=== PATIENT | male | born 1975 | race Caucasian/White ===

== ENCOUNTER → 2020-07-29 11:41 | Outpatient (BNVA) | payer MEDICARE, SELFPAY | PROVIDERS: PCP Internal Medicine; Visit Provider Anesthesiology | DX: G89.4 Chronic pain syndrome (principal); M96.1 Postlaminectomy syndrome, not elsewhere classified; Z96.82 Presence of neurostimulator | CPT/HCPCS: 99212 ==

== ENCOUNTER → 2020-11-10 11:09 | Outpatient (BNVA) | payer MEDICARE, SELFPAY | PROVIDERS: PCP Internal Medicine; Visit Provider Anesthesiology | DX: M96.1 Postlaminectomy syndrome, not elsewhere classified (principal); G89.4 Chronic pain syndrome | CPT/HCPCS: 99212 ==

== ENCOUNTER → 2020-12-01 15:12 | Outpatient (BNVA) | payer MEDICARE, SELFPAY | PROVIDERS: Visit Provider Anesthesiology | DX: M96.1 Postlaminectomy syndrome, not elsewhere classified (principal); G89.4 Chronic pain syndrome | CPT/HCPCS: 99212 ==

== ENCOUNTER 2021-05-06 07:03 | Day surgery (SDC) | payer MEDICARE, SELFPAY ==
[2021-04-28 16:34] VITALS: BMI 23.6
--- NOTE | 2021-05-05 09:04 | P.CONAN_ITS ---
Documented by User: Valarie Jones NP 05/05/21 09:05 HPI - Anesthesia Eval Consult details Narrative: 45yo M for Lumbar Spinal Cord Stimulator Revision, Removal & Replacement PMFSH Active Problems Active Problems: All Active Problems (Updated 04/28/21 @ 16:33 by Rachel Adan, KALA) Chronic pain syndrome (Acute) Postlaminectomy syndrome (Acute) Past Medical History Medical History Anxiety and depression Asthma Chronic pain syndrome GERD (gastroesophageal reflux disease) Postlaminectomy syndrome PTSD (post-traumatic stress disorder) Surgical History Surgical History History of discectomy S/P insertion of spinal cord stimulator Social History Social History (Updated 04/28/21 @ 16:17 by Rachel Adan RN) Patient Tobacco Use Status: Current someday Tobacco user Use of substances other than those prescribed or required for medical reasons: No Are you DNR?: No Advance Directives: No Advance Directives Information Provided: No Advance Directives on File: No Meds Allergies Allergy/AdvReac Type Severity Reaction Status Date / Time No Known Allergies Allergy Verified 05/06/21 07:50 [No Known Allergies*] Home Medications Medication Instructions Recorded Confirmed Last Taken Type albuterol sulfate 1 vial INHALATION Q4H PRN 04/28/21 04/28/21 Unknown History bupropion HCl 300 mg 24 hr tablet, 1 tab PO QAM 04/28/21 04/28/21 Unknown History extended release clonazepam 1 mg tablet 1 tab PO TID 04/28/21 04/28/21 Unknown History mirtazapine 30 mg tablet 1 tab PO BEDTIME 04/28/21 04/28/21 Unknown History olanzapine 10 mg tablet 1 tab PO BEDTIME 04/28/21 04/28/21 Unknown History olanzapine 5 mg tablet 1 tab PO DAILY PRN 04/28/21 04/28/21 Unknown History sertraline 100 mg tablet 2 tab PO DAILY 04/28/21 04/28/21 Unknown History sucralfate 100 mg/mL oral 10 ml PO QID 04/28/21 04/28/21 Unknown History suspension tramadol 50 mg tablet 1 tab PO TID 04/28/21 04/28/21 Unknown History zolpidem 10 mg tablet 1 tab PO BEDTIME 04/28/21 04/28/21 Unknown History Exam Exam Date and Time: May 05, 2021 09 Height,Weight and Vital Signs: Height 5 ft 9 in Weight 72.575 kg Assessment and Plan Assessment Anesthesia Assessment: Chart Reviewed Documented by User: Andrade Muñoz MD 05/06/21 08:08 [facility] Past Medical History Medical History Anxiety and depression Asthma Chronic pain syndrome GERD (gastroesophageal reflux disease) Postlaminectomy syndrome PTSD (post-traumatic stress disorder) Surgical History Surgical History History of discectomy S/P insertion of spinal cord stimulator Social History Social History (Updated 04/28/21 @ 16:17 by Rachel Adan RN) Patient Tobacco Use Status: Current someday Tobacco user Use of substances other than those prescribed or required for medical reasons: No Are you DNR?: No Advance Directives: No Advance Directives Information Provided: No Advance Directives on File: No Meds Allergies Allergy/AdvReac Type Severity Reaction Status Date / Time No Known Allergies Allergy Verified 05/06/21 07:50 [No Known Allergies*] Home Medications Medication Instructions Recorded Confirmed Last Taken Type albuterol sulfate 1 vial INHALATION Q4H PRN 04/28/21 04/28/21 Unknown History bupropion HCl 300 mg 24 hr tablet, 1 tab PO QAM 04/28/21 04/28/21 Unknown History extended release clonazepam 1 mg tablet 1 tab PO TID 04/28/21 04/28/21 Unknown History mirtazapine 30 mg tablet 1 tab PO BEDTIME 04/28/21 04/28/21 Unknown History olanzapine 10 mg tablet 1 tab PO BEDTIME 04/28/21 04/28/21 Unknown History olanzapine 5 mg tablet 1 tab PO DAILY PRN 04/28/21 04/28/21 Unknown History sertraline 100 mg tablet 2 tab PO DAILY 04/28/21 04/28/21 Unknown History sucralfate 100 mg/mL oral 10 ml PO QID 04/28/21 04/28/21 Unknown History suspension tramadol 50 mg tablet 1 tab PO TID 04/28/21 04/28/21 Unknown History zolpidem 10 mg tablet 1 tab PO BEDTIME 04/28/21 04/28/21 Unknown History Exam Airway Mallampati Class: I TM Dist: >3cm Neck ROM: Full
[2021-05-06] VITALS (10 sets, daily range): BP systolic 119–165; BP diastolic 69–98; PULSE 59–90; RESP 16–20; TEMP 36.3–37.2; O2SAT 96–98
--- NOTE | ~2021-05-06 | FL_ITS ---
EXAMINATION: XR FLUOROSCOPY WITH IMAGES CLINICAL INFORMATION: Lumbar spinal cord stimulator revision COMPARISON: None. TECHNIQUE: Fluoroscopy performed by Dr. Yuri. Laughlin. Fluoroscopy time: 9.5 minutes DAP: 69.3 mGycm2 Images: 2 FINDINGS: There are 2 posterior epidural stimulator seen extending from T7 through T10 vertebra. Visualized vertebral heights, alignment and disc heights are normal. No visible acute fracture or lytic process seen. The paravertebral soft tissues are normal. FL/FL guidance in OR IMPRESSION: Fluoroscopy was provided to Dr. Coleman Laughlin during pain management.
[2021-05-06] MEDS: Lactated Ringers 1,000 ML 100 ML IVCONT (08:08)
--- NOTE | 2021-05-06 08:32 | MHC.SHP ---
Pre-Procedural Eval Section A Date of Service: 05/06/21 The patient is an INPATIENT: No Changes since office visit: Yes Patient answered all questions The History & Physical has been completed within 30 days and I have reviewed it.: No Section B Chief Complaint: postlaminectomy syndrome Details of Present Illness: postlaminectomy syndrome cervical and lumbar spine, presence of the spinal cord stimilator Relevant Family History (Specify if Yes): No Relevant Social History: None Present Medications: see Short Stay Collaborative assessment Medical History: No relevant PMH History of Previous Operations: Relevant previous surgery/procedure and date(s) Allergies: Allergies Allergy/AdvReac Type Severity Reaction Status Date / Time No Known Allergies Allergy Verified 05/06/21 07:50 [No Known Allergies*] Review of Systems Sugical H&P ROS: Negative: Constitution, Cardiovascular, Respiratory, Neurological, Psychiatric, Hem-Onc, Allergic/Immunologic, Gastrointestinal, Genitourinary, Musculoskeletal, Integumentary, Endocrine and Eyes/Ears/Nose/Throat Exam Surgical H&P Exam: Normal: HEENT, Normal: Heart, Normal: Lungs, Normal: Extremities, Normal: Abdomen, Normal: Skin and Normal: Neurological Plan Diagnosis/Plan: Unchanged I have reviewed the history and physical and performed a pertinent physical examination on my patient. No changes have occurred unless specified.
--- NOTE | 2021-05-06 14:20 | PM.OP ---
Brief Operative Note Date of Service: 05/06/21 Pre-op diagnosis: Postlaminectomy syndrome lumbar and cervical spine Post-op diagnosis: same Procedure: Revision of spinal cord stimulation system. Removal of old combine [employer] and [place] device and replacement with stim wave battery free system. Implants: Stimwave freedom 8 contact leads, numerum 2 Surgeon: Coleman Laughlin MD Anesthesia: MAC Was an Lens Inspector used for this Procedure?: No Estimated blood loss (mL): 100 IV fluids (mL): 1,000 Pathology: none sent Condition: stable Disposition: PACU
--- NOTE | 2021-05-06 14:23 | W.PM.OPN ---
Operative Note Operative Note Date of Service: 05/06/21 Narrative: Hebert Smith is very pleasant 45 years old gentleman who is suffering from cervical as well as lumbar postlaminectomy syndrome. For the treatment of this condition he was in the past implanted with cervical and lumbar spinal cord stimulator [employer]tron[employer] system. He had 2 batteries in the past. He complained on the battery causing severe discomfort for him. I offered him in the past to remove 2 batteries [employer]tronics and replace it with as 1 [employer] Waverider battery. This procedure was done about 1 year ago. Postprocedurally he felt good pain relief from the device however he continued to complain on the battery site pain, irritation and redness at the side of the battery. He came to my office few months ago requesting to remove all 4 leads of spinal cord stimulator as well as waverider battery. At that moment I recommended him to consider Stimwave - battery- free device. He agreed to proceed with the surgery. After obtaining informed consent the patient was brought to the operating room and he was positioned prone on operating table, [employer] monitors were applied. Patient was moderately to deeply sedated. Time-out was performed delineating correct site and side of the procedure, date of and name of the patient, risk of fire, risk of DVT prophylaxis DVT prophylaxis need. We also discussed antibiotics needs which he received 2 g of cefazolin 30 minutes before the procedure. His lower back was prepped with ChloraPrep twice and draped with full body drape. Ioban film was used to cover the skin. Sterilely draped C-arm was brought over the operating field and pictures of the existing epidural leads the patient's back were obtained on the screen. Attention was 1st concentrated on the left upper buttock where the patient had his waverider [employer] battery implanted. The scar in this area was keloid in nature. Local anesthetic mixture of bupivacain 0.5% and lidocain 2% was used to inject into skin and subcutaneous tissues surrounding previous scar in the left upper buttock. To incisions bordering the existing scar and parallel to it above and below the scar using 10 blade scalpel was made, the incisions were connecting outside of the scar tissue at the medial and lateral corners of the scar line. Tissue dissection was performed using electrocautery device and scalpel down to the battery, thorough hemostasis was obtained. After that the battery was located at the bottom of the wound anchoring sutures were severed and the battery was delivered to the level of the skin. The 4 connecting electrodes were severed with suture scissors. Tissues were dissected to free the epidural leads and [employer] extension devices from the surrounding tissues. The battery pocket was excised using sharp and electrocautery dissection. The wound was irrigated with vancomycin containing normal saline and packed with vancomycin containing raytecs. After that attention was concentrated on the right buttock where the epidural leads from his lumbar site were located. The previous scar was infiltrated with lidocaine and incision was made alongside the scar. Electrocautery and sharp dissection was used to free the existing epidural leads from surrounding tissues. Attempt was made to withdraw epidural leads from this wound all the way down to the area of the buttock wound. Unfortunately this was impossible to perform, the anchoring devices were holding the epidural leads very tight. After that irrigation was performed on both upper left and upper right buttock wounds and the wounds were packed with Raytechs soaked in vancomycin containing normal saline. After that attention was concentrated on the lumbar L3-L4 area where the patient had his anchoring devices implanted. Local lidocaine2% and bupivacaine 0.5% injection was performed in the projection of the previously made scar from implantation of the spinal cord stimulators. Using 10 blade scalpel the incision 6.5 cm long was performed in the projection of the previous scar. The incision was widened using electrocautery and scalpel dissection. Weitlaner retractor was used to widen the incision. Dull dissection was used to locate the anchoring devices which were holding epidural leads to the wound. Anchoring devices were dissected from surrounding tissues and anchoring sutures were severed. The epidural leads were pulled out of the epidural space and after that they were pulled from the buttock wounds and discarded. All three wounds were irrigated again using vancomycin containing normal saline. Upper left and upper right buttock wounds were packed with Ray tecs soaked with vancomycin containing normal saline and they were covered with sterile Tegaderm films. Attention was concentrated on midline incision. 16 gauge 12 cm Coude introducer epidural needle was inserted in the upper portion of the wound in projection of the L3 pedicle on the right and it was advanced to T12-L1 epidural interspace on anterior posterior and lateral views. Loss of resistance technique was used to locate epidural space. Guitar wire was used to locate the epidural space. When the epidural space was found the epidural lead stim wave freedom 8 electrode was inserted through the needle and advanced to the T8 projection of the vertebral body. On the lateral view the epidural lead was positioned in the posterior epidural space. The advancement happened to be very difficult and lots of adhesions were encountered while advancing epidural space however eventually epidural leads enter the previous tunnel of the removed epidural lead and was advanced alongside midline without difficulty. After that 16 gauge 12 cm coude needle was used to locate epidural space on the left side T12-L1. When epidural space was located with the same technique described above the advancement of the epidural lead was very difficult to perform. Epidural adhesions did not allow me to advance the epidural lead to the posterior epidural space and the he needle position was constrained by the geometry of the wound and I did not succeed in advancement of the epidural lead into posterior epidural space, it kept sliding into the epidural gutter. After that 16 cm 16 gauge coude needle was attempted to use to reach T11-T12 epidural space. Epidural space was reached at that point without difficulty. However again due to geometry of the lumbar wound I was not able to keep the needle close to posterior midline epidural interspace and the lead from that position also was going into the epidural gutter. Then decision was made to advance epidural lead making small incision along side the wound to improve the advancement of the lead needle to the most posterior portion of the epidural space at T12-L1 area. The advancement went uneventful according the technique described above. From that point on I was able to advance the epidural lead to projection of the lower portion of T9 vertebra in the posterior epidural space. I was not able to advance it any further due to severe adhesions which were preventing my epidural lead from advancement and bending the epidural needle with attempts of advancement. Unfortunately stim wave epidural leads are bigger in diameter than blue sheath introducer [employer] and I could not use this device to prevent bending of the epidural leads. The decision was made to keep the lead in the position of the T9 vertebra. After that the epidural lead was tunneled to the midline incision using epidural needle and guitar wire. After that both epidural leads were sutured with Tycron 0 sutures to the underlying tissues and prevertebral fascia. The wound was irrigated with vancomycin containing normal saline and packed with vancomycin solution soaked 4 x 4. After that small horizontal incision was performed in the projection of the left sacral alae of the patient and this wound was widened a and deepened using electrocautery and sharp dissection. The tunneling device was used to connect midline incision and the small incision in the projection of left sacral alae and then epidural leads were passed over into this small incision through the tunneling device. The wire coil was formed at the end of the epidural leads and and secured with 3 free silk sutures. The coil was inserted into the wound and wound was irrigated with normal saline containing vancomycin. After that all the wounds were again irrigated with vancomycin containing normal saline and then they were closed using 0 Polysorb sutures, 2-0 Polysorb sutures were used to approximate the levels of the skin. After that the frankie were applied to all 4 wounds. The small side wound alongside the midline incision on the left in the lumbar area was closed with 1 0-0 silk suture. Bacitracin ointment was applied to all wound incisions. The wounds were covered with 4 x 4 and Medipore tape. The stimulating paddle was applied to the patient's dressing. At this point the patient was transferred to the bed awaken and transferred safely to PACU.
--- NOTE | 2021-05-06 15:02 | PM.IMHP ---
History of Present Illness Date of Service: 05/06/21 Chief Complaint: back pain 45M presented for elective stimulator revision. unable to manage at home postoperatively, will stay overnight. has back pain postoperatively, otherwise no active complaints Review of Systems Review of Systems: Yes all other systems are reviewed and are negative [facility] Medical History Anxiety and depression Asthma Chronic pain syndrome GERD (gastroesophageal reflux disease) Postlaminectomy syndrome PTSD (post-traumatic stress disorder) Surgical History History of discectomy S/P insertion of spinal cord stimulator Social History Patient Tobacco Use Status: Current someday Tobacco user Use of substances other than those prescribed or required for medical reasons: No Are you DNR?: No Advance Directives: No Advance Directives Information Provided: No Advance Directives on File: No Meds Allergies Allergy/AdvReac Type Severity Reaction Status Date / Time No Known Allergies Allergy Verified 05/06/21 07:50 [No Known Allergies*] Active Medications: Current Medications Generic Name Dose Route Start Last Admin Trade Name Freq PRN Reason Stop Dose Admin Albuterol Sulfate 2.5 mg 05/06/21 07:46 Albuterol Sulfate (0.083%) 2.5 Mg/3 Ml Vial.Neb INHALE ONCE PRN Shortness of Breath/Wheezing Albuterol Sulfate 2.5 mg 05/06/21 14:51 Albuterol Sulfate (0.083%) 2.5 Mg/3 Ml Vial.Neb INHALE Q4H PRN wheezing Bupropion HCl 300 mg 05/07/21 09:00 Bupropion Hcl Xl 300 Mg Tab.Er.24h PO DAILY WANG Clonazepam 1 mg 05/06/21 15:00 Clonazepam 1 Mg Tablet PO TID WANG Fentanyl 50 mcg 05/06/21 08:08 Fentanyl Citrate/Pf 100 Mcg/2 Ml Vial IVPUSH Q5M PRN Pain, Severe (Pain Scale 7-10) Protocol Lactated Ringer's 1,000 mls @ 100 mls/hr 05/06/21 08:00 05/06/21 08:08 Lr IVCONT 100 mls/hr .Q10H WANG Administration Cefazolin Sodium 2 gm/ Sodium 50 mls @ 100 mls/hr 05/06/21 21:00 Chloride IV Q8H WANG Mirtazapine 30 mg 05/06/21 21:00 Mirtazapine 30 Mg Tablet PO BEDTIME WANG Olanzapine 5 mg 05/06/21 14:51 Olanzapine 5 Mg Tablet PO DAILY PRN Anxiety Olanzapine 10 mg 05/06/21 21:00 Olanzapine 10 Mg Tablet PO BEDTIME WANG Ondansetron HCl 4 mg 05/06/21 08:08 Ondansetron Hcl 4 Mg/2 Ml Vial IVPUSH ONCE PRN Nausea and Vomiting Oxycodone HCl 10 mg 05/06/21 08:08 Oxycodone Hcl Immed Release 5 Mg Tablet PO ONCE PRN Pain, Severe (Pain Scale 7-10) Sertraline HCl 200 mg 05/07/21 09:00 Sertraline Hcl 100 Mg Tablet PO DAILY WANG Sucralfate 1 gm 05/06/21 16:30 Sucralfate Oral Suspension 1 Gm/10 Ml Oral.Susp PO QIDACHS WANG Tramadol HCl 50 mg 05/06/21 15:00 Tramadol Hcl 50 Mg Tablet PO TID [facility] Zolpidem Tartrate 5 mg 05/06/21 21:00 Zolpidem Tartrate 5 Mg Tablet PO BEDTIME [facility] Home Medications Medication Instructions Recorded Confirmed Last Taken Type albuterol sulfate 1 vial INHALATION Q4H PRN 04/28/21 04/28/21 Unknown History bupropion HCl 300 mg 24 hr tablet, 1 tab PO QAM 04/28/21 04/28/21 Unknown History extended release clonazepam 1 mg tablet 1 tab PO TID 04/28/21 04/28/21 Unknown History mirtazapine 30 mg tablet 1 tab PO BEDTIME 04/28/21 04/28/21 Unknown History olanzapine 10 mg tablet 1 tab PO BEDTIME 04/28/21 04/28/21 Unknown History olanzapine 5 mg tablet 1 tab PO DAILY PRN 04/28/21 04/28/21 Unknown History sertraline 100 mg tablet 2 tab PO DAILY 04/28/21 04/28/21 Unknown History sucralfate 100 mg/mL oral 10 ml PO QID 04/28/21 04/28/21 Unknown History suspension tramadol 50 mg tablet 1 tab PO TID 04/28/21 04/28/21 Unknown History zolpidem 10 mg tablet 1 tab PO BEDTIME 04/28/21 04/28/21 Unknown History Physical Exam Vital Signs and Narrative: Vital Signs: Last Vital Signs Temp 98.9 F 05/06/21 14:15 Pulse 65 05/06/21 14:30 Resp 16 05/06/21 14:30 BP 130/76 05/06/21 14:30 Pulse Ox 96 05/06/21 14:30 Body Mass Index 23.6 General: AO X 3, no acute distress Resp: CTA bilateral CVS: S1,S2,RRR GI: soft, non tender, non distended Neuro: motor grossly intact Psych: appropriate affect Assessment and Plan (1) Chronic pain syndrome: Status: Acute 45M presented for elective stimulator revision post stimulator revision ancef, keflex on dc pain control ptsd/anxiety continue home meds Quality Stroke Does the patient have a stroke diagnosis?: No VTE Prior VTE?: No VTE Risk Level:: Medical - moderate - high VTE Device Contraindication: N/A - Device Ordered VTE Drug Contraindication: Treatment Not Indicated
[2021-05-06] MEDS: oxyCODONE HCl Immed Release 5 MG TABLET 10 MG PO (15:43)
[2021-05-06] MEDS: fentaNYL citrate/PF 100 MCG/2 ML VIAL 50 MCG IVPUSH (15:47)
--- NOTE | 2021-05-06 16:01 | MHC.CM.PN ---
Addendum entered by Hortensia Phelan 05/06/21 16:22: Received call from Diana at [facility]: pt is authorized for skilled RN visits through [facility] Original Note: Pt is PACU after a revision spinal stimulator revision. Pt initially was going to stay ESS d/t lack of home supports, however, he was up ambulating, tolerating po and was planning on his significant other to pick him up and assist with home care. Referral made to [facility] for skilled services - pt has been accepted pending verification of MD with services to begin Sunday/Sunday. Call placed to Diana at [facility] to authorization request for skilled RN home visits. ([phone]) Discussed above with Surgical Director and HAIR ASSISTANT - d/c plan in place
--- NOTE | 2021-05-07 08:14 | MHC.CM.PN ---
Addendum entered by Pauly Castano 05/07/21 09:07: CHANGE OF PLAN FOR DISCHARGE. PATIENT WAS DISCHARGED FROM PACU. 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 PER REVIEW OF NOTES, PACU DID NOT FEEL PATIENT REQUIRED VNA SERVICES. [facility] AWARE. Original Note: PATIENT IS DC TO HOME WITH NEW [facility] FOR RN SKILLS.
--- NOTE | 2021-05-07 09:12 | MHC.CM.PN ---
CALL TO PACU ([facility] CONNECTED) WITH NO ANSWER [facility] ATTEMPTED AN ALTERNATE NUMBER, WITH NO ANSWER [facility] AWARE THAT PATIENT HAS BEEN DISCHARGED WITHOUT A FACE TO FACE FOR VNA SERVICES. PATIENT WAS ASSIGNED TO HOSPITALIST; HOWEVER PATIENT WAS DC FROM PACU AND NO FACE TO FACE ENCOUNTER WAS ABLE TO OCCUR.
--- NOTE | 2021-05-07 19:22 | HO.POSTANES ---
Post Anesthesia Evaluation Post Anesthesia Evaluation Anesthesia: Monitored Mental Status: Awake Pain Control: Satisfactory Nausea/Vomiting: None Hydration: Adequate Anesthesia-Related Issues: No Anes. Related Issues
== END 2021-05-06 17:00 | disposition home or self-care (01) ==
LOC: HO.SSS 14:17 → HO.S3 16:41
PROVIDERS: Anesthesiology; PCP Internal Medicine; Visit Provider Internal Medicine
PROC: (CPT 64555; principal; 2021-05-06 09:00)
DX: M96.1 Postlaminectomy syndrome, not elsewhere classified (principal); G89.4 Chronic pain syndrome; M54.5 Low back pain; F43.10 Post-traumatic stress disorder, unspecified; F32.9 Major depressive disorder, single episode, unspecified; J45.909 Unspecified asthma, uncomplicated; Y83.8 Other surgical procedures as the cause of abnormal reaction of the patient, or of later complication, without mention of misadventure at the time of the procedure; Y82.8 Other medical devices associated with adverse incidents; Y92.9 Unspecified place or not applicable; Z79.899 Other long term (current) drug therapy; F17.200 Nicotine dependence, unspecified, uncomplicated
CPT/HCPCS: 64555 ×2; 63661; 63688; C1816; C1897; J0690; J2250; J3010; J3370

== ENCOUNTER → 2021-05-12 10:36 | Outpatient (BNVA) | payer MEDICARE, SELFPAY | PROVIDERS: PCP Internal Medicine; Visit Provider Anesthesiology | DX: M96.1 Postlaminectomy syndrome, not elsewhere classified (principal); G89.4 Chronic pain syndrome; Z79.899 Other long term (current) drug therapy | CPT/HCPCS: 99212 ==

== ENCOUNTER → 2021-05-19 10:17 | Outpatient (BNVA) | payer MEDICARE, SELFPAY | PROVIDERS: PCP Internal Medicine; Visit Provider Anesthesiology | DX: M96.1 Postlaminectomy syndrome, not elsewhere classified (principal); G89.4 Chronic pain syndrome | CPT/HCPCS: 99212 ==

== ENCOUNTER 2021-07-07 10:39 | Day surgery (SDC) | payer MEDICARE, SELFPAY ==
[2021-07-01 13:31] VITALS: BMI 25.1
--- NOTE | 2021-07-06 11:51 | HO.ANESPROP2 ---
Documented by User: Valarie Jones NP 07/06/21 11:51 HPI - Anesthesia Eval Consult details Narrative: 46yo M for Cervical Spinal Cord Stimulation Implant s/p spinal stim revision 04/2021 with MAC PMFSH Active Problems Active Problems: All Active Problems (Updated 04/28/21 @ 16:33 by Rachel Adan, KALA) Chronic pain syndrome (Acute) Postlaminectomy syndrome (Acute) Past Medical History Medical History Anxiety and depression Asthma Chronic pain syndrome GERD (gastroesophageal reflux disease) Postlaminectomy syndrome PTSD (post-traumatic stress disorder) Surgical History Surgical History (Updated 07/01/21 @ 13:24 by Kerline Carrillo RN) History of discectomy S/P insertion of spinal cord stimulator Social History Social History Are you a primary childcare center director to a significant other at home: No Do you presently have visiting nurse or other home services: Yes ([employer]) Patient Tobacco Use Status: Current someday Tobacco user Tobacco use type: Cigarette Cigarettes Per Day: 2 Years Smoked: 28 Use of substances other than those prescribed or required for medical reasons: No Have you been hit, kicked, punched, or otherwise hurt by someone within the past year? If so, by whom?: No Are you DNR?: No Advance Directives: No Advance Directives Information Provided: Yes (informational brochure mailed) Advance Directives on File: No Recently lost weight without trying: No Eating poorly because of decreased appetite: No Nutrition Risks: No Nutritional Risk Poor oral hygiene: No Meds Allergies Allergy/AdvReac Type Severity Reaction Status Date / Time No Known Allergies Allergy Verified 05/19/21 10:34 [No Known Allergies*] Home Medications Medication Instructions Recorded Confirmed Last Taken Type albuterol sulfate 1 vial INHALATION Q4H PRN 04/28/21 07/01/21 Unknown History bupropion HCl 300 mg 24 hr tablet, 1 tab PO QAM 04/28/21 07/01/21 Unknown History extended release clonazepam 1 mg tablet 1 tab PO TID 04/28/21 07/01/21 Unknown History mirtazapine 30 mg tablet 1 tab PO BEDTIME 04/28/21 07/01/21 Unknown History olanzapine 10 mg tablet 1 tab PO BEDTIME 04/28/21 07/01/21 Unknown History olanzapine 5 mg tablet 1 tab PO DAILY PRN 04/28/21 07/01/21 Unknown History sertraline 100 mg tablet 2 tab PO DAILY 04/28/21 07/01/21 Unknown History sucralfate 100 mg/mL oral 10 ml PO QID 04/28/21 07/01/21 Unknown History suspension zolpidem 10 mg tablet 1 tab PO BEDTIME 04/28/21 07/01/21 Unknown History Exam Exam Date and Time: July 06, 2021 115 Height,Weight and Vital Signs: Height 5 ft 9 in Weight 77.111 kg Assessment and Plan Assessment Anesthesia Assessment: Chart Reviewed Documented by User: Evaristo May MD 07/07/21 12:23 [facility] Past Medical History Medical History Anxiety and depression Asthma Chronic pain syndrome GERD (gastroesophageal reflux disease) Postlaminectomy syndrome PTSD (post-traumatic stress disorder) Family History Family history of problems with anesthesia: No Surgical History Surgical History (Updated 07/01/21 @ 13:24 by Kerline Carrillo RN) History of discectomy S/P insertion of spinal cord stimulator History of Problems with Anesthesia: No Social History Social History Are you a primary childcare center director to a significant other at home: No Do you presently have visiting nurse or other home services: Yes ([employer]) Patient Tobacco Use Status: Current someday Tobacco user Tobacco use type: Cigarette Cigarettes Per Day: 2 Years Smoked: 28 Use of substances other than those prescribed or required for medical reasons: No Have you been hit, kicked, punched, or otherwise hurt by someone within the past year? If so, by whom?: No Are you DNR?: No Advance Directives: No Advance Directives Information Provided: Yes (informational brochure mailed) Advance Directives on File: No Recently lost weight without trying: No Eating poorly because of decreased appetite: No Nutrition Risks: No Nutritional Risk Poor oral hygiene: No Meds Allergies Allergy/AdvReac Type Severity Reaction Status Date / Time No Known Allergies Allergy Verified 05/19/21 10:34 [No Known Allergies*] Home Medications Medication Instructions Recorded Confirmed Last Taken Type albuterol sulfate 1 vial INHALATION Q4H PRN 04/28/21 07/01/21 Unknown History bupropion HCl 300 mg 24 hr tablet, 1 tab PO QAM 04/28/21 07/01/21 Unknown History extended release clonazepam 1 mg tablet 1 tab PO TID 04/28/21 07/01/21 Unknown History mirtazapine 30 mg tablet 1 tab PO BEDTIME 04/28/21 07/01/21 Unknown History olanzapine 10 mg tablet 1 tab PO BEDTIME 04/28/21 07/01/21 Unknown History olanzapine 5 mg tablet 1 tab PO DAILY PRN 04/28/21 07/01/21 Unknown History sertraline 100 mg tablet 2 tab PO DAILY 04/28/21 07/01/21 Unknown History sucralfate 100 mg/mL oral 10 ml PO QID 04/28/21 07/01/21 Unknown History suspension zolpidem 10 mg tablet 1 tab PO BEDTIME 04/28/21 07/01/21 Unknown History Exam Airway Mallampati Class: III TM Dist: >3cm Neck ROM: Full Loose/Missing/Broken Teeth: Yes Heart: [id number] Lungs: cta b/l Assessment and Plan Assessment Anesthesia Assessment: Anesthesia Plan Discussed Final Anesthetic Review Family History of Problems with Anesthesia: No History of Problems with Anesthesia: No NPO: Yes ASA Class: II Final Preanesthetic Review: No Changes in Pt Med Stat, Meds/Allgs Chart Reviewed, Consent Obtained/Reviewed and Anes Risks/Benef Reviewed Patient Risk: Intermediate Procedure Risk: Intermediate Assessment/Block/Sedation in SS: Assess/Block/Sedation-SS Anesthetic Plan Anesthetic Plan: MAC: and Agree w/ Assess. and Plan Disposition: Standard PACU
--- NOTE | ~2021-07-07 | FL_ITS ---
EXAMINATION: XR FLUOROSCOPY WITH IMAGES CLINICAL INFORMATION: Cervical spine cord stimulator. COMPARISON: None. TECHNIQUE: Fluoroscopy performed by Dr. Coleman Laughlin Fluoroscopy time: 7.7 minutes DAP: 20.2 mGy-cm2 Images: 5 FINDINGS: There is a posterior epidural space solitary electrode posterior to C4 through T1 vertebrae. Visualized vertebral heights, alignment and disc heights are normal. FL/FL guidance in OR IMPRESSION: Fluoroscopy was provided to Dr. Laughlin for cervical spinal cord stimulator implant.
[2021-07-07 11:04] VITALS: BP 149/99; PULSE 74; RESP 16; TEMP 36.5; O2SAT 96
[2021-07-07] MEDS: Lactated Ringers 1,000 ML 100 ML IVCONT (11:06)
--- NOTE | 2021-07-07 12:41 | MHC.SHP ---
Pre-Procedural Eval Section A Date of Service: 07/07/21 Section B Chief Complaint: chronic pain syndrome Details of Present Illness: cervicalgia, spondylosis cervical spine, chronic pain syndrome. Relevant Social History: None Present Medications: see Short Stay Collaborative assessment Medical History: No relevant PMH History of Previous Operations: No relevant previous surgery Allergies: Allergies Allergy/AdvReac Type Severity Reaction Status Date / Time No Known Allergies Allergy Verified 05/19/21 10:34 [No Known Allergies*] Review of Systems Sugical H&P ROS: Negative: Constitution, Cardiovascular, Respiratory, Neurological, Psychiatric, Hem-Onc, Allergic/Immunologic, Gastrointestinal, Genitourinary, Musculoskeletal, Integumentary, Endocrine and Eyes/Ears/Nose/Throat Exam Surgical H&P Exam: Normal: HEENT, Normal: Heart, Normal: Lungs, Normal: Extremities, Normal: Abdomen, Normal: Skin and Normal: Neurological Plan Diagnosis/Plan: Unchanged I have reviewed the history and physical and performed a pertinent physical examination on my patient. No changes have occurred unless specified.
[2021-07-07 15:51] VITALS: BP 132/94; PULSE 73; RESP 15; TEMP 37.6; O2SAT 95
[2021-07-07 16:06] VITALS: BP 144/94; PULSE 66; RESP 15; O2SAT 95
[2021-07-07 16:20] VITALS: BP 145/98; PULSE 76; RESP 16; O2SAT 96
--- NOTE | 2021-07-07 16:24 | P.BOP_ITS ---
Brief Operative Note Date of Service: 07/07/21 Pre-op diagnosis: cervicalgia, spondylosis lumbar spine, chronic pain syndrome, postlaminectomy syndrome. Post-op diagnosis: same Procedure: implantation of the batteryless stimwave spinal cord stimulator system. Implants: stimwave stimulating electrode. Surgeon: Coleman Laughlin MD Anesthesia: MAC Was an Office Receptionist used for this Procedure?: No Estimated blood loss (mL): 8 Pathology: none sent Condition: stable Disposition: PACU
--- NOTE | 2021-07-07 16:32 | W.PM.OPN ---
Operative Note Operative Note Date of Service: 07/07/21 Narrative: ?Hebert Smith is very pleasant 45 years old gentleman who is suffering from cervical as well as lumbar postlaminectomy syndrome.? For the treatment of this condition he was in the past implanted with cervical and lumbar spinal cord stimulator [employer] system.? He had 2 batteries in the past.? He complained on the battery causing severe discomfort for him.? I? offered him in the past to remove 2 batteries [employer]tronics and replace it with as 1 [employer] Waverider battery.? This procedure was done about 1 year ago.? Postprocedurally he felt good pain relief from the device however he continued to complain on the battery site pain, irritation and redness at the side of the battery.? He came to my office few months ago requesting to remove all 4 leads of spinal cord stimulator as well as waverider battery.? At that moment I recommended him to consider Stimwave? - battery- free device.? He agreed to proceed with the surgery. Two months ago he already received implant of the stim wave technology battery less spinal cord stimulator in the thoracic spine which significantly improved his pain. He is on high-frequency stimulation. Today he came to complete the procedure and perform cervical spinal cord stimulation insertion of the same stim wave technology After obtaining informed consent the patient was brought to the operating room and he was positioned prone on operating table, [employer] monitors were applied.? Patient was moderately sedated. Time-out was performed delineating ? correct site and side of the procedure, date of and name of the patient, risk of fire, risk of DVT prophylaxis DVT prophylaxis need.? We also discussed antibiotics needs which he received 2 g of cefazolin 30 minutes before the procedure. His upper and central back was prepped with ChloraPrep twice and draped with full body drape.? Ioban film was used to cover the skin.? Sterilely draped C-arm was brought over the operating field and pictures of the existing epidural leads the patient's back in the thoracic spine were obtained on the screen.? Of the site of the insertion of the epidural lead was chosen as T4-T5 epidural interspace. The right pedicle of the T6 vertebra was chosen as the site of the insertion. After injection of the local anesthetic in the projection of the pedicle small bladimir was made on the skin using 11 blade scalpel ? 16 gauge 10 cm straight introducer epidural needle was inserted in the projection in projection of the T6 pedicle on the right and it was advanced to T5-T4 epidural interspace on anterior posterior and lateral views.? Loss of resistance technique was used to locate epidural space.? Guitar wire was used to locate the epidural space.? When the epidural space was found the epidural lead stimwave freedom 8 electrode was inserted through the needle and advanced to the C4-C5 interval projection of the vertebral body in the posterior epidural space. On the lateral view the epidural lead was positioned in the posterior epidural space.? The advancement happened to be very difficult and lots of adhesions were encountered while advancing epidural space the epidural lead was bouncing against significant adhesions which were encountered inter projection of previous surgery at C5-C6 vertebra as. Although the surgery was ACDF the adhesions were quite dense and I was not able to advance lead further because lead got sprang against the adhesions and was bending over in thoracic spine causing significant discomfort for the patient. At 1 moment actually patient was not able to tolerate pain in started to get up from the operating table. It was concerted efforts of the operating team the anesthesia team which would require to keep patient come on operating table. Due to the nature of the procedure tip anesthesia would be contraindicated in this case. After that we decided to test electrode which was inserted with such difficulty. I could not imagine to attempt to insert another electrode for the patient. We woke the patient up and he reported stimulation mostly on the left however he also reported stimulation on the right side. After that attention was concentrated on the lower back of the patient where 2 incisions 2 cm each were made to accommodate the antenna of the stimulating wire. One of the incisions was made below the insertion site of the epidural needle. The driving stylet was replaced with stimulating copper wire stylets a and position of the stylets was verified on the x-ray. Both wounds were thoroughly irrigated with normal saline containing vancomycin and then tunneling device was used to dislodge the epidural lead into the lower midline wound. The lead was tied up on its own, anchoring suture 1-0 Tycron was applied to prevertebral fascia and tied on the epidural lead. After that the wounds were irrigated with normal saline containing vancomycin.? After that? both wounds were closed using2- 0 Polysorb sutures, 2-0 Polysorb sutures were used to approximate the levels of the skin.? After that 1 0-0 silk sutures were used with interact that mattress sutures to close the both wounds. Bacitracin ointment was applied to all wound incisions.? The wounds were covered with 4 x 4 and Medipore tape.? The stimulating paddle was applied to the patient's dressing. At this point the patient was transferred safely to PACU.
--- NOTE | 2021-07-07 16:44 | PC.NURSE ---
review discharge information. assisted to dress at bedside. iv removed. herbicide service sales representative at bedside to review plan of care. follow-up
== END 2021-07-07 16:45 | disposition home or self-care (01) ==
PROVIDERS: PCP Internal Medicine; Visit Provider Anesthesiology
PROC: (CPT 64555; principal; 2021-07-07 12:30)
DX: G89.4 Chronic pain syndrome (principal); M96.1 Postlaminectomy syndrome, not elsewhere classified; Y83.9 Surgical procedure, unspecified as the cause of abnormal reaction of the patient, or of later complication, without mention of misadventure at the time of the procedure; F43.10 Post-traumatic stress disorder, unspecified; F32.9 Major depressive disorder, single episode, unspecified; F41.1 Generalized anxiety disorder; J45.909 Unspecified asthma, uncomplicated; F17.210 Nicotine dependence, cigarettes, uncomplicated; K66.0 Peritoneal adhesions (postprocedural) (postinfection)
CPT/HCPCS: 64555; 64590; C1816; J0690; J1170; J2250; J3010; J3370

== ENCOUNTER → 2021-07-13 11:34 | Outpatient (BNVA) | payer MEDICARE, SELFPAY | PROVIDERS: PCP Internal Medicine; Visit Provider Anesthesiology | DX: M96.1 Postlaminectomy syndrome, not elsewhere classified (principal); G89.4 Chronic pain syndrome | CPT/HCPCS: 99212 ==

== ENCOUNTER → 2021-07-20 11:26 | Outpatient (BNVA) | payer MEDICARE, SELFPAY | PROVIDERS: PCP Internal Medicine; Visit Provider Anesthesiology | DX: M96.1 Postlaminectomy syndrome, not elsewhere classified (principal); G89.4 Chronic pain syndrome | CPT/HCPCS: 99212 ==

== ENCOUNTER → 2021-10-05 16:10 | Outpatient (REF) | payer MEDICARE, SELFPAY | LOC: HO.SL 16:10 | PROVIDERS: PCP Internal Medicine; Visit Provider Psychiatry & Neurology Neurology | DX: G47.9 Sleep disorder, unspecified (principal) | CPT/HCPCS: 95806 ==

== ENCOUNTER → 2021-11-15 09:04 | Outpatient (BNVA) | payer MEDICARE, SELFPAY | PROVIDERS: PCP Internal Medicine; Visit Provider Psychiatry & Neurology Neurology | DX: G47.33 Obstructive sleep apnea (adult) (pediatric) (principal); R55 Syncope and collapse | CPT/HCPCS: 99212 ==

== ENCOUNTER 2021-12-20 07:43 | Outpatient (REF) | payer OTHER, SELFPAY ==
--- NOTE | 2021-12-20 07:46 | EEG_ITS ---
Waking background activity consists of a well-defined moderate voltage 9.5 to 10 hertz, posterior alpha frequency, intermixed anteriorly with low-voltage fast frequencies. Photic stimulation and hyperventilation are without activation. Brief periods of drowsiness are characterized with diffuse theta slowing. No focal, lateralizing, or paroxysmal discharges seen. IMPRESSION: This awake and drowsy EEG is within normal limits. MD DEON Jennings/JERRY / [id number]
== END 2021-12-20 07:44 | disposition home or self-care (01) ==
LOC: HO.NEURO 07:43
PROVIDERS: PCP Internal Medicine; Visit Provider Psychiatry & Neurology Neurology
DX: R55 Syncope and collapse (principal)
CPT/HCPCS: 95816

== ENCOUNTER 2021-12-27 14:45 | Outpatient (REF) | payer OTHER, SELFPAY ==
[2021-12-27 14:17] LABS: Blood Urea Nitrogen 12 mg/dL (9-16); Estimated Glomerular Filt Rate > 60
== END 2021-12-27 14:46 | disposition home or self-care (01) ==
LOC: HO.MRI 14:45
PROVIDERS: PCP Internal Medicine; Visit Provider Physician Assistant
DX: Z01.812 Encounter for preprocedural laboratory examination (principal)
CPT/HCPCS: 36415; 82565; 84520

== ENCOUNTER 2022-01-02 15:30 | Outpatient (REF) | payer OTHER, SELFPAY ==
--- NOTE | ~2022-01-02 | MR_ITS ---
EXAMINATION: MR CERVICAL SPINE WITHOUT AND WITH CONTRAST CLINICAL INFORMATION: Cervical radiculopathy. COMPARISON: None available. TECHNIQUE: MRI of the cervical spine was performed with routine sequences without and with intravenous contrast. A total of 9 ml of Gadavist was intravenously administered. FINDINGS: There are postoperative findings related to anterior cervical discectomy and fusion from C5 to C7. There is solid interbody fusion across the right C5-C6 and C6-C7 disc spaces. There is mild multilevel disc height loss at the nonsurgical levels. The cervical cord signal appears grossly normal. There is some artifact along the dorsal epidural space at the C4-C5 and more inferior levels presumably related to the stimulator lead. More severe artifact is seen along the dorsal epidural space at the T2 level and more inferiorly resulting in nondiagnostic assessment of the upper thoracic cord. No abnormal enhancement is seen within the thecal sac. The imaged portions of the intracranial contents appear normal. The extraspinal soft tissues appear normal. SPINAL LEVELS: C2-C3: Left uncovertebral hypertrophy. Severe left neural foraminal stenosis. No spinal canal stenosis. C3-C4: Mild disc osteophyte complex with uncovertebral hypertrophy resulting in severe left and moderate right neural foraminal stenosis and mild spinal canal stenosis. C4-C5: Disc osteophyte complex with uncovertebral hypertrophy resulting in moderate to severe spinal canal stenosis and severe bilateral neural foraminal stenosis. C5-C6: ACDF. No spinal canal stenosis. Mild to moderate neural foraminal stenosis. C6-C7: ACDF. No spinal canal stenosis. Mild neural foraminal stenosis. C7-T1: Disc osteophyte complex with uncovertebral hypertrophy resulting in mild spinal canal stenosis and severe left and moderate to severe right neural foraminal stenosis. MR/MR cervical spine wo/w con IMPRESSION: Postoperative findings of anterior cervical discectomy and fusion from C5 to C7. Spinal canal stenosis appears moderate to severe at C4-C5 and less advanced at other levels. Neural foraminal stenosis is severe on the left at C2-C3, severe on the left and moderate on the right at C3-C4, and severe on the left and moderate to severe on the right at C7-T1. A spinal stimulator device is in place but not diagnostically assessed.
== END 2022-01-02 15:31 | disposition home or self-care (01) ==
LOC: HO.MRI 15:30
PROVIDERS: Visit Provider Physician Assistant
DX: M54.12 Radiculopathy, cervical region (principal)
CPT/HCPCS: 72156; A9585

== ENCOUNTER 2022-10-10 10:49 | Outpatient (REF) | payer OTHER, SELFPAY ==
--- NOTE | ~2022-10-10 | MR_ITS ---
EXAMINATION: MR LUMBAR SPINE WITHOUT AND WITH CONTRAST CLINICAL INFORMATION: Lumbar radiculopathy. COMPARISON: Lumbar spine radiographs from 08/22/2008. TECHNIQUE: MRI of the lumbar spine was obtained using routine sequences without and following the administration of 9 mL of Gadavist intravenous contrast. FINDINGS: Instrumented posterior fusion of L3-L4 with bilateral paired interpedicular screws. Disc spacers in place from L3-S1. Partially visualized stimulator wires entering the dorsal aspect of the spinal canal at the level of T11-T12. Moderate degenerative disc disease at L1-L2. Mild degenerative disc disease at L2-L3. Associated mixed Modic type discogenic endplate changes including mild Modic type I discogenic edema at L1-L2. No additional suspicious marrow edema. Small Schmorl's node in the inferior endplate of L1. Otherwise, the vertebral body heights are largely maintained. The conus medullaris terminates at the level of L1-L2. The distal spinal cord is normal in appearance. No abnormal contrast enhancement. Subcutaneous changes of prior spinal surgery below the level of L1 inflammatory changes at the level of L3-L4. Edema within the posterior paraspinal musculature below the level of L3. No additional significant abnormalities of the paraspinal musculature. Limited evaluation of the intra-abdominal structures without significant abnormalities. The abdominal aorta is of normal contour and caliber. AXIAL SPINAL LEVELS: L1-L2: Mild diffuse disc bulge. There is mild bilateral facet joint arthropathy. There is mild bilateral neural foraminal stenosis. There is no spinal canal stenosis. L2-L3: Shallow diffuse disc bulge. There is moderate right and mild left facet joint arthropathy. Moderate right-sided ligamentum flavum hypertrophy. There is moderate right and mild left neural foraminal stenosis. There is mild spinal canal stenosis exacerbated by prominent dorsal epidural lipomatous tissue. L3-L4: Fused at this level. There is mild bilateral facet joint arthropathy. There is mild right and no left neural foraminal stenosis. Posterior decompression. There is no spinal canal stenosis. L4-L5: Fused at this level. There is mild to moderate bilateral facet joint arthropathy. There is mild right and no left neural foraminal stenosis. There is no spinal canal stenosis. L5-S1: Fused at this level. There is mild bilateral facet joint arthropathy. There is no neural foraminal stenosis. There is no spinal canal stenosis. MR/MR lumbar spine wo/w con IMPRESSION: Instrumented posterior fusion of L3-L4. Disc spacers in place from L3-S1. Moderate multilevel degenerative spondyloarthropathy of the lumbar spine as described in detail above. Most notably, there is mild spinal canal stenosis and moderate right-sided neural foraminal stenosis at L2-L3.
== END 2022-10-10 10:50 | disposition home or self-care (01) ==
LOC: HO.MRI 10:49
PROVIDERS: Visit Provider Neurological Surgery
DX: M54.16 Radiculopathy, lumbar region (principal)
CPT/HCPCS: 72158; A9585

== ENCOUNTER → 2022-10-31 10:56 | Outpatient (BNVA) | payer OTHER, SELFPAY | PROVIDERS: PCP Internal Medicine; Visit Provider Nurse Practitioner Family | DX: G47.33 Obstructive sleep apnea (adult) (pediatric) (principal); G47.36 Sleep related hypoventilation in conditions classified elsewhere | CPT/HCPCS: 99212 ==

== ENCOUNTER → 2022-12-04 19:30 | Outpatient (REF) | payer OTHER, SELFPAY | LOC: HO.SL 19:30 | PROVIDERS: PCP Internal Medicine; Visit Provider Nurse Practitioner Family | DX: G47.33 Obstructive sleep apnea (adult) (pediatric) (principal) | CPT/HCPCS: 95811 ==

== ENCOUNTER → 2023-03-06 09:11 | Outpatient (BNVA) | payer OTHER, SELFPAY | PROVIDERS: PCP Internal Medicine; Visit Provider Nurse Practitioner Family | DX: G47.33 Obstructive sleep apnea (adult) (pediatric) (principal); Z99.89 Dependence on other enabling machines and devices | CPT/HCPCS: 99212 ==

== ENCOUNTER → 2023-05-02 12:29 | Outpatient (BNVA) | payer OTHER, SELFPAY | PROVIDERS: PCP Internal Medicine; Visit Provider Anesthesiology | DX: Z45.1 Encounter for adjustment and management of infusion pump (principal) | CPT/HCPCS: 99211 ==

== ENCOUNTER 2023-08-02 14:40 | Outpatient (REF) | payer OTHER, SELFPAY ==
--- NOTE | ~2023-08-02 | MR_ITS ---
EXAMINATION: MR LUMBAR SPINE WITHOUT AND WITH CONTRAST CLINICAL INFORMATION: Radiculopathy COMPARISON: MRI lumbar spine 10/10/2022 TECHNIQUE: MRI of the lumbar spine was obtained using routine sequences before and after intravenous administration of 10 mL Gadavist. FINDINGS: Again noted postsurgical changes following bilateral L3-L4 laminectomies with posterior instrumented interbody fusion at this level and partial interbody bone fusion mass across the posterior disc space. Prior interbody fusion at L4-L5 and L5-S1 with solid interbody arthrodesis at these levels. Please note assessment of the hardware would be better evaluated on CT. Partially imaged right T11-T12 interlaminar approach stimulator wire with associated susceptibility artifact along the dorsal spinal canal extending cephalad beyond the [id number]. Normal lumbar lordosis is preserved. No significant spondylolisthesis. Vertebral body heights are maintained. There is no suspicious enhancing osseous lesion. Stable disc desiccation and mild disc height loss at L1-L2 with marginally edematous small L1 inferior endplate Schmorl's node. Multilevel anterior osteophytic spurring is seen.There are multilevel degenerative changes with level by level detail as follows: L1-L2: Shallow annular disc bulge and mild bilateral facet arthrosis with prominence of the dorsal epidural fat. Stable mild thecal sac effacement. No neural foraminal stenosis. L2-L3: Shallow annular disc bulge and bilateral facet arthrosis with circumferential prominence of the epidural fat. Increased moderate thecal sac effacement. Stable mild greater than left neural foraminal encroachment. L3-L4: Postsurgical changes as above. Osteophytic ridging and mild facet arthrosis. The spinal canal is decompressed. Minimal bilateral neural foraminal encroachment, unchanged. L4-L5: Prior interbody fusion with moderate bilateral facet arthrosis. No spinal canal stenosis. No neural foraminal stenosis, noting susceptibility artifact partially obscures the right neural foramen. L5-S1: Prior interbody fusion with central osseous ridging and mild bilateral facet arthrosis. No spinal canal stenosis. Stable mild bilateral neural foraminal encroachment. The conus medullaris terminates at the level of L1-L2. The distal spinal cord and cauda equina nerve roots appear normal. No abnormal intramedullary or leptomeningeal enhancement.. No epidural fluid collection, hematoma, or mass. Redemonstrated denervation related fatty atrophy and edema of the lower paraspinal musculature. Limited evaluation of the intra-abdominal structures without significant abnormalities. The abdominal aorta is of normal contour and caliber. MR/MR lumbar spine wo/w con IMPRESSION: Postsurgical changes following L3-L4 posterior decompression and instrumented posterior interbody fusion as well as interbody fusion at L4-L5 and L5-S1. At L2-L3, there is suggestion of increased moderate thecal sac effacement with associated epidural lipomatosis. Otherwise stable level by level detail as above.
[2023-08-02] MEDS: gadobutroL 10 ML VIAL IVPUSH (15:53)
== END 2023-08-02 14:41 | disposition home or self-care (01) ==
LOC: HO.MRI 14:40
PROVIDERS: PCP Internal Medicine; Visit Provider Physician Assistant
DX: M54.16 Radiculopathy, lumbar region (principal)
CPT/HCPCS: 72158; A9585

== ENCOUNTER 2023-11-23 10:25 | Outpatient (AMB) | payer OTHER, SELFPAY ==
--- NOTE | 2023-11-23 10:29 | A.SPINEOV_ITS ---
Intake Intake Visit Reasons: discuss SI Fusion Intake Note: Mr. Smith is here to discuss SI Fusion. 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 Zaidi, Thank you for referring Hebert to our office today. Hebert is a pleasant 48-year-old male who comes in today with a chief complaint of left-sided low back pain with radiation over his anterior thigh and into his left groin. He states this pain is chronic and has been ongoing since before his lumbar fusion surgery. He reports that it has gotten worse over the course of the last 6 months and is now to the point where he can not bear full weight on his left side when ambulating or he risks falling. He has already fallen several times over the course of the last few months. He has a pertinent medical history of previous lumbar fusion from L3-S1. He reports that he has exhausted over-the- counter remedies in an attempt to resolve his pain, with only modest relief of symptoms. He has been to physical therapy, and reports that his last session was last Sunday. He states this was not helpful, and only exacerbated his pain. He has not attempted cortisone injections as of yet. He reports that sitting down on his left side exacerbates his pain, and laying down flat helps to alleviate his pain. When describing the nature of his pain he states it is waxing/waning, with acute exacerbations of pain throughout the day that he rates as 10/10. PMH: Hx lumbar fusion L3-S1. Hx umbilical hernia repair. Hx L sided carpal tunnel release. Asthma, hyperlipidemia, anxiety, depression, high blood pressure, GERD, insomnia. Social hx: Patient does not smoke, reports no substance use. Medications: Albuterol, atorvastatin, bupropion, chlorthalidone, Klonopin, famotidine, hydrochlorothiazide, losartan, mirtazapine, olanzapine, omeprazole, sertraline, zolpidem. Allergies: NKDA. Physical exam: The patient has 5/5 strength in his upper and lower extremities. He does elicit pain to strength testing on the left, but is still able to elicit 5/5 strength. No significant sensational deficits noted on exam. His reflexes are 1+ hypoactive in his left patella and 2+ elsewhere. He is able to ambulate well, although does favor his right side and has a somewhat antalgic gait. He elicits pain to rising from a seated position but does so without the need of help. (+) Charly's on the left, (+) Hermelinda finger test on the left. (-) straight leg raise bilaterally. (-) Hutchison's. Imaging review: MRI of the lumbar spine completed here at [facility] in July of 2023 shows evidence of a previous stable lumbar fusion from L3-S1 with posterior instrumentation in vertebral bodies L3, and L4. There is some evidence of adjacent segment disease from L2-L3 but this does not appear to be severe in nature. There is also mild-moderate bilateral foraminal stenosis at this level. No notable listhesis seen on MRI, however this would be better evaluated with standing flexion/extension x-rays. Impression: Martínez is a pleasant 48-year-old male who comes in today with a chief complaint of low back pain on the left side with radiation into his anterior thigh and left groin. He has a previous history of lumbar fusion from L3-S1, which appears stable on MRI imaging. The adjacent segment disease seen at L2-3 does not appear to be significant enough to replicate his pain. His history and physical exam are highly suspicious for left-sided SI joint pathology. In order to best evaluate this I would like to send Hebert for a diagnostic left-sided SI joint block. He is agreeable to this, and I will request that a physician that we work with Dr. Montenegro complete this diagnostic block. We will see Hebert back in the office after this. If he has any relief from this injection it will provide good diagnostic utility to move forward with a left-sided SI joint fusion. Thank you for allowing us to care for your patient. The total time spent with this visit with this patient was 45 minutes reviewing history, physical exam, MRI imaging review, and implementation of treatment plan or further diagnostic testing Alexis Andres MD,PhD [facility] Orders: Referrals Pain Management Referral G89.29 - Other chronic pain, M53.3 - Sacrococcygeal disorders, not elsewhere classified Coding Level of Care Code New Pt Level 4 (01372) Diagnoses Chronic left SI joint pain M53.3; G89.29
== END 2023-11-23 10:46 | disposition home or self-care (01) ==
PROVIDERS: PCP Internal Medicine; Referring Provider Neurological Surgery; Visit Provider Physician Assistant
DX: M53.3 Sacrococcygeal disorders, not elsewhere classified (principal); G89.29 Other chronic pain
CPT/HCPCS: 99204

== ENCOUNTER → 2023-11-23 10:25 | Outpatient (BNVA) | payer OTHER, SELFPAY | PROVIDERS: PCP Internal Medicine; Visit Provider Physician Assistant | DX: M53.3 Sacrococcygeal disorders, not elsewhere classified (principal); G89.29 Other chronic pain | CPT/HCPCS: 99202 ==

== ENCOUNTER 2023-12-05 08:35 | Outpatient (AMB) | payer OTHER, SELFPAY ==
--- NOTE | 2023-12-05 07:12 | MHC.OFFVIS ---
Intake Vital Signs 12/05/23 08:41 Height 5 ft 9 in Weight 220 lb BMI 32.5 BP 130/82 Blood Pressure Location Lt brachial Position Sitting Respiration 12 Pulse 74 Pulse Source Pulse Oximeter Pulse Oximetry (%) 96 Oxygen Delivery Method Room Air Intake Visit Reasons: Chronic Pain//Sacrococcygeal disorders Allergies No Known Allergies [No Known Allergies*] Allergy (Verified 12/05/23 08:42) Medication List - Last Reconciled 12/05/23 by Esthela Bill LPN albuterol sulfate 1 vial inhalation Q4H PRN atorvastatin 20 mg PO DAILY bupropion HCl 1 tab PO QAM chlorthalidone 25 mg PO DAILY clonazepam 1 tab PO TID losartan 50 mg PO DAILY mirtazapine 1 tab PO BEDTIME olanzapine 1 tab PO DAILY PRN sertraline 2 tabs PO DAILY zolpidem 1 tab PO BEDTIME HPI Chronic Pain//Sacrococcygeal disorders HPI Details 48-year-old male who presents today to the office for consideration of diagnostic left sacroiliac joint intra-articular injection. He was seen in the spine surgery office and was deemed to be a potential candidate for left sacroiliac joint fusion. He complains of left-sided low back pain with radiation over his anterior thigh and into his left groin. He relates the pain is chronic and has been ongoing since before the lumbar fusion surgery. He reports that it has gotten worse over the course of the last 6 months and is now to the point where he cannot bear full weight on his left side when ambulating or he risks falling. He has a pertinent medical history of previous lumbar fusion from L3-S1. Relates that he has exhausted [id number] remedies in an attempt to resolve his pain, with only modest relief of symptoms. He has been to physical therapy, which was not helpful, and it only exacerbated the pain. He has not attempted cortisone injections as of yet. He reports sitting down on his left side exacerbates his pain, and laying down flat helps to alleviate his pain. When describing the nature of his pain, states it is waxing/waning, with acute exacerbation of pain throughout the day that he rates as 10/10. 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 Alert and oriented. Mood and affect appropriate. Follows and participates in conversation appropriately. Respiratory effort is unlabored. Able to transition from sit to stand unassisted. Results Reviewed Results Reviewed: 08/02/23: MR LUMBAR SPINE WITHOUT AND WITH CONTRAST FINDINGS: Again noted postsurgical changes following bilateral L3-L4 laminectomies with posterior instrumented interbody fusion at this level and partial interbody bone fusion mass across the posterior disc space. Prior interbody fusion at L4-L5 and L5-S1 with solid interbody arthrodesis at these levels. Please note assessment of the hardware would be better evaluated on CT. Partially imaged right T11-T12 interlaminar approach stimulator wire with associated susceptibility artifact along the dorsal spinal canal extending cephalad beyond the [id number]. Normal lumbar lordosis is preserved. No significant spondylolisthesis. Vertebral body heights are maintained. There is no suspicious enhancing osseous lesion. Stable disc desiccation and mild disc height loss at L1-L2 with marginally edematous small L1 inferior endplate Schmorl's node. Multilevel anterior osteophytic spurring is seen.There are multilevel degenerative changes with level by level detail as follows: L1-L2: Shallow annular disc bulge and mild bilateral facet arthrosis with prominence of the dorsal epidural fat. Stable mild thecal sac effacement. No neural foraminal stenosis. L2-L3: Shallow annular disc bulge and bilateral facet arthrosis with circumferential prominence of the epidural fat. Increased moderate thecal sac effacement. Stable mild greater than left neural foraminal encroachment. L3-L4: Postsurgical changes as above. Osteophytic ridging and mild facet arthrosis. The spinal canal is decompressed. Minimal bilateral neural foraminal encroachment, unchanged. L4-L5: Prior interbody fusion with moderate bilateral facet arthrosis. No spinal canal stenosis. No neural foraminal stenosis, noting susceptibility artifact partially obscures the right neural foramen. L5-S1: Prior interbody fusion with central osseous ridging and mild bilateral facet arthrosis. No spinal canal stenosis. Stable mild bilateral neural foraminal encroachment. The conus medullaris terminates at the level of L1-L2. The distal spinal cord and cauda equina nerve roots appear normal. No abnormal intramedullary or leptomeningeal enhancement.. No epidural fluid collection, hematoma, or mass. Redemonstrated denervation related fatty atrophy and edema of the lower paraspinal musculature. Limited evaluation of the intra-abdominal structures without significant abnormalities. The abdominal aorta is of normal contour and caliber. IMPRESSION: Postsurgical changes following L3-L4 posterior decompression and instrumented posterior interbody fusion as well as interbody fusion at L4-L5 and L5-S1. At L2-L3, there is suggestion of increased moderate thecal sac effacement with associated epidural lipomatosis. Otherwise stable level by level detail as above. 10/10/22: MR LUMBAR SPINE WITHOUT AND WITH CONTRAST FINDINGS: Instrumented posterior fusion of L3-L4 with bilateral paired interpedicular screws. Disc spacers in place from L3-S1. Partially visualized stimulator wires entering the dorsal aspect of the spinal canal at the level of T11-T12. Moderate degenerative disc disease at L1-L2. Mild degenerative disc disease at L2-L3. Associated mixed Modic type discogenic endplate changes including mild Modic type I discogenic edema at L1-L2. No additional suspicious marrow edema. Small Schmorl's node in the inferior endplate of L1. Otherwise, the vertebral body heights are largely maintained. The conus medullaris terminates at the level of L1-L2. The distal spinal cord is normal in appearance. No abnormal contrast enhancement. Subcutaneous changes of prior spinal surgery below the level of L1 inflammatory changes at the level of L3-L4. Edema within the posterior paraspinal musculature below the level of L3. No additional significant abnormalities of the paraspinal musculature. Limited evaluation of the intra-abdominal structures without significant abnormalities. The abdominal aorta is of normal contour and caliber. AXIAL SPINAL LEVELS: L1-L2: Mild diffuse disc bulge. There is mild bilateral facet joint arthropathy. There is mild bilateral neural foraminal stenosis. There is no spinal canal stenosis. L2-L3: Shallow diffuse disc bulge. There is moderate right and mild left facet joint arthropathy. Moderate right-sided ligamentum flavum hypertrophy. There is moderate right and mild left neural foraminal stenosis. There is mild spinal canal stenosis exacerbated by prominent dorsal epidural lipomatous tissue. L3-L4: Fused at this level. There is mild bilateral facet joint arthropathy. There is mild right and no left neural foraminal stenosis. Posterior decompression. There is no spinal canal stenosis. L4-L5: Fused at this level. There is mild to moderate bilateral facet joint arthropathy. There is mild right and no left neural foraminal stenosis. There is no spinal canal stenosis. L5-S1: Fused at this level. There is mild bilateral facet joint arthropathy. There is no neural foraminal stenosis. There is no spinal canal stenosis. IMPRESSION: Instrumented posterior fusion of L3-L4. Disc spacers in place from L3-S1. Moderate multilevel degenerative spondyloarthropathy of the lumbar spine as described in detail above. Most notably, there is mild spinal canal stenosis and moderate right-sided neural foraminal stenosis at L2-L3. 01/02/22: MR CERVICAL SPINE WITHOUT AND WITH CONTRAST FINDINGS: There are postoperative findings related to anterior cervical discectomy and fusion from C5 to C7. There is solid interbody fusion across the right C5-C6 and C6-C7 disc spaces. There is mild multilevel disc height loss at the nonsurgical levels. The cervical cord signal appears grossly normal. There is some artifact along the dorsal epidural space at the C4-C5 and more inferior levels presumably related to the stimulator lead. More severe artifact is seen along the dorsal epidural space at the T2 level and more inferiorly resulting in nondiagnostic assessment of the upper thoracic cord. No abnormal enhancement is seen within the thecal sac. The imaged portions of the intracranial contents appear normal. The extraspinal soft tissues appear normal. SPINAL LEVELS: C2-C3: Left uncovertebral hypertrophy. Severe left neural foraminal stenosis. No spinal canal stenosis. C3-C4: Mild disc osteophyte complex with uncovertebral hypertrophy resulting in severe left and moderate right neural foraminal stenosis and mild spinal canal stenosis. C4-C5: Disc osteophyte complex with uncovertebral hypertrophy resulting in moderate to severe spinal canal stenosis and severe bilateral neural foraminal stenosis. C5-C6: ACDF. No spinal canal stenosis. Mild to moderate neural foraminal stenosis. C6-C7: ACDF. No spinal canal stenosis. Mild neural foraminal stenosis. C7-T1: Disc osteophyte complex with uncovertebral hypertrophy resulting in mild spinal canal stenosis and severe left and moderate to severe right neural foraminal stenosis. IMPRESSION: Postoperative findings of anterior cervical discectomy and fusion from C5 to C7. Spinal canal stenosis appears moderate to severe at C4-C5 and less advanced at other levels. Neural foraminal stenosis is severe on the left at C2-C3, severe on the left and moderate on the right at C3-C4, and severe on the left and moderate to severe on the right at C7-T1. A spinal stimulator device is in place but not diagnostically assessed. Assessment & Plan Assessment & Plan (1) Chronic left SI joint pain: Code(s): M53.3 - Sacrococcygeal disorders, not elsewhere classified; G89.29 - Other chronic pain Plan Will schedule him for diagnostic left SI joint injection under fluoroscopy. Discussed the risks and benefits of the procedure with the patient in detail. All questions were answered. The patient is on board with the plan. Justification for interventional therapy: ? Patient with average pain > 6/10 ? Patient has exhausted conservative therapy ? Diagnostic injection as part of workup for surgical correction Scribed for Dr. Montenegro by Keyla De La O registered medical transcriptionist, on 12/05/2023. I, Dr. Montenegro, have personally reviewed and agree with the information entered by the scribe. Coding Level of Care Code New Pt Level 3 (34134) Diagnoses Chronic left SI joint pain M53.3; G89.29
[2023-12-05 08:41] VITALS: BP 130/82; PULSE 74; RESP 12; O2SAT 96; BMI 32.5
== END 2023-12-05 10:15 | disposition home or self-care (01) ==
PROVIDERS: PCP Internal Medicine; Visit Provider Internal Medicine
DX: M53.3 Sacrococcygeal disorders, not elsewhere classified (principal); G89.29 Other chronic pain
CPT/HCPCS: 99203

== ENCOUNTER → 2023-12-05 08:35 | Outpatient (BNVA) | payer OTHER, SELFPAY | PROVIDERS: PCP Internal Medicine; Visit Provider Internal Medicine | DX: M53.3 Sacrococcygeal disorders, not elsewhere classified (principal); M96.1 Postlaminectomy syndrome, not elsewhere classified; G89.4 Chronic pain syndrome | CPT/HCPCS: 99202 ==

== ENCOUNTER 2024-01-10 06:13 | Outpatient (REF) | payer OTHER, SELFPAY ==
--- NOTE | ~2024-01-10 | FL_ITS ---
EXAMINATION: XR FLUOROSCOPY WITH IMAGES CLINICAL INFORMATION: Sacrococcygeal disorders not otherwise classified. COMPARISON: None available. TECHNIQUE: Fluoroscopy Supervised By: Dr. Montenegro. Fluoroscopy Time: 0.1 min. Cumulative Dose: 3.59 mGy. DAP: 0.0331 Gycm2. Images: 2. FINDINGS: Fluoroscopic guidance provided for procedure performed by Dr. Montenegro. Wire projects over the sacrum. Please refer to operative report for more detailed evaluation. FL/FL guidance in treatment room IMPRESSION: Fluoroscopic guidance provided for procedure performed by Lan. Please refer to operative report for more detailed evaluation.
== END 2024-01-10 06:14 | disposition home or self-care (01) ==
LOC: CF 06:13
PROVIDERS: Visit Provider Internal Medicine
DX: M53.3 Sacrococcygeal disorders, not elsewhere classified (principal); G89.29 Other chronic pain
CPT/HCPCS: 27096; J2795; Q9967

== ENCOUNTER 2024-01-10 10:23 | Outpatient (AMB) | payer OTHER, SELFPAY ==
[2024-01-10 10:30] VITALS: BP 110/62; PULSE 110; RESP 16; O2SAT 96; BMI 32.5
--- NOTE | 2024-01-10 10:30 | A.OFFVIS_ITS ---
Vital Signs 01/10/24 10:30 01/10/24 11:08 Height 5 ft 9 in 5 ft 9 in Weight 220 lb 220 lb BMI 32.5 32.5 BP 110/62 120/62 Blood Pressure Location Lt brachial Lt brachial Position Sitting Sitting Respiration 16 16 Pulse 110 H 70 Pulse Source Pulse Oximeter Pulse Oximeter Pulse Oximetry (%) 96 97 Oxygen Delivery Method Room Air Room Air Comment pre-op post-op Intake Visit Reasons: Left Dx intraarticular SIJ inj Allergies No Known Allergies [No Known Allergies*] Allergy (Verified 01/10/24 10:31) HPI HPI Left Dx intraarticular SIJ inj: Details: Patient presents for scheduled procedure. Denies any recent cough, cold, infection, fever or other significant changes in medical history since last office visit. 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) Alcohol intake: current Alcohol intake frequency: a few times a month Patient Tobacco Use Status: Former Tobacco user Tobacco use type: Cigarette Cigarettes Per Day: 2 Years Smoked: 28 Physical Exam Vital Signs: Last Vital Signs Pulse 110 H 01/10/24 10:30 Resp 16 01/10/24 10:30 BP 110/62 01/10/24 10:30 Pulse Ox 96 01/10/24 10:30 Oxygen Delivery Method Room Air 01/10/24 10:30 BMI result Body Mass Index 32.5 Office Procedures Joint Injection/Drain Joint Injection/Drain Details: Diagnostic Sacroiliac Joint Injection, Left The procedure, its benefits, and its risks were explained and written informed consent was obtained from the patient. Immediately prior to starting the procedure, a time-out safety check was conducted. The patient's identific ation, procedure name, procedure site, and procedure laterality were confirmed with the patient. ? Patient was placed prone on the fluoroscopy table and the lumbosacral area was prepped using ChloraPrep and draped with sterile drapein standard fashion. The C-arm was rotated in a contralateral oblique fashion until the medial border of the iliac crest no longer foreshadowed the posterior sacroiliac joint line. The skin and subcutaneous tissue was anesthetized using 1 mL of 0.75% plain lidocaine with 1.5-inch 25-gauge needle in the middle region of the joint line.? A 3.5-inch 22-gauge spinal needle with small bend on the tip was slowly advanced towards the joint line, coaxial to the x-ray beam. Once bony content was obtained, the needle was easily slid into the intra-articular space.? Intra- articular needle position was confirmed using lateral fluoroscopy.? A total volume of 2.5mL of solution containing 0.5% of ropivacaine was injected intra- articularly. The stylet was reinserted and needle was removed. The patient tolerated the procedure well. Patient denied any lower extremity weakness or numbness. Patient was observed for 30 min and was discharged after fulfilling the standard discharge criteria. Coding 63518 - Sacroiliac Procedure code (CPT) selection complete Assessment & Plan Assessment & Plan (1) Chronic left SI joint pain: Code(s): M53.3 - Sacrococcygeal disorders, not elsewhere classified; G89.29 - Other chronic pain Category: Medical Plan Patient is status post left diagnostic SIJ injection. Patient tolerated procedure well and was discharged home in stable condition with discharge instructions. All questions were answered. We will follow-up via telephone or in clinic to assess response to therapy. A follow-up appointment was made during today's visit. Orders: Orders FL guidance in treatment room Today G89.29 - Other chronic pain, M53.3 - Sacrococcygeal disorders, not elsewhere classified Coding Level of Care Code Procedure Only Diagnoses Chronic left SI joint pain M53.3; G89.29 CPT Codes Coding - Joint 9: 10908 - Sacroiliac ([id number])
[2024-01-10 11:08] VITALS: BP 120/62; PULSE 70; RESP 16; O2SAT 97; BMI 32.5
== END 2024-01-10 11:36 | disposition home or self-care (01) ==
LOC: HO.PMCPRC 10:23
PROVIDERS: PCP Internal Medicine; Visit Provider Internal Medicine
DX: M53.3 Sacrococcygeal disorders, not elsewhere classified (principal); G89.29 Other chronic pain
CPT/HCPCS: 27096

== ENCOUNTER 2024-01-14 08:18 | Outpatient (AMB) | payer OTHER, SELFPAY ==
--- NOTE | 2024-01-14 08:21 | MHC.OFFVIS ---
Vital Signs 01/14/24 08:24 Height 5 ft 9 in Weight 231 lb BMI 34.1 BP 138/83 Blood Pressure Location Lt brachial Position Sitting Respiration 14 Pulse 71 Pulse Source Pulse Oximeter Pulse Oximetry (%) 95 Oxygen Delivery Method Room Air Intake Visit Reasons: s/p left Dx intraarticular SIJ inj Allergies No Known Allergies [No Known Allergies*] Allergy (Verified 01/16/24 13:58) Medication List - Last Reconciled 01/14/24 by Esthela Bill LPN albuterol sulfate 1 vial inhalation Q4H PRN atorvastatin 20 mg PO DAILY bupropion HCl XL 1 tab PO QAM chlorthalidone 25 mg PO DAILY clonazepam 1 tab PO TID losartan 50 mg PO DAILY mirtazapine 1 tab PO BEDTIME olanzapine 1 tab PO DAILY PRN sertraline 2 tabs PO DAILY zolpidem 1 tab PO BEDTIME HPI HPI s/p left Dx intraarticular SIJ inj: Details: 48-year-old male who presents today to the office for a status post left diagnostic intraarticular SIJ injection. The patient reports 50% relief following the procedure for one day. His pain score improved from 8/10 to 3-4/10 in intensity for one day. His pain started to return to baseline the next day after the procedure. He willl be following up with [facility] He is interested in fusion surgery for his pain. He had lumbar fusion at L3-S1. He deferred cortisone injections or stimulators. He had SCS placed in the past by Dr. Laughlin. Past procedure 01/10/24: Diagnostic Sacroiliac Joint Injection, Left: 50% relief for one day. PENDING SALE TO [facility] Medical History (Updated 11/23/23 @ 10:46 by CARL Asher) Obstructive sleep apnea GERD (gastroesophageal reflux disease) Asthma Anxiety and depression PTSD (post-traumatic stress disorder) Chronic pain syndrome Postlaminectomy syndrome Surgical History S/P insertion of spinal cord stimulator History of discectomy Social History Are you a primary critical care rn to a significant other at home: No Do you presently have visiting nurse or other home services: Yes ([employer]) Alcohol intake: current Alcohol intake frequency: a few times a month Patient Tobacco Use Status: Former Tobacco user Tobacco use type: Cigarette Cigarettes Per Day: 2 Years Smoked: 28 Review of Systems Const All systems reviewed & are unremarkable except as noted in HPI and below Physical Exam Vital Signs: Last Vital Signs Pulse 71 01/14/24 08:24 Resp 14 01/14/24 08:24 BP 138/83 01/14/24 08:24 Pulse Ox 95 01/14/24 08:24 Oxygen Delivery Method Room Air 01/14/24 08:24 BMI result Body Mass Index 34.1 General: Appears afebrile. Alert and oriented. Mood and affect appropriate. Follows and participates in conversation appropriately. Respiratory effort is unlabored. Able to transition from sit to stand unassisted. Ambulates with bilaterally normal heel strike and toe off. Results Reviewed Results Reviewed: No imaging is available for review. Assessment & Plan Assessment & Plan (1) Chronic left SI joint pain: Code(s): M53.3 - Sacrococcygeal disorders, not elsewhere classified; G89.29 - Other chronic pain Category: Medical Plan I discussed SI joint steroid injection as well as PNS therapy, but he is not interested in these therapies as he would like more definitive treatment options. I counseled him that 50% relief is typically not what we would like to see amongst candidates for SI joint fusion, but he is still interested in proceeding with that. He will make an appointment with Alexis for further evaluation and discuss whether he is a good candidate for fusion surgery with our spine colleagues. Scribed for Dr. Montenegro by Arun York, medical billing assistant, on 01/14/2024. I, Dr. Montenegro, have personally reviewed and agree with the information entered by the scribe. Coding Level of Care Code Est Pt Level 3 (28967) Diagnoses Chronic left SI joint pain M53.3; G89.29
[2024-01-14 08:24] VITALS: BP 138/83; PULSE 71; RESP 14; O2SAT 95; BMI 34.1
== END 2024-01-14 08:37 | disposition home or self-care (01) ==
PROVIDERS: PCP Internal Medicine; Visit Provider Internal Medicine
DX: M53.3 Sacrococcygeal disorders, not elsewhere classified (principal); G89.29 Other chronic pain
CPT/HCPCS: 99213

== ENCOUNTER → 2024-01-14 08:18 | Outpatient (BNVA) | payer OTHER, SELFPAY | PROVIDERS: PCP Internal Medicine; Visit Provider Internal Medicine | DX: M53.3 Sacrococcygeal disorders, not elsewhere classified (principal); G89.29 Other chronic pain | CPT/HCPCS: 99212 ==

== ENCOUNTER 2024-01-16 13:46 | Outpatient (AMB) | payer OTHER, SELFPAY ==
--- NOTE | 2024-01-16 13:53 | HO.SPINEOV ---
Intake Visit Reasons: follow up after Pain management referral Intake Note: Mr. Smith is here today f/u after pain management referral. [facility] [employer] [facility] Required: No Allergies No Known Allergies [No Known Allergies*] Allergy (Verified 01/16/24 13:58) Assessment & Plan Assessment & Plan (1) Chronic left SI joint pain: Code(s): M53.3 - Sacrococcygeal disorders, not elsewhere classified; G89.29 - Other chronic pain Category: Medical Plan: Hebert is a 48 y/o M who comes in today as a follow up after being sent to our colleagues at pain management for diagnostic left SI joint injection. He has a pertinent medical Hx of a previous L3-S1 lumbar fusion. He reports that he was able to see Dr. Montenegro and had a left sided SI joint injection which provided 100% relief on day 1 and 50% relief on day 2. He reports the relief then wore off. He states he felt very good after the injection and was able to go home, walk up and down stairs without issue, and complete tasks around his house that are normally very difficult for him to accomplish. Unforunately this only lasted 1 day, and wore off completely by day 3. After discussion of his symptoms and review of his MRI / previous office visit, I believe he is a good candidate for a left sided SI joint fusion. I was able to have the patient evaluated by Dr. Andres in clinic today after I evalauted him, and Dr. Andres offered the patient a left sided SI joint fusion. He has tentatively been placed on the surgical schedule for 04/03/24. Hebert was given risk and benefits of surgery including but not limited to infection, hematoma, nerve injury, durotomy, weakness, bowel/bladder injury, persistent pain, as well as the option to continue with conservative treatment and patient wishes to proceed with surgery. They are aware they should stop NSAIDs 7 days prior to surgery. All questions were answered to the best of our ability. If there is anything about this patients medical history that we have overlooked or concerns you have about us proceeding with surgery we would appreciate any input you can offer. Total amount of time spent in this visit was 35 minutes in discussion of symptoms, MRI imaging results and subsequent plan of care. Alexis Andres MD,PhD [facility] [employer] Medications: New miscellaneous medical supply [employer] use as directed; [employer] 99 CPT 10: M53.3 1 ea 0RF Coding Level of Care Code Est Pt Level 4 (40450) Diagnoses Chronic left SI joint pain M53.3; G89.29
== END 2024-01-16 14:36 | disposition home or self-care (01) ==
PROVIDERS: PCP Internal Medicine; Visit Provider Physician Assistant
DX: M53.3 Sacrococcygeal disorders, not elsewhere classified (principal); G89.29 Other chronic pain
CPT/HCPCS: 99214

== ENCOUNTER → 2024-01-16 13:46 | Outpatient (BNVA) | payer OTHER, SELFPAY | PROVIDERS: PCP Internal Medicine; Visit Provider Physician Assistant | DX: M53.3 Sacrococcygeal disorders, not elsewhere classified (principal); G89.29 Other chronic pain | CPT/HCPCS: 99212 ==

== ENCOUNTER → 2024-03-25 12:58 | Outpatient (BNV) | payer OTHER, SELFPAY | PROVIDERS: PCP Internal Medicine; Visit Provider Internal Medicine Cardiovascular Disease | DX: Z01.810 Encounter for preprocedural cardiovascular examination (principal) | CPT/HCPCS: 93010 ==

== ENCOUNTER → 2024-04-16 07:02 | Day surgery (SDC) | payer OTHER, SELFPAY ==
--- NOTE | 2024-03-25 | ECG_ITS ---
Test Reason : PRE OP Blood Pressure : / mmHG Vent. Rate : 070 BPM Atrial Rate : 070 BPM P-R Int : 154 ms QRS Dur : 084 ms QT Int : 396 ms P-R-T Axes : 042 004 053 degrees QTc Int : 427 ms Normal sinus rhythm Normal ECG No previous ECGs available Referred By: Valarie Jones Electronically Signed By:Demetrius Montanez
[2024-03-25 12:10] VITALS: BP 132/86; PULSE 68; RESP 18; O2SAT 95; BMI 34.3
--- NOTE | 2024-03-25 12:40 | HO.ANESPROP2 ---
Documented by User: Valarie Jones NP 03/31/24 14:27 HPI - Anesthesia Eval Consult details Narrative: 48yo M for Left Sacroiliac Joint Fusion, 04/16/24 No recent illness No CP/SOB within limits pain, minimal activity ? Seizure vs syncope x 1 ~ 4 years ago, ? medication reaction COPD DENI: CPAP QHS Asthma: Stable, rescue inhaler ~ 2 x weekly GERD; ppi controls PMFSH Active Problems Active Problems: All Active Problems Chronic left SI joint pain (Acute) Hypoxemia associated with sleep (Acute) Syncope and collapse (Acute) Obstructive sleep apnea (Acute) Chronic pain syndrome (Acute) Postlaminectomy syndrome (Acute) Past Medical History Medical History Arthritis Spinal stenosis Bipolar 1 disorder Seizures Wheezing SOB (shortness of breath) COPD (chronic obstructive pulmonary disease) Internal hemorrhoids Back pain Insomnia Vitamin D deficiency Depression Abnormal LFTs Anal fissure H. pylori infection STD exposure Hyperlipidemia HTN (hypertension) Cervical radiculopathy Bronchospasm Syncope Palpitations Ascending aorta dilatation Sacroiliitis Lumbar radiculopathy Obstructive sleep apnea GERD (gastroesophageal reflux disease) Asthma Anxiety and depression PTSD (post-traumatic stress disorder) Chronic pain syndrome Postlaminectomy syndrome Family History Family history of problems with anesthesia: No Surgical History Surgical History Hx of vasectomy H/O colonoscopy History of esophagogastroduodenoscopy (EGD) Hx of cervical spine surgery Hx of hernia repair Hx of hand surgery S/P insertion of spinal cord stimulator History of discectomy History of Problems with Anesthesia: No Social History Social History Are you a primary child care associate to a significant other at home: No 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 If so, by whom?: No Are you DNR?: No Advance Directives: No Advance Directives Information Provided: Yes Advance Directives on File: No Recently lost weight without trying: No Eating poorly because of decreased appetite: No Nutrition Risks: No Nutritional Risk Poor oral hygiene: No Meds Allergies Allergy/AdvReac Type Severity Reaction Status Date / Time No Known Allergies Allergy Verified 01/16/24 13:58 [No Known Allergies*] Home Medications ?Medication ?Instructions ?Recorded ?Confirmed ?Last Taken ?Type bupropion HCl 300 mg 24 hr tablet, 1 tab PO QAM depressive disorder 04/28/21 03/25/24 Unknown History extended release clonazepam 1 mg tablet 1 tab PO TID PRN anxiety 04/28/21 03/25/24 Unknown History mirtazapine 30 mg tablet 1 tab PO BEDTIME 04/28/21 03/25/24 Unknown History olanzapine 5 mg tablet 1 tab PO DAILY Anxiety 04/28/21 03/25/24 Unknown History sertraline 100 mg tablet 1 tab PO BID 04/28/21 03/25/24 Unknown History zolpidem 10 mg tablet 1 tab PO BEDTIME 04/28/21 03/25/24 Unknown History atorvastatin 20 mg tablet 20 mg PO BEDTIME 03/06/23 03/25/24 Unknown History chlorthalidone 25 mg tablet 25 mg PO DAILY 03/06/23 03/25/24 04/16/24 History losartan 50 mg tablet 50 mg PO DAILY 03/06/23 03/25/24 Unknown History budesonide-formoterol HFA 160 1 puff inhalation DAILY PRN 03/25/24 03/25/24 Unknown History mcg-4.5 mcg/actuation aerosol Shortness Of Breath Or Wheezing inhaler omeprazole 40 mg capsule,delayed 40 mg PO DAILY 03/25/24 03/25/24 04/16/24 History release Exam Height,Weight and Vital Signs: Height 5 ft 9 in Weight 105.233 kg Last Vital Signs Pulse 68 03/25/24 12:10 Resp 18 03/25/24 12:10 BP 132/86 03/25/24 12:10 Pulse Ox 95 03/25/24 12:10 O2 Del Method Room Air 03/25/24 12:10 Pertinent Lab Results Pertinent Lab Results: Laboratory Tests 03/25/24 12:55 WBC 9.3 Hgb 15.7 Hct 45.7 Plt Count 275 Sodium 139 Potassium 3.3 Chloride 101 Carbon Dioxide 26 BUN 18 H Creatinine 1.07 Narrative Narrative: EKG 03/2024 Vent. Rate : 070 BPM Atrial Rate : 070 BPM P-R Int : 154 ms QRS Dur : 084 ms QT Int : 396 ms P-R-T Axes : 042 004 053 degrees QTc Int : 427 ms Normal sinus rhythm Normal ECG No previous ECGs available Airway Mallampati Class: I TM Dist: >3cm Neck ROM: Limited (post op cspine) Heart: RRR Lungs: CTAB Assessment and Plan Assessment Anesthesia Assessment: Anesthesia Plan Discussed and PAT Visit Final Anesthetic Review Family History of Problems with Anesthesia: No History of Problems with Anesthesia: No Documented by User: Nuria Hobbs MD 04/16/24 10:01 [facility] Past Medical History Medical History Arthritis Spinal stenosis Bipolar 1 disorder Seizures Wheezing SOB (shortness of breath) COPD (chronic obstructive pulmonary disease) Internal hemorrhoids Back pain Insomnia Vitamin D deficiency Depression Abnormal LFTs Anal fissure H. pylori infection STD exposure Hyperlipidemia HTN (hypertension) Cervical radiculopathy Bronchospasm Syncope Palpitations Ascending aorta dilatation Sacroiliitis Lumbar radiculopathy Obstructive sleep apnea GERD (gastroesophageal reflux disease) Asthma Anxiety and depression PTSD (post-traumatic stress disorder) Chronic pain syndrome Postlaminectomy syndrome Surgical History Surgical History Hx of vasectomy H/O colonoscopy History of esophagogastroduodenoscopy (EGD) Hx of cervical spine surgery Hx of hernia repair Hx of hand surgery S/P insertion of spinal cord stimulator History of discectomy Social History Social History Are you a primary child care associate to a significant other at home: No 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 If so, by whom?: No Are you DNR?: No Advance Directives: No Advance Directives Information Provided: Yes Advance Directives on File: No Recently lost weight without trying: No Eating poorly because of decreased appetite: No Nutrition Risks: No Nutritional Risk Poor oral hygiene: No Meds Allergies Allergy/AdvReac Type Severity Reaction Status Date / Time No Known Allergies Allergy Verified 01/16/24 13:58 [No Known Allergies*] Home Medications ?Medication ?Instructions ?Recorded ?Confirmed ?Last Taken ?Type bupropion HCl 300 mg 24 hr tablet, 1 tab PO QAM depressive disorder 04/28/21 03/25/24 Unknown History extended release clonazepam 1 mg tablet 1 tab PO TID PRN anxiety 04/28/21 03/25/24 Unknown History mirtazapine 30 mg tablet 1 tab PO BEDTIME 04/28/21 03/25/24 Unknown History olanzapine 5 mg tablet 1 tab PO DAILY Anxiety 04/28/21 03/25/24 Unknown History sertraline 100 mg tablet 1 tab PO BID 04/28/21 03/25/24 Unknown History zolpidem 10 mg tablet 1 tab PO BEDTIME 04/28/21 03/25/24 Unknown History atorvastatin 20 mg tablet 20 mg PO BEDTIME 03/06/23 03/25/24 Unknown History chlorthalidone 25 mg tablet 25 mg PO DAILY 03/06/23 03/25/24 04/16/24 History losartan 50 mg tablet 50 mg PO DAILY 03/06/23 03/25/24 Unknown History budesonide-formoterol HFA 160 1 puff inhalation DAILY PRN 03/25/24 03/25/24 Unknown History mcg-4.5 mcg/actuation aerosol Shortness Of Breath Or Wheezing inhaler omeprazole 40 mg capsule,delayed 40 mg PO DAILY 03/25/24 03/25/24 04/16/24 History release Assessment and Plan Final Anesthetic Review NPO: Yes ASA Class: III Final Preanesthetic Review: No Changes in Pt Med Stat, Meds/Allgs Chart Reviewed, Consent Obtained/Reviewed and Anes Risks/Benef Reviewed Patient Risk: Intermediate Procedure Risk: Intermediate Anesthetic Plan Anesthetic Plan: GA Disposition: Standard PACU
[2024-03-25 14:00] LABS: Hematocrit 45.7 % (42.0-52.0); Hemoglobin 15.7 g/dl (14.0-18.0); Mean Corpuscular HGB Conc 34.4 g/dl (31.0-36.0); Mean Corpuscular Hemoglobin 29.6 pg (27.0-33.0); Mean Corpuscular Volume 86.2 fL (80.0-98.0); Platelet Count 275 X10*3/uL (160-400); Red Cell Distribution Width 13.2 % (11.0-16.0); White Blood Count 9.3 X10*3/uL (4.8-10.8)
[2024-03-25 14:25] LABS: Anion Gap 15 (12-20); Blood Urea Nitrogen 18 mg/dL (9-16); Calcium 10.4 mg/dL (8.4-10.2); Carbon Dioxide 26 mmol/L (22-29); Chloride 101 mmol/L (96-108); Estimated Glomerular Filt Rate > 60; Glucose Random 91 mg/dL (60-115); Potassium 3.3 mmol/L (3.3-5.1); Sodium 139 mmol/L (135-145)
--- NOTE | 2024-04-15 16:47 | P.DS_ITS ---
DS: Providers Provider Date of Service: 04/15/24 Date of discharge: 04/15/24 Primary care physician: Cinthia Garcia MD Admitting clinician: Chad Andres DS: Diagnosis Discharge Diagnosis (1) Chronic left SI joint pain: Status: Acute DS: Summary Time Attestation Discharge Coordination Time (in mins): 6 Quality: Safe Use of Opioids Does Pt have an Active Cancer Diagnosis on the Problem List?: No Quality: Stroke Does the patient have a stroke diagnosis?: No Physical Exam Vital Signs: Vital Signs: Last Vital Signs Pulse 68 03/25/24 12:10 Resp 18 03/25/24 12:10 BP 132/86 03/25/24 12:10 Pulse Ox 95 03/25/24 12:10 O2 Del Method Room Air 03/25/24 12:10 BMI result Body Mass Index 34.3 Discharge Plan Discharge Patient Disposition: Home, Self-Care Referrals: Cinthia Garcia MD [Primary Care Provider] - 1 Week Discharge Medications: Continued sertraline 100 mg tablet 200 mg PO DAILY olanzapine 5 mg tablet 5 mg PO DAILY clonazepam 1 mg tablet 1 mg PO TID mirtazapine 30 mg tablet 30 mg PO BEDTIME zolpidem 10 mg tablet 10 mg PO BEDTIME bupropion HCl 300 mg tablet extended release 24 hr 300 mg PO DAILY budesonide-formoterol 160-4.5 mcg/actuation HFA aerosol inhaler 1 puff INHALATION DAILY PRN (Reason: Shortness Of Breath Or Wheezing) omeprazole 40 mg capsule,delayed release(DR/EC) 40 mg PO DAILY@0630 chlorthalidone 25 mg tablet 25 mg PO DAILY losartan 50 mg tablet 50 mg PO DAILY atorvastatin 20 mg tablet 20 mg PO BEDTIME No Action cholecalciferol (vitamin D3) [Vitamin D3] 50 mcg (2,000 unit) tablet 50 mcg PO DAILY docusate sodium [Colace] 100 mg capsule 100 mg PO BID Qty: 20 0RF oxycodone 5 mg tablet 5 mg PO BID PRN (Reason: pain) Qty: 10 0RF Rx Instructions: Partial Fill upon patient request. Diet: Advance to usual diet Activity on Discharge: As tolerated Activity Restrictions/Additional Instructions: After your SI joint fusion surgery we ask you to observe the following restrictions/guidelines: Activity: It is normal to feel some discomfort as you increase your activity, but that will improve with time. We ask you avoid heavy lifting or acitivities that cause pain. As a general rule, 8lbs is a safe limit for lifting right after surgery. We ask you to stay off your left leg after surgery in order to help the SI joint fuse. Please use crutches or walker. You may return to driving when you are off narcotics (such as vicodin, oxycodone, dilaudid, etc), and you are back to normal functional capacity. If you have any concerns please check with office before driving. Return to work is specific to each patient and each surgery, so please speak with your doctor/PA at first follow up. Please bring paperwork such as FMLA at that time if you need it fille d out. Follow up: Please call the office, , after surgery to arrange a 3 week follow up for wound check. Wound Care: Your wound was closed with glue, there are no sutures to remove. You may shower on post op day # 1. We ask that you do not let the water soak the wound. If it does get wet, just towel dry lightly. Please do not scrub your incision or place any type of chemical/ointment on the wound. No tub baths, pools or jacuzzis for one month. If you have any leaking or redness from your wound, or fevers, please call office Medications: We will give you a short supply of narcotics after surgery (usually one weeks worth). If you need more please call the office but do not use more than prescribed. You will need to give our office 48 hours notice if you need narcotics refilled and we do not fill narcotics on weekends or evenings. If you are on a narcotic, it is a good idea to take a stool softener such as colace or senna to avoid constipation If you take blood thinner such as aspirin, Plavix, Coumadin, Effient, Eliquis etc for conditions such as Afib, DVT, Pulmonary embolus, coronary disease, stents etc please speak with your surgeon about specific details as to when you can resume these medications. You can resume NSAIDs on post op day 1 (eg: Motrin, Naproxen, etc). Print Language: Eritrean
[2024-04-16 07:33] VITALS: BP 141/93; PULSE 77; RESP 16; TEMP 36.6; O2SAT 96
--- NOTE | 2024-04-16 07:33 | MHC.SHP ---
Pre-Procedural Eval Section A - 24 Hr Update-Section A only Date of Service: 04/16/24 The patient is an INPATIENT: No Section B - Complete if H&P > 30 days Chief Complaint: Sacrococcygeal disorders, not elsewhere classified Details of Present Illness: Left SI joint pain Allergies: Allergies Allergy/AdvReac Type Severity Reaction Status Date / Time No Known Allergies Allergy Verified 01/16/24 13:58 [No Known Allergies*] Review of Systems Sugical H&P ROS: Negative: Constitution, Cardiovascular, Respiratory, Neurological, Psychiatric, Hem-Onc, Allergic/Immunologic, Gastrointestinal, Genitourinary, Musculoskeletal, Integumentary, Endocrine and Eyes/Ears/Nose/Throat Exam Surgical H&P Exam: Normal: HEENT, Normal: Heart, Normal: Lungs, Normal: Extremities, Normal: Abdomen, Normal: Skin and Normal: Neurological (Awake, alert) Plan Diagnosis/Plan: Unchanged I have reviewed the history and physical and performed a pertinent physical examination on my patient. No changes have occurred unless specified. Left SI joint fusion Time Spent With Patient Time: Total time managing care of this patient today __5__ minutes.
[2024-04-16] MEDS: Lactated Ringers 1,000 ML 100 ML IVCONT (07:36)
[2024-04-16] MEDS: methocarbamoL 750 MG TABLET PO (07:36)
[2024-04-16] MEDS: Gabapentin 300 MG CAPSULE PO (07:36)
--- NOTE | 2024-04-16 11:56 | PC.NURSE ---
Dr. Andres at bedside. patient to be rescheduled for tomorrow due to emergent procedure occurring in OR. patient aware. IV removed by Anum Delgado RN
== END | disposition home or self-care (01) ==
PROVIDERS: Nurse Practitioner; PCP Internal Medicine; Visit Provider Neurological Surgery
DX: M53.3 Sacrococcygeal disorders, not elsewhere classified (principal); Z53.8 Procedure and treatment not carried out for other reasons; K21.9 Gastro-esophageal reflux disease without esophagitis; J44.9 Chronic obstructive pulmonary disease, unspecified; J45.909 Unspecified asthma, uncomplicated; G47.33 Obstructive sleep apnea (adult) (pediatric); Z99.89 Dependence on other enabling machines and devices
CPT/HCPCS: 36415; 80048; 85027; 93005; J0131; J0690; J1100; J2250; J2405; J2704; J3010

== ENCOUNTER → 2024-04-16 07:02 | Outpatient (BNV) | payer OTHER, SELFPAY | PROVIDERS: PCP Internal Medicine; Visit Provider Physician Assistant | DX: M53.3 Sacrococcygeal disorders, not elsewhere classified (principal); G89.29 Other chronic pain | CPT/HCPCS: 99499 ==

== ENCOUNTER → 2024-04-17 06:00 | Outpatient (BNV) | payer OTHER, SELFPAY | PROVIDERS: PCP Internal Medicine; Visit Provider Neurological Surgery | DX: M53.3 Sacrococcygeal disorders, not elsewhere classified (principal); G89.29 Other chronic pain; Z48.89 Encounter for other specified surgical aftercare | CPT/HCPCS: 27279; 99024; 99499; G0180 ==

== ENCOUNTER 2024-04-17 08:41 | Observation (INO) | payer OTHER, SELFPAY ==
[2024-04-17] VITALS (16 sets, daily range): BP systolic 88–138; BP diastolic 52–89; PULSE 63–82; RESP 16–18; TEMP 36.2–36.9; O2SAT 93–97; BMI 33.7
--- NOTE | ~2024-04-17 | FL_ITS ---
EXAMINATION: XR FLUOROSCOPY WITH IMAGES CLINICAL INFORMATION: Left SI joint injection. COMPARISON: 01/10/2024. TECHNIQUE: Fluoroscopy provided to: Dr. Andres Fluoroscopy time: 0.6 minutes DAP: 9.2659 mGycm2 Images: 4 FINDINGS: 4 fluoroscopic dorsal and lateral images left SI joint demonstrate probe overlying the joint, and subsequent needle within the joint. Last image demonstrates contrast within the joint. Incidentally noted L3-4 posterior transpedicular hardware, and disc grafts at L3-4, L4-5, and L5-S1. Surgical clips noted anterior to the right sacrum. FL/FL guidance in OR IMPRESSION: Fluoroscopic guidance. Please refer to the full operative report for details. Electronically signed by: Tyson Guerra MD 06/12/2024 09:25 AM EDT
[2024-04-17] MEDS: Lactated Ringers 1,000 ML 50 ML IVCONT (06:34)
[2024-04-17] MEDS: methocarbamoL 750 MG TABLET PO ×2 (07:16→12:35)
[2024-04-17] MEDS: Gabapentin 300 MG CAPSULE PO (07:16)
--- NOTE | 2024-04-17 07:17 | HO.ANESPROP2 ---
[facility] Active Problems Active Problems: All Active Problems Chronic left SI joint pain (Acute) Hypoxemia associated with sleep (Acute) Syncope and collapse (Acute) Obstructive sleep apnea (Acute) Chronic pain syndrome (Acute) Postlaminectomy syndrome (Acute) Past Medical History Medical History Arthritis Spinal stenosis Bipolar 1 disorder Seizures Wheezing SOB (shortness of breath) COPD (chronic obstructive pulmonary disease) Internal hemorrhoids Back pain Insomnia Vitamin D deficiency Depression Abnormal LFTs Anal fissure H. pylori infection STD exposure Hyperlipidemia HTN (hypertension) Cervical radiculopathy Bronchospasm Syncope Palpitations Ascending aorta dilatation Sacroiliitis Lumbar radiculopathy Obstructive sleep apnea GERD (gastroesophageal reflux disease) Asthma Anxiety and depression PTSD (post-traumatic stress disorder) Chronic pain syndrome Postlaminectomy syndrome Family History Family history of problems with anesthesia: No Surgical History Surgical History Hx of vasectomy H/O colonoscopy History of esophagogastroduodenoscopy (EGD) Hx of cervical spine surgery Hx of hernia repair Hx of hand surgery S/P insertion of spinal cord stimulator History of discectomy History of Problems with Anesthesia: No Social History Social History Are you a primary career services representative to a significant other at home: No 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) Alcohol intake: current Alcohol intake frequency: a few times a week Patient Tobacco Use Status: Former Tobacco user Tobacco use type: Cigarette Cigarettes Per Day: 2 Years Smoked: 28 Use of substances other than those prescribed or required for medical reasons: No Are you DNR?: No Advance Directives: No Advance Directives Information Provided: Yes Meds Allergies Allergy/AdvReac Type Severity Reaction Status Date / Time No Known Allergies Allergy Verified 01/16/24 13:58 [No Known Allergies*] Active Medications: Current Medications Lactated Ringer's (Lr) 1,000 mls @ 50 mls/hr IVCONT .Q20H WNAG Last Admin: 04/17/24 06:34 Dose: 50 mls/hr Cefazolin Sodium/Dextrose (Ancef) 2 gm in 50 mls @ 100 mls/hr IV PREOP ONE Stop: 04/17/24 07:26 Home Medications ?Medication ?Instructions ?Recorded ?Confirmed ?Last Taken ?Type bupropion HCl 300 mg 24 hr tablet, 1 tab PO QAM depressive disorder 04/28/21 03/25/24 Unknown History extended release clonazepam 1 mg tablet 1 tab PO TID PRN anxiety 04/28/21 03/25/24 Unknown History mirtazapine 30 mg tablet 1 tab PO BEDTIME 04/28/21 03/25/24 Unknown History olanzapine 5 mg tablet 1 tab PO DAILY Anxiety 04/28/21 03/25/24 Unknown History sertraline 100 mg tablet 1 tab PO BID 04/28/21 03/25/24 Unknown History zolpidem 10 mg tablet 1 tab PO BEDTIME 04/28/21 03/25/24 Unknown History atorvastatin 20 mg tablet 20 mg PO BEDTIME 03/06/23 03/25/24 Unknown History chlorthalidone 25 mg tablet 25 mg PO DAILY 03/06/23 03/25/24 04/16/24 History losartan 50 mg tablet 50 mg PO DAILY 03/06/23 03/25/24 04/17/24 History budesonide-formoterol HFA 160 1 puff inhalation DAILY PRN 03/25/24 03/25/24 Unknown History mcg-4.5 mcg/actuation aerosol Shortness Of Breath Or Wheezing inhaler omeprazole 40 mg capsule,delayed 40 mg PO DAILY 03/25/24 03/25/24 04/17/24 History release Exam Height,Weight and Vital Signs: Height 5 ft 9 in Weight 103.589 kg Last Vital Signs Temp 97.8 F 04/17/24 06:24 Pulse 69 04/17/24 06:24 Resp 16 04/17/24 06:24 BP 120/79 04/17/24 06:24 Pulse Ox 96 04/17/24 06:24 O2 Del Method Room Air 04/17/24 06:24 Airway Mallampati Class: III TM Dist: >3cm Neck ROM: Limited Loose/Missing/Broken Teeth: No Heart: RRR Lungs: CTA Assessment and Plan Assessment Anesthesia Assessment: Anesthesia Plan Discussed and Chart Reviewed Final Anesthetic Review Family History of Problems with Anesthesia: No History of Problems with Anesthesia: No NPO: Yes ASA Class: III Final Preanesthetic Review: Meds/Allgs Chart Reviewed, Consent Obtained/Reviewed and Anes Risks/Benef Reviewed Patient Risk: Intermediate Procedure Risk: Intermediate Anesthetic Plan Anesthetic Plan: GA Disposition: Standard PACU
--- NOTE | 2024-04-17 07:35 | MHC.SHP ---
Pre-Procedural Eval Section A - 24 Hr Update-Section A only Date of Service: 04/17/24 The patient is an INPATIENT: No Changes since office visit: No Cold of Flu in the past 2 weeks, No New Medical Problems, No Changes in Medication and No Patient answered all questions The patient has been examined within 24 hours of the surgical procedure. The History & Physical has been completed within 30 days and I have reviewed it.: No Section B - Complete if H&P > 30 days Chief Complaint: Sacrococcygeal disorders, not elsewhere classified Allergies: Allergies Allergy/AdvReac Type Severity Reaction Status Date / Time No Known Allergies Allergy Verified 01/16/24 13:58 [No Known Allergies*] Review of Systems Sugical H&P ROS: Negative: Constitution, Cardiovascular, Respiratory, Neurological, Psychiatric, Hem-Onc, Allergic/Immunologic, Gastrointestinal, Genitourinary, Musculoskeletal, Integumentary, Endocrine and Eyes/Ears/Nose/Throat Exam Surgical H&P Exam: Normal: HEENT, Normal: Heart, Normal: Lungs, Normal: Extremities, Normal: Abdomen, Normal: Skin and Normal: Neurological (Patient is awake alert oriented x3) Plan Diagnosis/Plan: Unchanged Left SI joint fusion Time Spent With Patient Time: Total time managing care of this patient today _6___ minutes.
--- NOTE | 2024-04-17 08:49 | W.PM.OPN ---
Operative Note Operative Note Date of Service: 04/17/24 Narrative: Preoperative diagnosis: Left sacroiliac joint dysfunction Postoperative diagnosis: Same Operative procedure: Left sacroiliac joint fusion with 1 allograft implant Surgeon: Chad Andres MD, PhD Oil Spraying Machine Operator: Waldemar Jernigan PA-C Anesthesia: General Description of procedure: The patient is suffering from left SI joint dysfunction refractory to nonoperative management. The patient has tried and failed all forms of conservative manage med except for an excellent short-term response to a sacroiliac joint injection. The sacroiliac joint was confirmed to be the pain generator after repeated pain blocks. The patient was offered surgical treatment with fixation and arthrodesis of the SI joint. The patient was brought to the operating room and endotracheally intubated. The patient was turned in a prone position on Gucci spine table. Prepping and draping was done followed by a time-out. A C-arm was alternately positioned for lateral, oblique oblique and pelvic inlet and outlet projections througout the procedure. Skin markings were made for the anticipated position of the implant. A 2.5 cm longitudinal skin incision was made. A guide pin was inserted in an outlet oblique image for guidance follow-up insertion of dilator and working cannula. This was secured by placing an anchor pin into the ilium. We confirmed the trajectory in inlet view. Consideration was taken to cut channels utilizing a series of drills for decortication and internal fixation device placement. The implant was inserted such that it passed through the ilium, across the sacroiliac joint and into the sacrum, thus transfixing the sacroiliac joint. Proper positioning was confirmed on lateral fluoroscopy. The implant was packed with autologous bone collected from remain of the sacrum and ilium. Additional graft material was inserted into the channel void following the implant. The instruments were withdrawn. Upon completion, final images were obtained that showed a satisfactory position of the implant. Hemostasis was done. The incision was closed with an 0 Vicryl to fashion a 3-0 Vicryl subdermal layer after injecting Marcaine. Dermabond was used to approximate the surgeon. All sponge and needle counts were correct. Patient was extubated and transported in a stable condition to recovery room. Estimated blood loss: 30 mL Complications: None Disposition: Discharge to home
[2024-04-17] MEDS: HYDROmorphone HCl 0.5 MG/0.5 ML SYRINGE 0.25 MG IVPUSH ×2 (09:02→09:17)
[2024-04-17] MEDS: oxyCODONE HCl Immed Release 5 MG TABLET PO (09:38)
--- NOTE | 2024-04-17 11:30 | PHA.MEDREC ---
Pharmacy Consult ? Medication Reconciliation Pharmacy has completed the medication reconciliation. Spoke with patient to confirm med list. patient confirmed all meds and states he is no longer on Advair [address] changed to Budesonide-formoterol 160-4.5mg 1 puff daily. Patient also states he is on Mirtazipine 30 mg at bedtime and Zolpidem 10 mg at bedtime.
[2024-04-17] MEDS: 0.9 % Sodium Chloride 1,000 ML 75 ML IVCONT ×2 (11:35→22:24)
[2024-04-17] MEDS: oxyCODONE HCl Immed Release 5 MG TABLET 10 MG PO ×3 (13:28→22:28)
[2024-04-17] MEDS: Ketorolac Tromethamine 15 MG/ML VIAL IVPUSH ×2 (14:56→20:23)
[2024-04-17] MEDS: Acetaminophen 1,000 MG/100 ML PIGGYBACK 400 MG IV ×2 (14:56→21:02)
--- NOTE | 2024-04-17 16:56 | PC.NURSE ---
Pt is a&ox4, post op day 1, voided at 1530 800 cc of clear urine, pt attempted to walk but could not, stood up with rolling walker and assist x1, but could not take steps due to sharp pain in his back and left leg. Pt is on RA, no SOB, scheduled and prn pain meds given with good effect.
[2024-04-17] MEDS: Docusate Sodium 100 MG CAPSULE PO (21:04)
[2024-04-18] MEDS: methocarbamoL 750 MG TABLET PO (01:28)
[2024-04-18] MEDS: Ketorolac Tromethamine 15 MG/ML VIAL IVPUSH ×2 (02:32→08:13)
[2024-04-18 03:06] VITALS: BP 105/60; PULSE 68; RESP 18; TEMP 36.4; O2SAT 97
[2024-04-18] MEDS: Acetaminophen 1,000 MG/100 ML PIGGYBACK 400 MG IV ×2 (03:14→08:12)
[2024-04-18] MEDS: oxyCODONE HCl Immed Release 5 MG TABLET 10 MG PO ×2 (06:52→12:27)
[2024-04-18] MEDS: Docusate Sodium 100 MG CAPSULE PO (08:13)
--- NOTE | 2024-04-18 09:10 | HO.NEURO.PN ---
Neurosurgery Operative Note Date of Service: 04/18/24 Narrative: Postop day 1. SI joint fusion Patient reports pain over the incision site, had some trouble getting up yesterday with the crutches in the walker. Patient has been tolerating diet okay. Voiding okay. Afebrile, vital signs stable Physical exam: Patient is awake alert oriented no acute distress, posterior SI joint incisions closed with glue, clean dry no signs of hematoma. He is able to show me full strength of bilateral lower extremities. Impression: Postop day 1. SI joint fusion, patient requested to spend the night in the hospital because he did not have a ride home yesterday. He is voiding okay, tolerating a diet, his pain is reasonably well controlled. He was having trouble with the crutches and the walk yesterday, but I explained to him that this is going to be a three-week process of being off his leg so he needs to make an attempt to figure out how he is going to do this at home. If we need to get PT evaluation that is certainly reasonable but that we should expect discharge today. Dr. Andres has been updated on the patient's plan and agrees that the patient is safe for discharge.
--- NOTE | 2024-04-18 09:14 | PM.DS ---
DS: Providers Provider Date of Service: 04/17/24 Date of admission: 04/17/24 08:41 Date of discharge: 04/18/24 Primary care physician: Cinthia Garcia MD Admitting clinician: Chad Andres DS: Diagnosis Discharge Diagnosis (1) Chronic left SI joint pain: Status: Acute DS: Summary Time Attestation Discharge Coordination Time (in mins): 6 Quality: Safe Use of Opioids Does Pt have an Active Cancer Diagnosis on the Problem List?: No Quality: Stroke Does the patient have a stroke diagnosis?: No Physical Exam Vital Signs: Vital Signs: Last Vital Signs Temp 97.6 F 04/18/24 03:06 Pulse 68 04/18/24 03:06 Resp 18 04/18/24 03:06 BP 105/60 04/18/24 03:06 Pulse Ox 97 04/18/24 03:06 O2 Del Method Nasal Cannula 04/18/24 03:06 O2 Flow Rate 2 04/18/24 03:06 BMI result Body Mass Index 33.7 Discharge Plan Discharge Patient Disposition: Home, Self-Care Referrals: Cinthia Garcia MD [Primary Care Provider] - 1 Week Discharge Medications: New docusate sodium [Colace] 100 mg capsule 100 mg PO BID Qty: 20 0RF oxycodone 5 mg tablet 5 mg PO Q4H PRN (Reason: pain) Qty: 20 0RF Rx Instructions: Partial Fill upon patient request. Continued sertraline 100 mg tablet 200 mg PO DAILY olanzapine 5 mg tablet 5 mg PO DAILY clonazepam 1 mg tablet 1 mg PO TID mirtazapine 30 mg tablet 30 mg PO BEDTIME zolpidem 10 mg tablet 10 mg PO BEDTIME bupropion HCl 300 mg tablet extended release 24 hr 300 mg PO DAILY budesonide-formoterol 160-4.5 mcg/actuation HFA aerosol inhaler 1 puff INHALATION DAILY PRN (Reason: Shortness Of Breath Or Wheezing) omeprazole 40 mg capsule,delayed release(DR/EC) 40 mg PO DAILY@0630 cholecalciferol (vitamin D3) [Vitamin D3] 50 mcg (2,000 unit) tablet 50 mcg PO DAILY chlorthalidone 25 mg tablet 25 mg PO DAILY losartan 50 mg tablet 50 mg PO DAILY atorvastatin 20 mg tablet 20 mg PO BEDTIME Discharge Orders: Discharge Order (Routine); Ordered 04/18/24 Ordered By: Waldemar Jernigan Diet: Advance to usual diet Activity on Discharge: As tolerated Stand Alone Forms: Patient Portal Discharge page Print Language: Canadian Activity Restrictions/Additional Instructions: After your SI joint fusion surgery we ask you to observe the following restrictions/guidelines: Activity: It is normal to feel some discomfort as you increase your activity, but that will improve with time. We ask you avoid heavy lifting or acitivities that cause pain. As a general rule, 8lbs is a safe limit for lifting right after surgery. We ask you to stay off your [] leg after surgery in order to help the SI joint fuse. Please use crutches or walker. You may return to driving when you are off narcotics (such as vicodin, oxycodone, dilaudid, etc), and you are back to normal functional capacity. If you have any concerns please check with office before driving. Return to work is specific to each patient and each surgery, so please speak with your doctor/PA at first follow up. Please bring paperwork such as FMLA at that time if you need it filled out. Follow up: Please call the office, , after surgery to arrange a 3 week follow up for wound check. Wound Care: Your wound was closed with glue, there are no sutures to remove. You may shower on post op day # 1. We ask that you do not let the water soak the wound. If it does get wet, just towel dry lightly. Please do not scrub your incision or place any type of chemical/ointment on the wound. No tub baths, pools or jacuzzis for one month. If you have any leaking or redness from your wound, or fevers, please call office Medications: We will give you a short supply of narcotics after surgery (usually one weeks worth). If you need more please call the office but do not use more than prescribed. You will need to give our office 48 hours notice if you need narcotics refilled and we do not fill narcotics on weekends or evenings. If you are on a narcotic, it is a good idea to take a stool softener such as colace or senna to avoid constipation If you take blood thinner such as aspirin, Plavix, Coumadin, Effient, Eliquis etc for conditions such as Afib, DVT, Pulmonary embolus, coronary disease, stents etc please speak with your surgeon about specific details as to when you can resume these medications. You can resume NSAIDs on post op day 1 (eg: Motrin, Naproxen, etc). Care Plan Goals: Discharge home Health Concerns: Patient is nonweightbearing to the left side, will follow up in clinic in 3 weeks Plan of Treatment: Discharge home Assessment: Stable
--- NOTE | 2024-04-18 09:40 | MHC.CM.PN ---
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 Original Note: PABLO 04/18. Pt self-care, lives at home alone. Pt uses crutches and a walker. Pts friend will transport him home at discharge. Educated on HCP, pt declined at this time. PCP: Dr. Cinthia Garcia
[2024-04-18 10:17] VITALS: BP 105/60; PULSE 68; O2SAT 97
--- NOTE | 2024-04-18 10:34 | HO.POSTANES ---
Post Anesthesia Evaluation Post Anesthesia Evaluation Date of Service: 04/18/24 Vital Signs: Vital Signs Temp Pulse Resp BP Pulse Ox O2 Del Method O2 Flow Rate 04/18/24 03:06 97.6 F 68 18 105/60 97 Nasal Cannula 2 04/17/24 23:12 98.3 F 69 18 117/62 95 Room Air Anesthesia: General Endotracheal-GETA Mental Status: Awake Nausea/Vomiting: None Hydration: Adequate Anesthesia-Related Issues: No Anes. Related Issues Comments: Patient is having significant post-op pain. Tried ambulating yesterday without success. Currently lying sideways on the bed to alleviate pressure from surgical site. Pain control per primary team. Anesthesia team to follow-up as necessary.
--- NOTE | 2024-04-18 11:26 | W.MHC.F2F ---
Service Date Service Date: 04/18/24 Encounter Date of encounter: 04/18/24 Reasons for Services Signs and symptoms assessed: Postoperative SI joint fusion with difficulty mobilizing and pain in his incision site Reason for retirement: neurological assessment, wound care and postoperative assessment and/or care Reason for physical therapy: home safety and mobility, therapeutic exercises and gait/transfer training Reason for occupational therapy: home safety and mobility, therapeutic exercises and gait/transfer training Homebound: Leaving the home is medically contraindicated at this time without the asist of a device and/or another person due th the listed conditions above and below. Reason homebound: unsteady gait / fall risk, pain with ambulation and pain with transfers Certification: Based on the above findings, I certify that this patient is confined to the home and needs intermittent retirement care, physical therapy and/or speech therapy, or continues to need occupational therapy. The patient is under my care, and I have initiated the establishment of the plan of care. The patient will be followed by a physician who will periodically review the plan of care. Time Spent With Patient Time: Total time managing care of this patient today __ 5 __ minutes.
--- NOTE | 2024-04-18 11:27 | P.DS_ITS ---
DS: Providers Provider Date of Service: 04/18/24 Date of admission: 04/17/24 08:41 Primary care physician: Cinthia Garcia MD DS: Diagnosis Discharge Diagnosis (1) Chronic left SI joint pain: Status: Acute DS: Summary Hospital Course Hospital Course: The patient came in for elective SI joint fusion, was supposed to go home the same day, however he had no but he give him a ride in he lives alone so he wanted to stay 1 night. First postoperative night was unremarkable. He had some trouble with his crutches so he switched over to a walker. He has met all criteria for discharge and will be sent home. He is nonweightbearing to his left leg. He can shower whenever he would like. His wound is closed with glue. He will see us back in the office in 3 weeks. Time Attestation Discharge Coordination Time (in mins): 10 Quality: Safe Use of Opioids Does Pt have an Active Cancer Diagnosis on the Problem List?: No Quality: Stroke Does the patient have a stroke diagnosis?: No Physical Exam Vital Signs: Vital Signs: Last Vital Signs Temp 97.6 F 04/18/24 03:06 Pulse 68 04/18/24 10:17 Resp 18 04/18/24 03:06 BP 105/60 04/18/24 10:17 Pulse Ox 97 04/18/24 10:17 O2 Del Method Nasal Cannula 04/18/24 03:06 O2 Flow Rate 2 04/18/24 03:06 BMI result Body Mass Index 33.7 Discharge Plan Discharge Patient Disposition: Home Health Service Referrals: Cinthia Garcia MD [Primary Care Provider] - 1 Week Discharge Medications: New docusate sodium [Colace] 100 mg capsule 100 mg PO BID Qty: 20 0RF oxycodone 5 mg tablet 5 mg PO Q4H PRN (Reason: pain) Qty: 20 0RF Rx Instructions: Partial Fill upon patient request. Continued sertraline 100 mg tablet 200 mg PO DAILY olanzapine 5 mg tablet 5 mg PO DAILY clonazepam 1 mg tablet 1 mg PO TID mirtazapine 30 mg tablet 30 mg PO BEDTIME zolpidem 10 mg tablet 10 mg PO BEDTIME bupropion HCl 300 mg tablet extended release 24 hr 300 mg PO DAILY budesonide-formoterol 160-4.5 mcg/actuation HFA aerosol inhaler 1 puff INHALATION DAILY PRN (Reason: Shortness Of Breath Or Wheezing) omeprazole 40 mg capsule,delayed release(DR/EC) 40 mg PO DAILY@0630 cholecalciferol (vitamin D3) [Vitamin D3] 50 mcg (2,000 unit) tablet 50 mcg PO DAILY chlorthalidone 25 mg tablet 25 mg PO DAILY losartan 50 mg tablet 50 mg PO DAILY atorvastatin 20 mg tablet 20 mg PO BEDTIME Discharge Orders: Discharge Order (Routine); Ordered 04/18/24 Ordered By: Waldemar Jernigan Diet: Advance to usual diet Activity on Discharge: As tolerated Stand Alone Forms: Patient Portal Discharge page Print Language: Hungarian Activity Restrictions/Additional Instructions: After your SI joint fusion surgery we ask you to observe the following restrictions/guidelines: Activity: It is normal to feel some discomfort as you increase your activity, but that will improve with time. We ask you avoid heavy lifting or acitivities that cause pain. As a general rule, 8lbs is a safe limit for lifting right after surgery. We ask you to stay off your [] leg after surgery in order to help the SI joint fuse. Please use crutches or walker. You may return to driving when you are off narcotics (such as vicodin, oxycodone, dilaudid, etc), and you are back to normal functional capacity. If you have any concerns please check with office before driving. Return to work is specific to each patient and each surgery, so please speak with your doctor/PA at first follow up. Please bring paperwork such as FMLA at that time if you need it filled out. Follow up: Please call the office, , after surgery to arrange a 3 week follow up for wound check. Wound Care: Your wound was closed with glue, there are no sutures to remove. You may shower on post op day # 1. We ask that you do not let the water soak the wound. If it does get wet, just towel dry lightly. Please do not scrub your incision or place any type of chemical/ointment on the wound. No tub baths, pools or jacuzzis for one month. If you have any leaking or redness from your wound, or fevers, please call office Medications: We will give you a short supply of narcotics after surgery (usually one weeks worth). If you need more please call the office but do not use more than prescribed. You will need to give our office 48 hours notice if you need narcotics refilled and we do not fill narcotics on weekends or evenings. If you are on a narcotic, it is a good idea to take a stool softener such as colace or senna to avoid constipation If you take blood thinner such as aspirin, Plavix, Coumadin, Effient, Eliquis etc for conditions such as Afib, DVT, Pulmonary embolus, coronary disease, stents etc please speak with your surgeon about specific details as to when you can resume these medications. You can resume NSAIDs on post op day 1 (eg: Motrin, Naproxen, etc). Care Plan Goals: Discharge home Health Concerns: Patient is nonweightbearing to the left side, will follow up in clinic in 3 weeks Plan of Treatment: Discharge home Assessment: Stable
--- NOTE | 2024-04-18 13:44 | MHC.CM.PN ---
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
== END 2024-04-18 12:49 | disposition home health service (06) ==
LOC: HO.SSSA 09:36 → HO.S3 09:38
PROVIDERS: Neurological Surgery; Admitting Provider Physician Assistant; PCP Internal Medicine; Visit Provider Physician Assistant
PROC: (CPT 27278; principal; 2024-04-17 07:30)
DX: M53.3 Sacrococcygeal disorders, not elsewhere classified (principal); G89.29 Other chronic pain
CPT/HCPCS: 27278; 96361; 96365; 96366; 96375; 96376; 97161; 99221; A4364; C1713; J0131; J0690; J1170; J1885; L8699

== ENCOUNTER 2024-05-08 09:49 | Outpatient (AMB) | payer OTHER, SELFPAY ==
--- NOTE | 2024-05-08 10:14 | A.SPINEOV_ITS ---
Intake Visit Reasons: 1st post op Intake Note: Mr. Smith is here today for his 1st post-op visit. Home Economics Teacher Required: No Allergies No Known Allergies [No Known Allergies*] Allergy (Verified 05/08/24 10:16) Assessment & Plan Assessment & Plan (1) Chronic left SI joint pain: Code(s): M53.3 - Sacrococcygeal disorders, not elsewhere classified; G89.29 - Other chronic pain Category: Medical Plan Procedure: Left SI joint fusion Hebert comes in today for his 1st postoperative visit. He reports that he does feel much better than he did prior to surgery. He has been ambulating without the assistance of crutches, and feels he has only a moderate amount of pain now. He is able to complete the majority of his ADLs. He does state that he is still sitting favoring his right side, sleeping on his right side, and walking favoring his right side. Thankfully, he has not needed to do stairs very often as he has an elevator where he lives. We discussed postoperative healing course, subsequent appointments, and medication refill. No new neurological deficits. Patient is able to ambulate well, rises from a seated position without difficulty. Incision sites are closed, well healing, with no signs of drainage. We will follow-up with the patient in 6 weeks for their 2nd postoperative visit. At that time we will get x-rays to review with the patient. Alexis Andres MD,PhD [facility] Orders: Orders XR hip LT 1V 05/08/24 M53.3 - Sacrococcygeal disorders, not elsewhere cla ssified, G89.29 - Other chronic pain Medications: Changed From oxycodone Partial Fill upon patient request. 5 mg PO Q4H PRN 20 tabs 0RF pain To oxycodone Partial Fill upon patient request. 5 mg PO BID PRN 10 tabs 0RF pain Coding Level of Care Code Global (59875) Diagnoses Chronic left SI joint pain M53.3; G89.29
== END 2024-05-08 10:51 | disposition home or self-care (01) ==
PROVIDERS: PCP Internal Medicine; Visit Provider Physician Assistant
DX: M53.3 Sacrococcygeal disorders, not elsewhere classified (principal); G89.29 Other chronic pain
CPT/HCPCS: 99024

== ENCOUNTER 2024-05-08 09:49 | Outpatient (REF) | payer OTHER, SELFPAY | END 2024-05-08 09:50 | disposition home or self-care (01) | LOC: HO.HOSX 09:49 | PROVIDERS: PCP Internal Medicine; Visit Provider Physician Assistant | DX: M53.3 Sacrococcygeal disorders, not elsewhere classified (principal); G89.29 Other chronic pain | CPT/HCPCS: 99212 ==

== ENCOUNTER 2024-06-05 07:40 | Outpatient (AMB) | payer OTHER, SELFPAY ==
--- NOTE | 2024-06-05 07:54 | A.OFFVIS_ITS ---
Vital Signs 06/05/24 07:57 Height 5 ft 9 in Weight 226 lb 6 oz BMI 33.4 BP 100/70 Blood Pressure Location Rt brachial Position Sitting Pulse 74 Pulse Source Pulse Oximeter Pulse Oximetry (%) 96 Oxygen Delivery Method Room Air Intake Visit Reasons: 1 yr f/u appt for sleep Intake Note: Patient presents for a 1 year f/u DENI Instrumentation Engineer Required: No Accompanied by: Self / Same As Patient Allergies No Known Allergies [No Known Allergies*] Allergy (Verified 06/05/24 07:55) HPI Comments Details: 49 y/o male patient presents for follow up of sleep study. The split night sleep study result was significant for severe degree of sleep apnea. The AHI was 30/hr and oxygen chace was 87%. 12/2022 Pt started CPAP at [id number]. The compliance the therapy response (02/28/24- -07-10) reviewed. The usage days 93% and the average usage hours 7 hours. The AHI was 1.5/hr. Pt states that he sleeps well with CPAP for 8-9 hours without waking up in the middle of night. He wakes up refreshed and has more energy during the daytime. He cleans the mask and tubing every morning. [facility] Medical History Arthritis Spinal stenosis Bipolar 1 disorder Seizures Wheezing SOB (shortness of breath) COPD (chronic obstructive pulmonary disease) Internal hemorrhoids Back pain Insomnia Vitamin D deficiency Depression Abnormal LFTs Anal fissure H. pylori infection STD exposure Hyperlipidemia HTN (hypertension) Cervical radiculopathy Bronchospasm Syncope Palpitations Ascending aorta dilatation Sacroiliitis Lumbar radiculopathy Obstructive sleep apnea GERD (gastroesophageal reflux disease) Asthma Anxiety and depression PTSD (post-traumatic stress disorder) Chronic pain syndrome Postlaminectomy syndrome Surgical History Hx of vasectomy H/O colonoscopy History of esophagogastroduodenoscopy (EGD) Hx of cervical spine surgery Hx of hernia repair Hx of hand surgery S/P insertion of spinal cord stimulator History of discectomy Social History Are you a primary ambulatory care to a significant other at home: No Do you presently have visiting nurse or other home services: Yes (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) Alcohol intake: current Alcohol intake frequency: a few times a week Patient Tobacco Use Status: Former Tobacco user Tobacco use type: Cigarette Cigarettes Per Day: 2 Years Smoked: 28 service: No Physical Exam Vital Signs: Last Vital Signs Pulse 74 06/05/24 07:57 BP 100/70 06/05/24 07:57 Pulse Ox 96 06/05/24 07:57 Oxygen Delivery Method Room Air 06/05/24 07:57 BMI result Body Mass Index 33.4 Const General: cooperative and healthy appearing Nutritional Appearance: average body habitus Orientation/consciousness: oriented to time and patient oriented x3 HEENT Head: Yes normal to inspection Neuro General: oriented to time, patient oriented x3, gait normal, tone normal, moves all extremities, no focal motor deficits and CN's II-XI intact bilaterally Psych Appearance: grossly normal Mental Status: mental status grossly normal Speech and movement: Normal speech and movement present Affect: normal affect Attitude: cooperative Assessment & Plan Assessment & Plan (1) Obstructive sleep apnea: Comment: Severe degree of sleep apnea. The AHI was 30/hr and oxygen chace was 87%. Code(s): G47.33 - Obstructive sleep apnea (adult) (pediatric) Category: Medical Plan Continue to use CPAP at [id number] as patient experiences good clinical effects, better sleep quality, less snoring less daytime sleepiness. Stressed compliance, use CPAP nighlty and more than 4 hours. Reviewed compliance Coding Level of Care Code Est Pt Level 3 (27326) Diagnoses Obstructive sleep apnea G47.33
[2024-06-05 07:57] VITALS: BP 100/70; PULSE 74; O2SAT 96; BMI 33.4
== END 2024-06-05 08:09 | disposition home or self-care (01) ==
PROVIDERS: Absent Provider Psychiatry & Neurology Neurology; PCP Internal Medicine; Visit Provider Psychiatry & Neurology Neurology
DX: G47.33 Obstructive sleep apnea (adult) (pediatric) (principal)
CPT/HCPCS: 99213

== ENCOUNTER → 2024-06-05 07:40 | Outpatient (BNVA) | payer OTHER, SELFPAY | PROVIDERS: Absent Provider Psychiatry & Neurology Neurology; PCP Internal Medicine; Visit Provider Psychiatry & Neurology Neurology | DX: G47.33 Obstructive sleep apnea (adult) (pediatric) (principal) | CPT/HCPCS: 99212 ==

== ENCOUNTER 2024-06-19 10:08 | Outpatient (AMB) | payer OTHER, SELFPAY ==
--- NOTE | 2024-06-19 10:11 | A.SPINEOV_ITS ---
Intake Visit Reasons: 2nd post op with xrays Intake Note: Mr. Smith is here today for his 2nd post-op appointment. Flatwork Supervisor Required: No Allergies No Known Allergies [No Known Allergies*] Allergy (Verified 06/19/24 10:26) Assessment & Plan Assessment & Plan (1) S/P fusion of sacroiliac joint: Code(s): Z98.1 - Arthrodesis status Category: Medical Plan Procedure: Left sacroiliac joint fusion Hebert comes in today for a follow up visit after having a left sacroiliac joint fusion completed by our service. He continues to do well since the surgery and has been ambulating much better. He feels he has very little pain in the left side, to the point where he no longer needs to be on daily medication. He is concerned that after prolonged periods of walking he does feel pain both in the right and left hip. He is unsure if he has been over working the right side for so long that it may have caused an issue with it. The x-ray imaging was reviewed which shows stable placement of the allograft. No new neurological deficits. The patient ambulates well without an antalgic gait. I would like Hebert to give the surgery some time to heal, and he likely will be able to better correct his gait. This may lead to resolution of his symptoms. If he continues to have pain on the right side we can re-evaluate him in 6 months or so to see if he has pathology in the right SI joint as well. Alexis Andres MD,PhD [facility] Coding Level of Care Code Global (23676) Diagnoses S/P fusion of sacroiliac joint Z98.1
== END 2024-06-19 10:36 | disposition home or self-care (01) ==
PROVIDERS: PCP Internal Medicine; Visit Provider Physician Assistant
DX: Z98.1 Arthrodesis status (principal)
CPT/HCPCS: 99024

== ENCOUNTER → 2024-06-19 10:08 | Outpatient (BNVA) | payer OTHER, SELFPAY | PROVIDERS: PCP Internal Medicine; Visit Provider Physician Assistant ==

== ENCOUNTER 2024-06-19 10:09 | Outpatient (REF) | payer OTHER, SELFPAY | END 2024-06-19 10:10 | disposition home or self-care (01) | LOC: HO.HOSX 10:09 | PROVIDERS: Visit Provider Physician Assistant | DX: M53.3 Sacrococcygeal disorders, not elsewhere classified (principal); G89.29 Other chronic pain; Z98.1 Arthrodesis status | CPT/HCPCS: 73501; 99212 ==

== ENCOUNTER 2024-11-12 09:16 | Outpatient (AMB) | payer OTHER, SELFPAY ==
[2024-11-12 09:22] VITALS: BP 139/86; PULSE 78; O2SAT 96; BMI 31.6
--- NOTE | 2024-11-12 09:22 | MHC.OFFVIS ---
Vital Signs 11/12/24 09:22 Height 5 ft 9 in Weight 214 lb BMI 31.6 BP 139/86 Blood Pressure Location Lt brachial Position Sitting Pulse 78 Pulse Source Pulse Oximeter Pulse Oximetry (%) 96 Oxygen Delivery Method Room Air Intake Visit Reasons: FU for battery check/pt will notify rep of appt Cena Required: No Allergies No Known Allergies [No Known Allergies*] Allergy (Verified 11/12/24 09:22) Medication List - Last Reconciled 11/12/24 by Nilda Schaefer, RETAIL SECURITY PROFESSIONAL atorvastatin 20 mg PO BEDTIME budesonide-formoterol 160-4.5 mcg/actuation 1 puff inhalation DAILY PRN chlorthalidone 25 mg PO DAILY cholecalciferol (vitamin D3) (Vitamin D3) 50 mcg PO DAILY clonazepam 1 mg PO TID losartan 50 mg PO DAILY mirtazapine 30 mg PO BEDTIME olanzapine 5 mg PO DAILY omeprazole 40 mg PO DAILY@0630 sertraline 200 mg PO DAILY zolpidem 10 mg PO BEDTIME HPI Comments Details: Hebert is very pleasant 49 years old still medically is very well known to this practice. He was under my observation for many years initially he came to me with both cervicalgia the and low back pain, he was inserted with [employer] spinal cord stimulator to stimulate both cervical and lumbar areas. The stimulators were placed in cervical spine and thoracic spine. About 1 year after the implantation patient started to complain that implanted [employer] battery give him electrical shock sensation. [employer] examined the battery and stated that it is impossible that this device would give patient electrical shock sensation however patient insisted on removal of the SCS. On his insistence I removed [employer] system and later on implanted cervical as well as thoracic freedom/ [employer] PNS system. For awhile patient was content with his stimulation device. However lately he started to complain that some perception stimulation does not alleviate his pain but when he goes with increase of the amplitude he will start to feel painful stimulation. Today the sales representative business courses will be working with the patient to check the impedances and adjust his stimulation as well as give him new battery which will provide high amplitude sub perception stimulation. [facility] Medical History Arthritis Spinal stenosis Bipolar 1 disorder Seizures Wheezing SOB (shortness of breath) COPD (chronic obstructive pulmonary disease) Internal hemorrhoids Back pain Insomnia Vitamin D deficiency Depression Abnormal LFTs Anal fissure H. pylori infection STD exposure Hyperlipidemia HTN (hypertension) Cervical radiculopathy Bronchospasm Syncope Palpitations Ascending aorta dilatation Sacroiliitis Lumbar radiculopathy Obstructive sleep apnea GERD (gastroesophageal reflux disease) Asthma Anxiety and depression PTSD (post-traumatic stress disorder) Chronic pain syndrome Postlaminectomy syndrome Surgical History Hx of vasectomy H/O colonoscopy History of esophagogastroduodenoscopy (EGD) Hx of cervical spine surgery Hx of hernia repair Hx of hand surgery S/P insertion of spinal cord stimulator History of discectomy Social History Are you a primary career development coordinator to a significant other at home: No Do you presently have visiting nurse or other home services: Yes ([employer]) Alcohol intake: current Alcohol intake frequency: a few times a week Patient Tobacco Use Status: Former Tobacco user Tobacco use type: Cigarette Cigarettes Per Day: 2 Years Smoked: 28 service: No Review of Systems Const All systems reviewed & are unremarkable except as noted in HPI and below ENT Reports Normal hearing present Neuro Reports Normal hearing present, Denies confusion and Denies Sensory deficit (Neuro) Psych Denies confusion Physical Exam Vital Signs: Last Vital Signs Pulse 78 11/12/24 09:22 BP 139/86 11/12/24 09:22 Pulse Ox 96 11/12/24 09:22 Oxygen Delivery Method Room Air 11/12/24 09:22 BMI result Body Mass Index 31.6 Const General: No confusion Orientation/consciousness: No confusion Eyes EOM: EOMs intact bilaterally Chest Chest palpation & inspection: normal inspection of the chest Resp Effort & Inspection: normal respiratory effort, able to speak in complete sentences, normal respiratory pattern, no audible wheezes and no cough Cardio Jugular venous distension: no JVD GI Inspection: Yes normal to inspection Neuro General: No confusion Cranial nerves: Yes Normal hearing present Sensory Exam: No Sensory deficit (Neuro) Assessment & Plan Assessment & Plan (1) Postlaminectomy syndrome: Code(s): M96.1 - Postlaminectomy syndrome, not elsewhere classified Category: Medical (2) Chronic pain syndrome: Code(s): G89.4 - Chronic pain syndrome Category: Medical Plan He is back in my office with yet another spinal cord stimulator problem. He will meet today with the [employer] sales representative business courses. His battery also will be changed today. See discussion as above. Coding Level of Care Code Est Pt Level 3 (87738) Diagnoses Postlaminectomy syndrome M96.1 Chronic pain syndrome G89.4
--- OUTSIDE RECORDS SUMMARY | 2024-11-12 10:23 | XMS_ITS | Encounter Summary ---
Author Organization [facility] Address [address] [place] [address] Care Team Providers Care Robotic Machine Tender Production Name Role Phone Cinthia Garcia MD Primary Care Provider [phone] Reason for Visit * Therapy (Routine) - Authorized Specialty Diagnoses / Procedures Referred By Zohreh sanchez Referred To Contact Occupational Therapy Diagnoses Postoperative state Latrell Rangel MD [address] [facility] [address] [place] [address] Phone: tel: fax: [facility] Occupational Therapy [address] [facility] [address] [place] [address] Phone: tel: fax: Referral ID Status Reason Start Date Expiration Date Visits Requested Visits Authorized [id number] Authorized Specialty Services Required Consult and Treat 4 08/13/2025 13 12 Encounter Details Date Type Department Care Team (Late st Contact Info) Description 10/14/2024 8:45 AM EST Treatment [facility] [address] [phone] Glenis Taylor COTA/Kirit Postoperative state (Primary Dx) Social History Tobacco Use Types Packs/Day Years Used Date Smoking Tobacco: Former Cigarettes Q uit: 02/15/2023 Smokeless Tobacco: Never Alcohol Use Standard Drinks/Week Comments Yes 0 (1 standard drink = 0.6 oz pur e alcohol) Sex and Gender Information Value Date Recorded Sex Assigned at Not on file Legal Sex Male 10:48 PM EST Gender Identity Not on file Sexual Orientation Not on file documented as of this encounter Progress Notes * PATIENCE Montanez 10/14/2024 8:45 AM EST [facility] - Outpatient OCCUPATIONAL THERAPY DAILY TREATMENT NOTE Date: 10/14/2024 Visit Number: [id number] Patient Name: Hebert Smith : 1975 Age: 49 y.o. Gender: male Diagnosis: No diagnosis found. Date of Onset: 08/12/2024 Referring Provider: Latrell Rangel MD Insurance: Payor: [facility] / Plan: [facility] / Product Type: *No Product type* / Medications: Current Outpatient Medications on File Prior to Visit Medication Sig Dispense Refill albuterol 2.5 mg /3 mL (0.083 %) nebulizer solution USE 1 VIAL BY NEBULIZATION EVERY 4 HOURS NEEDED FOR WHEEZING atorvastatin (LIPITOR) 20 mg tablet Take 1 tablet (20 mg total) by mouth 1 (one) time each day. 90 tablet 3 buPROPion XL (WELLBUTRIN XL) 300 mg 24 hr tablet Take 1 tablet (300 mg total) by mouth. chlorthalidone (HYGROTON) 25 mg tablet TAKE 1 TABLET BY MOUTH EVERY DAY 90 tablet 1 clonazePAM (KlonoPIN) 1 mg tablet Take 0.5-1 mg by mouth. cyanocobalamin 2,000 mcg tablet Take 1 tablet (2,000 mcg total) by mouth 1 (one) time per week. 12 tablet 2 famotidine (PEPCID) 20 mg tablet TAKE 1 TABLET BY MOUTH 2 TIMES DAILY NEEDED FOR HEARTBURN. (Patient not taking: Reported on 10/08/2024) fluticasone propion-salmeteroL (Advair HFA) 115-21 mcg/actuation inhaler Inhale 2 puffs by mouth. losartan (COZAAR) 50 mg tablet Take 1 tablet (50 mg total) by mouth 1 (one) time each day. mirtazapine (REMERON) 30 mg tablet TAKE 1 TABLET BY MOUTH AT BEDTIME DIRECTED FOR SLEEP, ANXIETYAND MOOD TEXT IF INEFFECTIVE miscellaneous medical supply misc 1 Each by Does not apply route daily. OLANZapine (ZyPREXA) 5 mg tablet omeprazole (PriLOSEC) [address] capsule TAKE 1 CAPSULE BY MOUTH EVERY DAY 90 capsule 1 sertraline (ZOLOFT) 100 mg tablet TAKE 1/2 - 1 TABLET BY MOUTH ONCE A DAY FOR PTSD Vitamin D3 50 mcg (2,000 unit) tablet Take 1 Tablet by mouth daily. zolpidem (AMBIEN) 10 mg tablet Take 1 tablet (10 mg total) by mouth. [DISCONTINUED] atorvastatin (LIPITOR) 20 mg tablet Take 1 tablet (20 mg total) by mouth 1 (one) time each day. [DISCONTINUED] chlorthalidone (HYGROTON) 25 mg tablet Take 1 tablet (25 mg total) by mouth 1 (one) time each day. [DISCONTINUED] hydroCHLOROthiazide (MICROZIDE) 12.5 mg capsule Take 1 capsule (12.5 mg total) by mouth 1 (one) time each day. No current facility-administered medications on file prior to visit. Allergies: has No Known Allergies. Precautions: None specified SUBJECTIVE Subjective Report: my wrist has been throbbing. Chart Reviewed: Yes Pain: 7.5 TREATMENT INTERVENTION Procedures: Applied coban to L thenar/wrist prior to session Large maze tool for bilateral forearm/wrist AROM: 2x5 X B directions Bilateral grasp on 4.4# (yellow medball): CW and CCW rotations, 2x10 each Weighted wand (2 discs midshaft) for pro, sup, alternating pro/sup, 2x5 each w/ elbow at side 4# bicep and brachioradiails curls 2x10 each Seated UBE at 2.0 x 3 min forward x 3 min back (advised light grasp on handle/utilize shldr as prime machine mover) Pain Reassessment: 6.5 Assessment/Response To Treatment: Good Patient stated that the exercises were feeling good, noted with increased in reps and time with some exercises. Patient stated that he felt today the more he moved it the better it felt. Educated to add light weight into HEP Patient Education: Education provided: Yes Education Provided To: Patient utilizing Explanation mode(s) of education Response to Education: Good PLAN POC Development/Review: No Change in the Plan of Care; Participants: Patient Equipment Recommended: none; Equipment Provided: none Total Treatment Time: 45 TOTAL TREATMENT TIME: 45 Minutes Documentation completed by PATIENCE Montanez documented in this encounter Plan of Treatment Upcoming Encounters Date Type Department Care Team (Late st Contact Info) Description 11/26/2024 8:30 AM EDT Consult Endocrinology [facility] [address] [place] [address] Vik Humphrey MD [address] [place] [phone] 12/17/2024 8:30 AM EDT Office Visit Orthopedic Surgery - [place] 175 [facility] [address] [place] [phone] Latrell Rangel MD 175 [facility] [address] [place] [address] 04/07/2025 8:45 AM EDT Office Visit Internal Medicine [facility] 175 [facility] [address] [place] [phone] Cinthia Garcia MD [address] [facility] [address] [place] [phone] documented as of this encounter Goals Goal Patient Goal Type Associated Problems Recent Progress Patient-Stated? Author STG 6 visits General Worsening(12/2024 12:03 PM EST) No Charmaine Moyer, OT Note: Wean from splint for at least 90% of activity MET 10/07/23 L wrist ext AROM at least 60 for Wb'ing MET 10/07/23and exceed at 70 L wrist flex AROM at least 50 MET 10/07/23 Reduced scar sensitivity as evidenced by ability to don longsleeve shirt/jacket over incision site w// no > than 2-3/10 discomfort NOT MET, pain average 6/10 L bisque tile burner at least 45% of R bisque tile burner 10/07/23 INPROGRESS bisque tile burner has increased from 26% to 35% of R; cont goal LTG in 12 visits General Worsening(12/2024 12:03 PM EST) No Charmaine Moyer, OT Note: Restored tolerance to BADL /IADL activity, no splint, pain no >1-2/10 10/21/24 NOT MET; pain 8/10 today L wrist strength at least 4/5 10/21/24 NOT MET 3-/5 pain-limited L bisque tile burner at least 70% of R bisque tile burner 10/21/24 NOT MET currently 37% 10/07/24: CONT unmet STG's and ALSO PROGRESS TO LTG's documented as of this encounter Visit Diagnoses Diagnosis Postoperative state- Primary Other postprocedural status documented in this encounter Care Teams Robotic Machine Tender Production Relationship Specialty Start Date End Date Cinthia Garcia MD [address] [place] [phone] PCP - General Internal Medicine 08/28/16 documented as of this encounter
--- OUTSIDE RECORDS SUMMARY | 2024-11-12 10:23 | XMS_ITS | Clinical Summary ---
Author Organization [facility] Address [address] [place] [address] Care Team Providers Care Lone Lead Lineman Name Role Phone Cinthia Garcia MD Primary Care Provider [phone] Social History Tobacco Use Types Packs/Day Years Used Date Smoking Tobacco: Never Assessed Sex and Gender Information Value Date Recorded Sex Assigned at Not on file Gender Identity Not on file Sexual Orientation Not on file Job Start Date Occupation Industry Not on file Not on file Not on file Plan of Treatment Health Maintenance Due Date Last Done Comments Hepatitis B Vaccines (1 of 3 - 3-dose series) 1975 Hepatitis C Screening 1975 COVID-19 Vaccine (#1) 1975 Depression Screening 1988 Preventative Health Evaluation 1994 DTap / Tdap / Td (1 - Tdap) 1995 Colon Cancer Screening (Colonoscopy) 2021 Influenza Vaccine (#1) 2024 Pneumococcal Vaccine Aged Out No long er eligible based on patient's age to complete this topic RSV Ped < 20 months Aged Out No longe r eligible based on patient's age to complete this topic Care Teams Lone Lead Lineman Relationship Specialty Start Date End Date Cinthia Garcia MD [address] [facility] [place] [address] [place] [phone] PCP - General Internal Medicine 08/28/16
--- OUTSIDE RECORDS SUMMARY | 2024-11-12 10:23 | XMS_ITS | Encounter Summary ---
Author Organization [employer] Address [address] [place] [address] Care Team Providers Care Polymer Materials Consultant Name Role Phone Cinthia Garcia MD Primary Care Provider [phone] Reason for Visit * Therapy (Routine) - Authorized Specialty Diagnoses / Procedures Referred By Zohreh snachez Referred To Contact Occupational Therapy Diagnoses Postoperative state Latrell Rangel MD 175 [facility] [address] [place] [address] Phone: tel: fax: [facility] Occupational Therapy 175 [facility] [address] [place] [address] Phone: tel: fax: Referral ID Status Reason Start Date Expiration Date Visits Requested Visits Authorized [id number] Authorized Specialty Services Required Consult and Treat 4 08/13/2025 13 12 Encounter Details Date Type Department Care Team (Late st Contact Info) Description 10/21/2024 8:45 AM EST Treatment [facility] [address] [address] Glenis Taylor COTA/Kirit Postoperative state [...] this encounter Progress Notes * PATIENCE Montanez 10/21/2024 8:45 AM EST [facility] - Outpatient OCCUPATIONAL THERAPY DAILY TREATMENT NOTE Date: 10/21/2024 Visit Number: 12 Patient Name: Hebert Smith : 1975 Age: 49 y.o. Gender: male Diagnosis: ICD-10-CM ICD-9-CM 1. Postoperative state Z98.890 V45.89 Date of Onset: 08/12/2024 Referring Provider: Latrell Rangel MD Insurance: [facility] / Plan: [facility] CARE / Product Type: *No Product type* [...] 1 tablet (10 mg total) by mouth. No current facility-administered medications on file prior to visit. Allergies: has No Known Allergies. Precautions: None specified SUBJECTIVE Subjective Report: my wrist is really painful Chart Reviewed: Yes Pain: 8 TREATMENT INTERVENTION Procedures: Patient trailed large maze tool Gentle ROM at wrist Pain Reassessment: 8 Assessment/Response To Treatment: Good Patient continues to have increaed pain in wrist, patient unable to tolerate session on this date. Consulted with OTR, ashlie D/C patient due to lack of progress. Session ended early due to lack of tolerance due to increased pain. Patient Education: Education provided: Yes Education Provided To: Patient utilizing Explanation mode(s) of education Response to Education: Good PLAN POC Development/Review: No Change in the Plan of Care; Participants: Patient Equipment Recommended: none; Equipment Provided: none Total Treatment Time: 15 TOTAL TREATMENT TIME: 15 Minutes Documentation completed by PATIENCE Montanez * Charmaine Moyer, OT - 10/21/2024 8:45 AM EST Pt participated in pain management techniques w/ only mild pain decrease from baseline He initially met his ROM goals He was participating in strengthening albeit still w/ pain Presented today reporting has had renewed pain 04/26 at l wrist w/ clicking and 'shocking' pain; scar senstivity persists Wrist ext regressed to 50' AROM Gold Nib Grinder unchanged from last assessment Given limited pain releif and limited strength improvement and particularly high pain levels today,further visits deferred until pt sees for f/u next week If furter OT indicated at that time he was advised to call to schedule documented in this encounter Plan of Treatment Upcoming Encounters Date Type Department Care Team (Late st Contact Info) Description 11/26/2024 8:30 AM EDT Consult Endocrinology [facility] [address] [place] [address] Vik Humphrey MD [address] [place] [phone] 12/17/2024 8:30 AM EDT Office Visit Orthopedic Surgery - [place] 175 [facility] [address] [place] [phone] Latrell Rangel MD 175 [facility] [address] [place] [address] 04/07/2025 8:45 AM EDT Office Visit Internal Medicine - [place] 175 [facility] [address] [place] [phone] Cinthia Gracia MD 175 [facility] [address] [place] [phone] documented as of this encounter Goals Goal Patient Goal Type Associated Problems Recent Progress Patient-Stated? Author STG 6 visits General Worsening(12/2024 12:03 PM EST) No Charmaine Moyer OT Note: Wean from splint for at least 90% of activity MET 10/07/23 L wrist ext AROM at least 60 for Wb'ing MET 10/07/23and exceed at 70 L wrist flex AROM at least 50 MET 10/07/23 Reduced scar sensitivity as evidenced by ability to don longsleeve shirt/jacket over incision site w// no > than 2-3/10 discomfort NOT MET, pain average 6/10 L configuration technician at least 45% of R configuration technician 10/07/23 INPROGRESS configuration technician has increased from 26% to 35% of R; cont goal LTG in 12 visits General Worsening(12/2024 12:03 PM EST) No Charmaine Moyer, OT Note: Restored tolerance to BADL /IADL activity, no splint, pain no >1-2/10 10/21/24 NOT MET; pain 8/10 today L wrist strength at least 4/5 10/21/24 NOT MET 3-/5 pain-limited L configuration technician at least 70% of R configuration technician 10/21/24 NOT MET currently 37% 10/07/24: CONT unmet STG's and ALSO PROGRESS TO LTG's documented as of this encounter Visit Diagnoses Diagnosis Postoperative state- Primary Other postprocedural status documented in this encounter Care Teams Polymer Materials Consultant Relationship Specialty Start Date End Date Cinthia Garcia MD [address] [place] [phone] PCP - General Internal Medicine 08/28/16 documented as of this encounter
--- OUTSIDE RECORDS SUMMARY | 2024-11-12 10:23 | XMS_ITS | Encounter Summary ---
Author Organization [employer] Address [address] [place] [address] Care Team Providers Care Freezing Machine Operator Name Role Phone Cinthia Garcia MD Primary Care Provider [phone] Reason for Visit * Reason Comments Post-op Surgery follow up fo r dorsal compartment release on 07/04/24 Encounter Details Date Type Department Care Team (Latest Contact Info) Description 11/05/2024 9:00 AM EST Office Visit Orthopedic Surgery - [place] 175 [facility] [address] [place] [phone] Latrell Rangel MD 175 [facility] [address] [place] [address] [place] [address] Extensor tenosynovitis of left wrist (Primary Dx); Status post de Quervain release surgery Social History Tobacco Use Types Packs/Day Years [...] on file documented as of this encounter Last Filed Vital Signs Vital Sign Reading Time Taken Comments Blood Pressure - - Pulse - - Temperature - - Respiratory Rate - - Oxygen Saturation - - Inhaled Oxygen Concentration - - Weight 95.3 kg (210 lb) 11/05/2024 8:42 AM EST Height 175.3 cm (5' 9 ) 11/05/2024 8:42 AM EST Body Mass Index 31.01 11/05/2024 8:42 AM EST documented in this encounter Ordered Prescriptions Prescription Sig Dispense Quantity Refills Last Filled Start Date End Date ibuprofen (ADVIL,MOTRIN) 800 mg tablet Take 1 tablet (800 mg total) by mouth 3 (three) times a day. 90 each 11/05/2024 12/05/2024 documented in this encounter Progress Notes * Latrell Rangel MD - 11/05/2024 9:00 AM EST Images from the original note were not included. Date: November 05, 2024 Diagnosis: Procedure:release of the left first dorsal extensor tendon compartment, tenolysis and synovectomy of EPB tendon performed 07/04/24 , extensor tenosynovitis Last seen: 09/24/24 HPI: Hebert Smith is a 49 y.o. male presenting for followup regarding his above procedure. Fortunately he has persistent pain and soreness in his left wrist. He has been in physical therapy and says that he still has some weakness in that hand. He has pain over the dorsal aspect of his wrist and difficulty with use of his fingers. Says he has not noticed any significant changes in therapy. Objective Focused Exam: Left Upper Extremity Well-healed incision, has no subluxation of the first dorsal compartment tendons with thumb circumduction, he does have some tenderness over the scar He also has pain with wrist extension and finger extension and is diffusely tender to palpation over the extensor compartments at the wrist with gross swelling and tenosynovitis. Demonstrates a tuck sign with finger extension Fires EPL/FPL/FDP/IO/APB SILT M/R/U palpable radial pulse Able to make a full composite fist with a volar pulp to distal palmar crease distance of 0 cm Medical Decision Making (base on 2 out of 3 elements): Problems Addressed: Low Tests Ordered and/or Reviewed: low Risk Level: Low risk Assessment: Hebert Smith presents with follow-up after his first dorsal compartment release. Despite therapy hestill has difficulty with use of his hand, on inspection today he has signs of extensor tenosynovitis with tenderness diffusely over his wrist extensors and a positive tuck sign. Says this tenosynovitis he does have scar sensitivity over his first dorsal compartment incision. For his scar sensitivity we recommended continued scar massage and desensitization. There should xiang weightbearing restrictions in terms of just his first dorsal compartment release now 4 months postop. He seems to have a new issue of extensor tenosynovitis with tenderness and pain with resisted wristextension and with finger extension. Explained his diagnosis and treatment. Initially recommended trial of breast with bracing, we could also consider corticosteroid injections into the tenosynovitis, however he has had a negative response to his previous steroid injections with hypopigmentation and fatty atrophy and he would like to avoid injections. We provided him with a removable brace and encouraged him to use this throughout the day and reduce his activity with that hand. We also providedwith a prescription for ibuprofen. He can continue with scar massage. He voiced understanding and will follow-up in 6 weeks. Plan: Procedure: release of the left first dorsal extensor tendon compartment, tenolysis and synovectomy of EPB tendon performed 07/04/24, w/ persistent scar sensitivity -continue scar massage Extensor tenosynovitis -NSAIDS(ibuprofen sent to pharmacy) -Bracing -F/u 6 weeks Latrell Rangel MD documented in this encounter Plan of Treatment Upcoming Encounters Date Type Department Care Team (Late st Contact Info) Description 11/26/2024 8:30 AM EDT Consult Endocrinology [address] [phone] Vik Humphrey MD [address] [place] [address] 12/17/2024 8:30 AM EDT Office Visit Orthopedic Surgery - [place] [address] [phone] Latrell Rangel MD [address] [address] 04/07/2025 8:45 AM EDT Office Visit Internal Medicine - [place] [address] [place] [address] Cinthia Garcia MD [address] [place] [address] [place] [phone] documented as of this encounter Goals Goal [...] discomfort NOT MET, pain average 6/10 L dielectric press operator at least 45% of R dielectric press operator 10/07/23 INPROGRESS dielectric press operator has increased from 26% to 35% of R; cont goal LTG in 12 visits General Worsening(12/2024 12:03 PM EST) No Charmaine Moyer, OT Note: Restored tolerance to BADL /IADL activity, no splint, pain no >1-2/10 10/21/24 NOT MET; pain 8/10 today L wrist strength at least 4/5 10/21/24 NOT MET 3-/5 pain-limited L dielectric press operator at least 70% of R dielectric press operator 10/21/24 NOT MET currently 37% 10/07/24: CONT unmet STG's and ALSO PROGRESS TO LTG's documented as of this encounter Visit Diagnoses Diagnosis Extensor tenosynovitis of left wrist- Primary Status post de Quervain release surgery documented in this encounter Care Teams Freezing Machine Operator Relationship Specialty Start Date End Date Cinthia Garcia MD [address] [place] [address] [place] [address] PCP - General Internal Medicine 08/28/16 documented as of this encounter
--- OUTSIDE RECORDS SUMMARY | 2024-11-12 10:23 | XMS_ITS | Encounter Summary ---
Author Organization [employer] Address [address] [place] [address] Care Team Providers Care Roofer Assistant Name Role Phone Cinthia Garcia MD Primary Care Provider Reason for Visit * Therapy (Routine) - Authorized Specialty Diagnoses / Procedures Referred By Zohreh sanchez Referred To Contact Occupational Therapy Diagnoses Postoperative state Latrell Rangel MD 175 [facility] [address] [place] [address] Phone: tel: fax: [facility] Occupational Therapy 175 [facility] [address] [place] [address] Phone: tel: fax: Referral ID Status Reason Start Date Expiration Date Visits Requested Visits Authorized [id number] Authorized Specialty Services Required Consult and Treat 4 08/13/2025 13 12 Encounter Details Date Type Department Care Team (Late st Contact Info) Description 10/16/2024 9:45 AM EST Treatment [facility] [address] [phone] Glenis Taylor COTA/Kirit Postoperative state [...] this encounter Progress Notes * PATIENCE Montanez 10/16/2024 9:45 AM EST [facility] - Outpatient OCCUPATIONAL THERAPY DAILY TREATMENT NOTE Date: 10/16/2024 Visit Number: 11 Patient Name: Hebert Smith : 1975 Age: 49 y.o. Gender: male Diagnosis: ICD-10-CM ICD-9-CM 1. Postoperative state Z98.890 V45.89 Date of Onset: 08/12/2024 Referring Provider: Latrell Rangel MD Insurance: [facility] / Plan: [facility] CARE / Product Type: *No Product [...] tablet (10 mg total) by mouth. [DISCONTINUED] chlorthalidone (HYGROTON) 25 mg tablet Take 1 tablet (25 mg total) by mouth 1 (one) time each day. No current facility-administered medications on file prior to visit. Allergies: has No Known Allergies. Precautions: None specified SUBJECTIVE Subjective Report: my wrist is still really bad Chart Reviewed: Yes Pain: 8 TREATMENT INTERVENTION Procedures: Applied coban to L [...] light grasp on handle/utilize shldr as prime support services manager) Pain Reassessment: 7 Assessment/Response To Treatment: Good Patient stated that the exercises and coban help, but night time is hard. Encouraged to follow HEP Patient Education: Education provided: Yes Education [...] Description 11/26/2024 8:30 AM EDT Consult Endocrinology [facility] [address] [place] [address] Vik Humphrey MD [address] [place] [phone] 12/17/2024 8:30 AM EDT Office Visit Orthopedic Surgery - [place] 175 [facility] [address] [place] [phone] Latrell Rangel MD 175 [facility] [address] [place] [address] 04/07/2025 8:45 AM EDT Office Visit Internal Medicine - [place] 175 [facility] [address] [place] [phone] Cinthia Garcia MD 175 [facility] [address] [place] [phone] documented as of this encounter Goals Goal Patient Goal Type Associated Problems Recent Progress Patient-Stated? Author STG 6 visits General Worsening(12/2024 12:03 PM EST) Charmaine Patterson, OT Note: Wean from splint for at least 90% of activity MET 10/07/23 L wrist ext AROM at least 60 for Wb'ing MET 10/07/23and exceed at 70 L wrist flex AROM at least 50 MET 10/07/23 Reduced scar sensitivity as evidenced by ability to don longsleeve shirt/jacket over incision site w// no > than 2-3/10 discomfort NOT MET, pain average 6/10 L rip saw operator at least 45% of R rip saw operator 10/07/23 INPROGRESS rip saw operator has increased from 26% to 35% of R; cont goal LTG in 12 visits General Worsening(12/2024 12:03 PM EST) No Charmaine Moyer, OT Note: Restored tolerance to BADL /IADL activity, no splint, pain no >1-2/10 10/21/24 NOT MET; pain 8/10 today L wrist strength at least 4/5 10/21/24 NOT MET 3-/5 pain-limited L rip saw operator at least 70% of R rip saw operator 10/21/24 NOT MET currently 37% 10/07/24: CONT unmet STG's and ALSO PROGRESS TO LTG's documented as of this encounter Visit Diagnoses Diagnosis Postoperative state- Primary Other postprocedural status documented in this encounter Care Teams Roofer Assistant Relationship Specialty Start Date End Date Cinthia Garcia MD [address] [place] [phone] PCP - General Internal Medicine 08/28/16 documented as of this encounter
--- OUTSIDE RECORDS SUMMARY | 2024-11-12 10:23 | XMS_ITS | Clinical Summary ---
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 3 Active fluticasone propion-salmeter oL (Advair HFA) 115-21 mcg/actuation inhaler Inhale 2 puffs by mouth. 3 Active OLANZapine (ZyPREXA) 5 mg tablet 2 Active famotidine (PEPCID) 20 mg tablet TAKE 1 TABLET BY MOUTH 2 TIMES DAILY NEEDED FOR HEARTBURN. 2 Active mirtazapine (REMERON) 30 mg tablet TAKE 1 TABLET BY MOUTH AT BEDTIME DIRECTED FOR SLEEP, ANXIETY AND MOOD TEXT IF INEFFECTIVE 2 Active albuterol 2.5 mg /3 mL (0.083 %) nebulizer solution USE 1 VIAL BY NEBULIZATION EVERY 4 HOURS NEEDED FOR WHEEZING 1 Active sertraline (ZOLOFT) 100 mg tablet TAKE 1/2 - 1 TABLET BY MOUTH ONCE A DAY FOR PTSD 9 Active buPROPion XL (WELLBUTRIN XL) 300 mg 24 hr tablet Take 1 tablet (300 mg total) by mouth. 9 Active clonazePAM (KlonoPIN) 1 mg tablet Take 0.5-1 mg by mouth. 9 Active zolpidem (AMBIEN) 10 mg tablet Take 1 tablet (10 mg total) by mouth. Active omeprazole (PriLOSEC) [address] capsule TAKE 1 CAPSULE BY MOUTH EVERY DAY 90 capsule 1 4 Active miscellaneous medical supply misc 1 Each by Does not apply route daily. 4 Active Vitamin D3 50 mcg (2,000 unit) tablet Take 1 Tablet by mouth daily. 4 Active atorvastatin (LIPITOR) 20 mg tablet Take 1 tablet (20 mg total) by mouth 1 (one) time each day. 90 tablet 3 5 Active cyanocobalamin 2,000 mcg tablet Take 1 tablet (2,000 mcg total) by mouth 1 (one) time per week. 12 tablet 2 5 Active chlorthalidone (HYGROTON) 25 mg tabletIndication s:Essential (primary) hypertension TAKE 1 TABLET BY MOUTH EVERY DAY 90 tablet 1 5 Active ibuprofen (ADVIL,MOTRIN) 800 mg tablet Take 1 tablet (800 mg total) by mouth 3 (three) times a day. 90 each 5 025 Active Active Problems Problem Noted Date Diagnosed Date Postoperative state 08/29/2024 Weight loss 11/23/2023 Anal fissure 11/23/2023 Nausea and vomiting 11/23/2023 H. pylori infection 11/23/2023 Epigastric pain 11/23/2023 Lumbar radiculopathy 07/05/2023 Overview (11/23/2023): Last Assessment & Plan: Patient is s/p L4-S1 anterior discectomies and fusion August 2008; L3-4 decompression, discectomy and posterior fixation with removal of hardware L4-S1 [address] Zaidi. After his most recent cervical surgery July 2022 he was noticing left back pain, saw Dr. Zaidi and had an MRI in September 2022 which showed solid interbody fusion at L3-4, L4-5 and L5-S1 with intact pedicle screws at L3- 4. There is mild disc desiccation at L2-3 but no disc herniation, central or foraminal stenosis. Patient comes in today stating his pain has been worsening over the last 2-1/2 months, is severe, primarily is radiating down the anterior leg, at times posterior leg. He is not noticing numbness tingling in the foot or foot weakness. Subjectively the leg feels weak, he cannot bear weight on it. He went for about 4 sessions of physical therapy, at the last session he was in so much pain he could not participate, they sent him home and told him to rest. He is not noticing any bowel bladder incontinence. He has to sit leaning to the right side. He was here in the office in April (symptoms started worsening beginning of April) and Tym thought he may have sacroiliitis. Patient had lumbar flexion-extension x-rays today, L3-4 hardware intact, bony fusion from L3-S1, no significant degenerative change or spondylolisthesis at adjacent level L2-3. I reviewed the x-rays with the patient on the computer. Official report is pending, I will review when available. Mr. Smith does have tenderness over his left SI joint, but is also describing pain that significant in the left low back, buttock down the anterior leg. He has a spinal cord stimulator (that is MRI conditional), states its not helping the pain. We can check updated MRI to rule out a new disc herniation. If negative, we can talk about trying SI joint injection for sacroiliitis. All questions answered on today's visit. Lumbar radiculopathy 07/05/2023 Overview (08/12/2024): Last Assessment & Plan: Mr. Smith continues to describe pain at the left upper buttock that shoots anteriorly through to his groin then shoots down his leg with each step. He is unable to sleep on his left side and, during the exam today, he sits offset putting all of his weight on the right side. He is miserable and has had no relief. Imaging shows a solid fusion from L3-S1 and he had no improvement with PT in the past. He does not wish to try injection therapy and would like this fixed. He has full strength and gait is mildly antalgic. At this point, his options are to live with it (which she does not wish to do) or to consider a fusion and he would like to proceed with surgery. I will refer him to Dr. Andres to consider a left SI fuse. Sacroiliitis 05/04/2023 Overview (11/23/2023): Last Assessment & Plan: Luis is status post L3-S1 fusion. He describes 1 month of left-sided low back and flank pain and radiation down the posterolateral aspect of the left leg. This pain was reproduced with palpation of the left SI joint. I am going to send him for some physical therapy directed at the left SI joint. If he does not have any improvement he should come back in for repeat evaluation before we consider an SI joint injection. Ascending aorta dilatation 08/22/2022 Overview (11/23/2023): Last Assessment & Plan: Patient has a history of mild dilation of ascending aorta seen on echocardiogram in July 2022 at 4.1 cm. He also completed a cardiac CT in August 2022 which showed the ascending aorta measuring 3.8 cm in diameter. We will continue with periodic monitoring of his ascending aorta to monitor for progression. Palpitations 07/12/2022 Overview (11/23/2023): Last Assessment & Plan: Patient with history of palpitations. He also had an apparent episode of syncope in the summer 2021. He reports that he returned his Holter monitor on Sunday, which he states was a day early. I advised that our office will call him with results when available. Syncope 07/12/2022 Overview (11/23/2023): Last Assessment & Plan: The patient had an episode of syncope during the summer 2021. Apparently, he was talking with one of his neighbors when he suddenly collapsed to the floor. Tonic-clonic movements were apparently noted by his neighbors. No loss of sphincters was noted. The patient did not seek any medical attention at that time. At this point, we will order a 30-day monitor to rule out any underlying arrhythmias that may have contributed to his episode. We will also order an echocardiogram to rule out any underlying structural heart disease. Recommendations: 1. 30-day ambulatory court recording monitor (already ordered). 2. Echocardiogram (already ordered) 3. Consider a neurology evaluation to rule out seizures as a cause of his episode of loss of consciousness. Chest pain 05/24/2022 Overview (11/23/2023): Last Assessment & Plan: Patient with history of atypical chest pain. He does has risk factors for CAD including: Hypertension, hyperlipidemia, former smoker. We attempted to perform a dobutamine nuclear stress test on him recently (this was a dobutamine protocol as he had a question of syncope/seizure in the summer 2021) and this test was incomplete as after the dobutamine infusion he developed severe chest pain and had to be escorted to the emergency department. The patient continues to endorse episodes of chest pressure which does sound more atypical in nature. Given his risk factors for CAD, I recommended we proceed with a cardiac CTA to evaluate his coronary anatomy. He is amenable to this. Order placed today. Of note, he underwent an echocardiogram July 18, 2022 which showed normal LVEF of 55-60% with normal regional wall motion and dilation of the ascending aorta. Bronchospasm 05/24/2022 Cervical radiculopathy 11/28/2021 Overview (11/23/2023): Last Assessment & Plan: Mr. Smith is here for second postop visit since a left C4-5 and left C6-7 foraminotomy on 07/25/2022. The tingling in his left hand has resolved and he is still in physical therapy for the neck pain, somewhat reduced mobility and to increase his hand strength. He describes tenderness and spasms in the interscapular region. On exam, he is wearing tape applied by physical therapy over his cervicothoracic junction and scapula. There is tenderness to light palpation along the whole posterior cervical region though without swelling or erythema. The incision appears well-healed though some of it is under the tape. He has good range of cervical rotation strength is 5 out of 5 except left hand air quality consultant at 4 to 4+ out of 5. I encouraged him to continue his PT and I believe he will continue to see improvements. Lab test negative for COVID-19 virus 09/12/2021 Hypertension 08/17/2021 Overview (11/23/2023): Last Assessment & Plan: Patient blood pressure is well controlled today with a reading 118/82. We will continue his current antihypertensive medication regimen. Hyperlipidemia 08/17/2021 Overview (11/23/2023): Last Assessment & Plan: The patient has a history of hyperlipidemia. He continues on atorvastatin 20 mg orally daily. Managed by his PCP. I have reviewed with the patient the importance of a heart healthy lifestyle which includes eating a low-fat low-salt diet, getting regular exercise, maintaining a healthy weight, not smoking, and following up with routine medical care. STD exposure 08/17/2021 Depression 06/19/2018 Abnormal LFTs 06/19/2018 Vitamin D deficiency 03/06/2018 Type 2 diabetes mellitus without complication Asthma 10/02/2017 Insomnia 01/03/2017 GERD (gastroesophageal reflux disease) 6 Low back pain 08/23/2015 Overview (11/23/2023): Last Assessment & Plan: Unfortunately, Mr. Smith has had continued lower back pain since being discharged after his cervical surgery. He has episodes of severe stabbing left lower back pain that he described as being near his kidney that affect his left leg and cause him to limp. One such episode shot down his left leg which gave out causing him to fall. He struck the back of his neck but did not lose consciousness. He was on the floor at home, and could not reach his phone but was able to reach the life alert button. He was seen in the [facility] ED on 09/01/2022 and lumbar spine x-rays as well as brain and cervical spine CTs were negative for fracture or hemorrhage on the CT. He has not yet received the prescriptions from 3 days ago. On exam, he sits leaning to the right. Seated SLR is positive on the left at 60 degrees, there is giveaway to the left iliopsoas testing otherwise strength is full. I asked him to take the oxycodone and Robaxin as prescribed within contact us on Sunday. If he has seen no improvement, then I will order a lumbar spine MRI. Internal hemorrhoids 08/21/2013 Constipation 11/16/2011 Encounters Date Type Department Care Team Description 11/05/2024 9:00 AM EST Office Visit Orthopedic Surgery - [place] 175 [facility] [address] [place] [phone] Latrell Rangel MD Extensor tenosynovitis of left wrist (Primary Dx); Status post de Quervain release surgery 10/21/2024 8:45 AM EST Treatment [facility] Occupational Therapy [address] [phone] Glenis Taylor, CONNOLLY/L Postoperative state (Primary Dx) 10/16/2024 9:45 AM EST Treatment [facility] Occupational Therapy [address] [place] [phone] Glenis Taylor, CONNOLLY/L Postoperative state (Primary Dx) 10/14/2024 8:45 AM EST Treatment [facility] Occupational Therapy [address] [place] [phone] Glenis Taylor, CONNOLLY/L Postoperative state (Primary Dx) 10/09/2024 9:45 AM EST Treatment [facility]ational Therapy [address] [place] [phone] Charmaine Moyer OT Postoperative state (Primary Dx) 10/08/2024 1:15 PM EST Office Visit Internal Medicine - [place] 175 [facility] [address] [place] [phone] Cinthia Garcia MD Primary hypertension (Primary Dx); Type 2 diabetes mellitus without complication, without long-term current use of insulin ([facility]); Mixed hyperlipidemia; Vitamin D deficiency; Possible exposure to STD; Testosterone deficiency 10/07/2024 10:15 AM EST Treatment [facility] Occupational Therapy [address] [place] [phone] Charmaine Moyer, OT Postoperative state (Primary Dx) 10/02/2024 8:45 AM EST Treatment [facility] Occupational [address] [phone] Glenis Taylor, CONNOLLY/L Postoperative state (Primary Dx) 09/30/2024 8:45 AM EST Treatment [facility] Occupational Therapy [address] [place] [phone] Glenis Taylor, CONNOLLY/L Postoperative state (Primary Dx) 09/25/2024 8:45 AM EST Treatment [facility] Occupational [address] [phone] Glenis Taylor, CONNOLLY/L Postoperative state (Primary Dx) 09/24/2024 8:30 AM EST Office Visit Orthopedic Surgery - [place] [address] [phone] Latrell Rangel MD Postoperative state (Primary Dx) 09/23/2024 8:45 AM EST Treatment [facility] Occupational [address] [phone] Glenis Taylor, CONNOLLY/L Postoperative state (Primary Dx) 09/16/2024 2:30 PM EST Treatment [facility] Occupational Therapy [address] [place] [phone] Glenis Taylor, CONNOLLY/L Postoperative state (Primary Dx) 09/02/2024 11:30 AM EST Treatment [facility] Occupational Therapy [address] [place] [phone] Charmaine Moyer, OT Postoperative state (Primary Dx) 08/29/2024 2:00 PM EST Evaluation [facility] Occupational Therapy [address] [place] [phone] João, Charmaine G, OT Postoperative state 08/29/2024 Plan of Care Documentation [facility]ational Therapy 175 [facility] [address] [place] [phone] 08/13/2024 1:15 PM EST Office Visit Orthopedic Surgery - [place] [address] [facility] [address] [place] [phone] Latrell Rangel MD Postoperative state (Primary Dx) from Last 3 Months Surgical History Surgery Date Site/Laterality Comments HAND SURGERY 09/17/2000 - 09/16/2001 Left tendon repair OTHER SURGICAL HISTORY PROCEDURE: HISTORY OTHER; COMMENT: hernia repair BACK SURGERY PROCEDURE: HISTORICAL BACK SURGERY; COMMENT: L4-S1 anterior discectomies and fusion August 2008; L3-4 decompression, discectomy and posterior fixation with removal of hardware L4-S1 November 2016 ESOPHAGOGASTRODUODENOSCOPY PROCEDURE: CO EGD TRANSORAL BIOPSY SINGLE/MULTIPLE; COMMENT: Performed on [address] Huertas ESOPHAGOGASTRODUODENOSCOPY 02/08/2021 PROCEDURE: CO EGD TRANSORAL BIOPSY SINGLE/MULTIPLE; COMMENT: healing esophagitis and H.pylori gastritis ESOPHAGOGASTRODUODENOSCOPY PROCEDURE: CO EGD TRANSORAL BIOPSY SINGLE/MULTIPLE; COMMENT: Performed on 02/08/2021 OTHER SURGICAL HISTORY 04/2021 PROCEDURE: CO STRTCTC STIMJ SPI CORD PRQ SPX N/FLWD OT SURG; COMMENT: stim wave stimulator placed, [facility] pain management, Dr. Lauhglin OTHER SURGICAL HISTORY PROCEDURE: CO ARTHRD ANT INTERBODY MIN DSC CRV BELOW C2; COMMENT: C5-6 ACDF May 2015, C6-7 ACDF April 2016 with removal of C5-6 plate OTHER SURGICAL HISTORY 07/24/2022 PROCEDURE: CO MORFIN FACETECTOMY & FORAMOTOMY 1 VRT SGM CERVICAL; COMMENT: Left C4-5, left C6-7 foraminotomy, Dr. Zaidi DORSAL COMPARTMENT RELEASE 07/04/2024 Left dequervains Medical History Medical History Date Comments Abnormal LFTs 06/19/2018 DX:Abnormal LFTs Asthma 10/02/2017 DX:Asthma Constipation 11/16/2011 DX:Constipation Depression 06/19/2018 DX:Depression GERD (gastroesophageal reflux disease) DX:GERD (gastroesophageal reflux disease) Insomnia 01/03/2017 DX:Insomnia Internal hemorrhoids 08/21/2013 DX:Internal hemorrhoids Spinal stenosis 08/23/2015 DX:Spinal stenos is Type 2 diabetes mellitus wit hout complication ([facility]/HCC) 10/02/2017 DX:Type 2 diabetes mellitus without complication (HCC); COMMENT: borderline Vitamin D deficiency 03/06/2018 DX:Vitamin D deficiency Anal fissure DX:Anal fissure Nausea and vomiting DX:Nausea an d vomiting Epigastric pain DX:Epigastric pa in Weight loss DX:Weight loss H. pylori infection DX:H. pylori infection Nausea & vomiting DX:Nausea & vo miting; COMMENT: depends on what he eats he gets nausea since H pylori infection Hypertension 08/17/2021 DX:Hypertension Hyperlipidemia 08/17/2021 DX:Hyperlipidemi a Family History Relation Name Status Comments Brother Alive Father Alive Mother Alive Sister Alive Social History Tobacco Use Types Packs/Day Years Used Date Smoking Tobacco: Former Cigarettes Q uit: 02/15/2023 Smokeless Tobacco: Never Tobacco Cessation:Counseling Given: Not Answered Alcohol Use Standard Drinks/Week Comments Yes 0 (1 standard drink = 0.6 oz pur e alcohol) Sex and Gender Information Value Date Recorded Sex Assigned at Not on file Legal Sex Male 10:48 PM EST Gender Identity Not on file Sexual Orientation Not on file Obstetrics History Last Filed Vital Signs Vital Sign Reading Time Taken Comments Blood Pressure 110/80 10/08/2024 1:27 PM EST Pulse 82 10/08/2024 1:27 PM EST Temperature 36.5 ??C (97.7 ??F) 10/08/2024 1:27 PM ES T Respiratory Rate - - Oxygen Saturation 98% 10/08/2024 1:27 PM EST Inhaled Oxygen Concentration - - Weight 95.3 kg (210 lb) 11/05/2024 8:42 AM EST Height 175.3 cm (5' 9 ) 11/05/2024 8:42 AM EST Body Mass Index 31.01 11/05/2024 8:42 AM EST Plan of Treatment Upcoming Encounters Date Type Department Care Team (Late st Contact Info) Description 11/26/2024 8:30 AM EDT Consult Endocrinology - Mobile [address] [place] [phone] [place] [phone] 12/17/2024 8:30 AM EDT Office Visit Orthopedic Surgery - [place] 175 [facility] [address] [place] [phone] Latrell Rangel MD 175 [facility] [address] [place] [address] 04/07/2025 8:45 AM EDT Office Visit Internal Medicine - [place] 175 [facility] [address] [place] [phone] Citnhia Garcia MD 175 [facility] [address] [place] [phone] Health Maintenance Due Date Last Done Comments Diabetes: Annual Foot Exam 1986 Diabetes: Annual Retina Eye Exam 1986 DTaP,Tdap,and Td Vaccines (1 - Tdap) 1995 Hepatitis A Vaccines (1 of 2 - Risk 2-dose series) 1995 Hepatitis B Vaccines (1 of 3 - 19+ 3-dose series) 1995 Pneumococcal Vaccine: Pediatrics (0 to 5 Years) and At-Risk Patients (6 to 64 Years) (1 of 2 - PCV) 1995 Colorectal Cancer Screening: Colonoscopy 08/20/2022 Depression Screening 08/20/2022 Medicare Annual Wellness Visit 08/20/2022 Social Influencers of Health Screening 08/20/2022 Diabetes: Annual Urine Albumin-Creatinine Ratio (uACR) 08/30/2022 COVID-19 Vaccine ( - 2023-2 5 season) 2024 Influenza Vaccine (#1) 2024 07/19/2013 Diabetes: Blood Sugar Contro l Test (HGBA1C) 04/08/2025 10/09/2024, 05/29/2023 Diabetes: Annual GFR (Glomerular Filtration Rate) 10/09/2025 10/09/2024, 12/10/2023 Hypertension/CHF/CAD Annual BMP Blood Test 10/09/2025 10/09/2024, 12/10/2023 Cholesterol Screening (Lipid Panel) 10/09/2029 10/09/2024, 05/29/2023 HIV Screening Completed 10/09/2024, 08/17/2021 Hepatitis C Screening Completed 10/09/2024 , 07/10/2022 HIB Vaccines Aged Out No longer eligi ble based on patient's age to complete this topic HPV Vaccines Aged Out No longer eligi ble based on patient's age to complete this topic IPV Vaccines Aged Out No longer eligi ble based on patient's age to complete this topic MMR Vaccines Aged Out No longer eligi ble based on patient's age to complete this topic Meningococcal ACWY Vaccine Aged Out N o longer eligible based on patient's age to complete this topic Meningococcal B Vacine Aged Out No lo nger eligible based on patient's age to complete this topic RSV Immunization Patients Under 20 months Aged Out No longer eligible b ased on patient's age to complete this topic Varicella Vaccines Aged Out No longer eligible based on patient's age to complete this topic Goals Goal Patient Goal Type Associated Problems [...] discomfort NOT MET, pain average 6/10 L air quality consultant at least 45% of R air quality consultant 10/07/23 INPROGRESS air quality consultant has increased from 26% to 35% of R; cont goal LTG in 12 visits General Worsening(12/2024 12:03 PM EST) Charmaine Patterson, OT Note: Restored tolerance to BADL /IADL activity, no splint, pain no >1-2/10 10/21/24 NOT MET; pain 8/10 today L wrist strength at least 4/5 10/21/24 NOT MET 3-/5 pain-limited L air quality consultant at least 70% of R air quality consultant 10/21/24 NOT MET currently 37% 1/21/25: CONT unmet STG's and ALSO PROGRESS TO LTG's Procedures Procedure Name Priority Date/Time Associated Diagnosis Comments TESTOSTERONE FREE, BIOAVAILABLE AND TOTAL Routine 10/09/2024 10:29 AM EST Primary hypertension Type 2 diabetes mellitus without complication, without long-term current use of insulin (CMS/HCC) Mixed hyperlipidemia Vitamin D deficiency Possible exposure to STD MAGNESIUM Routine 10/09/2024 10:29 AM EST Primary hypertension Type 2 diabetes mellitus without complication, without long-term current use of insulin (CMS/HCC) Mixed hyperlipidemia Vitamin D deficiency Possible exposure to STD HEPATITIS C ANTIBODY Routine 10/09/2024 10:29 AM EST Possible exposure to STD TREPONEMA PALLIDUM ANTIBODY WITH REFLEX TO RPR AND PARTICLE AGGLUTINATION Routine 10/09/2024 10:29 AM EST Possible exposure to STD HIV 1, 2 ANTIBODY, P24 ANTIGEN WITH REFLEX TO DIFFERENTIATION Routine 10/09/2024 10:29 AM EST Possible exposure to STD VITAMIN D 25 HYDROXY Routine 10/09/2024 10:29 AM EST Primary hypertension Type 2 diabetes mellitus without complication, without long-term current use of insulin ([facility]) Mixed hyperlipidemia Vitamin D deficiency VITAMIN B12 Routine 10/09/2024 10:29 AM EST Primary hypertension Type 2 diabetes mellitus without complication, without long-term current use of insulin (CMS/HCC) Mixed hyperlipidemia Vitamin D deficiency THYROID STIMULATING HORMONE Routine 10/09/2024 10:29 AM EST Primary hypertension Type 2 diabetes mellitus without complication, without long-term current use of insulin (CMS/HCC) Mixed hyperlipidemia Vitamin D deficiency COMPLETE BLOOD COUNT Routine 10/09/2024 10:29 AM EST Primary hypertension Type 2 diabetes mellitus without complication, without long-term current use of insulin (CMS/HCC) Mixed hyperlipidemia Vitamin D deficiency LIPID PANEL WITH REFLEX TO DIRECT LDL Routine 10/09/2024 10:29 AM EST Primary hypertension Type 2 diabetes mellitus without complication, without long-term current use of insulin (CMS/HCC) Mixed hyperlipidemia Vitamin D deficiency COMPREHENSIVE METABOLIC PANEL Routine 10/09/2024 10:29 AM EST Primary hypertension Type 2 diabetes mellitus without complication, without long-term current use of insulin (CMS/HCC) Mixed hyperlipidemia Vitamin D deficiency HEMOGLOBIN A1C Routine 10/09/2024 10:29 AM EST Primary hypertension Type 2 diabetes mellitus without complication, without long-term current use of insulin (CMS/HCC) Mixed hyperlipidemia Vitamin D deficiency CHLAMYDIA TRACHOMATIS AND NEISSERIA GONORRHOEAE PCR Routine 10/09/2024 10:29 AM EST Possible exposure to STD from Last 3 Months Results * Hepatitis C antibody (10/09/2024 10:29 AM EST) Hepatitis C Antibody Negative Negative LAB CHEMISTRY METHOD 10/09/2024 3:19 PM EST [facility] Blood Venous blood specimen / Unknown Venipuncture / Unknown 10/09/2024 10:29 AM EST 10/09/2024 10:29 AM EST us Cinthia Garcia MD LAB BLOOD ORDERABLES Final Res ult [facility] [address] [place] [address], * HIV 1,2 antibody, p24 antigen with reflex to differentiation (10/09/2024 10:29 AM EST) HIV Combo AB/AG Negative Negative LAB CHEMISTRY METHOD 10/09/2024 3:20 PM EST [facility] Blood Venous blood specimen / Unknown Venipuncture / Unknown 10/09/2024 10:29 AM EST 10/09/2024 10:29 AM EST Narrative [facility] - 10/09/2024 3:20 PM EST This assay is a 4th generation assay allowing for earlier detection of HIV infection by detecting the presence of the HIV-1 p24 antigen as well as the traditional antibodies to HIV type 1 (including group O) and type 2. ??Use of a 4th generation assay is the current CDC recommendation for HIV screening. Cinthia Garcia MD LAB BLOOD ORDERABLES Final Res ult Performing Organization Address [facility]/ZIP Co de Phone Number [facility] [address] [place] [address], [place] [phone] * Treponema pallidum antibody with reflex to RPR and particle agglutination (10/09/2024 10:29 AM EST) [facility] T. Pallidum Antibodies Negative Negative LAB CHEMISTRY METHOD 10/09/2024 2:53 PM EST [facility] Blood Venous blood specimen / Unknown Venipuncture / Unknown 10/09/2024 10:29 AM EST 10/09/2024 10:29 AM EST Cinthia Garcia MD LAB BLOOD ORDERABLES Final Res ult Performing Organization Address [facility] Co de Phone Number [facility] [address] [place] [address], [place] [phone] * (ABNORMAL) Lipid panel with reflex to direct LDL (10/09/2024 10:29 AM EST) [facility] Cholesterol 160 0 - 200 mg/dL LAB CHEMISTRY METHOD 10/09/2024 2:58 PM EST [facility] Triglycerides 187(H) 0 - 150 mg/dL LAB CHEMISTRY METHOD 10/09/2024 2:58 PM EST [facility] HDL 45 >=40 mg/dL LAB CHEMISTRY METHOD 10/09/2024 2:58 PM EST [facility] LDL Calculated 78 0 - 100 mg/dL LAB CHEMISTRY METHOD 10/09/2024 2:58 PM [facility] VLDL Cholesterol Ron 37.4 mg/dL LAB CHEMISTRY METHOD 10/09/2024 2:58 PM EST [facility] Non HDL Chol. (LDL+VLDL) 115 <145 mg/dL LAB CHEMISTRY METHOD 10/09/2024 2:58 PM [facility] Chol/HDL Ratio 3.6 0.0 - 4.4 LAB CHEMISTRY METHOD 10/09/2024 2:58 PM [facility] Blood Venous blood specimen / Unknown Venipuncture / Unknown 10/09/2024 10:29 AM EST 10/09/2024 10:29 AM EST us Cinthia Garcia MD LAB BLOOD ORDERABLES Final Res ult [facility] [address] [place] [address], [place] [phone] * (ABNORMAL) Testosterone free, bioavailable and total (10/09/2024 10:29 AM EST) Testosterone 156(L) 229 - 902 ng/dL LAB CHEMISTRY METHOD 10/09/2024 2:35 PM [facility] Testosterone, Free 3.7(L) 4.6 - 22.4 ng/dL LAB CHEMISTRY METHOD 10/09/2024 2:35 PM [facility] Testosterone, Bioavailable 91(L) 110 - 575 ng/dL LAB CHEMISTRY METHOD 10/09/2024 2:35 PM [facility] Sex Hormone Binding 19.7 See Comment nmol/L LAB CHEMISTRY METHOD 10/09/2024 2:35 PM [facility] Comment: FEMALES: ??pre-menopausal ?? 10.8 - >180 ??post-menopausal ??23.2 - 159.1 MALES: ?? 21-49 years ? 14.6 - 94.6 ?? 50-89 years ? 21.6 - 113.1 CHILDREN: ??No established reference range Over the counter supplements containing high doses of biotin may interfere with this assay. ??If interference is suspected, patients should be retested after refraining from biotin supplements for 72 hours. Albumin 4.5 3.2 - 5.0 g/dL LAB CHEMISTRY METHOD 10/09/2024 2:35 PM [facility] Blood Venous blood specimen / Unknown Venipuncture / Unknown 10/09/2024 10:29 AM EST 10/09/2024 10:29 AM EST Cinthia Garcia MD LAB BLOOD ORDERABLES Final Res ult Performing Organization Address City/[facility]/ZIP Co de Phone Number [facility] [address] [place] [address], [place] [phone] * Chlamydia trachomatis and Neisseria gonorrhoeae molecular study (10/09/2024 10:29 AM EST) Pathologist [facility] Neisseria gonorrhoeae PCR Negative Negative LAB MOLECULAR DIAGNOSTICS METHOD 10/10/2024 10:15 AM [facility] Chlamydia trachomatis PCR Negative Negative LAB MOLECULAR DIAGNOSTICS METHOD 10/10/2024 10:15 AM [facility] Swab Urine specimen from urethra / Unknown Non-blood Collection / Unknown 10/09/2024 10:29 AM EST 10/09/2024 10:29 AM EST Cinthia Garcia MD LAB MICROBIOLOGY - GENERAL ORD ERABLES Final Result Performing Organization Address City/[facility]/ZIP Co de Phone Number [facility] [address] [place] [address], [place] [phone] * Vitamin D 25 hydroxy (10/09/2024 10:29 AM EST) Vit D, 25-Hydroxy 34.4 30.0 - 80.0 ng/mL LAB CHEMISTRY METHOD 10/09/2024 2:40 PM EST [facility] Blood Venous blood specimen / Unknown Venipuncture / Unknown 10/09/2024 10:29 AM EST 10/09/2024 10:29 AM EST us Cinthia Garcia MD LAB BLOOD ORDERABLES Final Res ult [facility] [address] [place] [address], [place] [phone] * Complete blood count (10/09/2024 10:29 AM EST) Pathologist [facility] WBC 9.2 4.8 - 10.8 K/mcL LAB HEMETOLOGY METHOD 10/09/2024 2:17 PM [facility] RBC 5.30 4.50 - 5.50 M/mcL LAB HEMETOLOGY METHOD 10/09/2024 2:17 PM [facility] Hemoglobin 15.3 13.5 - 17.5 g/dL LAB HEMETOLOGY METHOD 10/09/2024 2:17 PM [facility] Hematocrit 46.4 42.0 - 54.0 % LAB HEMETOLOGY METHOD 10/09/2024 2:17 PM [facility] MCV 88.0 79.0 - 98.0 FL LAB HEMETOLOGY METHOD 10/09/2024 2:17 PM [facility] MCH 29.0 27.0 - 32.0 pcg LAB HEMETOLOGY METHOD 10/09/2024 2:17 PM [facility] MCHC 33.0 32.0 - 37.0 g/dL LAB HEMETOLOGY METHOD 10/09/2024 2:17 PM [facility] RDW 13.4 11.0 - 15.0 % LAB HEMETOLOGY METHOD 10/09/2024 2:17 PM [facility] Platelets 283 130 - 400 K/mcL LAB HEMETOLOGY METHOD 10/09/2024 2:17 PM [facility] MPV 10.4 7.0 - 11.0 FL LAB HEMETOLOGY METHOD 10/09/2024 2:17 PM EST [facility] NRBC 0.0 <1.0 % LAB HEMETOLOGY METHOD 10/09/2024 2:17 PM EST [facility] NRBC Absolute 0.00 <0.10 K/mcL LAB HEMETOLOGY METHOD 10/09/2024 2:17 PM EST [facility] Blood Venous blood specimen / Unknown Venipuncture / Unknown 10/09/2024 10:29 AM EST 10/09/2024 10:29 AM EST Cinthia Garcia MD LAB BLOOD ORDERABLES Final Res ult Performing Organization Address City/[facility]/ZIP Co de Phone Number [facility] [address] [place] [address], [place] [phone] * (ABNORMAL) Thyroid stimulating hormone (10/09/2024 10:29 AM EST) TSH 5.63(H) 0.40 - 4.00 mcIU/mL LAB CHEMISTRY METHOD 10/09/2024 2:40 PM EST [facility] Blood Venous blood specimen / Unknown Venipuncture / Unknown 10/09/2024 10:29 AM EST 10/09/2024 10:29 AM EST us Cinthia Garcia MD LAB BLOOD ORDERABLES Final Res ult [facility] [address] [place] [address], [place] [phone] * Magnesium (10/09/2024 10:29 AM EST) Magnesium 2.0 1.9 - 2.6 mg/dL LAB CHEMISTRY METHOD 10/09/2024 2:34 PM EST [facility] Blood Venous blood specimen / Unknown Venipuncture / Unknown 10/09/2024 10:29 AM EST 10/09/2024 10:29 AM EST Cinthia Garcia MD LAB BLOOD ORDERABLES Final Res ult [facility] [address] [place] [address], [place] [phone] * Hemoglobin A1c (10/09/2024 10:29 AM EST) Pathologist [facility] Hemoglobin A1C 5.6 <6.5 % LAB CHEMISTRY METHOD 10/09/2024 9:06 PM EST [facility] Mean Bld Glu Estim. 114 mg/dL LAB CHEMISTRY METHOD 10/09/2024 9:06 PM EST [facility] Blood Venous blood specimen / Unknown Venipuncture / Unknown 10/09/2024 10:29 AM EST 10/09/2024 10:29 AM EST Cinthia Garcia MD LAB BLOOD ORDERABLES Final Res ult Performing Organization Address City/[facility]/ZIP Co de Phone Number [facility] [address] [place] [address], [place] [phone] * (ABNORMAL) Vitamin B12 (10/09/2024 10:29 AM EST) Pathologist [facility] Vitamin B-12 236(L) 250 - 900 pcg/mL LAB CHEMISTRY METHOD 10/09/2024 2:58 PM EST [facility] Blood Venous blood specimen / Unknown Venipuncture / Unknown 10/09/2024 10:29 AM EST 10/09/2024 10:29 AM EST Cinthia Garcia MD LAB BLOOD ORDERABLES Final Res ult [facility] [address] [place] [address], [place] [phone] * (ABNORMAL) Comprehensive metabolic panel (10/09/2024 10:29 AM EST) Sodium 134 133 - 145 mmol/L LAB CHEMISTRY METHOD 10/09/2024 2:58 PM [facility] Potassium 3.5 3.5 - 5.5 mmol/L LAB CHEMISTRY METHOD 10/09/2024 2:58 PM [facility] Chloride 101 96 - 110 mmol/L LAB CHEMISTRY METHOD 10/09/2024 2:58 PM [facility] CO2 27 21 - 32 mmol/L LAB CHEMISTRY METHOD 10/09/2024 2:58 PM [facility] Anion Gap 6 3 - 11 LAB CHEMISTRY METHOD 10/09/2024 2:58 PM [facility] Glucose 95 70 - 100 mg/dL LAB CHEMISTRY METHOD 10/09/2024 2:58 PM [facility] BUN 18 5 - 25 mg/dL LAB CHEMISTRY METHOD 10/09/2024 2:58 PM [facility] Creatinine 1.10 0.70 - 1.30 mg/dL LAB CHEMISTRY METHOD 10/09/2024 2:58 PM [facility] eGFR 83 >=60 mL/min/1. 73m2 LAB CHEMISTRY METHOD 10/09/2024 2:58 PM [facility] Comment:Calculation based on the??Chronic Kidney Disease Epidemiology Collaboration (CKD-EPI) equation refit??without adjustment for race. BUN/Creatinine Ratio 16.4 LAB CHEMISTRY METHOD 10/09/2024 2:58 PM [facility] Calcium 10.0 8.5 - 10.5 mg/dL LAB CHEMISTRY METHOD 10/09/2024 2:58 PM [facility] AST (SGOT) 22 10 - 42 unit/L LAB CHEMISTRY METHOD 10/09/2024 2:58 PM [facility] ALT (SGPT) 35 10 - 60 unit/L LAB CHEMISTRY METHOD 10/09/2024 2:58 PM [facility] Alkaline Phosphatase 133(H) 42 - 121 unit/L LAB CHEMISTRY METHOD 10/09/2024 2:58 PM EST [facility] Total Protein 8.1(H) 6.0 - 8.0 g/dL LAB CHEMISTRY METHOD 10/09/2024 2:58 PM EST [facility] Albumin 4.4 3.2 - 5.0 g/dL LAB CHEMISTRY METHOD 10/09/2024 2:58 PM EST [facility] Total Bilirubin 0.5 0.0 - 1.4 mg/dL LAB CHEMISTRY METHOD 10/09/2024 2:58 PM EST [facility] Blood Venous blood specimen / Unknown Venipuncture / Unknown 10/09/2024 10:29 AM EST 10/09/2024 10:29 AM EST Cinthia Garcia MD LAB BLOOD ORDERABLES Final Res ult [facility] [address] [place] [address], from Last 3 Months Insurance [facility] MEDIC[facility] Member Subscriber Plan / Payer (Ef fective 2019-Present) Name:Hebert Smith Relation to Subscriber:Self Name:Hebert Smith Payer ID:[id number] Group ID:[id number] Type:Not on file Address: [address] [facility] [place] [address] Care Teams Drill Punch Operator Relationship Specialty Start Date End Date Cinthia Garcia MD [address] [phone] PCP - General Internal Medicine 08/28/16
== END 2024-11-12 09:42 | disposition home or self-care (01) ==
PROVIDERS: PCP Internal Medicine; Visit Provider Anesthesiology
DX: M96.1 Postlaminectomy syndrome, not elsewhere classified (principal); G89.4 Chronic pain syndrome
CPT/HCPCS: 99213

== ENCOUNTER → 2024-11-12 09:16 | Outpatient (BNVA) | payer OTHER, SELFPAY | PROVIDERS: PCP Internal Medicine; Visit Provider Anesthesiology | DX: G89.4 Chronic pain syndrome (principal); M96.1 Postlaminectomy syndrome, not elsewhere classified | CPT/HCPCS: 99212 ==

== ENCOUNTER 2024-11-18 12:24 | Outpatient (AMB) | payer OTHER, SELFPAY ==
--- NOTE | 2024-11-18 12:54 | HO.SPINEOV ---
Intake Visit Reasons: persistent L sided pain Intake Note: Mr. Smith is here today c/o pain over the incision site. Truck Loader And Unloader Required: No Allergies No Known Allergies [No Known Allergies*] Allergy (Verified 11/18/24 13:02) Assessment & Plan Assessment & Plan (1) Left inguinal pain: Code(s): R10.32 - Left lower quadrant pain Category: Medical Plan Hebert is a pleasant 49 year old male who comes in today for follow-up after having a left-sided SI joint fusion completed on 04/17/2024. He overall has done very well since surgery, and during his last visit reported nearly complete resolution of his pain. He was still having some difficulties with ambulation but was doing quite well. Today, he reports that he has a very specific pain that occurs when he begins to ambulate. He states that when he stands up and walks he feels a bulge near his left inguinal crease, which is accompanied by pain in this area. He denies any low back pain, and denies any pain in the left hip, and denies any pain on the posterior aspect of his body. He does state that he has had previous hernia repair surgery on what sounds like an umbilical hernia. On examination the patient is well-appearing, and ambulates well without an antalgic or spastic gait. He has no significant sensational deficits. He rises from a seated position without much difficulty. To demonstrate the pain he walks across the office room and points directly again to the inguinal crease where he can feel a palpable bulge. I attempted to palpate this area but was unable to ascertain if there is an actual bulge there. To me, this does not sound like it is a recurrent SI joint problem. It more so sounds like a inguinal hernia, becoming symptomatic with the patient ambulates. Thus, I will refer him to our colleagues in General surgery to rule out the possibility of a left-sided inguinal hernia. If in fact, this does not morgan out to be an inguinal hernia I encouraged him to make a subsequent follow-up visit with our office, at which time we may obtain additional imaging. Alexis Andres MD,PhD [facility] Coding Level of Care Code Est Pt Level 2 (80474) Diagnoses Left inguinal pain R10.32
--- OUTSIDE RECORDS SUMMARY | 2024-11-18 15:27 | XMS_ITS | Encounter Summary ---
Author Organization [employer] Address [address] [place] [address] Care Team Providers Care Lining Caser Name Role Phone Cinthia Garcia MD Primary Care Provider [phone] Reason for Visit * Reason Comments Post-op Surgery follow up fo r dorsal compartment release on 07/04/24 Encounter Details Date Type Department Care Team (Latest Contact Info) Description 11/05/2024 9:00 AM EST Office Visit Orthopedic Surgery - [place] [address] [place] [phone] Latrell Rangel MD [address] [place] [address] Extensor tenosynovitis of left wrist (Primary Dx); [...] Description 11/26/2024 8:30 AM EDT Consult Endocrinology [address] [phone] Vik Humphrey MD [address] [place] [address] 12/17/2024 8:30 AM EDT Office Visit Orthopedic Surgery - [place] [address] [phone] Latrell Rangel MD [address] [address] 04/07/2025 8:45 AM EDT Office Visit Internal Medicine - [place] [address] [place] [address] Cinthia Garcia MD [address] [place] [phone] documented as of this encounter Goals Goal [...] discomfort NOT MET, pain average 6/10 L furnace builder at least 45% of R furnace builder 10/07/23 INPROGRESS furnace builder has increased from 26% to 35% of R; cont goal LTG in 12 visits General Worsening(12/2024 12:03 PM EST) No Charmaine Moyer, OT Note: Restored tolerance to BADL /IADL activity, no splint, pain no >1-2/10 10/21/24 NOT MET; pain 8/10 today L wrist strength at least 4/5 10/21/24 NOT MET 3-/5 pain-limited L furnace builder at least 70% of R furnace builder 10/21/24 NOT MET currently 37% 10/07/24: CONT unmet STG's and ALSO PROGRESS TO LTG's documented as of this encounter Visit Diagnoses Diagnosis Extensor tenosynovitis of left wrist- Primary Status post de Quervain release surgery documented in this encounter Care Teams Lining Caser Relationship Specialty Start Date End Date Cinthia Garcia MD [address] [place] [address] PCP - General Internal Medicine 08/28/16 documented as of this encounter
--- OUTSIDE RECORDS SUMMARY | 2024-11-18 15:27 | XMS_ITS | Clinical Summary ---
Author Organization [facility] Address [address] [place] [address] Care Team Providers Care Flash Welding Machine Operator Name Role Phone Cinthia Garcia MD Primary Care Provider [phone] Social History Tobacco Use Types Packs/Day Years [...] age to complete this topic Care Teams Flash Welding Machine Operator Relationship Specialty Start Date End Date Cinthia Garcia MD 175 [facility] [address] [place] [phone] PCP - General Internal Medicine 08/28/16
--- OUTSIDE RECORDS SUMMARY | 2024-11-18 15:27 | XMS_ITS | Encounter Summary ---
Author Organization [employer] Address [address] [place] [address] Care Team Providers Care Solar Fabrication Technician Name Role Phone Cinthia Garcia MD Primary Care Provider [phone] Reason for Visit * Reason Onset Date Comments Jose: Lab results 11/17/2024 Encounter Details Date Type Department Care Team (Late st Contact Info) Description 11/17/2024 Telephone Internal Medicine - [place] [address] [facility] [address] [place] [phone] Cinthia Garcia MD 175 [facility] [address] [place] [phone] Jose: Lab results Social History Tobacco Use Types Packs/Day Years [...] as of this encounter Progress Notes * Jesica Garcia MA - 11/17/2024 11:43 AM EST Labs printed and placed up front called pt and informed. * Lina Jak - 11/17/2024 10:04 AM EST Patient called and requested his most recent lab results to be printed out and ready for grain picker. Please advise when ready Cb# [phone] documented in this encounter Plan of Treatment Upcoming Encounters Date Type Department Care Team (Late st Contact Info) Description 11/26/2024 8:30 AM EDT Consult Endocrinology [address] [place] [address] Vik Humphrey MD [address] [place] [address] 12/17/2024 8:30 AM EDT Office Visit Orthopedic Surgery - [place] 175 [facility] [address] [place] [phone] Latrell Rangel MD 175 [facility] [address] [place] [address] 04/07/2025 8:45 AM EDT Office Visit Internal Medicine - [place] 175 [facility] [address] [place] [phone] Cinthia Garcia MD [address] [phone] documented as of this encounter Goals Goal [...] discomfort NOT MET, pain average 6/10 L instructor creeler at least 45% of R instructor creeler 10/07/23 INPROGRESS instructor creeler has increased from 26% to 35% of R; cont goal LTG in 12 visits General Worsening(12/2024 12:03 PM EST) No Charmaine Moyer, OT Note: Restored tolerance to BADL /IADL activity, no splint, pain no >1-2/10 10/21/24 NOT MET; pain 8/10 today L wrist strength at least 4/5 10/21/24 NOT MET 3-/5 pain-limited L instructor creeler at least 70% of R instructor creeler 10/21/24 NOT MET currently 37% 10/07/24: CONT unmet STG's and ALSO PROGRESS TO LTG's documented as of this encounter Visit Diagnoses Not on filedocumented in this encounter Care Teams Solar Fabrication Technician Relationship Specialty Start Date End Date Cinthia Garcia MD [address] [place] [phone] PCP - General Internal Medicine 08/28/16 documented as of this encounter
--- OUTSIDE RECORDS SUMMARY | 2024-11-18 15:27 | XMS_ITS | Encounter Summary ---
Author Organization [employer] Address [address] [place] [address] Care Team Providers Care Charter Coordinator Name Role Phone Cinthia Garcia MD Primary Care Provider [phone] Reason for Visit * Therapy (Routine) - Authorized Specialty Diagnoses / Procedures Referred By Zohreh sanchez Referred To Contact Occupational Therapy Diagnoses Postoperative state Latrell Rangel MD 175 [facility] [address] [place] [address] Phone: tel: fax: [facility] Occupational Therapy 175 [facility] [address] [place] [address] Phone: tel: fax: Referral ID Status Reason Start Date Expiration Date Visits Requested Visits Authorized [id number] Authorized Specialty Services Required Consult and Treat 4 08/13/2025 13 12 Encounter Details Date Type Department Care Team (Late st Contact Info) Description 10/21/2024 8:45 AM EST Treatment [facility] [address] [address] Glenis Taylor COTA/Kirit Postoperative state [...] * PATIENCE Montanez 10/21/2024 8:[address] [facility] OCCUPATIONAL THERAPY DAILY TREATMENT NOTE Date: 10/21/2024 Visit Number: [id number] Patient Name: Hebert Smith : 1975 Age: 49 y.o. Gender: male Diagnosis: ICD-10-CM ICD-9-CM 1. Postoperative state Z98.890 V45.89 Date of Onset: 08/12/2024 Referring Provider: Latrell Rangel MD Insurance: [facility] / Plan: [facility] CARE / Product Type: *No Product [...] persists Wrist ext regressed to 50' AROM Furnace Combustion Analyst unchanged from last assessment Given limited pain [...] Description 11/26/2024 8:30 AM EDT Consult Endocrinology [facility] [address] [place] [address] Vik Humphrey MD [address] [place] [phone] 12/17/2024 8:30 AM EDT Office Visit Orthopedic Surgery - [place] 175 [facility] [address] [place] [phone] Latrell Rangel MD 175 [facility] [address] [place] [address] 04/07/2025 8:45 AM EDT Office Visit Internal Medicine - [place] 175 [facility] [address] [place] [phone] Cinthia Garcia MD 175 [facility] [address] [place] [phone] documented as of this encounter Goals Goal [...] discomfort NOT MET, pain average 6/10 L patient relations director at least 45% of R patient relations director 10/07/23 INPROGRESS patient relations director has increased from 26% to 35% of R; cont goal LTG in 12 visits General Worsening(12/2024 12:03 PM EST) No Charmaine Moyer, OT Note: Restored tolerance to BADL /IADL activity, no splint, pain no >1-2/10 10/21/24 NOT MET; pain 8/10 today L wrist strength at least 4/5 10/21/24 NOT MET 3-/5 pain-limited L patient relations director at least 70% of R patient relations director 10/21/24 NOT MET currently 37% 10/07/24: CONT unmet STG's and ALSO PROGRESS TO LTG's documented as of this encounter Visit Diagnoses Diagnosis Postoperative state- Primary Other postprocedural status documented in this encounter Care Teams Charter Coordinator Relationship Specialty Start Date End Date Cinthia Garcia MD [address] [place] [phone] PCP - General Internal Medicine 08/28/16 documented as of this encounter
--- OUTSIDE RECORDS SUMMARY | 2024-11-18 15:27 | XMS_ITS | Clinical Summary ---
Author Organization 175 [facility] Address 175 [place] [address] Phone Care Team Providers Care Blender/Braze Applicator Name Role Phone Cinthia Garcia MD Primary Care Provider Allergies No known active allergies Medications losartan [...] structural heart disease. Recommendations: 1. 30-day ambulatory residential monitor (already ordered). 2. Echocardiogram (already ordered) [...] 5 out of 5 except left hand supply chain vice president at 4 to 4+ out of 5. [...] alert button. He was seen in the [facility] ED on 09/01/2022 and lumbar spine [...] Encounters Date Type Department Care Team Description 11/17/2024 Telephone Internal Medicine [facility] 175 [facility] [address] [place] [phone] Cinthia Garcia MD [place]: Lab results 11/05/2024 9:00 AM EST Office Visit Orthopedic Surgery [facility] 175 [facility] [address] [place] [phone] Latrell Rangel MD Extensor tenosynovitis of left wrist (Primary Dx); Status post de Quervain release surgery 10/21/2024 8:45 AM EST Treatment [facility] Occupational Therapy [address] [phone] Glenis Taylor CONNOLLY/L Postoperative state (Primary Dx) 10/16/2024 9:45 AM EST Treatment [facility] Occupational Therapy [address] [phone] Glenis Taylor CONNOLLY/L Postoperative state (Primary Dx) 10/14/2024 8:45 AM EST Treatment [facility] Occupational Therapy [address] [place] [phone] Glenis Taylor CONNOLLY/L Postoperative state (Primary Dx) 10/09/2024 9:45 AM EST Treatment [facility] Occupational Therapy [address] [phone] Charmaine Moyer OT Postoperative state (Primary Dx) 10/08/2024 1:15 PM EST Office Visit Internal Medicine [facility] 175 [facility] [address] [place] [phone] Cinthia Garcia MD Primary hypertension (Primary Dx); Type 2 diabetes mellitus without complication, without long-term current use of insulin ([facility]); Mixed hyperlipidemia; Vitamin D deficiency; Possible exposure to STD; Testosterone deficiency 10/07/2024 10:15 AM EST Treatment [facility] Occupational Therapy [address] [place] [phone] Charmaine Moyer, OT Postoperative state (Primary Dx) 10/02/2024 8:45 AM EST Treatment [facility] Occupational Therapy [address] [place] [phone] Glenis Taylor, CONNOLLY/L Postoperative state (Primary Dx) 09/30/2024 8:45 AM EST Treatment [facility] Occupational [address] [phone] Glenis Taylor, CONNOLLY/L Postoperative state (Primary Dx) 09/25/2024 8:45 AM EST Treatment [facility] Occupational Therapy [address] [place] [phone] Glenis Taylor, CONNOLLY/L Postoperative state (Primary Dx) 09/24/2024 8:30 AM EST Office Visit Orthopedic Surgery - [place] 175 [facility] [address] [place] [phone] Latrell Rangel MD Postoperative state (Primary Dx) 09/23/2024 8:45 AM EST Treatment [facility] Occupational Therapy [address] [place] [phone] Glenis Taylor, CONNOLLY/L Postoperative state (Primary Dx) 09/16/2024 2:30 PM EST Treatment [facility] [address] [place] [phone] Glenis Taylor, CONNOLLY/L Postoperative state (Primary Dx) 09/02/2024 11:30 AM EST Treatment [facility] Occupational Therapy [address] [place] [phone] Charmaine Moyer OT Postoperative state (Primary Dx) 08/29/2024 2:00 PM EST Evaluation [facility] Occupational Therapy [address] [phone] Charmaine Moyer, OT Postoperative state 08/29/2024 Plan of Care Documentation [facility] Occupational Therapy [address] [phone] from Last 3 Months Surgical History Surgery Date Site/Laterality Comments HAND SURGERY 09/17/2000 - 09/16/2001 Left tendon repair OTHER SURGICAL HISTORY PROCEDURE: HISTORY OTHER; COMMENT: hernia repair BACK SURGERY PROCEDURE: HISTORICAL BACK SURGERY; COMMENT: L4-S1 anterior discectomies and fusion August 2008; L3-4 decompression, discectomy and posterior fixation with removal of hardware L4-S1 November 2016 ESOPHAGOGASTRODUODENOSCOPY PROCEDURE: MN EGD TRANSORAL BIOPSY SINGLE/MULTIPLE; COMMENT: Performed on [address] Huertas ESOPHAGOGASTRODUODENOSCOPY 02/08/2021 PROCEDURE: MN EGD TRANSORAL BIOPSY SINGLE/MULTIPLE; COMMENT: healing esophagitis and H.pylori gastritis ESOPHAGOGASTRODUODENOSCOPY PROCEDURE: MN EGD TRANSORAL BIOPSY SINGLE/MULTIPLE; COMMENT: Performed on 02/08/2021 OTHER SURGICAL HISTORY 04/2021 PROCEDURE: MN STRTCTC STIMJ SPI CORD PRQ SPX N/FLWD OT SURG; COMMENT: stim wave stimulator placed, [facility] pain management, Dr. Laughlin OTHER SURGICAL HISTORY PROCEDURE: MN ARTHRD ANT INTERBODY MIN DSC CRV BELOW C2; COMMENT: C5-6 ACDF May 2015, C6-7 ACDF April 2016 with removal of C5-6 plate OTHER SURGICAL HISTORY 07/24/2022 PROCEDURE: MN MORFIN FACETECTOMY & FORAMOTOMY 1 VRT SGM [...] Type 2 diabetes mellitus wit hout complication (CMS/HCC) 10/02/2017 DX:Type 2 diabetes mellitus without complication [...] Description 11/26/2024 8:30 AM EDT Consult Endocrinology [facility] [address] [place] [phone] Vik Humphrey MD [address] [place] [phone] 12/17/2024 8:30 AM EDT Office Visit Orthopedic Surgery - [place] 175 [facility] [address] [place] [phone] Latrell Rangel MD 175 [facility] [address] [place] [address] 04/07/2025 8:45 AM EDT Office Visit Internal Medicine - [place] 175 [facility] [address] [place] [phone] Cinthia Garcia MD 175 [facility] [address] [place] [phone] Health Maintenance Due Date Last Done Comments [...] discomfort NOT MET, pain average 6/10 L supply chain vice president at least 45% of R supply chain vice president 10/07/23 INPROGRESS supply chain vice president has increased from 26% to 35% of R; cont goal LTG in 12 visits General Worsening(12/2024 12:03 PM EST) No Charmaine Moyer, OT Note: Restored tolerance to BADL /IADL activity, no splint, pain no >1-2/10 10/21/24 NOT MET; pain 8/10 today L wrist strength at least 4/5 10/21/24 NOT MET 3-/5 pain-limited L supply chain vice president at least 70% of R supply chain vice president 10/21/24 NOT MET currently 37% 10/07/24: CONT unmet STG's and ALSO PROGRESS TO LTG's Procedures Procedure Name Priority Date/Time Associated Diagnosis Comments TESTOSTERONE FREE, BIOAVAILABLE AND TOTAL Routine 10/09/2024 10:29 AM EST Primary hypertension Type 2 diabetes mellitus without complication, without long-term current use of insulin ([facility]) Mixed hyperlipidemia Vitamin D deficiency Possible exposure to STD MAGNESIUM Routine 10/09/2024 10:29 AM EST Primary hypertension Type 2 diabetes mellitus without complication, without long-term current use of insulin ([facility]) Mixed hyperlipidemia Vitamin D deficiency Possible exposure [...] complication, without long-term current use of insulin ([facility]) Mixed hyperlipidemia Vitamin D deficiency VITAMIN B12 Routine 10/09/2024 10:29 AM EST Primary hypertension Type 2 diabetes mellitus without complication, without long-term current use of insulin ([facility]) Mixed hyperlipidemia Vitamin D deficiency THYROID STIMULATING HORMONE Routine 10/09/2024 10:29 AM EST Primary hypertension Type 2 diabetes mellitus without complication, without long-term current use of insulin ([facility]) Mixed hyperlipidemia Vitamin D deficiency COMPLETE BLOOD COUNT Routine 10/09/2024 10:29 AM EST Primary hypertension Type 2 diabetes mellitus without complication, without long-term current use of insulin ([facility]) Mixed hyperlipidemia Vitamin D deficiency LIPID PANEL [...] LAB CHEMISTRY METHOD 10/09/2024 3:19 PM EST [facility] Blood Venous blood specimen / Unknown Venipuncture / Unknown 10/09/2024 10:29 AM EST 10/09/2024 10:29 AM EST us Cinthia Garcia MD LAB BLOOD ORDERABLES Final Res ult [facility] [address] [place] [address], * HIV 1,2 antibody, p24 antigen with reflex to differentiation (10/09/2024 10:29 AM EST) HIV Combo AB/AG Negative Negative LAB CHEMISTRY METHOD 10/09/2024 3:20 PM EST [facility] Blood Venous blood specimen / Unknown Venipuncture / Unknown 10/09/2024 10:29 AM EST 10/09/2024 10:29 AM EST Narrative [facility] - 10/09/2024 3:20 PM [...] ORDERABLES Final Res ult Performing Organization Address [facility]/ZIP Co de Phone Number [facility] [address] [place] [address], [place] [phone] * Treponema pallidum antibody with reflex to RPR and particle agglutination (10/09/2024 10:29 AM EST) Pathologist [facility] T. Pallidum Antibodies Negative Negative LAB CHEMISTRY METHOD 10/09/2024 2:53 PM EST [facility] Blood Venous blood specimen / Unknown Venipuncture / Unknown 10/09/2024 10:29 AM EST 10/09/2024 10:29 AM EST Cinthia Garcia MD LAB BLOOD ORDERABLES Final Res ult Performing Organization Address [facility] Co de Phone Number [facility] [address] [place] [address], [place] [phone] * (ABNORMAL) Lipid panel with reflex to direct LDL (10/09/2024 10:29 AM EST) Cholesterol 160 0 - 200 mg/dL LAB CHEMISTRY METHOD 10/09/2024 2:58 PM EST [facility] Triglycerides 187(H) 0 - 150 mg/dL LAB CHEMISTRY METHOD 10/09/2024 2:58 PM EST [facility] HDL 45 >=40 mg/dL LAB CHEMISTRY METHOD 10/09/2024 2:58 PM EST [facility] LDL Calculated 78 0 - 100 mg/dL LAB CHEMISTRY METHOD 10/09/2024 2:58 PM [facility] VLDL Cholesterol Orn 37.4 mg/dL LAB CHEMISTRY METHOD 10/09/2024 2:58 PM EST [facility] Non HDL Chol. (LDL+VLDL) 115 <145 mg/dL LAB CHEMISTRY METHOD 10/09/2024 2:58 PM EST [facility] Chol/HDL Ratio 3.6 0.0 - 4.4 LAB CHEMISTRY METHOD 10/09/2024 2:58 PM [facility] Blood Venous blood specimen / Unknown Venipuncture / Unknown 10/09/2024 10:29 AM EST 10/09/2024 10:29 AM EST us Cinthia Garcia MD LAB BLOOD ORDERABLES Final Res ult [facility] [address] [place] [address], [place] [phone] * (ABNORMAL) Testosterone free, bioavailable and total (10/09/2024 10:29 AM EST) Testosterone 156(L) 229 - 902 ng/dL LAB CHEMISTRY METHOD 10/09/2024 2:35 PM [facility] Testosterone, Free 3.7(L) 4.6 - 22.4 ng/dL LAB CHEMISTRY METHOD 10/09/2024 2:35 PM [facility] Testosterone, Bioavailable 91(L) 110 - 575 ng/dL LAB CHEMISTRY METHOD 10/09/2024 2:35 PM [facility] Sex Hormone Binding 19.7 See Comment nmol/L LAB CHEMISTRY METHOD 10/09/2024 2:35 PM [facility] Comment: FEMALES: ??pre-menopausal ?? 10.8 [...] g/dL LAB CHEMISTRY METHOD 10/09/2024 2:35 PM EST [facility] Blood Venous blood specimen / Unknown Venipuncture / Unknown 10/09/2024 10:29 AM EST 10/09/2024 10:29 AM EST Cinthia Garcia MD LAB BLOOD ORDERABLES Final Res ult Performing Organization Address City/[facility]/ZIP Co de Phone Number [facility] [address] [place] [address], [place] [phone] * Chlamydia trachomatis and Neisseria gonorrhoeae molecular study (10/09/2024 10:29 AM EST) Pathologist [facility] Neisseria gonorrhoeae PCR Negative Negative LAB MOLECULAR DIAGNOSTICS METHOD 10/10/2024 10:15 AM EST [facility] Chlamydia trachomatis PCR Negative Negative LAB MOLECULAR DIAGNOSTICS METHOD 10/10/2024 10:15 AM [facility] Swab Urine specimen from urethra / Unknown Non-blood Collection / Unknown 10/09/2024 10:29 AM EST 10/09/2024 10:29 AM EST Cinthia Garcia MD LAB MICROBIOLOGY - GENERAL ORD ERABLES Final Result Performing Organization Address [facility]/ZIP Co de Phone Number [facility] [address] [place] [address], [place] [phone] * Vitamin D 25 hydroxy (10/09/2024 10:29 AM EST) Vit D, 25-Hydroxy 34.4 30.0 - 80.0 ng/mL LAB CHEMISTRY METHOD 10/09/2024 2:40 PM EST [facility] Blood Venous blood specimen / Unknown Venipuncture / Unknown 10/09/2024 10:29 AM EST 10/09/2024 10:29 AM EST us Cinthia Garcia MD LAB BLOOD ORDERABLES Final Res ult [facility] [address] [place] [address], [place] [phone] * Complete blood count (10/09/2024 10:29 AM EST) WBC 9.2 4.8 - 10.8 K/mcL LAB HEMETOLOGY METHOD 10/09/2024 2:17 PM [facility] RBC 5.30 4.50 - 5.50 M/mcL LAB HEMETOLOGY METHOD 10/09/2024 2:17 PM [facility] Hemoglobin 15.3 13.5 - 17.5 g/dL LAB HEMETOLOGY METHOD 10/09/2024 2:17 PM [facility] Hematocrit 46.4 42.0 - 54.0 % LAB HEMETOLOGY METHOD 10/09/2024 2:17 PM [facility] MCV 88.0 79.0 - 98.0 FL LAB HEMETOLOGY METHOD 10/09/2024 2:17 PM [facility] MCH 29.0 27.0 - 32.0 pcg LAB HEMETOLOGY METHOD 10/09/2024 2:17 PM [facility] MCHC 33.0 32.0 - 37.0 g/dL LAB HEMETOLOGY METHOD 10/09/2024 2:17 PM [facility] RDW 13.4 11.0 - 15.0 % LAB HEMETOLOGY METHOD 10/09/2024 2:17 PM [facility] Platelets 283 130 - 400 K/mcL LAB HEMETOLOGY METHOD 10/09/2024 2:17 PM [facility] MPV 10.4 7.0 - 11.0 FL LAB HEMETOLOGY METHOD 10/09/2024 2:17 PM EST [facility] NRBC 0.0 <1.0 % LAB HEMETOLOGY METHOD 10/09/2024 2:17 PM EST [facility] NRBC Absolute 0.00 <0.10 K/mcL LAB HEMETOLOGY METHOD 10/09/2024 2:17 PM EST [facility] Blood Venous blood specimen / Unknown Venipuncture / Unknown 10/09/2024 10:29 AM EST 10/09/2024 10:29 AM EST Cinthia Garcia MD LAB BLOOD ORDERABLES Final Res ult Performing Organization Address City/[facility]/ZIP Co de Phone Number [facility] [address] [place] [address], [place] [phone] * (ABNORMAL) Thyroid stimulating hormone (10/09/2024 10:29 AM EST) TSH 5.63(H) 0.40 - 4.00 mcIU/mL LAB CHEMISTRY METHOD 10/09/2024 2:40 PM EST [facility] Blood Venous blood specimen / Unknown Venipuncture / Unknown 10/09/2024 10:29 AM EST 10/09/2024 10:29 AM EST us Cinthia Garcia MD LAB BLOOD ORDERABLES Final Res ult [facility] [address] [place] [address], [place] [phone] * Magnesium (10/09/2024 10:29 AM EST) Magnesium 2.0 1.9 - 2.6 mg/dL LAB CHEMISTRY METHOD 10/09/2024 2:34 PM EST [facility] Blood Venous blood specimen / Unknown Venipuncture / Unknown 10/09/2024 10:29 AM EST 10/09/2024 10:29 AM EST Cinthia Garcia MD LAB BLOOD ORDERABLES Final Res ult [facility] [address] [place] [address], [place] [phone] * Hemoglobin A1c (10/09/2024 10:29 AM EST) [facility] Hemoglobin A1C 5.6 <6.5 % LAB CHEMISTRY METHOD 10/09/2024 9:06 PM EST [facility] Mean Bld Glu Estim. 114 mg/dL LAB CHEMISTRY METHOD 10/09/2024 9:06 PM EST [facility] Blood Venous blood specimen / Unknown Venipuncture / Unknown 10/09/2024 10:29 AM EST 10/09/2024 10:29 AM EST Cinthia Garcia MD LAB BLOOD ORDERABLES Final Res ult Performing Organization Address City/[facility]/ZIP Co de Phone Number [facility] [address] [place] [address], [place] [phone] * (ABNORMAL) Vitamin B12 (10/09/2024 10:29 AM EST) [facility] Vitamin B-12 236(L) 250 - 900 pcg/mL LAB CHEMISTRY METHOD 10/09/2024 2:58 PM EST [facility] Blood Venous blood specimen / Unknown Venipuncture / Unknown 10/09/2024 10:29 AM EST 10/09/2024 10:29 AM EST Cinthia Garcia MD LAB BLOOD ORDERABLES Final Res ult [facility] [address] [place] [address], [place] [phone] * (ABNORMAL) Comprehensive metabolic panel (10/09/2024 10:29 AM EST) Sodium 134 133 - 145 mmol/L LAB CHEMISTRY METHOD 10/09/2024 2:58 PM [facility] Potassium 3.5 3.5 - 5.5 mmol/L LAB CHEMISTRY METHOD 10/09/2024 2:58 PM [facility] Chloride 101 96 - 110 mmol/L LAB CHEMISTRY METHOD 10/09/2024 2:58 PM [facility] CO2 27 21 - 32 mmol/L LAB CHEMISTRY METHOD 10/09/2024 2:58 PM [facility] Anion Gap 6 3 - 11 LAB CHEMISTRY METHOD 10/09/2024 2:58 PM [facility] Glucose 95 70 - 100 mg/dL LAB CHEMISTRY METHOD 10/09/2024 2:58 PM [facility] BUN 18 5 - 25 mg/dL LAB CHEMISTRY METHOD 10/09/2024 2:58 PM [facility] Creatinine 1.10 0.70 - 1.30 mg/dL LAB CHEMISTRY METHOD 10/09/2024 2:58 PM [facility] eGFR 83 >=60 mL/min/1. 73m2 LAB CHEMISTRY METHOD 10/09/2024 2:58 PM [facility] Comment:Calculation based on the??Chronic Kidney Disease Epidemiology Collaboration (CKD-EPI) equation refit??without adjustment for race. BUN/Creatinine Ratio 16.4 LAB CHEMISTRY METHOD 10/09/2024 2:58 PM [facility] Calcium 10.0 8.5 - 10.5 mg/dL LAB CHEMISTRY METHOD 10/09/2024 2:58 PM [facility] AST (SGOT) 22 10 - 42 unit/L LAB CHEMISTRY METHOD 10/09/2024 2:58 PM [facility] ALT (SGPT) 35 10 - 60 unit/L LAB CHEMISTRY METHOD 10/09/2024 2:58 PM [facility] Alkaline Phosphatase 133(H) 42 - 121 unit/L LAB CHEMISTRY METHOD 10/09/2024 2:58 PM EST [facility] Total Protein 8.1(H) 6.0 - 8.0 g/dL LAB CHEMISTRY METHOD 10/09/2024 2:58 PM EST [facility] Albumin 4.4 3.2 - 5.0 g/dL LAB CHEMISTRY METHOD 10/09/2024 2:58 PM EST [facility] Total Bilirubin 0.5 0.0 - 1.4 mg/dL LAB CHEMISTRY METHOD 10/09/2024 2:58 PM EST [facility] Blood Venous blood specimen / Unknown Venipuncture / Unknown 10/09/2024 10:29 AM EST 10/09/2024 10:29 AM EST us Cinthia Garcia MD LAB BLOOD ORDERABLES Final Res ult [facility] [address] [place] [address], from Last 3 Months Insurance [employer] Member Subscriber Plan / Payer (Ef fective 2019-Present) Name:Hebert Smith Relation to Subscriber:Self Name:Hebert Smith Payer ID:[id number] Group ID:[id number] Type:Not on file Address: [address] [facility] [place] [address] Care Teams Blender/Braze Applicator Relationship Specialty Start Date End Date Cinthia Garcia MD [address] [phone] PCP - General Internal Medicine 08/28/16
== END 2024-11-18 13:16 | disposition home or self-care (01) ==
PROVIDERS: PCP Internal Medicine; Visit Provider Physician Assistant
DX: R10.32 Left lower quadrant pain (principal)
CPT/HCPCS: 99212

== ENCOUNTER → 2024-11-18 12:24 | Outpatient (BNVA) | payer OTHER, SELFPAY | PROVIDERS: PCP Internal Medicine; Visit Provider Physician Assistant | DX: R10.32 Left lower quadrant pain (principal) | CPT/HCPCS: 99212 ==

== ENCOUNTER 2024-12-04 09:18 | Outpatient (AMB) | payer OTHER, SELFPAY ==
--- NOTE | 2024-12-04 09:26 | A.OFFVIS_ITS ---
Vital Signs 3 12/04/24 09:35 Height 5 ft 9 in Weight 215 lb BMI 31.7 BP 124/83 Blood Pressure Location Lt brachial Position Sitting Pulse 83 Intake Visit Reasons: possible left inguinal hernia Intake Note: Patient is seen in office for evaluation and treatment of a left inguinal hernia. Pt c/o: feels a lump when walking on the left groin, had hip surgery 04/2024, lump started about a month ago, painful when walking, denies n/v/d/c, no prior imaging Business Information Manager Required: No Accompanied by: Self / Same As Patient Allergies No Known Allergies [No Known Allergies*] Allergy (Verified 12/04/24 09:33) Medication List - Last Reconciled 12/04/24 by John Mcnair MD atorvastatin 20 mg PO BEDTIME budesonide-formoterol 160-4.5 mcg/actuation 1 puff inhalation DAILY PRN chlorthalidone 25 mg PO DAILY clonazepam 1 mg PO TID cyanocobalamin (vitamin B-12) mcg PO DAILY losartan 50 mg PO DAILY mirtazapine 30 mg PO BEDTIME olanzapine 5 mg PO DAILY omeprazole 40 mg PO DAILY@0630 sertraline 200 mg PO DAILY zolpidem 10 mg PO BEDTIME HPI Comments Details: 49-year-old male patient presenting for evaluation of a left inguinal hernia. He notes the pain especially when standing and walking. The pain is associated with a throbbing sensation which occasionally radiates into the testicle and left leg. He denies a previous history of inguinal hernias but has previously undergone umbilical hernia repair approximately 25 years ago. He denies nausea, vomiting, fever or chills. [facility] Medical History Arthritis Spinal stenosis Bipolar 1 disorder Seizures Wheezing SOB (shortness of breath) COPD (chronic obstructive pulmonary disease) Internal hemorrhoids Back pain Insomnia Vitamin D deficiency Depression Abnormal LFTs Anal fissure H. pylori infection STD exposure Hyperlipidemia HTN (hypertension) Cervical radiculopathy Bronchospasm Syncope Palpitations Ascending aorta dilatation Sacroiliitis Lumbar radiculopathy Obstructive sleep apnea GERD (gastroesophageal reflux disease) Asthma Anxiety and depression PTSD (post-traumatic stress disorder) Chronic pain syndrome Postlaminectomy syndrome Surgical History Hx of vasectomy H/O colonoscopy History of esophagogastroduodenoscopy (EGD) Hx of cervical spine surgery Hx of hernia repair Hx of hand surgery S/P insertion of spinal cord stimulator History of discectomy Social History Are you a primary patient care assistant to a significant other at home: No Do you presently have visiting nurse or other home services: Yes ([employer]) Alcohol intake: current Alcohol intake frequency: a few times a week Patient Tobacco Use Status: Former Tobacco user Tobacco use type: Cigarette Cigarettes Per Day: 2 Years Smoked: 28 service: No Review of Systems Const All systems reviewed & are unremarkable except as noted in HPI and below Physical Exam Vital Signs: Last Vital Signs Pulse 83 12/04/24 09:35 BP 124/83 12/04/24 09:35 BMI result Body Mass Index 31.7 Const General: cooperative and no acute distress Nutritional Appearance: well nourished Orientation/consciousness: patient oriented x3 Limitations: no limitations HEENT Head: Yes normocephalic and Yes atraumatic Ears: hearing grossly normal bilaterally Resp Effort & Inspection: normal respiratory effort, no audible wheezes, no cough and no respiratory distress Cardio Jugular venous distension: no JVD GI Other: Examination of the left groin reveals an area of tenderness at the internal ring which causes severe pain. A palpable lump is noted at this location with palpation through the inguinal canal. Findings are consistent with a small left inguinal hernia. Inspection: Yes normal to inspection Abdomen image: 2 1. Area of marked tenderness at the internal ring. Skin Other: Warm, dry, no rash Neuro General: patient oriented x3 Extrem General: Yes no clubbing, cyanosis or edema Assessment & Plan Assessment & Plan (1) Left inguinal hernia: Code(s): K40.90 - Unilateral inguinal hernia, without obstruction or gangrene, not specified as recurrent Category: Medical Plan 41-year-old male patient presenting with an area of pain in the left groin which increases with standing and walking. Examination he does have an area of marked tenderness with a palpable lump in the left groin which increases with Valsalva maneuvers consistent with a left inguinal hernia. I reviewed the procedure risks, and alternatives, and he consents to repair of this left inguinal hernia with mesh. This will be scheduled as a short-stay surgery. Coding Level of Care Code New Pt Level 4 (54694) Diagnoses Left inguinal hernia K40.90
[2024-12-04 09:35] VITALS: BP 124/83; PULSE 83; BMI 31.7
--- OUTSIDE RECORDS SUMMARY | 2024-12-04 10:04 | XMS_ITS | Clinical Summary ---
Author Organization 175 [facility] Address [address] [place] [address] Phone Care Team Providers Care Picker Box Operator Name Role Phone Cinthia Garcia MD Primary Care Provider [phone] Allergies No known active allergies Medications losartan [...] a day. 90 each 5 025 Active cyanocobalamin (VITAMIN B-12) 1,000 mcg tablet Take 1 tablet (1,000 mcg total) by mouth 2 (two) times a day. 5 Active Active Problems Problem Noted Date Diagnosed [...] structural heart disease. Recommendations: 1. 30-day ambulatory cafeteria monitor (already ordered). 2. Echocardiogram (already ordered) [...] 5 out of 5 except left hand website developer at 4 to 4+ out of 5. [...] alert button. He was seen in the [facility] ED on 09/01/2022 and lumbar spine [...] Encounters Date Type Department Care Team Description 12/03/2024 Telephone Endocrinology [address] [phone] Vik Humphrey MD Labs Only 11/26/2024 8:30 AM EDT Consult Endocrinology [address] [phone] Vik Humphrey MD Low testosterone (Primary Dx) 11/17/2024 Telephone Internal Medicine - [place] 175 [facility] [address] [place] [phone] Cinthia Garcia MD [place]: Lab results 11/05/2024 9:00 AM EST Office Visit Orthopedic Surgery [facility] 175 [facility] [address] [place] [phone] Latrell Rangel MD Extensor tenosynovitis of left wrist (Primary Dx); Status post de Quervain release surgery 10/21/2024 8:45 AM EST Treatment [facility] Occupational Therapy [address] [place] [phone] Glenis Taylor COTA/Kirit Postoperative state (Primary Dx) 10/16/2024 9:45 AM EST Treatment [facility] Occupational Therapy [address] [phone] Wayner, [place], CONNOLLY/L Postoperative state (Primary Dx) 10/14/2024 8:45 AM EST Treatment [facility] [address] [phone] Glenis Taylor, CONNOLLY/L Postoperative state (Primary Dx) 10/09/2024 9:45 AM EST Treatment [facility] [address] [phone] Charmaine Moyer, OT Postoperative state (Primary Dx) 10/08/2024 1:15 PM EST Office Visit Internal Medicine - [place] 175 [facility] [address] [place] [phone] Cinthia Garcia MD Primary hypertension (Primary Dx); Type 2 diabetes mellitus without complication, without long-term current use of insulin ([facility]); Mixed hyperlipidemia; Vitamin D deficiency; Possible exposure to STD; Testosterone deficiency 10/07/2024 10:15 AM EST Treatment [facility] [address] [phone] Charmaine Moyer, OT Postoperative state (Primary Dx) 10/02/2024 8:45 AM EST Treatment [facility] [address] [place] [phone] Glenis Taylor, CONNOLLY/L Postoperative state (Primary Dx) 09/30/2024 8:45 AM EST Treatment [facility] [address] [phone] Glenis Taylor, CONNOLLY/L Postoperative state (Primary Dx) 09/25/2024 8:45 AM EST Treatment [facility] [address] [place] [phone] Glenis Taylor CONNOLLY/L Postoperative state (Primary Dx) 09/24/2024 8:30 AM EST Office Visit Orthopedic Surgery - [place] 175 [facility] [address] [place] [phone] Laterll Rangel MD Postoperative state (Primary Dx) 09/23/2024 8:45 AM EST Treatment [facility] [address] [phone] Glenis Taylor, CONNOLLY/L Postoperative state (Primary Dx) 09/16/2024 2:30 PM EST Treatment [facility] Occupational Therapy [address] [phone] MatGlenis dempsey, CONNOLLY/L Postoperative state (Primary Dx) from Last 3 [...] STRTCTC STIMJ SPI CORD PRQ SPX N/FLWD OTH SURG; COMMENT: stim wave stimulator placed, [facility] [place], Dr. Laughlin OTHER SURGICAL HISTORY [...] Type 2 diabetes mellitus wit hout complication ([facility]/HCC) 10/02/2017 DX:Type 2 diabetes mellitus without complication [...] Sign Reading Time Taken Comments Blood Pressure 114/74 11/26/2024 9:17 AM EDT Pulse 70 11/26/2024 9:17 AM EDT Temperature 36.3 ??C (97.3 ??F) 11/26/2024 9:17 AM ED T Respiratory Rate - - Oxygen Saturation 96% 11/26/2024 9:17 AM EDT Inhaled Oxygen Concentration - - Weight 98.4 kg (217 lb) 11/26/2024 9:17 AM EDT Height 175.3 cm (5' 9 ) 11/26/2024 9:17 AM EDT Body Mass Index 32.05 11/26/2024 9:17 AM EDT Plan of Treatment Upcoming Encounters Date Type Department Care Team (Late st Contact Info) Description 12/17/2024 8:30 AM EDT Office Visit Orthopedic Surgery - [place] 175 [facility] [address] [place] [phone] Latrell Rangel MD 175 [facility] [place] [address] [place] [address] 12/30/2024 9:15 AM EDT Office Visit Endocrinology - [place] [address] [place] [phone] Vik Humphrey MD [address] [place] [phone] 04/07/2025 8:45 AM EDT Office Visit Internal Medicine - [place] 175 [facility] [address] [place] [phone] Cinthia Garcia MD 175 [facility] [address] [place] [phone] Health Maintenance Due Date Last [...] discomfort NOT MET, pain average 6/10 L website developer at least 45% of R website developer 10/07/23 INPROGRESS website developer has increased from 26% to 35% of R; cont goal LTG in 12 visits General Worsening(12/2024 12:03 PM EST) Charmaine Patterson, OT Note: Restored tolerance to BADL /IADL activity, no splint, pain no >1-2/10 10/21/24 NOT MET; pain 8/10 today L wrist strength at least 4/5 10/21/24 NOT MET 3-/5 pain-limited L website developer at least 70% of R website developer 10/21/24 NOT MET currently 37% 10/07/24: CONT unmet STG's and ALSO PROGRESS TO LTG's Procedures Procedure Name Priority Date/Time Associated Diagnosis Comments TESTOSTERONE FREE, BIOAVAILABLE AND TOTAL Routine 11/27/2024 8:18 AM EDT Essential hypertension, benign Diabetes mellitus (CMS/HCC) Exposure to STD THYROXINE FREE Routine 11/27/2024 8:18 AM EDT Low testosterone THYROID STIMULATING HORMONE Routine 11/27/2024 8:18 AM EDT Low testosterone HEMOGLOBIN AND HEMATOCRIT Routine 11/27/2024 8:18 AM EDT Low testosterone PROSTATE SPECIFIC ANTIGEN SCREEN Routine 11/27/2024 8:18 AM EDT Low testosterone ACTH Routine 11/27/2024 8:18 AM EDT Low testosterone CORTISOL Routine 11/27/2024 8:18 AM EDT Low testosterone PROLACTIN Routine 11/27/2024 8:18 AM EDT Low testosterone TESTOSTERONE, TOTAL Routine 11/27/2024 8 :18 AM EDT Low testosterone LUTEINIZING HORMONE Routine 11/27/2024 8 :18 AM EDT Low testosterone FOLLICLE STIMULATING HORMONE Routine 11/27/2024 8:18 AM EDT Low testosterone TESTOSTERONE FREE, BIOAVAILABLE AND TOTAL Routine 10/09/2024 [...] complication, without long-term current use of insulin ([facility]) Mixed hyperlipidemia Vitamin D deficiency VITAMIN B12 Routine 10/09/2024 10:29 AM EST Primary hypertension Type 2 diabetes mellitus without complication, without long-term current use of insulin (CMS/[facility]) Mixed hyperlipidemia Vitamin D deficiency THYROID STIMULATING HORMONE Routine 10/09/2024 10:29 AM EST Primary hypertension Type 2 diabetes mellitus without complication, without long-term current use of insulin ([facility]) Mixed hyperlipidemia Vitamin D deficiency COMPLETE BLOOD COUNT Routine 10/09/2024 10:29 AM EST Primary hypertension Type 2 diabetes mellitus without complication, without long-term current use of insulin ([facility]) Mixed hyperlipidemia Vitamin D deficiency LIPID PANEL WITH REFLEX TO DIRECT LDL Routine 10/09/2024 10:29 AM EST Primary hypertension Type 2 diabetes mellitus without complication, without long-term current use of insulin ([facility]) Mixed hyperlipidemia Vitamin D deficiency COMPREHENSIVE METABOLIC PANEL Routine 10/09/2024 10:29 AM EST Primary hypertension Type 2 diabetes mellitus without complication, without long-term current use of insulin ([facility]) Mixed hyperlipidemia Vitamin D deficiency HEMOGLOBIN A1C Routine 10/09/2024 10:29 AM EST Primary hypertension Type 2 diabetes mellitus without complication, without long-term current use of insulin ([facility]) Mixed hyperlipidemia Vitamin D deficiency CHLAMYDIA TRACHOMATIS AND NEISSERIA GONORRHOEAE PCR Routine 10/09/2024 10:29 AM EST Possible exposure to STD from Last 3 Months Results * Prostate specific antigen screen (11/27/2024 8:18 AM EDT) PSA 0.73 0.00 - 4.00 ng/mL LAB CHEMISTRY METHOD 11/27/2024 10:29 AM EDT [facility] Blood Venous blood specimen / Unknown Venipuncture / Unknown 11/27/2024 8:18 AM EDT 11/27/2024 9:36 AM EDT Narrative [facility] - 11/27/2024 10:29 AM EDT The Siemens Advia Bomberbotaur Chemiluminescent Immunoassay is used. Results obtained with different assay methods or kits cannot be used interchangeably. Results cannot be interpreted as absolute evidence of the presence or absence of malignant disease. us Vik Humphrey MD LAB BLOOD ORDERABLES Final Resul t [facility] [address] [place] [address], [place] [phone] * Testosterone free, bioavailable and total (11/27/2024 8:18 AM EDT) Only the most recent of2 resultswithin the time period is included. Testosterone 437 229 - 902 ng/dL LAB CHEMISTRY METHOD 11/27/2024 10:23 AM EDT [facility] Testosterone, Free 11.4 4.6 - 22.4 ng/dL LAB CHEMISTRY METHOD 11/27/2024 10:23 AM EDT [facility] Testosterone, Bioavailable 261 110 - 575 ng/dL LAB CHEMISTRY METHOD 11/27/2024 10:23 AM T [facility] Sex Hormone Binding 21.5 See Comment nmol/L LAB CHEMISTRY METHOD 11/27/2024 10:23 AM EDT [facility] Comment: FEMALES: ??pre-menopausal ?? 10.8 [...] from biotin supplements for 72 hours. Albumin 4.2 3.2 - 5.0 g/dL LAB CHEMISTRY METHOD 11/27/2024 10:23 AM EDT [facility] Blood Venous blood specimen / Unknown Venipuncture / Unknown 11/27/2024 8:18 AM EDT 11/27/2024 9:36 AM EDT us Vik Humphrey MD LAB BLOOD ORDERABLES Final Resul t Performing Organization Address City/[facility]/ZIP Co de Phone Number [facility] [address] [place] [address], [place] [phone] * Hemoglobin and hematocrit (11/27/2024 8:18 AM EDT) Hemoglobin 15.7 13.5 - 17.5 g/dL LAB HEMETOLOGY METHOD 11/27/2024 9:49 AM EDT [facility] Hematocrit 45.5 42.0 - 54.0 % LAB HEMETOLOGY METHOD 11/27/2024 9:49 AM EDT [facility] Blood Venous blood specimen / Unknown Venipuncture / Unknown 11/27/2024 8:18 AM EDT 11/27/2024 9:33 AM EDT us iVk Humphrey MD LAB BLOOD ORDERABLES Final Resul t Performing Organization Address City/[facility]/ZIP Co de Phone Number [facility] [address] [place] [address], [place] [phone] * Prolactin (11/27/2024 8:18 AM EDT) Pathologist [facility] Prolactin 6.60 2.50 - 17.40 ng/mL LAB CHEMISTRY METHOD 11/27/2024 10:14 AM EDT [facility] Blood Venous blood specimen / Unknown Venipuncture / Unknown 11/27/2024 8:18 AM EDT 11/27/2024 9:36 AM EDT us Vik Humphrey MD LAB BLOOD ORDERABLES Final Resul t Performing Organization Address City/[facility]/ZIP Co de Phone Number [facility] [address] [place] [address], * ACTH (11/27/2024 8:18 AM EDT) [facility] Adrenocorticotropic Hormone (ACTH) 24 <=46 pg/mL 12/01/2024 10:25 PM EDT [facility]: Test performed at [facility], [address] [place], [place] ??[address] ? [phone] Fernanda Arroyo MD, PhD - Fire Sprinkler Apparatus Inspector Blood Venous blood specimen / Unknown Venipuncture / Unknown 11/27/2024 8:18 AM EDT 11/27/2024 9:33 AM EDT Vik Humphrey MD LAB BLOOD ORDERABLES Final Resul t Performing Organization Address City/[facility]/ZIP Co de Phone Number [facility] [address] [place] [address] * (ABNORMAL) Thyroid stimulating hormone (11/27/2024 8:18 AM EDT) Only the most recent of2 resultswithin the time period is included. [facility] TSH 5.62(H) 0.40 - 4.00 mcIU/mL LAB CHEMISTRY METHOD 11/27/2024 10:22 AM EDT [facility] Blood Venous blood specimen / Unknown Venipuncture / Unknown 11/27/2024 8:18 AM EDT 11/27/2024 9:36 AM EDT Vik Humphrey MD LAB BLOOD ORDERABLES Final Resul t Performing Organization Address [facility] Co de Phone Number [facility] [address] [place] [address], [place] [phone] * Thyroxine free (11/27/2024 8:18 AM EDT) Free T4 1.11 0.70 - 1.80 ng/dL LAB CHEMISTRY METHOD 11/27/2024 10:22 AM EDT [facility] Blood Venous blood specimen / Unknown Venipuncture / Unknown 11/27/2024 8:18 AM EDT 11/27/2024 9:36 AM EDT Vik Humphrey MD LAB BLOOD ORDERABLES Final Resul t Performing Organization Address [facility] de Phone Number [facility] [address] [place] [address], [place] [phone] * Testosterone, total (11/27/2024 8:18 AM EDT) [facility] Testosterone 437 229 - 902 ng/dL LAB CHEMISTRY METHOD 11/27/2024 10:22 AM EDT [facility] Blood Venous blood specimen / Unknown Venipuncture / Unknown 11/27/2024 8:18 AM EDT 11/27/2024 9:36 AM EDT us Vik Humphrey MD LAB BLOOD ORDERABLES Final Resul t Performing Organization Address City/[facility]/ZIP Co de Phone Number [facility] [address] [place] [address], [place] [phone] * Luteinizing hormone (11/27/2024 8:18 AM EDT) Luteinizing Hormone 3.2 1.2 - 10.6 mIU/mL LAB CHEMISTRY METHOD 11/27/2024 10:15 AM EDT [facility] Blood Venous blood specimen / Unknown Venipuncture / Unknown 11/27/2024 8:18 AM EDT 11/27/2024 9:36 AM EDT us Vik Humphrey MD LAB BLOOD ORDERABLES Final Resul t Performing Organization Address City/[facility] Co de Phone Number [facility] [address] [place] [address], [place] [phone] * Follicle stimulating hormone (11/27/2024 8:18 AM EDT) Follicle Stimulating Hormone 5.5 0.7 - 10.8 mIU/mL LAB CHEMISTRY METHOD 11/27/2024 10:34 AM EDT [facility] Blood Venous blood specimen / Unknown Venipuncture / Unknown 11/27/2024 8:18 AM EDT 11/27/2024 9:36 AM EDT us Vik Humphrey MD LAB BLOOD ORDERABLES Final Resul t Performing Organization Address [facility] de Phone Number [facility] [address] [place] [address], [place] [phone] * Cortisol (11/27/2024 8:18 AM EDT) Cortisol 21.2 mcg/dL LAB CHEMISTRY METHOD 11/27/2024 10:22 AM EDT [facility] Blood Venous blood specimen / Unknown Venipuncture / Unknown 11/27/2024 8:18 AM EDT 11/27/2024 9:36 AM EDT Narrative [facility] - 11/27/2024 10:22 AM EDT CORTISOL REFERENCE RANGE ?? 8 AM SPEC: ??5.0-23.0 mcg/dL ?? 4 PM SPEC: ??3.0-16.0 mcg/dL ?? 8 PM SPEC: ??<5.0 mcg/dL Vik Humphrey MD LAB BLOOD ORDERABLES Final Resul t Performing Organization Address [facility] Co de Phone Number [facility] [address] [place] [address], [place] [phone] * Hepatitis C antibody (10/09/2024 10:29 AM EST) Hepatitis C Antibody Negative Negative LAB CHEMISTRY METHOD 10/09/2024 3:19 PM EST [facility] Blood Venous blood specimen / Unknown Venipuncture / Unknown 10/09/2024 10:29 AM EST 10/09/2024 10:29 AM EST Cinthia Garcia MD LAB BLOOD ORDERABLES Final Res ult Performing Organization Address [facility] de Phone Number [facility] [address] [place] [address], [place] [phone] * HIV 1,2 antibody, p24 antigen with reflex to differentiation (10/09/2024 10:29 AM EST) [facility] HIV Combo AB/AG Negative Negative LAB CHEMISTRY METHOD 10/09/2024 3:20 PM EST [facility] Blood Venous blood specimen / Unknown Venipuncture / Unknown 10/09/2024 10:29 AM EST 10/09/2024 10:29 AM EST Narrative [facility] - 10/09/2024 3:20 PM EST This [...] ORDERABLES Final Res ult Performing Organization Address [facility]/ZIP Co de Phone Number [facility] [address] [place] [address], [place] [phone] * Treponema pallidum antibody with reflex to RPR and particle agglutination (10/09/2024 10:29 AM EST) Pathologist [facility] T. Pallidum Antibodies Negative Negative LAB CHEMISTRY METHOD 10/09/2024 2:53 PM [facility] Blood Venous blood specimen / Unknown Venipuncture / Unknown 10/09/2024 10:29 AM EST 10/09/2024 10:29 AM EST us Cinthia Garcia MD LAB BLOOD ORDERABLES Final Res ult Performing Organization Address [facility] Co de Phone Number [facility] [address] [place] [address], [place] [phone] * (ABNORMAL) Lipid panel with reflex to direct LDL (10/09/2024 10:29 AM EST) Pathologist [facility] Cholesterol 160 0 - 200 mg/dL LAB CHEMISTRY METHOD 10/09/2024 2:58 PM [facility] Triglycerides 187(H) 0 - 150 mg/dL LAB CHEMISTRY METHOD 10/09/2024 2:58 PM [facility] HDL 45 >=40 mg/dL LAB CHEMISTRY METHOD 10/09/2024 2:58 PM [facility] LDL Calculated 78 0 - 100 mg/dL LAB CHEMISTRY METHOD 10/09/2024 2:58 PM [facility] VLDL Cholesterol Ron 37.4 mg/dL LAB CHEMISTRY METHOD 10/09/2024 2:58 PM [facility] Non HDL Chol. (LDL+VLDL) 115 <145 mg/dL LAB CHEMISTRY METHOD 10/09/2024 2:58 PM [facility] Chol/HDL Ratio 3.6 0.0 - 4.4 LAB CHEMISTRY METHOD 10/09/2024 2:58 PM EST [facility] Blood Venous blood specimen / Unknown Venipuncture / Unknown 10/09/2024 10:29 AM EST 10/09/2024 10:29 AM EST Cinthia Garcia MD LAB BLOOD ORDERABLES Final Res ult Performing Organization Address [facility]/ZIP Co de Phone Number [facility] [address] [place] [address], [place] [phone] * Chlamydia trachomatis and Neisseria gonorrhoeae molecular study (10/09/2024 10:29 AM EST) Pathologist [facility] Neisseria gonorrhoeae PCR Negative Negative LAB MOLECULAR DIAGNOSTICS METHOD 10/10/2024 10:15 AM EST [facility] Chlamydia trachomatis PCR Negative Negative LAB MOLECULAR DIAGNOSTICS METHOD 10/10/2024 10:15 AM [facility] Swab Urine specimen from urethra / Unknown Non-blood Collection / Unknown 10/09/2024 10:29 AM EST 10/09/2024 10:29 AM EST Cinthia Garcia MD LAB MICROBIOLOGY - GENERAL ORD ERABLES Final Result Performing Organization Address [facility] de Phone Number [facility] [address] [place] [address], [place] [phone] * Vitamin D 25 hydroxy (10/09/2024 10:29 AM EST) Pathologist [facility] Vit D, 25-Hydroxy 34.4 30.0 - 80.0 ng/mL LAB CHEMISTRY METHOD 10/09/2024 2:40 PM EST [facility] Blood Venous blood specimen / Unknown Venipuncture / Unknown 10/09/2024 10:29 AM EST 10/09/2024 10:29 AM EST us Cinthia Garcia MD LAB BLOOD ORDERABLES Final Res ult [facility] [address] [place] [address], [place] [phone] * Complete blood count (10/09/2024 10:29 AM EST) [facility] WBC 9.2 4.8 - 10.8 K/mcL LAB HEMETOLOGY METHOD 10/09/2024 2:17 PM EST [facility] RBC 5.30 4.50 - 5.50 M/mcL LAB HEMETOLOGY METHOD 10/09/2024 2:17 PM EST [facility] Hemoglobin 15.3 13.5 - 17.5 g/dL LAB HEMETOLOGY METHOD 10/09/2024 2:17 PM [facility] Hematocrit 46.4 42.0 - 54.0 % LAB HEMETOLOGY METHOD 10/09/2024 2:17 PM EST [facility] MCV 88.0 79.0 - 98.0 FL LAB HEMETOLOGY METHOD 10/09/2024 2:17 PM EST [facility] MCH 29.0 27.0 - 32.0 pcg LAB HEMETOLOGY METHOD 10/09/2024 2:17 PM [facility] MCHC 33.0 32.0 - 37.0 g/dL LAB HEMETOLOGY METHOD 10/09/2024 2:17 PM EST [facility] RDW 13.4 11.0 - 15.0 % LAB HEMETOLOGY METHOD 10/09/2024 2:17 PM [facility] Platelets 283 130 - 400 K/mcL LAB HEMETOLOGY METHOD 10/09/2024 2:17 PM EST [facility] MPV 10.4 7.0 - 11.0 FL LAB HEMETOLOGY METHOD 10/09/2024 2:17 PM [facility] NRBC 0.0 <1.0 % LAB HEMETOLOGY METHOD 10/09/2024 2:17 PM EST [facility] NRBC Absolute 0.00 <0.10 K/[facility] LAB HEMETOLOGY METHOD 10/09/2024 2:17 PM EST [facility] Blood Venous blood specimen / Unknown Venipuncture / Unknown 10/09/2024 10:29 AM EST 10/09/2024 10:29 AM EST us Cinthia Garcia MD LAB BLOOD ORDERABLES Final Res ult [facility] [address] [place] [address], [place] [phone] * Magnesium (10/09/2024 10:29 AM EST) Magnesium 2.0 1.9 - 2.6 mg/dL LAB CHEMISTRY METHOD 10/09/2024 2:34 PM EST [facility] Blood Venous blood specimen / Unknown Venipuncture / Unknown 10/09/2024 10:29 AM EST 10/09/2024 10:29 AM EST us Cinthia Garcia MD LAB BLOOD ORDERABLES Final Res ult Performing Organization Address City/[facility]/ZIP Co de Phone Number [facility] [address] [place] [address], [place] [phone] * Hemoglobin A1c (10/09/2024 10:29 AM EST) Hemoglobin A1C 5.6 <6.5 % LAB CHEMISTRY METHOD 10/09/2024 9:06 PM EST [facility] Mean Bld Glu Estim. 114 mg/dL LAB CHEMISTRY METHOD 10/09/2024 9:06 PM EST [facility] Blood Venous blood specimen / Unknown Venipuncture / Unknown 10/09/2024 10:29 AM EST 10/09/2024 10:29 AM EST us Cinthia Garcia MD LAB BLOOD ORDERABLES Final Res ult Performing Organization Address City/[facility]/ZIP Co de Phone Number [facility] [address] [place] [address], [place] [phone] * (ABNORMAL) Vitamin B12 (10/09/2024 10:29 AM EST) Vitamin B-12 236(L) 250 - 900 pcg/mL LAB CHEMISTRY METHOD 10/09/2024 2:58 PM [facility] Blood Venous blood specimen / Unknown Venipuncture / Unknown 10/09/2024 10:29 AM EST 10/09/2024 10:29 AM EST Cinthia Garcia MD LAB BLOOD ORDERABLES Final Res ult Performing Organization Address [facility]/ZIP Co de Phone Number [facility] [address] [place] [address], [place] [phone] * (ABNORMAL) Comprehensive metabolic panel (10/09/2024 10:29 AM EST) [facility] Sodium 134 133 - 145 mmol/L LAB CHEMISTRY METHOD 10/09/2024 2:58 PM [facility] Potassium 3.5 3.5 - 5.5 mmol/L LAB CHEMISTRY METHOD 10/09/2024 2:58 PM [facility] [facility] Chloride 101 96 - 110 mmol/L LAB CHEMISTRY METHOD 10/09/2024 2:58 PM [facility] CO2 27 21 - 32 mmol/L LAB CHEMISTRY METHOD 10/09/2024 2:58 PM [facility] Anion Gap 6 3 - 11 LAB CHEMISTRY METHOD 10/09/2024 2:58 PM [facility] Glucose 95 70 - 100 mg/dL LAB CHEMISTRY METHOD 10/09/2024 2:58 PM [facility] BUN 18 5 - 25 mg/dL LAB CHEMISTRY METHOD 10/09/2024 2:58 PM [facility] Creatinine 1.10 0.70 - 1.30 mg/dL LAB CHEMISTRY METHOD 10/09/2024 2:58 PM [facility] eGFR 83 >=60 mL/min/1. 73m2 LAB CHEMISTRY METHOD 10/09/2024 2:58 PM [facility] Comment:Calculation based on the??Chronic Kidney Disease Epidemiology Collaboration (CKD-EPI) equation refit??without adjustment for race. BUN/Creatinine Ratio 16.4 LAB CHEMISTRY METHOD 10/09/2024 2:58 PM [facility] Calcium 10.0 8.5 - 10.5 mg/dL LAB CHEMISTRY METHOD 10/09/2024 2:58 PM [facility] AST (SGOT) 22 10 - 42 unit/L LAB CHEMISTRY METHOD 10/09/2024 2:58 PM [facility] ALT (SGPT) 35 10 - 60 unit/L LAB CHEMISTRY METHOD 10/09/2024 2:58 PM [facility] Alkaline Phosphatase 133(H) 42 - 121 unit/L LAB CHEMISTRY METHOD 10/09/2024 2:58 PM [facility] Total Protein 8.1(H) 6.0 - 8.0 g/dL LAB CHEMISTRY METHOD 10/09/2024 2:58 PM [facility] Albumin 4.4 3.2 - 5.0 g/dL LAB CHEMISTRY METHOD 10/09/2024 2:58 PM [facility] Total Bilirubin 0.5 0.0 - 1.4 mg/dL LAB CHEMISTRY METHOD 10/09/2024 2:58 PM [facility] Blood Venous blood specimen / Unknown Venipuncture / Unknown 10/09/2024 10:29 AM EST 10/09/2024 10:29 AM EST us Cinthia Garcia MD LAB BLOOD ORDERABLES Final Res ult [facility] [address] [place] [address], from Last 3 Months Insurance [employer] MED[employer]ARE Member Subscriber Plan / Payer (Ef fective 2019-Present) Name:Hebert Smith Relation to Subscriber:Self Name:Hebert Smith Payer ID:[id number] Group ID:[id number] Type:Not on file Address: [address] [facility] [place] [id number] Care Teams Picker Box Operator Relationship Specialty Start Date End Date Cinthia Garcia MD 175 [facility] [address] [place] [phone] PCP - General Internal Medicine 08/28/16
--- OUTSIDE RECORDS SUMMARY | 2024-12-04 10:04 | XMS_ITS | Clinical Summary ---
[facility] Organization [facility] Address [address] [place] [address] Care Team Providers Care Licensed Life And Health Agent Name Role Phone Cinthia Garcia MD Primary Care Provider Social History Tobacco Use Types Packs/Day Years [...] age to complete this topic Care Teams Licensed Life And Health Agent Relationship Specialty Start Date End Date Cinthia Garcia MD 175 [facility] [address] [place] [address] PCP - General Internal Medicine 08/28/16
--- OUTSIDE RECORDS SUMMARY | 2024-12-04 10:04 | XMS_ITS | Encounter Summary ---
Author Organization [employer] Address [address] [place] [address] Care Team Providers Care Budget Controller Name Role Phone Cinthia Garcia MD Primary Care Provider [phone] Reason for Visit * Reason Comments Post-op Surgery follow up fo r dorsal compartment release on 07/04/24 Encounter Details Date Type Department Care Team (Latest Contact Info) Description 11/05/2024 9:00 AM EST Office Visit Orthopedic Surgery - [place] [address] [facility] [address] [place] [phone] Latrell Ragnel MD [address] [facility] [address] [place] [address] Extensor tenosynovitis of left wrist (Primary Dx); [...] , extensor tenosynovitis Last seen: 09/24/24 HPI: Heebrt Smith is a 49 y.o. male presenting [...] AM EDT Office Visit Orthopedic Surgery - [place] [address] [phone] Latrell Rangel MD [address] [address] 12/30/2024 9:15 AM EDT Office Visit Endocrinology [address] [address] Vik Humphrey MD [address] [place] [phone] 04/07/2025 8:45 AM EDT Office Visit Internal Medicine - [place] [address] [place] [address] Cinthia Garcia MD [address] [place] [address] [place] [phone] documented as of this encounter Goals Goal [...] discomfort NOT MET, pain average 6/10 L olive packer at least 45% of R olive packer 10/07/23 INPROGRESS olive packer has increased from 26% to 35% of R; cont goal LTG in 12 visits General Worsening(12/2024 12:03 PM EST) Charmaine Patterson, OT Note: Restored tolerance to BADL /IADL activity, no splint, pain no >1-2/10 10/21/24 NOT MET; pain 8/10 today L wrist strength at least 4/5 10/21/24 NOT MET 3-/5 pain-limited L olive packer at least 70% of R olive packer 10/21/24 NOT MET currently 37% 10/07/24: CONT unmet STG's and ALSO PROGRESS TO LTG's documented as of this encounter Visit Diagnoses Diagnosis Extensor tenosynovitis of left wrist- Primary Status post de Quervain release surgery documented in this encounter Care Teams Budget Controller Relationship Specialty Start Date End Date Cinthia Garcia MD [address] [place] [place] [address] PCP - General Internal Medicine 12/12/16 documented as of this encounter
--- OUTSIDE RECORDS SUMMARY | 2024-12-04 10:05 | XMS_ITS | Encounter Summary ---
Author Organization [employer] Address [address] [place] [address] Care Team Providers Care Interventional Neuroradiologist Name Role Phone Cinthia Garcia MD Primary Care Provider [phone] Reason for Visit * Reason Onset Date Comments Labs Only 12/03/2024 Encounter Details Date Type Department Care Team ([facility] st Contact Info) Description 12/03/2024 Telephone Endocrinology - [place] [address] [place] [phone] Vik Humphrey MD [address] [place] [address] Labs Only Social History Tobacco Use Types Packs/Day Years [...] as of this encounter Progress Notes * Kevin Blackmon - 12/03/2024 3:41 PM EDT Patient is calling about recent labs documented in this encounter Plan of Treatment Upcoming Encounters Date Type Department Care Team (Late st Contact Info) Description 12/17/2024 8:30 AM EDT Office Visit Orthopedic Surgery - [place] 175 [facility] [address] [place] [phone] Latrell Ragnel MD 175 [facility] 140 [place] [address] 12/30/2024 9:15 AM EDT Office Visit Endocrinology - [place] [address] [place] [phone] Vik Humphrey MD [address] [place] [phone] 04/07/2025 8:45 AM EDT Office Visit Internal Medicine - [place] 175 [facility] 200 [place] [phone] Cinthia Garcia MD 175 [facility] [address] [place] [phone] documented as of this encounter Goals Goal [...] discomfort NOT MET, pain average 6/10 L fire protection engineer at least 45% of R fire protection engineer 10/07/23 INPROGRESS fire protection engineer has increased from 26% to 35% of R; cont goal LTG in 12 visits General Worsening(12/2024 12:03 PM EST) No Charmaine Moyer, OT Note: Restored tolerance to BADL /IADL activity, no splint, pain no >1-/10 10/21/24 NOT MET; pain 8/10 today L wrist strength at least 4/5 10/21/24 NOT MET 3-/ pain-limited L fire protection engineer at least 70% of R fire protection engineer 10/21/24 NOT MET currently 37% 10/07/24: CONT unmet STG's and ALSO PROGRESS TO LTG's documented as of this encounter Visit Diagnoses Not on filedocumented in this encounter Care Teams Interventional Neuroradiologist Relationship Specialty Start Date End Date Cinthia Garcia MD [address] [place] [phone] PCP - General Internal Medicine 08/28/16 documented as of this encounter
--- OUTSIDE RECORDS SUMMARY | 2024-12-04 10:05 | XMS_ITS | Encounter Summary ---
Author Organization [employer] Address [address] [place] [address] Care Team Providers Care Movie Shot Camera Operator Name Role Phone Cinthia Garcia MD Primary Care Provider [phone] Reason for Visit * Reason Onset Date Comments Jose: Lab results 11/17/2024 Encounter Details Date Type Department Care Team (Late st Contact Info) Description 11/17/2024 Telephone Internal Medicine - [place] [address] [facility] [address] [place] [phone] Cinthia Garcia MD 175 [facility] 200 [place] [phone] Jose: Lab results Social History Tobacco Use [...] to be printed out and ready for product picker. Please advise when ready Cb# [phone] documented in this encounter Plan of Treatment Upcoming Encounters Date Type Department Care Team (Late st Contact Info) Description 12/17/2024 8:30 AM EDT Office Visit Orthopedic Surgery - [place] [address] [phone] Latrell Rangel MD [address] [address] 12/30/2024 9:15 AM EDT Office Visit Endocrinology [address] [phone] Vik Humphrey MD [address] [place] [phone] 04/07/2025 8:45 AM EDT Office Visit Internal Medicine - [place] 175 [facility] 200 [place] [phone] Cinthia Garcia MD [address] [phone] documented as of this encounter Goals Goal [...] discomfort NOT MET, pain average 6/10 L medical billing manager at least 45% of R medical billing manager 10/07/23 INPROGRESS medical billing manager has increased from 26% to 35% of R; cont goal LTG in 12 visits General Worsening(12/2024 12:03 PM EST) No Charmaine Moyer, OT Note: Restored tolerance to BADL /IADL activity, no splint, pain no >1-2/10 10/21/24 NOT MET; pain 8/10 today L wrist strength at least 4/5 10/21/24 NOT MET 3-/5 pain-limited L medical billing manager at least 70% of R medical billing manager 10/21/24 NOT MET currently 37% 10/07/24: CONT unmet STG's and ALSO PROGRESS TO LTG's documented as of this encounter Visit Diagnoses Not on filedocumented in this encounter Care Teams Movie Shot Camera Operator Relationship Specialty Start Date End Date Cinthia Garcia MD [address] [place] [address] [address] [place] [address] PCP - General Internal Medicine 08/28/16 documented as of this encounter
--- OUTSIDE RECORDS SUMMARY | 2024-12-04 10:05 | XMS_ITS | Encounter Summary ---
Author Organization [employer] Address [address] [place] [address] Care Team Providers Care Motorcycle Police Officer Name Role Phone Cinthia Garcia MD Primary Care Provider [phone] Reason for Visit * Reason Comments Endocrine Encounter Details Date Type Department Care Team ([facility] st Contact Info) Description 11/26/2024 8:30 AM EDT Consult Endocrinology - [address] [phone] Vik Humphrey MD [address] [place] [address] Low testosterone (Primary Dx) Social History Tobacco Use Types [...] Mass Index 32.05 11/26/2024 9:17 AM EDT documented in this encounter Progress Notes * Vik Humphrey MD - 11/26/2024 8:30 AM EDT Schedule labs * Vik Humphrey MD - 11/26/2024 8:30 AM EDT CHIEF COMPLAINT: Endocrine IDENTIFIER: Hebert Smith is a 49 y.o. old male. REFERRING PROVIDER: Cinthia Garcia MD HPI: Pt referred for low testosterone. Has complaints of low libido since 1.5 months. Sleep is good, no TAYLOR, Has had vesectomy, has 3 kids. Never used testosterone. ROS: Negative except as noted in HPI PAST MEDICAL HISTORY: Patient Active Problem List Diagnosis Date Noted Postoperative state 08/29/2024 Weight loss 11/23/2023 Anal fissure 11/23/2023 Nausea and vomiting 11/23/2023 H. pylori infection 11/23/2023 Epigastric pain 11/23/2023 Lumbar radiculopathy 07/05/2023 Lumbar radiculopathy 07/05/2023 Sacroiliitis (CMS/HCC) 05/04/2023 Ascending aorta dilatation (CMS/HCC) 08/22/2022 Palpitations 07/12/2022 Syncope 07/12/2022 Chest pain 05/24/2022 Bronchospasm 05/24/2022 Cervical radiculopathy 11/28/2021 Lab test negative for COVID-19 virus 09/12/2021 Hypertension 08/17/2021 Hyperlipidemia 08/17/2021 STD exposure 08/17/2021 Depression 06/19/2018 Abnormal LFTs 06/19/2018 Vitamin D deficiency 03/06/2018 Type 2 diabetes mellitus without complication ([facility]) 10/02/2017 Asthma 10/02/2017 Insomnia 01/03/2017 GERD (gastroesophageal reflux disease) 07/04/2016 Low back pain 08/23/2015 Internal hemorrhoids 08/21/2013 Constipation 11/16/2011 Past Surgical History: Procedure Laterality Date BACK SURGERY PROCEDURE: HISTORICAL BACK SURGERY; COMMENT: L4-S1 anterior discectomies and fusion August 2008; L3-4 decompression, discectomy and posterior fixation with removal of hardware L4-S1 November 2016 DORSAL COMPARTMENT RELEASE Left 07/04/2024 dequervains ESOPHAGOGASTRODUODENOSCOPY PROCEDURE: PA EGD TRANSORAL BIOPSY SINGLE/MULTIPLE; COMMENT: Performed on [address] Huertas ESOPHAGOGASTRODUODENOSCOPY 02/08/2021 PROCEDURE: PA EGD TRANSORAL BIOPSY SINGLE/MULTIPLE; COMMENT: healing esophagitis and H.pylori gastritis ESOPHAGOGASTRODUODENOSCOPY PROCEDURE: PA EGD TRANSORAL BIOPSY SINGLE/MULTIPLE; COMMENT: Performed on 02/08/2021 HAND SURGERY Left 2000 tendon repair OTHER SURGICAL HISTORY PROCEDURE: HISTORY OTHER; COMMENT: hernia repair OTHER SURGICAL HISTORY 04/2021 PROCEDURE: PA STRTCTC STIMJ SPI CORD PRQ SPX N/FLWD OTH SURG; COMMENT: stim wave stimulator placed,[facility] pain management, Dr. Laughlin OTHER SURGICAL HISTORY PROCEDURE: PA ARTHRD ANT INTERBODY MIN DSC CRV BELOW C2; COMMENT: C5-6 ACDF May 2015, C6-7 ACDF April 2016 with removal of C5-6 plate OTHER SURGICAL HISTORY 07/24/2022 PROCEDURE: PA MORFIN FACETECTOMY & FORAMOTOMY 1 VRT SGM CERVICAL; COMMENT: Left C4- 5, left C6-7 foraminotomy, Dr. Zaidi SOCIAL HISTORY: Social History Tobacco Use Smoking status: Former Current packs/day: 0.00 Types: Cigarettes Quit date: 02/15/2023 Years since quittin.7 Smokeless tobacco: Never Substance Use Topics Alcohol use: Yes FAMILY HISTORY: No family history on file. Family Status Relation Name Status Mother Alive Father Alive Sister Alive Brother Alive No partnership data on file MEDICATIONS DISCONTINUED/REORDERED: There are no discontinued medications. ACTIVE MEDICATIONS: Outpatient Medications Marked as Taking for the 11/26/24 encounter (Consult) with Vik Humphrey MD Medication Sig Dispense Refill albuterol 2.5 mg [...] tablet Take 0.5-1 mg by mouth. cyanocobalamin (VITAMIN B-12) 1,000 mcg tablet Take 1 tablet (1,000 mcg total) by mouth 2 (two) times a day. cyanocobalamin 2,000 mcg tablet Take 1 tablet (2,000 mcg total) by mouth 1 (one) time per week. 12 tablet 2 fluticasone propion-salmeteroL (Advair HFA) 115-21 mcg/actuation inhaler Inhale 2 puffs by mouth. ibuprofen (ADVIL,MOTRIN) 800 mg tablet Take 1 tablet (800 mg total) by mouth 3 (three) times a day.90 each 0 losartan (COZAAR) 50 mg tablet Take 1 [...] BY MOUTH ONCE A DAY FOR PTSD zolpidem (AMBIEN) 10 mg tablet Take 1 tablet (10 mg total) by mouth. ALLERGIES: No Known Allergies PHYSICAL EXAM: Visit Vitals Smoking Status Former APPEARANCE: Alert and in no acute distress EYES: EOMI HEART: RRR with normal S1 and S2, no murmurs, no gallops, NECK: Thyroid normal to palpation. No nodules. no adenopathy. LUNG: clear to auscultation ABDOMEN: Soft, non-tender Testicles normal ins size and consistency. NEURO: Awake, alert. LABS: Lab Results Component Value Date TSH 5.63 (H) 10/09/2024 No results found for: FT4 IMAGING: @ROSITA@ IMPRESSION: 1. Low testosterone PLAN: Had a detailed discussion, discussed regarding the labs done the meaning etc. Discussed the usual work up, shall get repeat labs and then may consider imaging if needed. Shall follow up to discuss. All questions answered. Medication and lab orders: Orders Placed This Encounter Procedures Follicle stimulating hormone Luteinizing hormone Testosterone, total Prolactin Insulin-like growth factor Cortisol ACTH Prostate specific antigen screen Hemoglobin and hematocrit Thyroid stimulating hormone Thyroxine free Other orders: None Vik Humphrey MD on 11/26/2024 at 8:56 AM EDT documented in this encounter Plan of Treatment Upcoming Encounters Date Type Department Care Team (Late st Contact Info) Description 12/17/2024 8:30 AM EDT Office Visit Orthopedic Surgery - [place] 175 [facility] 140 [place] [phone] Latrell Rangel MD 175 [facility] [address] [place] [address] 12/30/2024 9:15 AM EDT Office Visit Endocrinology [address] [phone] Vik Humphrey MD [address] [place] [address] 04/07/2025 8:45 AM EDT Office Visit Internal Medicine [facility] 175 [facility] 200 [place] [phone] Cinthia Garcia MD 175 [facility] [address] [place] [phone] Pending Results Name Type Priority Associated Diagnoses Date /Time Insulin-like growth factor Lab Routine Low testosterone 11/27/2024 8:18 AM EDT Scheduled Orders Name Type Priority Associated Diagnoses Orde r Schedule Insulin-like growth factor Lab Routine Low testosterone 1 Occurrences starting 11/26/2024 until 11/26/2025 documented as of this encounter Goals Goal [...] discomfort NOT MET, pain average 6/10 L operational risk consultant at least 45% of R operational risk consultant 10/07/23 INPROGRESS operational risk consultant has increased from 26% to 35% of R; cont goal LTG in 12 visits General Worsening(12/2024 12:03 PM EST) No Charmaine Moyer, OT Note: Restored tolerance to BADL /IADL activity, no splint, pain no >1-2/10 10/21/24 NOT MET; pain 8/10 today L wrist strength at least 4/5 10/21/24 NOT MET 3-/5 pain-limited L operational risk consultant at least 70% of R operational risk consultant 10/21/24 NOT MET currently 37% 10/07/24: CONT unmet STG's and ALSO PROGRESS TO LTG's documented as of this encounter Results * Thyroxine free (11/27/2024 8:18 AM EDT) Free T4 1.11 0.70 - 1.80 ng/dL LAB CHEMISTRY METHOD 11/27/2024 10:22 AM EDT [facility] Blood Venous blood specimen / Unknown Venipuncture / Unknown 11/27/2024 8:18 AM EDT 11/27/2024 9:36 AM EDT us Vik Humphrey MD LAB BLOOD ORDERABLES Final Resul t Performing Organization Address City/State/[facility] de Phone Number [facility] [address] [place] [address], * (ABNORMAL) Thyroid stimulating hormone (11/27/2024 8:18 AM EDT) TSH 5.62(H) 0.40 - 4.00 mcIU/mL LAB CHEMISTRY METHOD 11/27/2024 10:22 AM EDT [facility] Blood Venous blood specimen / Unknown Venipuncture / Unknown 11/27/2024 8:18 AM EDT 11/27/2024 9:36 AM EDT us Vik Humphrey MD LAB BLOOD ORDERABLES Final Resul t Performing Organization Address [facility] de Phone Number [facility] [address] [place] [address], * Hemoglobin and hematocrit (11/27/2024 8:18 AM EDT) Hemoglobin 15.7 13.5 - 17.5 g/dL LAB HEMETOLOGY METHOD 11/27/2024 9:49 AM EDT [facility] Hematocrit 45.5 42.0 - 54.0 % LAB HEMETOLOGY METHOD 11/27/2024 9:49 AM EDT [facility] Blood Venous blood specimen / Unknown Venipuncture / Unknown 11/27/2024 8:18 AM EDT 11/27/2024 9:33 AM EDT us Vik Humphrey MD LAB BLOOD ORDERABLES Final Resul t Performing Organization Address [facility] de Phone Number [facility] [address] [place] [address], [place] [phone] * Prostate specific antigen screen (11/27/2024 8:18 AM EDT) PSA 0.73 0.00 - 4.00 ng/mL LAB CHEMISTRY METHOD 11/27/2024 10:29 AM EDT [facility] Blood Venous blood specimen / Unknown Venipuncture / Unknown 11/27/2024 8:18 AM EDT 11/27/2024 9:36 AM EDT Narrative [facility] - 11/27/2024 10:29 AM EDT The Siemens Advia Centaur Chemiluminescent Immunoassay is used. Results obtained with different assay methods or kits cannot be used interchangeably. Results cannot be interpreted as absolute evidence of the presence or absence of malignant disease. us Vik Humphrey MD LAB BLOOD ORDERABLES Final Resul t Performing Organization Address City/[facility]/ZIP Co de Phone Number [facility] [address] [place] [address], * ACTH (11/27/2024 8:18 AM EDT) Adrenocorticotropic Hormone (ACTH) 24 <=46 pg/mL 12/01/2024 10:25 PM EDT [facility] Comment: Test performed at [facility], [address] , [place], [place] ??[address] ? [phone] Fernanda Arroyo MD, PhD - [employer] Blood Venous blood specimen / Unknown Venipuncture / Unknown 11/27/2024 8:18 AM EDT 11/27/2024 9:33 AM EDT us Vik Humphrey MD LAB BLOOD ORDERABLES Final Resul t [facility] [address] [place] [address] * Cortisol (11/27/2024 8:18 AM EDT) Cortisol 21.2 mcg/dL LAB CHEMISTRY METHOD 11/27/2024 10:22 AM EDT [facility] Blood Venous blood specimen / Unknown Venipuncture / Unknown 11/27/2024 8:18 AM EDT 11/27/2024 9:36 AM EDT Narrative [facility] - 11/27/2024 10:22 AM EDT CORTISOL REFERENCE RANGE ?? 8 AM SPEC: ??5.0-23.0 mcg/dL ?? 4 PM SPEC: ??3.0-16.0 mcg/dL ?? 8 PM SPEC: ??<5.0 mcg/dL us Vik Humphrey MD LAB BLOOD ORDERABLES Final Resul t [facility] [address] [place] [address], [place] [phone] * Prolactin (11/27/2024 8:18 AM EDT) Prolactin 6.60 2.50 - 17.40 ng/mL LAB CHEMISTRY METHOD 11/27/2024 10:14 AM EDT [facility] Blood Venous blood specimen / Unknown Venipuncture / Unknown 11/27/2024 8:18 AM EDT 11/27/2024 9:36 AM EDT us Vik Humphrey MD LAB BLOOD ORDERABLES Final Resul t [facility] [address] [place] [address], [place] [phone] * Testosterone, total (11/27/2024 8:18 AM EDT) Testosterone 437 229 - 902 ng/dL LAB CHEMISTRY METHOD 11/27/2024 10:22 AM EDT [facility] Blood Venous blood specimen / Unknown Venipuncture / Unknown 11/27/2024 8:18 AM EDT 11/27/2024 9:36 AM EDT us Vik Humphrey MD LAB BLOOD ORDERABLES Final Resul t Performing Organization Address City/[facility]/ZIP Co de Phone Number [facility] [address] [place] [address], * Luteinizing hormone (11/27/2024 8:18 AM EDT) Luteinizing Hormone 3.2 1.2 - 10.6 mIU/mL LAB CHEMISTRY METHOD 11/27/2024 10:15 AM EDT [facility] Blood Venous blood specimen / Unknown Venipuncture / Unknown 11/27/2024 8:18 AM EDT 11/27/2024 9:36 AM EDT Vik Humphrey MD LAB BLOOD ORDERABLES Final Resul t Performing Organization Address [facility] Co de Phone Number [facility] [address] [place] [address], * Follicle stimulating hormone (11/27/2024 8:18 AM EDT) Follicle Stimulating Hormone 5.5 0.7 - 10.8 mIU/mL LAB CHEMISTRY METHOD 11/27/2024 10:34 AM EDT [facility] Blood Venous blood specimen / Unknown Venipuncture / Unknown 11/27/2024 8:18 AM EDT 11/27/2024 9:36 AM EDT Vik Humphrey MD LAB BLOOD ORDERABLES Final Resul t Performing Organization Address [facility] Co de Phone Number [facility] [address] [place] [address], documented in this encounter Visit Diagnoses Diagnosis Low testosterone- Primary documented in this encounter Historical Medications * This list may reflect changes made after this encounter. cyanocobalamin (VITAMIN B-12) 1,000 mcg tablet Take 1 tablet (1,000 mcg total) by mouth 2 (two) times a day. 10/10/2024 added in this encounter Care Teams Motorcycle Police Officer Relationship Specialty Start Date End Date Cinthia Garcia MD [address] [phone] PCP - General Internal Medicine 08/28/16 documented as of this encounter
== END 2024-12-04 09:49 | disposition home or self-care (01) ==
LOC: HO.HGS 09:19
PROVIDERS: PCP Internal Medicine; Visit Provider Surgery
DX: K40.90 Unilateral inguinal hernia, without obstruction or gangrene, not specified as recurrent (principal)
CPT/HCPCS: 99204

== ENCOUNTER → 2024-12-04 09:18 | Outpatient (BNVA) | payer OTHER, SELFPAY | PROVIDERS: PCP Internal Medicine; Visit Provider Surgery | DX: K40.90 Unilateral inguinal hernia, without obstruction or gangrene, not specified as recurrent (principal) | CPT/HCPCS: 99202 ==

== ENCOUNTER 2025-01-12 05:41 | Day surgery (SDC) | payer OTHER, SELFPAY ==
--- OUTSIDE RECORDS SUMMARY | 2024-12-16 16:56 | XMS_ITS | Clinical Summary ---
Author Organization 175 [facility] Address [address] [place] [address] Phone Care Team Providers Care Mail Agent Name Role Phone Cinthia Garcia MD Primary Care Provider [phone] Allergies No known active allergies Medications losartan (COZAAR) 50 mg tablet Take 1 tablet (50 mg total) by mouth 1 (one) time each day. 07/10/20 23 Active fluticasone propion-salmeteroL (Advair HFA) 115-21 mcg/actuation inhaler Inhale 2 puffs by mouth. 05/15/20 23 Active OLANZapine (ZyPREXA) 5 mg tablet 09/01/20 22 Active famotidine (PEPCID) 20 mg tablet TAKE 1 TABLET BY MOUTH 2 TIMES DAILY NEEDED FOR HEARTBURN. 05/23/20 22 Active mirtazapine (REMERON) 30 mg tablet TAKE 1 TABLET BY MOUTH AT BEDTIME DIRECTED FOR SLEEP, ANXIETY AND MOOD TEXT IF INEFFECTIVE 10/22/19 22 Active albuterol 2.5 mg /3 mL (0.083 %) nebulizer solution USE 1 VIAL BY NEBULIZATION EVERY 4 HOURS NEEDED FOR WHEEZING 02/19/20 21 Active sertraline (ZOLOFT) 100 mg tablet TAKE 1/2 - 1 TABLET BY MOUTH ONCE A DAY FOR PTSD 07/29/20 Active buPROPion XL (WELLBUTRIN XL) 300 mg 24 hr tablet Take 1 tablet (300 mg total) by mouth. 06/03/20 Active clonazePAM (KlonoPIN) 1 mg tablet Take 0.5-1 mg by mouth. 06/25/20 Active zolpidem (AMBIEN) 10 mg tablet Take 1 tablet (10 mg total) by mouth. Active omeprazole (PriLOSEC) [address] capsule TAKE 1 CAPSULE BY MOUTH EVERY DAY 90 capsule 1 08/12/20 Active miscellaneous medical supply misc 1 Each by Does not apply route daily. 05/08/20 Active Vitamin D3 50 mcg (2,000 unit) tablet Take 1 Tablet by mouth daily. 05/07/20 Active atorvastatin (LIPITOR) 20 mg tablet Take 1 tablet (20 mg total) by mouth 1 (one) time each day. 90 tablet 3 10/08/19 25 Active cyanocobalamin 2,000 mcg tablet Take 1 tablet (2,000 mcg total) by mouth 1 (one) time per week. 12 tablet 2 10/10/19 25 Active chlorthalidone (HYGROTON) 25 mg tabletIndications: Essential (primary) hypertension TAKE 1 TABLET BY MOUTH EVERY DAY 90 tablet 1 10/13/19 25 Active cyanocobalamin (VITAMIN B-12) 1,000 mcg tablet Take 1 tablet (1,000 mcg total) by mouth 2 (two) times a day. 10/10/19 25 Active levothyroxine (SYNTHROID, LEVOTHROID) 25 mcg tabletIndications: Subclinical hypothyroidism Take 1 tablet (25 mcg total) by mouth 1 (one) time each day before breakfast. 45 tablet 1 12/09/19 25 Active ibuprofen (ADVIL,MOTRIN) 800 mg tablet Take 1 tablet (800 mg total) by mouth 3 (three) times a day. 90 each 11/05/19 25 025 Active Problems Problem Noted Date Diagnosed Date [...] structural heart disease. Recommendations: 1. 30-day ambulatory equipment monitor phototypesetting (already ordered). 2. Echocardiogram (already ordered) 3. [...] 5 out of 5 except left hand leguillon debeader at 4 to 4+ out of 5. [...] alert button. He was seen in the [facility] ED on 09/01/2022 and lumbar spine x-rays [...] Encounters Date Type Department Care Team Description 12/09/2024 Telephone Internal Medicine [address] [phone] Cinthia Garcia MD 12/08/2024 Telephone Internal Medicine [address] [phone] Cinthia Garcia MD Fitting for DME 12/05/2024 Telephone Internal Medicine [address] [phone] Cinthia Garcia MD [place]: Fax heidy 12/03/2024 Telephone Endocrinology - [address] [phone] Vik Humphrey MD Labs Only 11/26/2024 8:30 AM EDT Consult Endocrinology - [address] [phone] Vik Humphrey MD Low testosterone (Primary Dx); Subclinical hypothyroidism 11/17/2024 Telephone Internal Medicine [address] [phone] Cinthia Garcia MD [place]: Lab results 11/05/2024 9:00 AM EST Office Visit Orthopedic Surgery - [place] 175 [facility] [address] [place] [phone] Latrell Rangel MD Extensor tenosynovitis of left wrist (Primary Dx); Status post de Quervain release surgery 10/21/2024 8:45 AM EST Treatment [facility] [address] [phone] Glenis Taylor, CONNOLLY/L Postoperative state (Primary Dx) 10/16/2024 9:45 AM EST Treatment [facility] [address] [place] [phone] Glenis Taylor, CONNOLLY/L Postoperative state (Primary Dx) 10/14/2024 8:45 AM EST Treatment [facility] [address] [place] [phone] Glenis Taylor, CONNOLLY/L Postoperative state (Primary Dx) 10/09/2024 9:45 AM EST Treatment [facility] [address] [place] [phone] Charmaine Moyer, OT Postoperative state (Primary Dx) 10/08/2024 1:15 PM EST Office Visit Internal Medicine [facility] 175 [facility] [address] [place] [phone] Cinthia Garcia MD Primary hypertension (Primary Dx); Type 2 diabetes mellitus without complication, without long-term current use of insulin ([facility]); Mixed hyperlipidemia; Vitamin D deficiency; Possible exposure to STD; Testosterone deficiency 10/07/2024 10:15 AM EST Treatment [facility] [address] [place] [phone] Charmaine Moyer, OT Postoperative state (Primary Dx) 10/02/2024 8:45 AM EST Treatment [facility] [address] [place] [phone] Glenis Taylor, CONNOLLY/L Postoperative state (Primary Dx) 09/30/2024 8:45 AM EST Treatment [facility] [address] [place] [phone] Glenis Taylor CONNOLLY/L Postoperative state (Primary Dx) 09/25/2024 8:45 AM EST Treatment [facility] 175 [facility] [address] [place] [phone] Glenis Taylor CONNOLLY/L Postoperative state (Primary Dx) 09/24/2024 8:30 AM EST Office Visit Orthopedic Surgery - [place] [address] [facility] [address] [place] [phone] Latrell Rangel MD Postoperative state (Primary Dx) 09/23/2024 8:45 AM EST Treatment [facility] 175 [facility] [address] [place] [phone] Glenis Taylor CONNOLLY/L Postoperative state (Primary Dx) from Last 3 Months Surgical History Surgery Date Site/Laterality Comments HAND SURGERY 09/17/2000 - 09/16/2001 Left tendon repair OTHER SURGICAL HISTORY PROCEDURE: HISTORY OTHER; COMMENT: hernia repair BACK SURGERY PROCEDURE: HISTORICAL BACK SURGERY; COMMENT: L4-S1 anterior discectomies and fusion August 2008; L3-4 decompression, discectomy and posterior fixation with removal of hardware L4-S1 November 2016 ESOPHAGOGASTRODUODENOSCOPY PROCEDURE: MS EGD TRANSORAL BIOPSY SINGLE/MULTIPLE; COMMENT: Performed on [address] Huertas ESOPHAGOGASTRODUODENOSCOPY 02/08/2021 PROCEDURE: MS EGD TRANSORAL BIOPSY SINGLE/MULTIPLE; COMMENT: healing esophagitis and H.pylori gastritis ESOPHAGOGASTRODUODENOSCOPY PROCEDURE: MS EGD TRANSORAL BIOPSY SINGLE/MULTIPLE; COMMENT: Performed on 02/08/2021 OTHER SURGICAL HISTORY 04/2021 PROCEDURE: MS STRTCTC STIMJ SPI CORD PRQ SPX N/FLWD OTH SURG; COMMENT: stim wave stimulator placed, [facility] pain management, Dr. Laughlin OTHER SURGICAL HISTORY PROCEDURE: MS ARTHRD ANT INTERBODY MIN DSC CRV BELOW C2; COMMENT: C5-6 ACDF May 2015, C6-7 ACDF April 2016 with removal of C5-6 plate OTHER SURGICAL HISTORY 07/24/2022 PROCEDURE: MS MORFIN FACETECTOMY & FORAMOTOMY 1 VRT SGM [...] Type 2 diabetes mellitus wit hout complication 10/02/2017 DX:Type 2 diabetes mellitus without complication [...] AM EDT Office Visit Orthopedic Surgery - [place] 175 [facility] [address] [place] [phone] Latrell Rangel MD 175 [facility] [address] [place] [address] 12/30/2024 9:15 AM EDT Office Visit Endocrinology [address] [phone] Vik Humphrey MD [address] [place] [address] 04/07/2025 8:45 AM EDT Office Visit Internal Medicine - [place] 175 [facility] [address] [place] [phone] Cinthia Garcia MD 175 [facility] [address] [place] [phone] Health Maintenance Due Date Last Done Comments Diabetes: Annual Foot Exam 1986 Diabetes: Annual Retina Eye Exam 1986 DTaP,Tdap,and Td Vaccines (1 - Tdap) 1995 Hepatitis B Vaccines (1 of 3 [...] Vaccine ( - 2023-2 5 season) 2024 Diabetes: Blood Sugar Contro l Test (HGBA1C) 04/08/2025 10/09/2024, 05/29/2023 Influenza Vaccine (Season Ended) 2025 07/19/2013 Diabetes: Annual GFR (Glomerular Filtration Rate) 10/09/2025 [...] on patient's age to complete this topic Hepatitis A Vaccines Aged Out No long er eligible based [...] discomfort NOT MET, pain average 6/10 L leguillon debeader at least 45% of R leguillon debeader 10/07/23 INPROGRESS leguillon debeader has increased from 26% to 35% of R; cont goal LTG in 12 visits General Worsening(12/2024 12:03 PM EST) No Charmaine Moyer, OT Note: Restored tolerance to BADL /IADL activity, no splint, pain no >1-2/10 10/21/24 NOT MET; pain 8/10 today L wrist strength at least 4/5 10/21/24 NOT MET 3-/5 pain-limited L leguillon debeader at least 70% of R leguillon debeader 10/21/24 NOT MET currently 37% 10/07/24: CONT [...] Routine 11/27/2024 8:18 AM EDT Low testosterone INSULIN-LIKE GROWTH FACTOR Routine 11/27/2024 8:18 AM EDT Low testosterone [...] insulin (CMS/HCC) Mixed hyperlipidemia Vitamin D deficiency VITAMIN B12 [...] complication, without long-term current use of insulin ([facility]/HCC) Mixed hyperlipidemia Vitamin D deficiency COMPREHENSIVE METABOLIC PANEL Routine 10/09/2024 10:29 AM EST Primary hypertension Type 2 diabetes mellitus without complication, without long-term current use of insulin ([facility]) Mixed hyperlipidemia Vitamin D deficiency HEMOGLOBIN A1C Routine 10/09/2024 10:29 AM EST Primary hypertension Type 2 diabetes mellitus without complication, without long-term current use of insulin ([facility]) Mixed hyperlipidemia Vitamin D deficiency CHLAMYDIA TRACHOMATIS AND NEISSERIA GONORRHOEAE PCR Routine 10/09/2024 10:29 AM EST Possible exposure to STD from Last 3 Months Results * Prostate specific antigen screen (11/27/2024 8:18 AM EDT) PSA 0.73 0.00 - 4.00 ng/mL LAB CHEMISTRY METHOD 11/27/2024 10:29 AM EDT [facility] Blood Venous blood specimen / Unknown Venipuncture / Unknown 11/27/2024 8:18 AM EDT 11/27/2024 9:36 AM EDT Narrative [facility] - 11/27/2024 10:29 AM EDT The Siemens Advia Centaur Chemiluminescent Immunoassay is used. Results obtained with different assay methods or kits cannot be used interchangeably. Results cannot be interpreted as absolute evidence of the presence or absence of malignant disease. us Vik Humphrey MD LAB BLOOD ORDERABLES Final Resul t [facility] [address] [place] [address], * Testosterone free, bioavailable and total (11/27/2024 8:18 AM EDT) Only the most recent of2 resultswithin the time period is included. Testosterone 437 229 - 902 ng/dL LAB CHEMISTRY METHOD 11/27/2024 10:23 AM EDT [facility] Testosterone, Free 11.4 4.6 - 22.4 ng/dL LAB CHEMISTRY METHOD 11/27/2024 10:23 AM T [facility] Testosterone, Bioavailable 261 110 - 575 ng/dL LAB CHEMISTRY METHOD 11/27/2024 10:23 AM EDT [facility] Sex Hormone Binding 21.5 See Comment nmol/L LAB CHEMISTRY METHOD 11/27/2024 10:23 AM EDT [facility] Comment: FEMALES: ??pre-menopausal ?? 10.8 [...] g/dL LAB CHEMISTRY METHOD 11/27/2024 10:23 AM T [facility] Blood Venous blood specimen / Unknown Venipuncture / Unknown 11/27/2024 8:18 AM EDT 11/27/2024 9:36 AM EDT us Vik Humphrey MD LAB BLOOD ORDERABLES Final Resul t [facility] [address] [place] [address], * Hemoglobin and hematocrit (11/27/2024 8:18 AM EDT) Hemoglobin 15.7 13.5 - 17.5 g/dL LAB HEMETOLOGY METHOD 11/27/2024 9:49 AM EDT [facility] Hematocrit 45.5 42.0 - 54.0 % LAB HEMETOLOGY METHOD 11/27/2024 9:49 AM EDT [facility] Blood Venous blood specimen / Unknown Venipuncture / Unknown 11/27/2024 8:18 AM EDT 11/27/2024 9:33 AM EDT Vik Humphrey MD LAB BLOOD ORDERABLES Final Resul t [facility] [address] [place] [address], [place] [phone] * Prolactin (11/27/2024 8:18 AM EDT) Pathologist [facility] Prolactin 6.60 2.50 - 17.40 ng/mL LAB CHEMISTRY METHOD 11/27/2024 10:14 AM EDT [facility] Blood Venous blood specimen / Unknown Venipuncture / Unknown 11/27/2024 8:18 AM EDT 11/27/2024 9:36 AM EDT Vik Humphrey MD LAB BLOOD ORDERABLES Final Resul t Performing Organization Address City/[facility]/ZIP Co de Phone Number [facility] [address] [place] [address], [place] [phone] * Insulin-like growth factor (11/27/2024 8:18 AM EDT) Insulin-like Growth Factor 1 128 81 - 263 ng/mL 12/05/2024 5:43 PM EDT [facility] Comment: Test performed at [facility], [address] [facility], [place], [place] ??[address] ? [phone] Fernanda Arroyo MD, PhD - [employer] Blood Venous blood specimen / Unknown Venipuncture / Unknown 11/27/2024 8:18 AM EDT 11/27/2024 9:37 AM EDT Vik Humphrey MD LAB BLOOD ORDERABLES Final Resul t [facility] [address] [place] [address] * ACTH (11/27/2024 8:18 AM EDT) Pathologist [facility] Adrenocorticotropic Hormone (ACTH) 24 <=46 pg/mL 12/01/2024 10:25 PM EDT [facility] Comment: Test performed at [facility], [address] [place], [place] ??[address] ? [phone] Fernanda Arroyo MD, PhD - [facility] [facility] Blood Venous blood specimen / Unknown Venipuncture / Unknown 11/27/2024 8:18 AM EDT 11/27/2024 9:33 AM EDT Vik Humphrey MD LAB BLOOD ORDERABLES Final Resul t Performing Organization Address City/[facility]/ZIP Co de Phone Number [facility] [address] [place] [address] * (ABNORMAL) Thyroid stimulating hormone (11/27/2024 8:18 AM EDT) Only the most recent of2 resultswithin the time period is included. [facility] TSH 5.62(H) 0.40 - 4.00 mcIU/mL LAB CHEMISTRY METHOD 11/27/2024 10:22 AM EDT [facility] Blood Venous blood specimen / Unknown Venipuncture / Unknown 11/27/2024 8:18 AM EDT 11/27/2024 9:36 AM EDT Vik Humphrey MD LAB BLOOD ORDERABLES Final Resul t [facility] [address] [place] [address], [place] [phone] * Thyroxine free (11/27/2024 8:18 AM EDT) Free T4 1.11 0.70 - 1.80 ng/dL LAB CHEMISTRY METHOD 11/27/2024 10:22 AM EDT [facility] Blood Venous blood specimen / Unknown Venipuncture / Unknown 11/27/2024 8:18 AM EDT 11/27/2024 9:36 AM EDT Vik Humphrey MD LAB BLOOD ORDERABLES Final Resul t Performing Organization Address City/[facility] Co de Phone Number [facility] [address] [place] [address], [place] [phone] * Testosterone, total (11/27/2024 8:18 AM EDT) [facility] Testosterone 437 229 - 902 ng/dL LAB CHEMISTRY METHOD 11/27/2024 10:22 AM EDT [facility] Blood Venous blood specimen / Unknown Venipuncture / Unknown 11/27/2024 8:18 AM EDT 11/27/2024 9:36 AM EDT us Vik Humphrey MD LAB BLOOD ORDERABLES Final Resul t Performing Organization Address [facility] de Phone Number [facility] [address] [place] [address], [place] [phone] * Luteinizing hormone (11/27/2024 8:18 AM EDT) Pathologist [facility] Luteinizing Hormone 3.2 1.2 - 10.6 mIU/mL LAB CHEMISTRY METHOD 11/27/2024 10:15 AM EDT [facility] Blood Venous blood specimen / Unknown Venipuncture / Unknown 11/27/2024 8:18 AM EDT 11/27/2024 9:36 AM EDT us Vik Humphrey MD LAB BLOOD ORDERABLES Final Resul t Performing Organization Address City/[facility]/ZIP Co de Phone Number [facility] [address] [place] [address], * Follicle stimulating hormone (11/27/2024 8:18 AM EDT) [facility] Follicle Stimulating Hormone 5.5 0.7 - 10.8 mIU/mL LAB CHEMISTRY METHOD 11/27/2024 10:34 AM EDT [facility] Blood Venous blood specimen / Unknown Venipuncture / Unknown 11/27/2024 8:18 AM EDT 11/27/2024 9:36 AM EDT Vik Humphrey MD LAB BLOOD ORDERABLES Final Resul t Performing Organization Address [facility] de Phone Number [facility] [address] [place] [address], * Cortisol (11/27/2024 8:18 AM EDT) [facility] Cortisol 21.2 mcg/dL LAB CHEMISTRY METHOD 11/27/2024 10:22 AM EDT [facility] Blood Venous blood specimen / Unknown Venipuncture / Unknown 11/27/2024 8:18 AM EDT 11/27/2024 9:36 AM EDT Narrative [facility] - 11/27/2024 10:22 AM EDT CORTISOL REFERENCE RANGE ?? 8 AM SPEC: ??5.0-23.0 mcg/dL ?? 4 PM SPEC: ??3.0-16.0 mcg/dL ?? 8 PM SPEC: ??<5.0 mcg/dL Vik Humphrey MD LAB BLOOD ORDERABLES Final Resul t Performing Organization Address City/[facility] Co de Phone Number [facility] [address] [place] [address], * Hepatitis C antibody (10/09/2024 10:29 AM EST) [facility] Hepatitis C Antibody Negative Negative LAB CHEMISTRY METHOD 10/09/2024 3:19 PM EST [facility] Blood Venous blood specimen / Unknown Venipuncture / Unknown 10/09/2024 10:29 AM EST 10/09/2024 10:29 AM EST Cinthia Garcia MD LAB BLOOD ORDERABLES Final Res ult Performing Organization Address City/[facility]/ZIP Co de Phone Number [facility] [address] [place] [address], [place] [phone] * HIV 1,2 antibody, p24 antigen with reflex to differentiation (10/09/2024 10:29 AM EST) [facility] HIV Combo AB/AG Negative Negative LAB CHEMISTRY METHOD 10/09/2024 3:20 PM EST [facility] Blood Venous blood specimen / Unknown Venipuncture / Unknown 10/09/2024 10:29 AM EST 10/09/2024 10:29 AM EST Narrative [facility] - 10/09/2024 3:20 PM EST This assay is a 4th generation assay allowing for earlier detection of HIV infection by detecting the presence of the HIV-1 p24 antigen as well as the traditional antibodies to HIV type 1 (including group O) and type 2. ??Use of a 4th generation assay is the current CDC recommendation for HIV screening. us Cinthia Garcia MD LAB BLOOD ORDERABLES Final Res ult [facility] [address] [place] [address], [place] [phone] * Treponema pallidum antibody with reflex to RPR and particle agglutination (10/09/2024 10:29 AM EST) [facility] T. Pallidum Antibodies Negative Negative LAB CHEMISTRY METHOD 10/09/2024 2:53 PM EST [facility] Blood Venous blood specimen / Unknown Venipuncture / Unknown 10/09/2024 10:29 AM EST 10/09/2024 10:29 AM EST us Cinthia Garcia MD LAB BLOOD ORDERABLES Final Res ult [facility] [address] [place] [address], [place] [phone] * (ABNORMAL) Lipid panel with reflex to direct LDL (10/09/2024 10:29 AM EST) Cholesterol 160 0 - 200 mg/dL LAB CHEMISTRY METHOD 10/09/2024 2:58 PM EST [facility] Triglycerides 187(H) 0 - 150 mg/dL LAB CHEMISTRY METHOD 10/09/2024 2:58 PM [facility] HDL 45 >=40 mg/dL LAB CHEMISTRY METHOD 10/09/2024 2:58 PM [facility] LDL Calculated 78 0 - 100 mg/dL LAB CHEMISTRY METHOD 10/09/2024 2:58 PM EST [facility] VLDL Cholesterol Ron 37.4 mg/dL LAB CHEMISTRY METHOD 10/09/2024 2:58 PM [facility] Non HDL Chol. (LDL+VLDL) 115 <145 mg/dL LAB CHEMISTRY METHOD 10/09/2024 2:58 PM [facility] Chol/HDL Ratio 3.6 0.0 - 4.4 LAB CHEMISTRY METHOD 10/09/2024 2:58 PM [facility] Blood Venous blood specimen / Unknown Venipuncture / Unknown 10/09/2024 10:29 AM EST 10/09/2024 10:29 AM EST us Cinthia Garcia MD LAB BLOOD ORDERABLES Final Res ult [facility] [address] [place] [address], [place] [phone] * Chlamydia trachomatis and Neisseria gonorrhoeae molecular study (10/09/2024 10:29 AM EST) Neisseria gonorrhoeae PCR Negative Negative LAB MOLECULAR DIAGNOSTICS METHOD 10/10/2024 10:15 AM EST [facility] Chlamydia trachomatis PCR Negative Negative LAB MOLECULAR DIAGNOSTICS METHOD 10/10/2024 10:15 AM EST [facility] Swab Urine specimen from urethra / Unknown Non-blood Collection / Unknown 10/09/2024 10:29 AM EST 10/09/2024 10:29 AM EST Cinthia Garcia MD LAB MICROBIOLOGY - GENERAL ORD ERABLES Final Result [facility] [address] [place] [address], * Vitamin D 25 hydroxy (10/09/2024 10:29 AM EST) Pathologist [facility] Vit D, 25-Hydroxy 34.4 30.0 - 80.0 ng/mL LAB CHEMISTRY METHOD 10/09/2024 2:40 PM EST [facility] Blood Venous blood specimen / Unknown Venipuncture / Unknown 10/09/2024 10:29 AM EST 10/09/2024 10:29 AM EST Cinthia Garcia MD LAB BLOOD ORDERABLES Final Res ult [facility] [address] [place] [address], [place] [phone] * Complete blood count (10/09/2024 10:29 AM EST) Pathologist [facility] WBC 9.2 4.8 - 10.8 K/[facility] LAB HEMETOLOGY METHOD 10/09/2024 2:17 PM EST [facility] RBC 5.30 4.50 - 5.50 M/mcL LAB HEMETOLOGY METHOD 10/09/2024 2:17 PM [facility] Hemoglobin 15.3 13.5 - 17.5 g/dL LAB HEMETOLOGY METHOD 10/09/2024 2:17 PM [facility] Hematocrit 46.4 42.0 - 54.0 % LAB HEMETOLOGY METHOD 10/09/2024 2:17 PM [facility] MCV 88.0 79.0 - 98.0 FL LAB HEMETOLOGY METHOD 10/09/2024 2:17 PM [facility] MCH 29.0 27.0 - 32.0 pcg LAB HEMETOLOGY METHOD 10/09/2024 2:17 PM [facility] MCHC 33.0 32.0 - 37.0 g/dL LAB HEMETOLOGY METHOD 10/09/2024 2:17 PM [facility] RDW 13.4 11.0 - 15.0 % LAB HEMETOLOGY METHOD 10/09/2024 2:17 PM [facility] Platelets 283 130 - 400 K/mcL LAB HEMETOLOGY METHOD 10/09/2024 2:17 PM [facility] MPV 10.4 7.0 - 11.0 FL LAB HEMETOLOGY METHOD 10/09/2024 2:17 PM [facility] NRBC 0.0 <1.0 % LAB HEMETOLOGY METHOD 10/09/2024 2:17 PM [facility] NRBC Absolute 0.00 <0.10 K/mcL LAB HEMETOLOGY METHOD 10/09/2024 2:17 PM [facility] Blood Venous blood specimen / Unknown Venipuncture / Unknown 10/09/2024 10:29 AM EST 10/09/2024 10:29 AM EST us Cinthia Garcia MD LAB BLOOD ORDERABLES Final Res ult Performing Organization Address City/[facility]/ZIP Co de Phone Number [facility] [address] [place] [address], * Magnesium (10/09/2024 10:29 AM EST) Magnesium 2.0 1.9 - 2.6 mg/dL LAB CHEMISTRY METHOD 10/09/2024 2:34 PM EST [facility] Blood Venous blood specimen / Unknown Venipuncture / Unknown 10/09/2024 10:29 AM EST 10/09/2024 10:29 AM EST Cinthia Garcia MD LAB BLOOD ORDERABLES Final Res ult Performing Organization Address [facility]/ZIP Co de Phone Number [facility] [address] [place] [address], * Hemoglobin A1c (10/09/2024 10:29 AM EST) [facility] Hemoglobin A1C 5.6 <6.5 % LAB CHEMISTRY METHOD 10/09/2024 9:06 PM EST [facility] Mean Bld Glu Estim. 114 mg/dL LAB CHEMISTRY METHOD 10/09/2024 9:06 PM EST [facility] Blood Venous blood specimen / Unknown Venipuncture / Unknown 10/09/2024 10:29 AM EST 10/09/2024 10:29 AM EST iCnthia Garcia MD LAB BLOOD ORDERABLES Final Res ult Performing Organization Address City/[facility]/ZIP Co de Phone Number [facility] [address] [place] [address], * (ABNORMAL) Vitamin B12 (10/09/2024 10:29 AM EST) Vitamin B-12 236(L) 250 - 900 pcg/mL LAB CHEMISTRY METHOD 10/09/2024 2:58 PM [facility] Blood Venous blood specimen / Unknown Venipuncture / Unknown 10/09/2024 10:29 AM EST 10/09/2024 10:29 AM EST us Cinthia Garcia MD LAB BLOOD ORDERABLES Final Res ult [facility] [address] [place] [address], [place] [phone] * (ABNORMAL) Comprehensive metabolic panel (10/09/2024 10:29 AM EST) Sodium 134 133 - 145 mmol/L LAB CHEMISTRY METHOD 10/09/2024 2:58 PM [facility] Potassium 3.5 3.5 - 5.5 mmol/L LAB CHEMISTRY METHOD 10/09/2024 2:58 PM [facility] Chloride 101 96 - 110 mmol/L LAB CHEMISTRY METHOD 10/09/2024 2:58 PM [facility] CO2 27 21 - 32 mmol/L LAB CHEMISTRY METHOD 10/09/2024 2:58 PM [facility] Anion Gap 6 3 - 11 LAB CHEMISTRY METHOD 10/09/2024 2:58 PM [facility] Glucose 95 70 - 100 mg/dL LAB CHEMISTRY METHOD 10/09/2024 2:58 PM [facility] BUN 18 5 - 25 mg/dL LAB CHEMISTRY METHOD 10/09/2024 2:58 PM [facility] Creatinine 1.10 0.70 - 1.30 mg/dL LAB CHEMISTRY METHOD 10/09/2024 2:58 PM [facility] eGFR 83 >=60 mL/min/1. 73m2 LAB CHEMISTRY METHOD 10/09/2024 2:58 PM [facility] Comment:Calculation based on the??Chronic Kidney Disease Epidemiology Collaboration (CKD-EPI) equation refit??without adjustment for race. BUN/Creatinine Ratio 16.4 LAB CHEMISTRY METHOD 10/09/2024 2:58 PM [facility] Calcium 10.0 8.5 - 10.5 mg/dL LAB CHEMISTRY METHOD 10/09/2024 2:58 PM [facility] AST (SGOT) 22 10 - 42 unit/L LAB CHEMISTRY METHOD 10/09/2024 2:58 PM [facility] ALT (SGPT) 35 10 - 60 unit/L LAB CHEMISTRY METHOD 10/09/2024 2:58 PM [facility] Alkaline Phosphatase 133(H) 42 - 121 unit/L LAB CHEMISTRY METHOD 10/09/2024 2:58 PM [facility] Total Protein 8.1(H) 6.0 - 8.0 g/dL LAB CHEMISTRY METHOD 10/09/2024 2:58 PM [facility] Albumin 4.4 3.2 - 5.0 g/dL LAB CHEMISTRY METHOD 10/09/2024 2:58 PM [facility] Total Bilirubin 0.5 0.0 - 1.4 mg/dL LAB CHEMISTRY METHOD 10/09/2024 2:58 PM [facility] Blood Venous blood specimen / Unknown Venipuncture / Unknown 10/09/2024 10:29 AM EST 10/09/2024 10:29 AM EST us Cinthia Garcia MD LAB BLOOD ORDERABLES Final Res ult [facility] [address] [place] [address], [place] [phone] from Last 3 Months Insurance [facility] MEDIC[facility] Member Subscriber Plan / Payer (Ef fective 2019-Present) Name:Hebert Smith Relation to Subscriber:Self Name:Hebert Smith Payer ID:[id number] Group ID:[id number] Type:Not on file Address: [address] [address] [id number] Care Teams Mail Agent Relationship Specialty Start Date End Date Cinthia Garcia MD [address] [address] PCP - General Internal Medicine 08/28/16
--- OUTSIDE RECORDS SUMMARY | 2024-12-16 16:56 | XMS_ITS | Encounter Summary ---
Author Organization [employer] Address [address] [place] [address] Care Team Providers Care Outcomes Analyst Name Role Phone Cinthia Garcia MD Primary Care Provider [phone] Reason for Visit * Reason Onset Date Comments Jose: Lab results 11/17/2024 Encounter Details Date Type Department Care Team (Late st Contact Info) Description 11/17/2024 Telephone Internal Medicine - [place] [address] [facility] [address] [place] [phone] Cinthia Garcia MD 175 [facility] [address] [place] [phone] Jose: Lab results Social History Tobacco Use [...] to be printed out and ready for nut picker. Please advise when ready Cb# [phone] documented in this encounter Plan of Treatment Upcoming Encounters Date Type Department Care Team (Late st Contact Info) Description 12/17/2024 8:30 AM EDT Office Visit Orthopedic Surgery - [place] 175 [facility] [address] [place] [phone] Latrell Rangel MD [address] [address] 12/30/2024 9:15 AM EDT Office Visit Endocrinology [address] [phone] Vik Humphrey MD [address] [place] [address] 04/07/2025 8:45 AM EDT Office Visit Internal Medicine - [place] 175 [facility] [address] [place] [phone] Cinthia Garcia MD 175 [facility] [address] [place] [phone] documented as of this encounter Goals Goal [...] discomfort NOT MET, pain average 6/10 L master sheet clerk at least 45% of R master sheet clerk 10/07/23 INPROGRESS master sheet clerk has increased from 26% to 35% of R; cont goal LTG in 12 visits General Worsening(12/2024 12:03 PM EST) No Charmaine Moyer, OT Note: Restored tolerance to BADL /IADL activity, no splint, pain no >1-2/10 10/21/24 NOT MET; pain 8/10 today L wrist strength at least 4/5 10/21/24 NOT MET 3-/5 pain-limited L master sheet clerk at least 70% of R master sheet clerk 10/21/24 NOT MET currently 37% 10/07/24: CONT unmet STG's and ALSO PROGRESS TO LTG's documented as of this encounter Visit Diagnoses Not on filedocumented in this encounter Care Teams Outcomes Analyst Relationship Specialty Start Date End Date Cinthia Garcia MD [address] [place] [address] [address] [place] [address] PCP - General Internal Medicine 08/28/16 documented as of this encounter
--- OUTSIDE RECORDS SUMMARY | 2024-12-16 16:56 | XMS_ITS | Encounter Summary ---
Author Organization [facility] [employer] Address [address] [place] [address] Care Team Providers Care Farrowing Worker Name Role Phone Cinthia Garcia MD Primary Care Provider [phone] Reason for Visit * Reason Onset Date Comments Labs Only 12/03/2024 Encounter Details Date Type Department Care Team (Late st Contact Info) Description 12/03/2024 Telephone Endocrinology - [address] [phone] Vik Humphrey MD [address] [place] [address] Labs Only Social History Tobacco Use Types [...] AM EDT Office Visit Orthopedic Surgery - [place] [address] [facility] [address] [place] [phone] Latrell Rangel MD 175 [facility] [address] [place] [address] 12/30/2024 9:15 AM EDT Office Visit Endocrinology [facility] [address] [place] [address] Vik Humphrey MD [address] [place] [address] 04/07/2025 8:45 AM EDT Office Visit Internal Medicine - [place] [address] [facility] [address] [place] [phone] Cinthia Garcia MD 175 [facility] [address] [place] [phone] documented as of this encounter Goals Goal [...] discomfort NOT MET, pain average 6/10 L pasting inspector at least 45% of R pasting inspector 10/07/23 INPROGRESS pasting inspector has increased from 26% to 35% of R; cont goal LTG in 12 visits General Worsening(12/2024 12:03 PM EST) No Charmaine Moyer, OT Note: Restored tolerance to BADL /IADL activity, no splint, pain no >1-2/10 10/21/24 NOT MET; pain 8/10 today L wrist strength at least 4/5 10/21/24 NOT MET 3-/5 pain-limited L pasting inspector at least 70% of R pasting inspector 10/21/24 NOT MET currently 37% 10/07/24: CONT unmet STG's and ALSO PROGRESS TO LTG's documented as of this encounter Visit Diagnoses Not on filedocumented in this encounter Care Teams Farrowing Worker Relationship Specialty Start Date End Date Cinthia Garcia MD [address] [place] [phone] PCP - General Internal Medicine 08/28/16 documented as of this encounter
--- OUTSIDE RECORDS SUMMARY | 2024-12-16 16:56 | XMS_ITS | Clinical Summary ---
Author Organization [facility] Address [address] [place] [address] Care Team Providers Care Monotyper Name Role Phone Cinthia Garcia MD Primary Care Provider [phone] Social History Tobacco Use Types Packs/Day Years [...] age to complete this topic Care Teams Monotyper Relationship Specialty Start Date End Date Cinthia Garcia MD 175 [facility] [address] [place] [phone] PCP - General Internal Medicine 08/28/16
--- OUTSIDE RECORDS SUMMARY | 2024-12-16 16:56 | XMS_ITS | Encounter Summary ---
Author Organization [employer] Address [address] [place] [address] Care Team Providers Care Etl Application Developer Name Role Phone Cinthia Garcia MD Primary Care Provider [phone] Reason for Referral * Consultation (Routine) - Closed Specialty Diagnoses / Procedures Referred By Zohreh sanchez Referred To Contact Physical Therapy Diagnoses Sacroiliitis (CMS/HCC) Midline low back pain, unspecified chronicity, unspecified whether sciatica present Cinthia Garcia MD 175 [facility] [address] [place] [address] Phone: tel: fax: [facility] 175 [facility] [address] [place] [address] Phone: tel: fax: Referral ID Status Reason Start Date Expiration Date V isits Requested Visits Authorized [id number] Closed Specialty Services Required 12/10/2024 12/10/2025 1 1 Reason for Visit * Reason Onset Date Comments Fitting for DME 12/08/2024 Encounter Details Date Type Department Care Team ([facility] st Contact Info) Description 12/08/2024 Telephone Internal Medicine - [place] [address] [place] [address] Cinthia Garcia MD [address] [place] [address] [place] [address] Fitting for DME Social History Tobacco Use Types Packs/Day Years [...] as of this encounter Progress Notes * Sherry Echols [place] - 12/12/2024 10:02 AM EDT Faxed to [facility] [employer] [phone] * Sherry Echols [place] - 12/11/2024 10:46 AM EDT Pended. * Cinthia Garcia MD - 12/10/2024 11:21 PM EDT Ref to PT placed for scooter eval * Jesica Garcia [place] - 12/08/2024 12:32 PM EDT Please advise * Alejandra Dumas - 12/08/2024 8:37 AM EDT Patient called requesting provider order him an electric scooter- When asked the reason or diagnosis for the Request - he did not know. Please check with PCP documented in this encounter Plan of Treatment Upcoming Encounters Date Type Department Care Team (Late st Contact Info) Description 12/17/2024 8:30 AM EDT Office Visit Orthopedic Surgery - [place] 175 [facility] 140 [place] [phone] Latrell Rangel MD 175 [facility] [address] [place] [address] 12/30/2024 9:15 AM EDT Office Visit Endocrinology [place] [address] [place] [address] Vik Humphrey MD [address] [place] [address] 04/07/2025 8:45 AM EDT Office Visit Internal Medicine - [place] 175 [facility] [address] [place] [phone] Cinthia Garcia MD 175 [facility] [address] [place] [phone] Scheduled Referrals Name Type Priority Associated Diagnoses Order Schedule Ambulatory referral to Physical Therapy and Athletic Training Outpatient Referral Routine Sacroiliitis (CMS/HCC) Midline low back pain, unspecified chronicity, unspecified whether sciatica present 1 Occurrences starting 12/10/2024 until 12/10/2025 documented as of this encounter Goals Goal [...] discomfort NOT MET, pain average 6/10 L abrasive water jet cutter operator at least 45% of R abrasive water jet cutter operator 10/07/23 INPROGRESS abrasive water jet cutter operator has increased from 26% to 35% of R; cont goal LTG in 12 visits General Worsening(12/2024 12:03 PM EST) No Charmaine Moyer, OT Note: Restored tolerance to BADL /IADL activity, no splint, pain no >1-2/10 10/21/24 NOT MET; pain 8/10 today L wrist strength at least 4/5 10/21/24 NOT MET 3-/5 pain-limited L abrasive water jet cutter operator at least 70% of R abrasive water jet cutter operator 10/21/24 NOT MET currently 37% 10/07/24: CONT unmet STG's and ALSO PROGRESS TO LTG's documented as of this encounter Visit Diagnoses Diagnosis Sacroiliitis (CMS/HCC)- Primary Sacroiliitis, not elsewhere classified Midline low back pain, unspecified chronicity, unspecified whether sciatica present documented in this encounter Orders General Supply Count Last Ordered Date First Or dered Date SCOOTER, UP TO 300 LBS 1 12/11/2024 documented in this encounter Care Teams Etl Application Developer Relationship Specialty Start Date End Date Cinthia Garcia MD [address] [place] [phone] PCP - General Internal Medicine 08/28/16 documented as of this encounter
[2025-01-08 07:52] VITALS: BMI 31.3
--- NOTE | 2025-01-09 09:51 | P.CONAN_ITS ---
Documented by User: Valarie Jones NP 01/09/25 09:54 HPI - Anesthesia Eval Consult details Narrative: 49yo Left Repair Hernia Inguinal Reducible with mesh Per 03/2024 PAT eval: ? Seizure vs syncope x 1 ~ 4 years ago, ? medication reaction COPD DENI: CPAP QHS Asthma: Stable, rescue inhaler ~ 2 x weekly GERD; ppi controls PMFSH Active Problems Active Problems: All Active Problems Left inguinal hernia (Acute) Left inguinal pain (Acute) S/P fusion of sacroiliac joint (Acute) Chronic left SI joint pain (Acute) Hypoxemia associated with sleep (Acute) Syncope and collapse (Acute) Obstructive sleep apnea (Acute) Chronic pain syndrome (Acute) Postlaminectomy syndrome (Acute) Past Medical History Medical History Arthritis Spinal stenosis Bipolar 1 disorder Seizures Wheezing SOB (shortness of breath) COPD (chronic obstructive pulmonary disease) Internal hemorrhoids Back pain Insomnia Vitamin D deficiency Depression Abnormal LFTs Anal fissure H. pylori infection STD exposure Hyperlipidemia HTN (hypertension) Cervical radiculopathy Bronchospasm Syncope Palpitations Ascending aorta dilatation Sacroiliitis Lumbar radiculopathy Obstructive sleep apnea GERD (gastroesophageal reflux disease) Asthma Anxiety and depression PTSD (post-traumatic stress disorder) Chronic pain syndrome Postlaminectomy syndrome Family History Family history of problems with anesthesia: No Surgical History Surgical History Hx of vasectomy H/O colonoscopy History of esophagogastroduodenoscopy (EGD) Hx of cervical spine surgery Hx of hernia repair Hx of hand surgery S/P insertion of spinal cord stimulator History of discectomy History of Problems with Anesthesia: No Social History Social History Are you a primary occasional caregiver to a significant other at home: No Do you presently have visiting nurse or other home services: Yes (MUSIC DEPARTMENT CHAIR) Alcohol intake: current Alcohol intake frequency: a few times a week Patient Tobacco Use Status: Former Tobacco user Tobacco use type: Cigarette Cigarettes Per Day: 2 Years Smoked: 28 Use of substances other than those prescribed or required for medical reasons: No Are you DNR?: No Advance Directives: No Advance Directives Information Provided: Yes service: No Meds Allergies Allergy/AdvReac Type Severity Reaction Status Date / Time No Known Allergies Allergy Verified 12/04/24 09:33 [No Known Allergies*] Home Medications ?Medication ?Instructions ?Recorded ?Confirmed ?Last Taken ?Type clonazepam 1 mg tablet 1 mg PO TID 04/28/21 01/12/25 04/16/24 History mirtazapine 30 mg tablet 30 mg PO BEDTIME 04/28/21 01/12/25 04/16/24 History olanzapine 5 mg tablet 5 mg PO DAILY Anxiety 04/28/21 01/12/25 04/16/24 History sertraline 100 mg tablet 200 mg PO DAILY 04/28/21 01/12/25 04/16/24 History zolpidem 10 mg tablet 10 mg PO BEDTIME 04/28/21 01/12/25 04/16/24 History atorvastatin 20 mg tablet 20 mg PO BEDTIME 03/06/23 01/12/25 04/16/24 History chlorthalidone 25 mg tablet 25 mg PO DAILY 03/06/23 01/12/25 04/17/24 History losartan 50 mg tablet 50 mg PO DAILY 03/06/23 01/12/25 04/16/24 History budesonide-formoterol HFA 160 1 puff inhalation DAILY PRN 03/25/24 01/12/25 Unknown History mcg-4.5 mcg/actuation aerosol Shortness Of Breath Or Wheezing inhaler omeprazole 40 mg capsule,delayed 40 mg PO DAILY@0630 03/25/24 01/12/25 01/12/25 History release cyanocobalamin (vitamin B-12) mcg PO DAILY 12/04/24 12/04/24 Unknown History 1,000 mcg tablet Exam Height,Weight and Vital Signs: Height 5 ft 9 in Weight 96.2 kg Pertinent Lab Results Pertinent Lab Results: Laboratory Tests 03/25/24 12:55 WBC 9.3 Hgb 15.7 Hct 45.7 Plt Count 275 Sodium 139 Potassium 3.3 Chloride 101 Carbon Dioxide 26 BUN 18 H Creatinine 1.07 Narrative Narrative: EKG 03/2024 Vent. Rate : 070 BPM Atrial Rate : 070 BPM P-R Int : 154 ms QRS Dur : 084 ms QT Int : 396 ms P-R-T Axes : 042 004 053 degrees QTc Int : 427 ms Normal sinus rhythm Normal ECG No previous ECGs available Assessment and Plan Assessment Anesthesia Assessment: Chart Reviewed Final Anesthetic Review Family History of Problems with Anesthesia: No History of Problems with Anesthesia: No Documented by User: Radha Cosme MD 01/12/25 08:04 [facility] Past Medical History Medical History Arthritis Spinal stenosis Bipolar 1 disorder Seizures Wheezing SOB (shortness of breath) COPD (chronic obstructive pulmonary disease) Internal hemorrhoids Back pain Insomnia Vitamin D deficiency Depression Abnormal LFTs Anal fissure H. pylori infection STD exposure Hyperlipidemia HTN (hypertension) Cervical radiculopathy Bronchospasm Syncope Palpitations Ascending aorta dilatation Sacroiliitis Lumbar radiculopathy Obstructive sleep apnea GERD (gastroesophageal reflux disease) Asthma Anxiety and depression PTSD (post-traumatic stress disorder) Chronic pain syndrome Postlaminectomy syndrome Surgical History Surgical History Hx of vasectomy H/O colonoscopy History of esophagogastroduodenoscopy (EGD) Hx of cervical spine surgery Hx of hernia repair Hx of hand surgery S/P insertion of spinal cord stimulator History of discectomy Social History Social History Are you a primary occasional caregiver to a significant other at home: No Do you presently have visiting nurse or other home services: Yes (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 DEPARTMENT 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) Alcohol intake: current Alcohol intake frequency: a few times a week Patient Tobacco Use Status: Former Tobacco user Tobacco use type: Cigarette Cigarettes Per Day: 2 Years Smoked: 28 Use of substances other than those prescribed or required for medical reasons: No Are you DNR?: No Advance Directives: No Advance Directives Information Provided: Yes service: No Meds Allergies Allergy/AdvReac Type Severity Reaction Status Date / Time No Known Allergies Allergy Verified 12/04/24 09:33 [No Known Allergies*] Home Medications ?Medication ?Instructions ?Recorded ?Confirmed ?Last Taken ?Type clonazepam 1 mg tablet 1 mg PO TID 04/28/21 01/12/25 04/16/24 History mirtazapine 30 mg tablet 30 mg PO BEDTIME 04/28/21 01/12/25 04/16/24 History olanzapine 5 mg tablet 5 mg PO DAILY Anxiety 04/28/21 01/12/25 04/16/24 History sertraline 100 mg tablet 200 mg PO DAILY 04/28/21 01/12/25 04/16/24 History zolpidem 10 mg tablet 10 mg PO BEDTIME 04/28/21 01/12/25 04/16/24 History atorvastatin 20 mg tablet 20 mg PO BEDTIME 03/06/23 01/12/25 04/16/24 History chlorthalidone 25 mg tablet 25 mg PO DAILY 03/06/23 01/12/25 04/17/24 History losartan 50 mg tablet 50 mg PO DAILY 03/06/23 01/12/25 04/16/24 History budesonide-formoterol HFA 160 1 puff inhalation DAILY PRN 03/25/24 01/12/25 Unknown History mcg-4.5 mcg/actuation aerosol Shortness Of Breath Or Wheezing inhaler omeprazole 40 mg capsule,delayed 40 mg PO DAILY@0630 03/25/24 01/12/25 01/12/25 History release cyanocobalamin (vitamin B-12) mcg PO DAILY 12/04/24 12/04/24 Unknown History 1,000 mcg tablet Exam Airway Mallampati Class: III TM Dist: >3cm Neck ROM: Full Loose/Missing/Broken Teeth: No Heart: RRR Lungs: CTA Assessment and Plan Assessment Anesthesia Assessment: Anesthesia Plan Discussed Final Anesthetic Review NPO: Yes ASA Class: III Final Preanesthetic Review: Meds/Allgs Chart Reviewed, Consent Obtained/Reviewed and Anes Risks/Benef Reviewed Patient Risk: Intermediate Procedure Risk: Low Anesthetic Plan Anesthetic Plan: GA Disposition: Standard PACU
[2025-01-12] VITALS (9 sets, daily range): BP systolic 121–147; BP diastolic 59–88; PULSE 65–74; RESP 16–20; TEMP 36.6–36.8; O2SAT 96–100; BMI 32.6
[2025-01-12] MEDS: Lactated Ringers 1,000 ML 100 ML IVCONT (07:22)
--- NOTE | 2025-01-12 07:25 | MHC.SHP ---
Pre-Procedural Eval Section A - 24 Hr Update-Section A only Date of Service: 01/12/25 The patient is an INPATIENT: No Changes since office visit: Yes Patient answered all questions; No Cold of Flu in the past 2 weeks, No New Medical Problems and No Changes in Medication The patient has been examined within 24 hours of the surgical procedure. The History & Physical has been completed within 30 days and I have reviewed it.: No Section B - Complete if H&P > 30 days Chief Complaint: Unilateral inguinal hernia, without obstruction or Details of Present Illness: No change in symptoms other then slight increasing pain left groin Relevant Family History (Specify if Yes): No Relevant Social History: None Present Medications: see Short Stay Collaborative assessment Medical History: No relevant PMH History of Previous Operations: No relevant previous surgery Allergies: Allergies Allergy/AdvReac Type Severity Reaction Status Date / Time No Known Allergies Allergy Verified 12/04/24 09:33 [No Known Allergies*] Review of Systems Sugical H&P ROS: Negative: Constitution, Cardiovascular, Respiratory, Neurological, Psychiatric, Gastrointestinal, Genitourinary, Musculoskeletal and Integumentary Exam Surgical H&P Exam: Normal: HEENT, Normal: Heart, Normal: Lungs, Normal: Extremities, Normal: Abdomen and Normal: Skin Plan Diagnosis/Plan: Unchanged I have reviewed the history and physical and performed a pertinent physical examination on my patient. No changes have occurred unless specified. Time Spent With Patient Time: Total time managing care of this patient today ____ minutes.
[2025-01-12] MEDS: ceFAZolin Sodium/Dextrose,Iso 2 GM/50 ML PIGGYBACK IV (07:48)
--- NOTE | 2025-01-12 08:47 | P.OP_ITS ---
Operative Note Operative Note Date of Service: 01/12/25 Narrative: Preoperative diagnosis: Left inguinal hernia, reducible Postoperative diagnosis: Same Procedure: Repair of left inguinal hernia with mesh Surgeon: Jhon Mcnair MD Physical Sciences Professor: Rico Romero PA-C Anesthesia: General LMA Indications for procedure: 49-year-old male patient presenting with a painful lump in the left groin which increases in size with lifting and straining and reduces with light pressure. Patient reports increasing discomfort associated with this hernia over the past several weeks. Operative findings: Indirect left inguinal hernia Specimen: None Estimated blood loss: 2 mL Complications: None Procedure details: Patient was brought to the OR and placed in a supine position. After administering general anesthesia the patient's abdomen was prepped with ChloraPrep and draped in a sterile fashion. A surgical time-out was called the consent confirmed. Patient received preoperative antibiotics and Venodyne boots were in place. Local anesthesia consisting of 0.5% Sensorcaine was then infiltrated over the left inguinal ligament. Incision was then made with a scalpel and carried out through subcutaneous tissue, past Karen's fashion up to the external oblique aponeurosis. Additional local was then infiltrated below the external oblique aponeurosis. This was incised with a scalpel widened with the Metzenbaum scissors. The spermatic cord was then dissected free from the surrounding inguinal canal. This was retracted with a Tin drain. The floor of the inguinal canal was found to be intact with no direct hernia. Fibers of the cremaster muscle were . A large defect in the internal ring was then identified. No herniated contents were noted at this time. Attention was directed to the floor of the inguinal canal. Fibers of the internal oblique aponeurosis and transversalis aponeurosis were then divided using electrocautery and the preperitoneal space entered. This space was then widened with a open Ray-Naga sponge. A large extended PHS mesh was then obtained. The circular underlay was deployed within the preperitoneal space. The overlay was then secured to the pubic tubercle, conjoined tendon, and shelving edge of the inguinal ligament using the 0 Polysorb suture. The remainder of the mesh was placed below the external oblique aponeurosis laterally. A slit was made in the mesh in the mesh wrapped around the spermatic cord at the internal ring. This was secured to the pubic tubercle using a 0 Polysorb suture. The wrap was made tight enough to allow only the tip of the index finger to pass. Wounds were then irrigated with saline solution and suctioned dry. External oblique aponeurosis was then closed using a running 2-0 Polysorb suture. Approximately 8 mL of Zenrelef was instilled below the external oblique aponeurosis was closure. Karen's fascia and dermis were then reapproximated using interrupted 3-0 Polysorb sutures. Skin was closed using a running subcuticular 4-0 Polysorb suture. Steri-Strips, 4 x 4 gauze and Tegaderm were then applied. The patient tolerated the procedure well. Sponge, instrument, and needle counts reported as correct. The patient was transferred to PACU in stable condition.
[2025-01-12] MEDS: Acetaminophen 1,000 MG/100 ML PIGGYBACK 400 MG IV (09:00)
[2025-01-12] MEDS: fentaNYL citrate/PF 100 MCG/2 ML VIAL 25 MCG IVPUSH ×2 (09:10→09:15)
[2025-01-12] MEDS: oxyCODONE HCl Immed Release 5 MG TABLET PO (09:23)
== END 2025-01-12 10:23 | disposition home or self-care (01) ==
PROVIDERS: PCP Internal Medicine; Visit Provider Surgery
PROC: (CPT 49505; principal; 2025-01-12 07:30)
DX: K40.90 Unilateral inguinal hernia, without obstruction or gangrene, not specified as recurrent (principal); K60.2 Anal fissure, unspecified; K64.8 Other hemorrhoids; K21.9 Gastro-esophageal reflux disease without esophagitis; J44.9 Chronic obstructive pulmonary disease, unspecified; I10 Essential (primary) hypertension; R56.9 Unspecified convulsions; E78.5 Hyperlipidemia, unspecified; G47.33 Obstructive sleep apnea (adult) (pediatric); G89.4 Chronic pain syndrome; M96.1 Postlaminectomy syndrome, not elsewhere classified; Z96.82 Presence of neurostimulator; F41.9 Anxiety disorder, unspecified; F31.9 Bipolar disorder, unspecified; F43.10 Post-traumatic stress disorder, unspecified; Z79.899 Other long term (current) drug therapy; Z98.890 Other specified postprocedural states; Z98.52 Vasectomy status; Z87.891 Personal history of nicotine dependence
CPT/HCPCS: 49505; C1781; C9088; J0131; J0690; J1100; J1885; J2003; J2250; J2405; J2704; J2795; J3010

== ENCOUNTER → 2025-01-12 05:41 | Outpatient (BNV) | payer OTHER, SELFPAY | PROVIDERS: PCP Internal Medicine; Visit Provider Surgery | DX: K40.90 Unilateral inguinal hernia, without obstruction or gangrene, not specified as recurrent (principal) | CPT/HCPCS: 49505 ==

== ENCOUNTER 2025-01-22 14:51 | Outpatient (AMB) | payer OTHER, SELFPAY ==
--- NOTE | 2025-01-22 14:52 | MHC.OFFVIS ---
Vital Signs 01/22/25 14:58 Height 5 ft 9 in Weight 220 lb 7.396 oz BMI 32.6 Intake Visit Reasons: s/p LIH repair Intake Note: Patient is seen in office for post op assessment post Repair of left inguinal hernia with mesh. Pt c/o: admits to sore, tender, bruise and increase pain surgery:01/12/25 Director Of First Impressions Required: No Accompanied by: Self / Same As Patient Allergies No Known Allergies [No Known Allergies*] Allergy (Verified 01/22/25 14:57) Medication List - Last Reconciled 01/22/25 by John Mcnair MD atorvastatin 20 mg PO BEDTIME budesonide-formoterol 160-4.5 mcg/actuation 1 puff inhalation DAILY PRN chlorthalidone 25 mg PO DAILY clonazepam 1 mg PO TID cyanocobalamin (vitamin B-12) mcg PO DAILY losartan 50 mg PO DAILY mirtazapine 30 mg PO BEDTIME olanzapine 5 mg PO DAILY omeprazole 40 mg PO DAILY@0630 oxycodone 5 mg PO Q6H PRN sertraline 200 mg PO DAILY zolpidem 10 mg PO BEDTIME HPI Comments Details: 41-year-old male patient returning 1 week following repair of a left inguinal hernia with mesh on 01/12/2025. He denies any bleeding or discharge from the incision but does have some soreness in the incision extending into the scrotum. He initially noted some bruising in the scrotum and penis but this is resolving. He denies any nausea, vomiting, fever or chills. His bowels are normal as well. FOR[facility]LY [facility] Medical History Arthritis Spinal stenosis Bipolar 1 disorder Seizures Wheezing SOB (shortness of breath) COPD (chronic obstructive pulmonary disease) Internal hemorrhoids Back pain Insomnia Vitamin D deficiency Depression Abnormal LFTs Anal fissure H. pylori infection STD exposure Hyperlipidemia HTN (hypertension) Cervical radiculopathy Bronchospasm Syncope Palpitations Ascending aorta dilatation Sacroiliitis Lumbar radiculopathy Obstructive sleep apnea GERD (gastroesophageal reflux disease) Asthma Anxiety and depression PTSD (post-traumatic stress disorder) Chronic pain syndrome Postlaminectomy syndrome Surgical History History of left inguinal hernia repair (01/12/25) Hx of vasectomy H/O colonoscopy History of esophagogastroduodenoscopy (EGD) Hx of cervical spine surgery Hx of hernia repair Hx of hand surgery S/P insertion of spinal cord stimulator History of discectomy Social History Are you a primary home care scheduler to a significant other at home: No Do you presently have visiting 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) Alcohol intake: current Alcohol intake frequency: a few times a week Patient Tobacco Use Status: Former Tobacco user Tobacco use type: Cigarette Cigarettes Per Day: 2 Years Smoked: 28 service: No Review of Systems Const All systems reviewed & are unremarkable except as noted in HPI and below Physical Exam Vital Signs: BMI result Body Mass Index 32.6 Const General: no acute distress Nutritional Appearance: well nourished Orientation/consciousness: patient oriented x3 Resp Effort & Inspection: normal respiratory effort, no audible wheezes, no cough and no respiratory distress GI Other: Left inguinal incision is clean, dry, and intact with intact Steri-Strips. There is tenderness to palpation of the incision however no hematoma or seroma is appreciated. There is no evidence of a hernia recurrence or infection as well. Skin Other: Warm, dry, no rash Neuro General: patient oriented x3 Assessment & Plan Assessment & Plan (1) Left inguinal hernia: Code(s): K40.90 - Unilateral inguinal hernia, without obstruction or gangrene, not specified as recurrent Category: Medical Plan 49-year-old male patient status post repair of a left inguinal hernia with mesh. He tolerated the procedure well but does have soreness following the surgery. He should continue with warm compresses and ibuprofen as needed for pain. He should continue to avoid lifting greater than 10 lb for the next month. He should follow up in 1 month for follow-up examination. Coding Level of Care Code Global (39853) Diagnoses Left inguinal hernia K40.90
[2025-01-22 14:58] VITALS: BMI 32.6
--- OUTSIDE RECORDS SUMMARY | 2025-01-22 15:30 | XMS_ITS | Clinical Summary ---
Author Organization [facility] Address [address] [place] [address] Care Team Providers Care Packaging Line Attendant Name Role Phone Cinthia Garcia MD Primary Care Provider [phone] Social History Tobacco Use Types Packs/Day Years [...] age to complete this topic Care Teams Packaging Line Attendant Relationship Specialty Start Date End Date Cinthia Garcia MD 175 [facility] [address] [place] [address] PCP - General Internal Medicine 08/28/16
--- OUTSIDE RECORDS SUMMARY | 2025-01-22 15:31 | XMS_ITS | Encounter Summary ---
Author Organization [facility] Address [address] [place] [address] Care Team Providers Care Vibration Technician Name Role Phone Cinthia Garcia MD Primary Care Provider [phone] Reason for Referral * Consultation (Routine) - Closed Specialty Diagnoses / Procedures Referred By Zohreh sanchez Referred To Contact Rheumatology Diagnoses Extensor tenosynovitis of left wrist Stacey Rangel MD [address] [place] [address] Phone: tel: fax: [facility] [address] [address] Phone: tel: fax: Referral ID Status Reason Start Date Expiration Date V isits Requested Visits Authorized [id number] Closed Specialty Services Required 01/19/2025 01/19/2026 1 1 Scheduling Instructions [facility]. Please print notes and fax with referral The doctors there are Homero Funk, Jac and Kurt. The phone number is [phone] and the fax number is [phone]. Reason for Visit * Reason Comments Follow-up left extensor tendon tenosynovitis Encounter Details Date Type Department Care Team (Latest Contact Info) Description 01/19/2025 8:45 AM EDT Office Visit Orthopedic Surgery - [place] [address] [facility] [address] [place] [phone] Stacey Rangel MD [address] [facility] [address] [place] [address] Extensor tenosynovitis of left wrist (Primary Dx) Social History Tobacco Use Types [...] - Inhaled Oxygen Concentration - - Weight 97.5 kg (215 lb) 01/19/2025 8:31 AM EDT Height 175.3 cm (5' 9.02 ) 01/19/2025 8:31 AM ED T Body Mass Index 31.74 01/19/2025 8:31 AM EDT documented in this encounter Progress Notes * Stacey Rangel MD - 01/19/2025 8:45 AM EDTAddended by: STACEY RANGEL on: 01/19/2025 10:51 AM Modules accepted: Orders * Stacey Rangel MD - 01/19/2025 8:45 AM EDT Images from the original note were not included. Date: January 16, 2025 Diagnosis: Extensor tendon tenosynovitis Last seen: 01/07/25 (S/p release of the left first dorsal extensor tendon compartment, tenolysis and synovectomy of EPBtendon performed 07/04/24 ) HPI: Hebert Smith is a 49 y.o. male presenting for followup regarding his left wrist pain. He says this has persisted and the last few weeks despite use of a brace. He has trialed NSAIDs, activity modification, previous Medrol Dosepak which did not improve her symptoms, he is intolerant of corticosteroid injections due to the significant hypopigmentation he experienced after a injection into the first dorsal compartment. He has daily pain and is swelling over that wrist. He has pain when he lifts his thumb and says that his thumb feels heavy . He has difficulty with forming a fist and pain and a C shaped direction over the dorsal radial aspect of his wrist. He has pain with wrist extension inthe wrist as well as over the radial aspect of the wrist. He denies pain in his contralateral hand or other joints besides his back he is status post multiple surgeries for a lumbar disc herniation. He was unable to obtain an MRI of his wrist due to his lumbar spine pump implant which is reportedly not MRI compatible. He denies any numbness or tingling in that hand. Objective Focused Exam: Left Upper Extremity Fullness over the dorsal wrist with tenderness to palpation over the EPL tendon fourth dorsal compartment as well as approximately over the first dorsal compartment and the second dorsal compartment its insertion over the dorsal wrist He has pain with full composite fist formation as well as with resisted wrist extension and finger extension He has prominent swelling with a positive tuck sign over the extensor tendons With full composite fist formation fingertip to distal palmar crease distance of 0 cm Wrist flexion is 25 degrees with fingers flexed and 55 degrees with fingers in extension He has 20 degrees of wrist extension He has tenderness additionally over the first dorsal compartment and a positive WHAT test Fires EPL/FPL/FDP/IO SILT M/R/U Negative Tinel's at the carpal tunnel palpable radial pulse RUE LUE Sausage Stuffer: 125 Sausage Stuffer: 30 Pinch: 29 Pinch: 11 Labs: Rheumatologic laboratory workup positive for a mildly elevated CRP (0.53) otherwise negative ESR, rheumatoid factor, cyclic Cyclic citrullinated peptide, IgG and IgA and KRISTEN Imaging: No new imaging Previous radiographs of the left wrist obtained 12/07/2023 reviewed and shows normal carpal alignment, there is ulnar positive variance, he does have degenerative changes at the thumb MP joint there is a radiopaque density in the soft tissues over the radial aspect of the thumb. Medical Decision Making (base on 2 out of 3 elements): Problems Addressed: Low- 1 stable chronic illness Tests Ordered and/or Reviewed: Low: review of rheumatologic labs Risk Level: Moderate risk: counseling regarding moderate risk procedure Assessment: Hebert Smith presents with follow-up regarding his extensor tenosynovitis. He has significant tenosynovitis involving his dorsal compartments, he has tenderness over his third compartment fourth compartment with visible inflammation and a taxine as well as tenderness over the insertion of his wrist extensors. He additionally does have persistent pain over his first dorsal compartment. I discussed his labs do not show a clear rheumatologic source for his inflammation although he doeshave a mildly elevated CRP. I discussed that I would like to send him to rheumatology for further evaluation regarding his tenosynovitis. I discussed that we could continue with symptomatic management, bracing and NSAIDs. I again discussed corticosteroid injections but he declined due to his hypopigmentation after a previous corticosteroid injection. I discussed operative treatment which would involve tenosynovectomy. I discussed therisk for damage to surrounding structures including sensory nerves and dorsal aspect of the hand, also the risk for bowstringing of the extensor tendons. I discussed that he does have diffuse symptoms and it would be difficult through a single incision to fully to debride his extensor tendons. He appears to be most tender over the EPL tendon and has most visual tenosynovitis over his fourth dorsal compartment. I recommended if we were to pursue operative treatment a dorsal incision with tenosynovectomy of the 4th and 3rd compartments and depending on findings possible extension into the other extensor compartments. He voiced understanding of his treatment options, he would like to have operative treatment. I discussed that we would also send the surgical samples to pathology which may help in his rheumatology referral Plan: Extensor tendon tenosynovitis - Tenosynovectomy - Referral to rheumatology Stacey Rangel MD documented in this encounter Plan of Treatment Upcoming Encounters Date Type Department Care Team (Late st Contact Info) Description 03/06/2025 7:30 AM EDT Hospital Encounter [facility] Main [place] [address] [place] [address] Stacey Rangel MD [address] [address] 03/06/2025 7:30 AM EDT - 03/06/2025 8:45 AM EDT Surgery [facility] Main OR [address] [place] [phone] Stacey Rangel MD 175 [facility] [address] [place] [address] EXCISION LEFT WRIST BURSA [[id number] (CPT??)] 03/17/2025 11:15 AM EDT Office Visit Orthopedic Surgery - [place] [address] 175 [facility] 250 [place] [phone] Stacey Rangel MD 175 [facility] [address] [place] [address] 03/31/2025 9:45 AM EDT [place] [facility] [place] [address] [place] [address] Vik Humphrey MD [address] [place] [address] 04/07/2025 8:45 AM EDT Office Visit Internal Medicine - [place] 175 [facility] 200 [place] [phone] Cinthia Garcia MD 175 [facility] [address] [place] [phone] Scheduled Procedures Name Priority Associated Diagnoses Date/Ti me EXCISION BURSA Extensor tenosynovitis of left wrist 03/06/2025 7:30 AM EDT Scheduled Referrals Name Type Priority Associated Diagnoses Orde r Schedule Ambulatory referral to Rheumatology Outpatient Referral Routine Extensor tenosynovitis of left wrist 1 Occurrences starting 01/19/2025 until 01/19/2026 documented as of this encounter Goals Goal [...] discomfort NOT MET, pain average 6/10 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 45% of R coal pipeline operator 10/07/23 INPROGRESS coal pipeline operator has increased from 26% to 35% of R; cont goal LTG in 12 visits General Worsening(12/2024 12:03 PM EST) No Charmaine Moyer, OT Note: Restored tolerance to BADL /IADL activity, no splint, pain no >1-2/10 10/21/24 NOT MET; pain 8/10 today L wrist strength at least 4/5 10/21/24 NOT MET 3-/5 pain-limited 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 70% of R coal pipeline operator 10/21/24 NOT MET currently 37% 10/07/24: CONT unmet STG's and ALSO PROGRESS TO LTG's documented as of this encounter Visit Diagnoses Diagnosis Extensor tenosynovitis of left wrist- Primary Extensor tenosynovitis of left wrist documented in this encounter Orders Case Request Count Last Ordered Date First Orde red Date CASE REQUEST OPERATING ROOM 1 01/19/2025 documented in this encounter Care Teams Vibration Technician Relationship Specialty Start Date End Date Cinthia Garcia MD [address] [address] PCP - General Internal Medicine 08/28/16 documented as of this encounter
--- OUTSIDE RECORDS SUMMARY | 2025-01-22 15:31 | XMS_ITS | Encounter Summary ---
Author Organization [facility] Address [address] [place] [address] Care Team Providers Care Ent Consultant Name Role Phone Cinthia Garcia MD Primary Care Provider [phone] Reason for Visit * Reason Onset Date Comments MRI 01/14/2025 Encounter Details Date Type Department Care Team (Late st Contact Info) Description 01/14/2025 Telephone Orthopedic Surgery - [place] [address] [facility] [address] [place] [phone] Latrell Rangel MD 175 [facility] [address] [place] [address] MRI Social History Tobacco Use Types Packs/Day Years [...] as of this encounter Progress Notes * Lizet Pool - 01/14/2025 1:50 PM EDT Patient is calling to inform Dr Rangel that he can not have an MRI done, as he has a Bone Stimulator in his Spine. Please advise. Please call him back @ [phone] . Thanks, documented in this encounter Plan of Treatment Upcoming Encounters Date Type Department Care Team (Late st Contact Info) Description 03/06/2025 7:30 AM EDT Hospital Encounter [facility] Main OR [address] [place] [phone] Latrell Rangel MD [address] [address] 03/06/2025 7:30 AM EDT - 03/06/2025 8:45 AM EDT Surgery [facility] OR [address] [place] [phone] Latrell Rangel MD [address] [address] EXCISION LEFT WRIST BURSA [[id number] (CPT??)] 03/17/2025 11:15 AM EDT Office Visit Orthopedic Surgery - [place] [address] 175 [facility] [address] [place] [phone] Latrell Rangel MD [address] [address] 03/31/2025 9:45 AM EDT Office Visit Endocrinology [address] [address] Vik Humphrey MD [address] [place] [address] 04/07/2025 8:45 AM EDT Office Visit Internal Medicine - [place] 175 [facility] [address] [place] [phone] Cinthia Garcia MD 175 [facility] [address] [place] [phone] Scheduled Procedures Name Priority Associated Diagnoses Date/Ti me EXCISION BURSA Extensor tenosynovitis of left wrist 03/06/2025 7:30 AM EDT documented as of this encounter Goals Goal [...] discomfort NOT MET, pain average 6/10 L epitaxial reactor technician at least 45% of R epitaxial reactor technician 10/07/23 INPROGRESS epitaxial reactor technician has increased from 26% to 35% of R; cont goal LTG in 12 visits General Worsening(12/2024 12:03 PM EST) No Charmaine Moyer, OT Note: Restored tolerance to BADL /IADL activity, no splint, pain no >1-2/10 10/21/24 NOT MET; pain 8/10 today L wrist strength at least 4/5 10/21/24 NOT MET 3-/5 pain-limited L epitaxial reactor technician at least 70% of R epitaxial reactor technician 10/21/24 NOT MET currently 37% 10/07/24: CONT unmet STG's and ALSO PROGRESS TO LTG's documented as of this encounter Visit Diagnoses Not on filedocumented in this encounter Care Teams Ent Consultant Relationship Specialty Start Date End Date Cinthia Garcia MD [address] [place] [address] [address] [place] [address] PCP - General Internal Medicine 08/28/16 documented as of this encounter
--- OUTSIDE RECORDS SUMMARY | 2025-01-22 15:31 | XMS_ITS | Clinical Summary ---
Author Organization 175 [facility] Address [address] [place] [address] Phone Care Team Providers Care Logistician Name Role Phone Cinthia Garcia MD Primary Care Provider [phone] Allergies No known active allergies Medications fluticasone propion-salmetero L (Advair HFA) 115-21 mcg/actuation inhaler Inhale 2 puffs by mouth. 023 Active OLANZapine (ZyPREXA) 5 mg tablet 022 Active famotidine (PEPCID) 20 mg tablet TAKE 1 TABLET BY MOUTH 2 TIMES DAILY NEEDED FOR HEARTBURN. 022 Active mirtazapine (REMERON) 30 mg tablet TAKE 1 TABLET BY MOUTH AT BEDTIME DIRECTED FOR SLEEP, ANXIETY AND MOOD TEXT IF INEFFECTIVE 022 Active albuterol 2.5 mg /3 mL (0.083 %) nebulizer solution USE 1 VIAL BY NEBULIZATION EVERY 4 HOURS NEEDED FOR WHEEZING 021 Active sertraline (ZOLOFT) 100 mg tablet TAKE 1/2 - 1 TABLET BY MOUTH ONCE A DAY FOR PTSD 019 Active buPROPion XL (WELLBUTRIN XL) 300 mg 24 hr tablet Take 1 tablet (300 mg total) by mouth. 019 Active clonazePAM (KlonoPIN) 1 mg tablet Take 0.5-1 mg by mouth. 019 Active zolpidem (AMBIEN) 10 mg tablet Take 1 tablet (10 mg total) by mouth. Active omeprazole (PriLOSEC) [address] capsule TAKE 1 CAPSULE BY MOUTH EVERY DAY 90 capsule 1 024 Active miscellaneous medical supply misc 1 Each by Does not apply route daily. 024 Active Vitamin D3 50 mcg (2,000 unit) tablet Active atorvastatin (LIPITOR) 20 mg tablet Take 1 tablet (20 mg total) by mouth 1 (one) time each day. 90 tablet 3 025 Active cyanocobalamin 2,000 mcg tablet Take 1 tablet (2,000 mcg total) by mouth 1 (one) time per week. 12 tablet 2 025 Active chlorthalidone (HYGROTON) 25 mg tabletIndications :Essential (primary) hypertension TAKE 1 TABLET BY MOUTH EVERY DAY 90 tablet 1 025 Active cyanocobalamin (VITAMIN B-12) 1,000 mcg tablet Take 1 tablet (1,000 mcg total) by mouth 2 (two) times a day. 025 Active levothyroxine (SYNTHROID, LEVOTHROID) 25 mcg tabletIndications :Subclinical hypothyroidism Take 1 tablet (25 mcg total) by mouth 1 (one) time each day before breakfast. 45 tablet 1 025 Active losartan (COZAAR) 50 mg tablet TAKE 1 TABLET BY MOUTH EVERY DAY 90 tablet 1 025 Active losartan (COZAAR) 50 mg tablet Take 1 tablet (50 mg total) by mouth 1 (one) time each day. 023 2024 Discontinued methylPREDNISolon e (MEDROL DOSPAK) 4 mg tablet Take 1 tablet (4 mg total) by mouth See administration instructions for 6 days. Use as directed by package instructions 21 tablet 025 2024 Active Problems Problem Noted Date Diagnosed Date Extensor tenosynovitis of left wrist 01/19/2025 Postoperative state 08/29/2024 Weight loss 11/23/2023 Anal [...] to consider a left SI fuse. Sacroiliitis ([facility] V24) 05/04/2023 Overview (11/23/2023): Last Assessment & Plan: [...] an SI joint injection. Ascending aorta dilatation ([facility] V24) 022 Overview (11/23/2023): Last Assessment & Plan: Patient [...] structural heart disease. Recommendations: 1. 30-day ambulatory hospital monitor (already ordered). 2. Echocardiogram (already ordered) [...] 5 out of 5 except left hand manager educational at 4 to 4+ out of 5. [...] D deficiency 03/06/2018 Type 2 diabetes mellitus wit hout complication ([facility] V24, [facility] V28) 10/02/2017 Asthma 10/02/2017 Insomnia 01/03/2017 GERD (gastroesophageal [...] phone but was able to reach the [employer] alert button. He was seen in the [facility] ED on 09/01/2022 and lumbar spine [...] Encounters Date Type Department Care Team Description 01/19/2025 8:45 AM EDT Office Visit Orthopedic Surgery [facility] [address] [phone] Latrell Rangel MD Extensor tenosynovitis of left wrist (Primary Dx) 01/14/2025 Telephone Orthopedic Surgery [facility] 250 175 [facility] [address] [place] [phone] Latrell Rangel MD MRI 01/07/2025 8:30 AM EDT Office Visit Orthopedic Surgery [facility] 175 [facility] [address] [place] [phone] Latrell Rangel MD Extensor tenosynovitis of left wrist (Primary Dx) 12/30/2024 9:15 AM EDT Office [address], [place] [phone] Vik Humphrey MD Subclinical hypothyroidism (Primary Dx) 12/29/2024 Telephone Internal Medicine [address] [phone] Charmaine Harrison [place] Request For Order(s) ([facility] Order 12/16/24) 12/17/2024 8:30 AM EDT Office Visit Orthopedic Surgery [address] [phone] Latrell Rangel MD Extensor tenosynovitis of left wrist (Primary Dx); Status post de Quervain release surgery 12/09/2024 Telephone Internal Medicine [address] [phone] Cinthia Garcia MD 12/08/2024 [facility] [address] [phone] Cinthia Garcia MD Fitting for DME 12/05/2024 Telephone Internal Medicine [address] [phone] Cinthia Garcia MD [place]: Fax heidy 12/03/2024 Telephone Endocrinology [address] [phone] Vik Humphrey MD Labs Only 11/26/2024 8:30 AM EDT Consult Endocrinology - [address] [phone] Vik Humphrey MD Low testosterone (Primary Dx); Subclinical hypothyroidism 11/17/2024 Telephone Internal Medicine [address] [phone] Cinthia Garcia MD [place]: Lab results 11/05/2024 9:00 AM EST Office Visit Orthopedic Surgery [address] [phone] Latrell Rangel MD Extensor tenosynovitis of left wrist (Primary Dx); Status post de Quervain release surgery from Last 3 Months Surgical History Surgery Date Site/Laterality Comments HAND SURGERY 09/17/2000 - 09/16/2001 Left tendon repair OTHER SURGICAL HISTORY PROCEDURE: HISTORY OTHER; COMMENT: hernia repair BACK SURGERY PROCEDURE: HISTORICAL BACK SURGERY; COMMENT: L4-S1 anterior discectomies and fusion August 2008; L3-4 decompression, discectomy and posterior fixation with removal of hardware L4-S1 November 2016 ESOPHAGOGASTRODUODENOSCOPY PROCEDURE: DC EGD TRANSORAL BIOPSY SINGLE/MULTIPLE; COMMENT: Performed on [address] Huertas ESOPHAGOGASTRODUODENOSCOPY 02/08/2021 PROCEDURE: DC EGD TRANSORAL BIOPSY SINGLE/MULTIPLE; COMMENT: healing esophagitis and H.pylori gastritis ESOPHAGOGASTRODUODENOSCOPY PROCEDURE: DC EGD TRANSORAL BIOPSY SINGLE/MULTIPLE; COMMENT: Performed on 02/08/2021 OTHER SURGICAL HISTORY 04/2021 PROCEDURE: DC STRTCTC STIMJ SPI CORD PRQ SPX N/FLWD OTH SURG; COMMENT: stim wave stimulator placed, [facility] pain management, Dr. Laughlin OTHER SURGICAL HISTORY PROCEDURE: DC ARTHRD ANT INTERBODY MIN DSC CRV BELOW C2; COMMENT: C5-6 ACDF May 2015, C6-7 ACDF April 2016 with removal of C5-6 plate OTHER SURGICAL HISTORY 07/24/2022 PROCEDURE: DC MORFIN FACETECTOMY & FORAMOTOMY 1 VRT SGM CERVICAL; COMMENT: Left C4-5, left C6-7 foraminotomy, Dr. Zaidi DORSAL COMPARTMENT RELEASE 07/04/2024 Left dequervains WRIST SURGERY 07/04/2024 Left dorsal compartment release Medical History Medical History Date Comments Abnormal LFTs 06/19/2018 DX:Abnormal LFTs Asthma 10/02/2017 DX:Asthma Constipation 11/16/2011 DX:Constipation Depression 06/19/2018 DX:Depression GERD (gastroesophageal reflux disease) 6 DX:GERD (gastroesophageal reflux disease) Insomnia 01/03/2017 DX:Insomnia Internal hemorrhoids 08/21/2013 DX:Internal hemorrhoids Spinal stenosis 08/23/2015 DX:Spinal stenos is Type 2 diabetes mellitus wit hout complication (CMS/HCC V24, CMS/HCC V28) 10/02/2017 DX:Type 2 diabetes mellitus without complication [...] Sign Reading Time Taken Comments Blood Pressure 130/88 12/30/2024 9:12 AM EDT Pulse 76 12/30/2024 9:12 AM EDT Temperature 36.7 ??C (98.1 ??F) 12/30/2024 9:12 AM ED T Respiratory Rate 16 12/30/2024 9:12 AM EDT Oxygen Saturation 96% 11/26/2024 9:17 AM EDT Inhaled Oxygen Concentration - - Weight 97.5 kg (215 lb) 01/19/2025 8:31 AM EDT Height 175.3 cm (5' 9.02 ) 01/19/2025 8:31 AM ED T Body Mass Index 31.74 01/19/2025 8:31 AM EDT Plan of Treatment Upcoming Encounters Date Type Department Care Team (Late st Contact Info) Description 03/06/2025 7:30 AM EDT Hospital Encounter [facility] Main OR [address] [place] [phone] Latrell Rangel MD [address] [phone] 03/06/2025 7:30 AM EDT - 03/06/2025 8:45 AM EDT Surgery [facility] Main OR [address] [place] [phone] Latrell Rangel MD [address] [phone] EXCISION LEFT WRIST BURSA [[id number] (CPT??)] 03/17/2025 11:15 AM EDT Office Visit Orthopedic Surgery - [place] 250 175 [facility] [address] [place] [phone] Latrell Rangel MD 175 [facility] [address] [place] [address] 03/31/2025 9:45 AM EDT Office Visit Endocrinology [facility] [address] [place] [phone] Vik Humphrey MD [address] [place] [address] 04/07/2025 8:45 AM EDT Office Visit Internal Medicine - [place] 175 [facility] [address] [place] [phone] Cinthia Garcia MD 175 [facility] [address] [place] [phone] Scheduled Procedures Name Priority Associated Diagnoses Date/Ti me EXCISION BURSA Extensor tenosynovitis of left wrist 03/06/2025 7:30 AM EDT Health Maintenance Due Date Last Done Comments [...] Urine Albumin-Creatinine Ratio (uACR) 08/30/2022 COVID-19 Vaccine (2023-2 5 season) 2024 Diabetes: Blood Sugar Contro [...] age to complete this topic Meningococcal B Vaccine Aged Out No l onger eligible based on patient's age to complete [...] Worsening(12/2024 12:03 PM EST) No Charmaine Moyer, MIREYA Note: Wean from splint for at least 90% of activity MET 10/07/23 L wrist ext AROM at least 60 for Wb'ing MET 10/07/23and exceed at 70 L wrist flex AROM at least 50 MET 10/07/23 Reduced scar sensitivity as evidenced by ability to don longsleeve shirt/jacket over incision site w// no > than 2-3/10 discomfort NOT MET, pain average 6/10 L manager educational at least 45% of R manager educational 10/07/23 INPROGRESS manager educational has increased from 26% to 35% of R; cont goal LTG in 12 visits General Worsening(12/2024 12:03 PM EST) No Charmaine Moyer, OT Note: Restored tolerance to BADL /IADL activity, no splint, pain no >1-2/10 10/21/24 NOT MET; pain 8/10 today L wrist strength at least 4/5 10/21/24 NOT MET 3-/5 pain-limited L manager educational at least 70% of R manager educational 10/21/24 NOT MET currently 37% 10/07/24: CONT unmet STG's and ALSO PROGRESS TO LTG's Procedures Procedure Name Priority Date/Time Associated Diagnosis Comments CBC WITH AUTO DIFFERENTIAL Routine 01/09/2025 8:33 AM EDT Extensor tenosynovitis of left wrist THYROID STIMULATING HORMONE Routine 01/09/2025 8:33 AM EDT Subclinical hypothyroidism THYROXINE FREE Routine 01/09/2025 8:33 AM EDT Subclinical hypothyroidism CBC AND DIFFERENTIAL Routine 01/09/2025 8:33 AM EDT Extensor tenosynovitis of left wrist SEDIMENTATION RATE Routine 01/09/2025 8: 33 AM EDT Extensor tenosynovitis of left wrist C-REACTIVE PROTEIN Routine 01/09/2025 8: 33 AM EDT Extensor tenosynovitis of left wrist RHEUMATOID FACTOR Routine 01/09/2025 8:3 3 AM EDT Extensor tenosynovitis of left wrist CYCLIC CITRULLINATED PEPTIDE, IGG AND IGA Routine 01/09/2025 8:33 AM EDT Extensor tenosynovitis of left wrist KRISTEN IFA WITH TITER AND PATTERN Routine 01/09/2025 8:33 AM EDT Extensor tenosynovitis of wrist, left TESTOSTERONE FREE, BIOAVAILABLE AND TOTAL Routine 11/27/2024 8:18 AM EDT Essential hypertension, benign Diabetes mellitus (CMS/HCC V24, CMS/HCC V28) Exposure to STD THYROXINE FREE Routine 11/27/2024 [...] Routine 11/27/2024 8:18 AM EDT Low testosterone HEPATITIS C ANTIBODY Routine 10/09/2024 10:29 AM EST Possible exposure to STD HIV 1, 2 ANTIBODY, P24 ANTIGEN WITH REFLEX TO DIFFERENTIATION Routine 10/09/2024 10:29 AM EST Possible exposure to STD COMPREHENSIVE METABOLIC PANEL Routine 10/09/2024 10:29 AM EST Primary hypertension Type 2 diabetes mellitus without complication, without long-term current use of insulin ([facility] V24, [facility] V28) Mixed hyperlipidemia Vitamin D deficiency HEMOGLOBIN A1C Routine 10/09/2024 10:29 AM EST Primary hypertension Type 2 diabetes mellitus without complication, without long-term current use of insulin ([facility] V24, [facility] V28) Mixed hyperlipidemia Vitamin D deficiency LIPID PANEL WITH REFLEX TO DIRECT LDL Routine 10/09/2024 10:29 AM EST Primary hypertension Type 2 diabetes mellitus without complication, without long-term current use of insulin ([facility] V24, [facility] V28) Mixed hyperlipidemia Vitamin D deficiency from Last 3 Months or Most Recently Relevant to Health Maintenance Results * Cyclic citrullinated peptide, IgG and IgA (01/09/2025 8:33 AM EDT) Pathologist [facility] CCP AB Quant 11 <20 Units LAB CHEMISTRY METHOD 01/13/2025 9:37 AM EDT [facility] Cyclic Citrullinated Peptide (CCP) Antibody Negative Negative LAB CHEMISTRY METHOD 01/13/2025 9:37 AM EDT [facility] Blood Venous blood specimen / Unknown Venipuncture / Unknown 01/09/2025 8:33 AM EDT 01/09/2025 8:41 AM EDT Latrell Rangel MD LAB BLOOD ORDERABLES Final Resul t [facility] [address] [place] [address], * KRISTEN IFA with titer and pattern (01/09/2025 8:33 AM EDT) Pathologist [facility] KRISTEN Negative Negative 01/13/2025 8:46 AM EDT [facility] Blood Venous blood specimen / Unknown Venipuncture / Unknown 01/09/2025 8:33 AM EDT 01/09/2025 8:41 AM EDT us Latrell Rangel MD LAB BLOOD ORDERABLES Final Resul t [facility] [address] [place] [address], [place] [phone] * (ABNORMAL) CBC auto differential (01/09/2025 8:33 AM EDT) WBC 6.6 4.8 - 10.8 K/mcL LAB HEMETOLOGY METHOD 01/09/2025 8:55 AM EDT [facility] RBC 4.90 4.50 - 5.50 M/mcL LAB HEMETOLOGY METHOD 01/09/2025 8:55 AM EDT [facility] Hemoglobin 14.0 13.5 - 17.5 g/dL LAB HEMETOLOGY METHOD 01/09/2025 8:55 AM EDT [facility] Hematocrit 41.9(L) 42.0 - 54.0 % LAB HEMETOLOGY METHOD 01/09/2025 8:55 AM EDT [facility] MCV 85.5 79.0 - 98.0 FL LAB HEMETOLOGY METHOD 01/09/2025 8:55 AM EDT [facility] MCH 28.6 27.0 - 32.0 pcg LAB HEMETOLOGY METHOD 01/09/2025 8:55 AM EDT [facility] MCHC 33.4 32.0 - 37.0 g/dL LAB HEMETOLOGY METHOD 01/09/2025 8:55 AM EDT [facility] RDW 12.9 11.0 - 15.0 % LAB HEMETOLOGY METHOD 01/09/2025 8:55 AM EDT [facility] Platelets 215 130 - 400 K/mcL LAB HEMETOLOGY METHOD 01/09/2025 8:55 AM EDT [facility] MPV 10.0 7.0 - 11.0 FL LAB HEMETOLOGY METHOD 01/09/2025 8:55 AM [facility] NRBC 0.0 <1.0 % LAB HEMETOLOGY METHOD 01/09/2025 8:55 AM [facility] NRBC Absolute 0.00 <0.10 K/mcL LAB HEMETOLOGY METHOD 01/09/2025 8:55 AM [facility] Neutrophils Relative 73.0 % LAB HEMETOLOGY METHOD 01/09/2025 8:55 AM [facility] Lymphocytes Relative 14.8 % LAB HEMETOLOGY METHOD 01/09/2025 8:55 AM [facility] Monocytes Relative 8.2 % LAB HEMETOLOGY METHOD 01/09/2025 8:55 AM [facility] Eosinophils Relative 2.4 % LAB HEMETOLOGY METHOD 01/09/2025 8:55 AM [facility] Basophils Relative 1.1 % LAB HEMETOLOGY METHOD 01/09/2025 8:55 AM [facility] Immature Granulocytes Relative 0.5 % LAB HEMETOLOGY METHOD 01/09/2025 8:55 AM [facility] Neutrophils Absolute 4.83 1.50 - 7.00 K/mcL LAB HEMETOLOGY METHOD 01/09/2025 8:55 AM [facility] Lymphocytes Absolute 0.98(L) 1.00 - 5.00 K/mcL LAB HEMETOLOGY METHOD 01/09/2025 8:55 AM [facility] Monocytes Absolute 0.54 0.20 - 1.00 K/mcL LAB HEMETOLOGY METHOD 01/09/2025 8:55 AM [facility] Eosinophils Absolute 0.16 0.00 - 0.50 K/mcL LAB HEMETOLOGY METHOD 01/09/2025 8:55 AM [facility] Basophils Absolute 0.07 0.00 - 0.20 K/[facility] LAB HEMETOLOGY METHOD 01/09/2025 8:55 AM EDT [facility] Immature Granulocytes Absolute 0.03 0.00 - 0.03 K/[facility] LAB HEMETOLOGY METHOD 01/09/2025 8:55 AM EDT [facility] Blood Venous blood specimen / Unknown Venipuncture / Unknown 01/09/2025 8:33 AM EDT 01/09/2025 8:41 AM EDT us Latrell Rangel MD LAB BLOOD ORDERABLES Final Resul t Performing Organization Address City/[facility]/ZIP Co de Phone Number [facility] [address] [place] [address], [place] [phone] * Sedimentation rate (01/09/2025 8:33 AM EDT) Sed Rate 14 0 - 15 mm/hr LAB HEMETOLOGY METHOD 01/09/2025 9:10 AM EDT [facility] Blood Venous blood specimen / Unknown Venipuncture / Unknown 01/09/2025 8:33 AM EDT 01/09/2025 8:41 AM EDT us Latrell Rangel MD LAB BLOOD ORDERABLES Final Resul t [facility] [address] [place] [address], [place] [phone] * Rheumatoid factor (01/09/2025 8:33 AM EDT) Rheumatoid Factor <10.0 <15.0 I Unit/mL LAB CHEMISTRY METHOD 01/09/2025 9:25 AM EDT [facility] Blood Venous blood specimen / Unknown Venipuncture / Unknown 01/09/2025 8:33 AM EDT 01/09/2025 8:41 AM EDT us Latrell Rangel MD LAB BLOOD ORDERABLES Final Resul t Performing Organization Address City/[facility]/ZIP Co de Phone Number [facility] [address] [place] [address], * (ABNORMAL) C-reactive protein (01/09/2025 8:33 AM EDT) [facility] C-Reactive Protein 0.53(H) <=0.50 mg/dL LAB CHEMISTRY METHOD 01/09/2025 9:25 AM EDT [facility] Blood Venous blood specimen / Unknown Venipuncture / Unknown 01/09/2025 8:33 AM EDT 01/09/2025 8:41 AM EDT us Latrell Rangel MD LAB BLOOD ORDERABLES Final Resul t Performing Organization Address [facility] de Phone Number [facility] [address] [place] [address], [place] [phone] * Thyroid stimulating hormone (01/09/2025 8:33 AM EDT) Only the most recent of2 resultswithin the time period is included. [facility] TSH 3.04 0.40 - 4.00 mcIU/mL LAB CHEMISTRY METHOD 01/09/2025 11:09 AM EDT [facility] Blood Venous blood specimen / Unknown Venipuncture / Unknown 01/09/2025 8:33 AM EDT 01/09/2025 8:41 AM EDT us Vik Humphrey MD LAB BLOOD ORDERABLES Final Resul t Performing Organization Address [facility] Co de Phone Number [facility] [address] [place] [address], [place] [phone] * Thyroxine free (01/09/2025 8:33 AM EDT) Only the most recent of2 resultswithin the time period is included. Free T4 1.29 0.70 - 1.80 ng/dL LAB CHEMISTRY METHOD 01/09/2025 11:08 AM EDT [facility] Blood Venous blood specimen / Unknown Venipuncture / Unknown 01/09/2025 8:33 AM EDT 01/09/2025 8:41 AM EDT Vik Humphrey MD LAB BLOOD ORDERABLES Final Resul t Performing Organization Address [facility]/ZIP Co de Phone Number [facility] [address] [place] [address], * Prostate specific antigen screen (11/27/2024 8:18 AM EDT) PSA 0.73 0.00 - 4.00 ng/mL LAB CHEMISTRY METHOD 11/27/2024 10:29 AM EDT [facility] Blood Venous blood specimen / Unknown Venipuncture / Unknown 11/27/2024 8:18 AM EDT 11/27/2024 9:36 AM EDT Narrative [facility] - 11/27/2024 10:29 AM EDT The Siemens Advia Centaur Chemiluminescent Immunoassay is used. Results obtained with different assay methods or kits cannot be used interchangeably. Results cannot be interpreted as absolute evidence of the presence or absence of malignant disease. us Vik Humphrey MD LAB BLOOD ORDERABLES Final Resul t Performing Organization Address [facility]/ZIP Co de Phone Number [facility] [address] [place] [address], * Testosterone free, bioavailable and total (11/27/2024 8:18 AM EDT) Testosterone 437 229 - 902 ng/dL LAB CHEMISTRY METHOD 11/27/2024 10:23 AM EDT [facility] Testosterone, Free 11.4 4.6 - 22.4 ng/dL LAB CHEMISTRY METHOD 11/27/2024 10:23 AM EDT [facility] Testosterone, Bioavailable 261 110 - 575 ng/dL LAB CHEMISTRY METHOD 11/27/2024 10:23 AM EDT [facility] Sex Hormone Binding 21.5 See Comment nmol/L LAB CHEMISTRY METHOD 11/27/2024 10:23 AM EDT [facility] Comment: FEMALES: ??pre-menopausal ?? 10.8 [...] LAB CHEMISTRY METHOD 11/27/2024 10:23 AM EDT [facility] Blood Venous blood specimen / Unknown Venipuncture / Unknown 11/27/2024 8:18 AM EDT 11/27/2024 9:36 AM EDT us Vik Humphrey MD LAB BLOOD ORDERABLES Final Resul t [facility] [address] [place] [address], * Hemoglobin and hematocrit (11/27/2024 8:18 AM EDT) Hemoglobin 15.7 13.5 - 17.5 g/dL LAB HEMETOLOGY METHOD 11/27/2024 9:49 AM EDT [facility] Hematocrit 45.5 42.0 - 54.0 % LAB HEMETOLOGY METHOD 11/27/2024 9:49 AM EDT [facility] Blood Venous blood specimen / Unknown Venipuncture / Unknown 11/27/2024 8:18 AM EDT 11/27/2024 9:33 AM EDT Vik Humphrey MD LAB BLOOD ORDERABLES Final Resul t [facility] [address] [place] [address], [place] [phone] * Prolactin (11/27/2024 8:18 AM EDT) Pathologist [facility] Prolactin 6.60 2.50 - 17.40 ng/mL LAB CHEMISTRY METHOD 11/27/2024 10:14 AM EDT [facility] Blood Venous blood specimen / Unknown Venipuncture / Unknown 11/27/2024 8:18 AM EDT 11/27/2024 9:36 AM EDT Vik Humphrey MD LAB BLOOD ORDERABLES Final Resul t Performing Organization Address [facility] Co de Phone Number [facility] [address] [place] [address], [place] [phone] * Insulin-like growth factor (11/27/2024 8:18 AM EDT) Insulin-like Growth Factor 1 128 81 - 263 ng/mL 12/05/2024 5:43 PM EDT [facility] Comment: Test performed at [facility], [address] , [place], [place] [address] ? [phone] Fernanda Arroyo MD, PhD - Dynam[employer] Blood Venous blood specimen / Unknown Venipuncture / Unknown 11/27/2024 8:18 AM EDT 11/27/2024 9:37 AM EDT Vik Humphrey MD LAB BLOOD ORDERABLES Final Resul t [facility] [address] [place] [address] * ACTH (11/27/2024 8:18 AM EDT) Adrenocorticotropic Hormone (ACTH) 24 <=46 pg/mL 12/01/2024 10:25 PM EDT [facility] Comment: Test performed at [facility], [address], [place], [place] [address] ? [phone] Fernanda Arroyo MD, PhD - Dynamiter Blood Venous blood specimen / Unknown Venipuncture / Unknown 11/27/2024 8:18 AM EDT 11/27/2024 9:33 AM EDT us Vik Humphrey MD LAB BLOOD ORDERABLES Final Resul t [facility] [address] [place] [address] * Testosterone, total (11/27/2024 8:18 AM EDT) Testosterone 437 229 - 902 ng/dL LAB CHEMISTRY METHOD 11/27/2024 10:22 AM EDT [facility] Blood Venous blood specimen / Unknown Venipuncture / Unknown 11/27/2024 8:18 AM EDT 11/27/2024 9:36 AM EDT us Vik Humphrey MD LAB BLOOD ORDERABLES Final Resul t [facility] [address] [place] [address], [place] [phone] * Luteinizing hormone (11/27/2024 8:18 AM EDT) Luteinizing Hormone 3.2 1.2 - 10.6 mIU/mL LAB CHEMISTRY METHOD 11/27/2024 10:15 AM EDT [facility] Blood Venous blood specimen / Unknown Venipuncture / Unknown 11/27/2024 8:18 AM EDT 11/27/2024 9:36 AM EDT us Vik Humphrey MD LAB BLOOD ORDERABLES Final Resul t Performing Organization Address [facility] Co de Phone Number [facility] [address] [place] [address], [place] [phone] * Follicle stimulating hormone (11/27/2024 8:18 AM EDT) Follicle Stimulating Hormone 5.5 0.7 - 10.8 mIU/mL LAB CHEMISTRY METHOD 11/27/2024 10:34 AM EDT [facility] Blood Venous blood specimen / Unknown Venipuncture / Unknown 11/27/2024 8:18 AM EDT 11/27/2024 9:36 AM EDT us Vik Humphrey MD LAB BLOOD ORDERABLES Final Resul t Performing Organization Address [facility] de Phone Number [facility] [address] [place] [address], [place] [phone] * Cortisol (11/27/2024 8:18 AM EDT) Cortisol 21.2 mcg/dL LAB CHEMISTRY METHOD 11/27/2024 10:22 AM EDT [facility] Blood Venous blood specimen / Unknown Venipuncture / Unknown 11/27/2024 8:18 AM EDT 11/27/2024 9:36 AM EDT Narrative [facility] - 11/27/2024 10:22 AM EDT CORTISOL REFERENCE RANGE ?? 8 AM SPEC: ??5.0-23.0 mcg/dL ?? 4 PM SPEC: ??3.0-16.0 mcg/dL ?? 8 PM SPEC: ??<5.0 mcg/dL us Vik Humphrey MD LAB BLOOD ORDERABLES Final Resul t Performing Organization Address City/[facility]/ZIP Co de Phone Number [facility] [address] [place] [address], [place] [phone] * Hepatitis C antibody (10/09/2024 10:29 AM EST) [facility] Hepatitis C Antibody Negative Negative LAB CHEMISTRY METHOD 10/09/2024 3:19 PM EST [facility] Blood Venous blood specimen / Unknown Venipuncture / Unknown 10/09/2024 10:29 AM EST 10/09/2024 10:29 AM EST us Cinthia Garcia MD LAB BLOOD ORDERABLES Final Res ult Performing Organization Address [facility] Co de Phone Number [facility] [address] [place] [address], [place] [phone] * HIV 1,2 antibody, p24 antigen with reflex to differentiation (10/09/2024 10:29 AM EST) [facility] HIV Combo AB/AG Negative Negative LAB CHEMISTRY METHOD 10/09/2024 3:20 PM EST [facility] Blood Venous blood specimen / Unknown Venipuncture / Unknown 10/09/2024 10:29 AM EST 10/09/2024 10:29 AM EST Narrative [facility] - 10/09/2024 3:20 PM EST [...] ORDERABLES Final Res ult Performing Organization Address [facility] Co de Phone Number [facility] [address] [place] [address], [place] [phone] * (ABNORMAL) Lipid panel with reflex to direct LDL (10/09/2024 10:29 AM EST) Cholesterol 160 0 - 200 mg/dL LAB CHEMISTRY METHOD 10/09/2024 2:58 PM [facility] Triglycerides 187(H) 0 - 150 mg/dL LAB CHEMISTRY METHOD 10/09/2024 2:58 PM [facility] HDL 45 >=40 mg/dL LAB CHEMISTRY METHOD 10/09/2024 2:58 PM [facility] LDL Calculated 78 0 - 100 mg/dL LAB CHEMISTRY METHOD 10/09/2024 2:58 PM [facility] VLDL Cholesterol Ron 37.4 mg/dL LAB CHEMISTRY METHOD 10/09/2024 2:58 PM [facility] Non HDL Chol. (LDL+VLDL) 115 <145 mg/dL LAB CHEMISTRY METHOD 10/09/2024 2:58 PM [facility] Chol/HDL Ratio 3.6 0.0 - 4.4 LAB CHEMISTRY METHOD 10/09/2024 2:58 PM [facility] Blood Venous blood specimen / Unknown Venipuncture / Unknown 10/09/2024 10:29 AM EST 10/09/2024 10:29 AM EST us Cinthia Garcia MD LAB BLOOD ORDERABLES Final Res ult [facility] [address] [place] [address], * Hemoglobin A1c (10/09/2024 10:29 AM EST) Hemoglobin A1C 5.6 <6.5 % LAB CHEMISTRY METHOD 10/09/2024 9:06 PM [facility] Mean Bld Glu Estim. 114 mg/dL LAB CHEMISTRY METHOD 10/09/2024 9:06 PM [facility] Blood Venous blood specimen / Unknown Venipuncture / Unknown 10/09/2024 10:29 AM EST 10/09/2024 10:29 AM EST us Cinthia Garcia MD LAB BLOOD ORDERABLES Final Res ult [facility] [address] [place] [address], [place] [phone] * (ABNORMAL) Comprehensive metabolic panel (10/09/2024 10:29 AM EST) Sodium 134 133 - 145 mmol/L LAB CHEMISTRY METHOD 10/09/2024 2:58 PM [facility] Potassium 3.5 3.5 - 5.5 mmol/L LAB CHEMISTRY METHOD 10/09/2024 2:58 PM [facility] Chloride 101 96 - 110 mmol/L LAB CHEMISTRY METHOD 10/09/2024 2:58 PM [facility] CO2 27 21 - 32 mmol/L LAB CHEMISTRY METHOD 10/09/2024 2:58 PM [facility] Anion Gap 6 3 - 11 LAB CHEMISTRY METHOD 10/09/2024 2:58 PM [facility] Glucose 95 70 - 100 mg/dL LAB CHEMISTRY METHOD 10/09/2024 2:58 PM [facility] BUN 18 5 - 25 mg/dL LAB CHEMISTRY METHOD 10/09/2024 2:58 PM [facility] Creatinine 1.10 0.70 - 1.30 mg/dL LAB CHEMISTRY METHOD 10/09/2024 2:58 PM [facility] eGFR 83 >=60 mL/min/1. 73m2 LAB CHEMISTRY METHOD 10/09/2024 2:58 PM [facility] Comment:Calculation based on the??Chronic Kidney Disease Epidemiology Collaboration (CKD-EPI) equation refit??without adjustment for race. BUN/Creatinine Ratio 16.4 LAB CHEMISTRY METHOD 10/09/2024 2:58 PM [facility] Calcium 10.0 8.5 - 10.5 mg/dL LAB CHEMISTRY METHOD 10/09/2024 2:58 PM [facility] AST (SGOT) 22 10 - 42 unit/L LAB CHEMISTRY METHOD 10/09/2024 2:58 PM [facility] ALT (SGPT) 35 10 - 60 unit/L LAB CHEMISTRY METHOD 10/09/2024 2:58 PM [facility] Alkaline Phosphatase 133(H) 42 - 121 unit/L LAB CHEMISTRY METHOD 10/09/2024 2:58 PM [facility] Total Protein 8.1(H) 6.0 - 8.0 g/dL LAB CHEMISTRY METHOD 10/09/2024 2:58 PM [facility] Albumin 4.4 3.2 - 5.0 g/dL LAB CHEMISTRY METHOD 10/09/2024 2:58 PM [facility] Total Bilirubin 0.5 0.0 - 1.4 mg/dL LAB CHEMISTRY METHOD 10/09/2024 2:58 PM [facility] Blood Venous blood specimen / Unknown Venipuncture / Unknown 10/09/2024 10:29 AM EST 10/09/2024 10:29 AM EST us Cinthia Garcia MD LAB BLOOD ORDERABLES Final Res ult [facility] [address] [place] [address], from Last 3 Months or Most Recently Relevant to Health Maintenance Insurance [facility] MEDIC[facility] Member Subscriber Plan / Payer (Ef fective 2019-Present) Name:Hebert Smith Relation to Subscriber:Self Name:Hebert Smith Payer ID:[id number] Group ID:[id number] Type:Not on file Address: [address] [place] [address] Care Teams Logistician Relationship Specialty Start Date End Date Cinthia Garcia MD [address] [address] PCP - General Internal Medicine 08/28/16
== END 2025-01-22 15:06 | disposition home or self-care (01) ==
LOC: HO.HGS 14:51
PROVIDERS: PCP Internal Medicine; Visit Provider Surgery
DX: K40.90 Unilateral inguinal hernia, without obstruction or gangrene, not specified as recurrent (principal)
CPT/HCPCS: 99024

== ENCOUNTER → 2025-01-22 14:51 | Outpatient (BNVA) | payer OTHER, SELFPAY | PROVIDERS: PCP Internal Medicine; Visit Provider Surgery | DX: Z48.815 Encounter for surgical aftercare following surgery on the digestive system (principal); Z98.890 Other specified postprocedural states | CPT/HCPCS: 99212 ==

== ENCOUNTER 2025-02-25 09:06 | Outpatient (AMB) | payer OTHER, SELFPAY ==
--- NOTE | 2025-02-25 09:07 | A.OFFVIS_ITS ---
Vital Signs 02/25/25 09:15 Height 5 ft 9 in Weight 220 lb BMI 32.5 BP 143/92 H Blood Pressure Location Lt brachial Position Sitting Pulse 77 Intake Visit Reasons: 1mth fuv s/p LIH repair Intake Note: Patient is seen in office for one month follow up visit, post left inguinal hernia repair. 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 He reports minimal pain, only with certain movements. He reports the swelling and bruising has significantly decreased. He does endorse some numbness around the incision site. Reports appetite and bowel function are at baseline. He denies any fever chills. He denies any heavy lifting or strenuous activity at this point [facility] Medical History Arthritis Spinal stenosis Bipolar 1 disorder Seizures Wheezing SOB (shortness of breath) COPD (chronic obstructive pulmonary disease) Internal hemorrhoids Back pain Insomnia Vitamin D deficiency Depression Abnormal LFTs Anal fissure H. pylori infection STD exposure Hyperlipidemia HTN (hypertension) Cervical radiculopathy Bronchospasm Syncope Palpitations Ascending aorta dilatation Sacroiliitis Lumbar radiculopathy Obstructive sleep apnea GERD (gastroesophageal reflux disease) Asthma Anxiety and depression PTSD (post-traumatic stress disorder) Chronic pain syndrome Postlaminectomy syndrome Surgical History History of left inguinal hernia repair (01/12/25) Hx of vasectomy H/O colonoscopy History of esophagogastroduodenoscopy (EGD) Hx of cervical spine surgery Hx of hernia repair Hx of hand surgery S/P insertion of spinal cord stimulator History of discectomy Social History Are you a primary family day care provider to a significant other at home: No 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) Alcohol intake: current Alcohol intake frequency: a few times a week Patient Tobacco Use Status: Former Tobacco user Tobacco use type: Cigarette Cigarettes Per Day: 2 Years Smoked: 28 service: No Review of Systems Const All systems reviewed & are unremarkable except as noted in HPI and below Physical Exam Vital Signs: Last Vital Signs Pulse 77 02/25/25 09:15 BP 143/92 H 02/25/25 09:15 BMI result Body Mass Index 32.5 Const General: healthy appearing, comfortable and no acute distress Orientation/consciousness: patient oriented x3 Resp Effort & Inspection: normal respiratory effort and able to speak in complete sentences Other: Left inguinal hernia incision site appears to be healing well. No evidence of any swelling, surrounding erythema or palpable fluid collection. No evidence of recurrence with increased abdominal pressure. Nontender Neuro General: patient oriented x3 Assessment & Plan Assessment & Plan (1) S/P inguinal hernia repair: Code(s): Z98.890 - Other specified postprocedural states; Z87.19 - Personal history of other diseases of the digestive system Category: Medical Plan 49-year-old male s/p left inguinal hernia repair with mesh on 01/12/2025 presents to the office for one-month follow-up. Patient is doing well, not experiencing any pain. Bruising and swelling of the area has resolved. Incision site is clean and intact no surrounding erythema or palpable fluid collection. No concern for infection at this time. No evidence of recurrence with increased abdominal pressure. Patient experiencing some numbness around the incision site. I reassured him that this is a common postoperative sensation, and may resolve with time. We discussed returning to activity. Patient can resume activity as tolerated without restrictions. I recommended that he slowly return towards his baseline level activity over the next few weeks. Patient no longer requiring follow up, can return as needed for any concerns in the future. Coding Level of Care Code Global (16961) Diagnoses S/P inguinal hernia repair Z98.890; Z87.19
[2025-02-25 09:15] VITALS: BP 143/92; PULSE 77; BMI 32.5
--- OUTSIDE RECORDS SUMMARY | 2025-02-25 09:40 | XMS_ITS | Clinical Summary ---
Author Organization [facility] Address [address] [place] [address] Care Team Providers Care Store Director Name Role Phone Cinthia Garcia MD Primary [...] Colon Cancer Screening (Colonoscopy) 2021 Influenza Vaccine (Season Ended) 2025 Pneumococcal Vaccine Aged Out No long er eligible based on patient's age to complete this topic RSV Ped < 20 months Aged Out No longe r eligible based on patient's age to complete this topic Care Teams Store Director Relationship Specialty Start Date End Date Cinthia Garcia MD [address] [facility] [place] [address] [place] [phone] PCP - General Internal Medicine 08/28/16
== END 2025-02-25 09:54 | disposition home or self-care (01) ==
LOC: HO.HGS 09:07
PROVIDERS: PCP Internal Medicine
DX: Z98.890 Other specified postprocedural states (principal); Z87.19 Personal history of other diseases of the digestive system
CPT/HCPCS: 99024

== ENCOUNTER → 2025-02-25 09:06 | Outpatient (BNVA) | payer OTHER, SELFPAY | PROVIDERS: PCP Internal Medicine | DX: Z98.890 Other specified postprocedural states (principal); Z87.19 Personal history of other diseases of the digestive system | CPT/HCPCS: 99212 ==

== ENCOUNTER 2025-06-08 07:29 | Outpatient (AMB) | payer OTHER, SELFPAY ==
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
--- OUTSIDE RECORDS SUMMARY | 2025-06-08 07:33 | XMS_ITS | Clinical Summary ---
[facility] Address [address] [place] [address] Care Team Providers Care Auto Electrical Technician Name Role Phone Cinthia Garcia MD Primary Care Provider [phone] Social History Tobacco Use Types Packs/Day Years [...] Cancer Screening (Colonoscopy) 2021 Influenza Vaccine (#1) 2025 Pneumococcal Vaccine Aged Out No long er eligible based on patient's age to complete this topic RSV Ped < 20 months Aged Out No longe r eligible based on patient's age to complete this topic Care Teams Auto Electrical Technician Relationship Specialty Start Date End Date Cinthia Garcia MD 175 [facility] [address] [place] [address] PCP - General Internal Medicine 08/28/16
--- NOTE | 2025-06-08 07:35 | A.OFFVIS_ITS ---
Vital Signs 06/08/25 07:37 Height 5 ft 9 in Weight 211 lb 2 oz BMI 31.2 BP 120/88 Blood Pressure Location Rt brachial Position Sitting Pulse 70 Pulse Source Pulse Oximeter Pulse Oximetry (%) 99 Oxygen Delivery Method Room Air Intake Visit Reasons: 1 yr f/u appt for sleep Intake Note: Follow up Obstructive sleep apnea Bulkhead Carpenter Required: No Accompanied by: Self / Same As Patient Allergies No Known Allergies (No Known Allergies*) Allergy (Verified 06/08/25 07:35) HPI Comments Details: 50 y/o male patient presents for follow up of sleep study. The split night sleep study result was significant for severe degree of sleep apnea. The AHI was 30/hr and oxygen chace was 87%. 12/2022 Pt started CPAP at [id number]. The compliance the therapy response (02/24/25- 05-24-25) reviewed. The usage days 83% and the average usage hours 5 hrs 20 min. The AHI was 1.7/hr. He wakes up refreshed and has more energy during the daytime. He cleans the mask and tubing every morning. [facility] Medical History Arthritis Spinal stenosis Bipolar 1 disorder Seizures Wheezing SOB (shortness of breath) COPD (chronic obstructive pulmonary disease) Internal hemorrhoids Back pain Insomnia Vitamin D deficiency Depression Abnormal LFTs Anal fissure H. pylori infection STD exposure Hyperlipidemia HTN (hypertension) Cervical radiculopathy Bronchospasm Syncope Palpitations Ascending aorta dilatation Sacroiliitis Lumbar radiculopathy Obstructive sleep apnea GERD (gastroesophageal reflux disease) Asthma Anxiety and depression PTSD (post-traumatic stress disorder) Chronic pain syndrome Postlaminectomy syndrome Surgical History History of left inguinal hernia repair (01/12/25) Hx of vasectomy H/O colonoscopy History of esophagogastroduodenoscopy (EGD) Hx of cervical spine surgery Hx of hernia repair Hx of hand surgery S/P insertion of spinal cord stimulator History of discectomy Social History Are you a primary career services coordinator to a significant other at home: No Do you presently have visiting nurse or other home services: 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) Alcohol intake: current Alcohol intake frequency: a few times a week Patient Tobacco Use Status: Former Tobacco user Tobacco use type: Cigarette Cigarettes Per Day: 2 Years Smoked: 28 service: No Physical Exam Vital Signs: Last Vital Signs Pulse 70 06/08/25 07:37 BP 120/88 06/08/25 07:37 Pulse Ox 99 06/08/25 07:37 Oxygen Delivery Method Room Air 06/08/25 07:37 BMI result Body Mass Index 31.2 Const General: cooperative and healthy appearing Nutritional Appearance: average body habitus Orientation/consciousness: oriented to time and patient oriented x3 HEENT Head: Yes normal to inspection Neuro General: oriented to time, patient oriented x3, gait normal, tone normal, moves all extremities, no focal motor deficits and CN's II-XI intact bilaterally Psych Appearance: grossly normal Mental Status: mental status grossly normal Speech and movement: Normal speech and movement present Affect: normal affect Attitude: cooperative Assessment & Plan Assessment & Plan (1) Obstructive sleep apnea: Comment: Severe degree of sleep apnea. The AHI was 30/hr and oxygen chace was 87%. Code(s): G47.33 - Obstructive sleep apnea (adult) (pediatric) Category: Medical Plan Continue to use CPAP at [id number] as patient experiences good clinical effects, better sleep quality, less snoring less daytime sleepiness. Stressed compliance, use CPAP nighlty and more than 4 hours. Reviewed compliance Coding Level of Care Code Est Pt Level 4 (24148) Diagnoses Obstructive sleep apnea G47.33
[2025-06-08 07:37] VITALS: BP 120/88; PULSE 70; O2SAT 99; BMI 31.2
== END 2025-06-08 07:58 | disposition home or self-care (01) ==
LOC: HO.HSMS 07:30
PROVIDERS: PCP Internal Medicine; Visit Provider Psychiatry & Neurology Neurology
DX: G47.33 Obstructive sleep apnea (adult) (pediatric) (principal)
CPT/HCPCS: 99214

== ENCOUNTER → 2025-06-08 07:29 | Outpatient (BNVA) | payer OTHER, SELFPAY | PROVIDERS: PCP Internal Medicine; Visit Provider Psychiatry & Neurology Neurology | DX: G47.33 Obstructive sleep apnea (adult) (pediatric) (principal); Z99.89 Dependence on other enabling machines and devices | CPT/HCPCS: 99212 ==

== ENCOUNTER 2025-06-24 12:50 | Outpatient (REF) | payer OTHER, SELFPAY ==
--- NOTE | 2025-06-24 12:57 | EMG_ITS ---
Chief complaint: Numbness in fingertips, right Reason for referral: Evaluate for Carpal Tunnel Syndrome Referred by: Dr. Latrell Rangel Procedure done: Right upper extremity NCS/EMG Precautions and/or limitations: Previous cervical surgery The limb temperature was monitored continuously and remained between 32-36 degrees C during the performance of the NCS. Nerve Conduction Studies Anti Sensory Summary Table ?Stim Site NR Onset (ms) Norm Onset (ms) Peak (ms) Norm Peak (ms) O-P Amp (?V) Norm O-P Amp Site1 Site2 Delta-0 (ms) Dist (cm) Sachin (m/s) Norm Sachin (m/s) Right Median Anti Sensory (2nd Digit) Wrist ? 2.4 3.1 <3.6 43.2 >10 Wrist 2nd Digit 2.4 14.0 58 Right Radial Anti Sensory (Thumb) Forearm ? 1.6 2.0 <3.1 22.1 Forearm Thumb 1.6 0.0 Right Ulnar Anti Sensory (5th Digit) Wrist ? 2.0 2.8 <3.7 21.3 >15.0 Wrist 5th Digit 2.0 14.0 70 Motor Summary Table ?Stim Site NR Onset (ms) Norm Onset (ms) O-P Amp (mV) Norm O-P Amp iAmp (mV) Amp (1st) (%) Site1 Site2 Delta-0 (ms) Dist (cm) Sachin (m/s) Norm Sachin (m/s) Right Median Motor (Abd Poll Brev) Wrist ? 3.4 <3.9 9.5 >4.5 10.9 100.0 Elbow Wrist 3.9 21.0 54 >45 Elbow ? 7.3 8.6 10.1 90.5 Right Ulnar Motor (Abd Dig Minimi) Wrist ? 2.6 <3.0 9.7 >5 11.7 100.0 B Elbow Wrist 3.4 19.0 56 >45 B Elbow ? 6.0 8.7 10.8 89.7 A Elbow B Elbow 1.7 10.0 59 >45 A Elbow ? 7.7 8.3 10.5 85.6 EMG ?Side Muscle Nerve Root Ins Act Fibs Psw Amp Dur Poly Recrt Int Pat Comment Right 1stDorInt Ulnar C8-T1 Nml Nml Nml Nml Nml 0 Nml Complete Right FlexCarRad Median C6-7 Nml Nml Nml Nml Nml 0 Nml Complete Right Biceps Musculocut C5-6 Nml Nml Nml Nml Nml 0 Nml Complete Right Triceps Radial C6-7-8 Nml Nml Nml Nml Nml 0 Nml Complete Right Deltoid Axillary C5-6 Nml Nml Nml Nml Nml 0 Nml Complete FINDINGS: All motor and sensory nerves tested showed normal latencies, amplitudes and conduction velocities. Concentric needle EMG was performed in selected muscles of the right upper extremity. Study did not reveal signs of electric abnormalities as shown in the table above. IMPRESSION: 1. This is a normal study. 2. There is no electrodiagnostic evidence for median neuropathy, ulnar neuropathy, brachial plexopathy, or cervical radiculopathy. Thank you for your kind referral. Kristen Dubois MD, RODGER Board Certified, [place] Board [employer] and Rehabilitation (ABPMR) Board Certified, [place] Board of Electrodiagnostic Medicine (ABEM) CODIN [address]341 MTDD
== END 2025-06-24 12:51 | disposition home or self-care (01) ==
LOC: HO.NEURO 12:50
PROVIDERS: PCP Internal Medicine; Visit Provider Student in an Organized Health Care Education/Training Program
DX: R20.0 Anesthesia of skin (principal)
CPT/HCPCS: 95886; 95909

== ENCOUNTER → 2025-06-24 12:57 | Outpatient (BNV) | payer OTHER, SELFPAY | PROVIDERS: PCP Internal Medicine; Visit Provider Physical Medicine & Rehabilitation | DX: R20.2 Paresthesia of skin (principal) | CPT/HCPCS: 95886; 95909 ==

== ENCOUNTER 2025-07-20 09:16 | Outpatient (AMB) | payer OTHER, SELFPAY ==
--- NOTE | 2025-07-20 09:20 | A.SPINEOV_ITS ---
Intake Visit Reasons: Left sided hip pain Intake Note: Mr. Smith is here today c/o Left sided hip pain. 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 Andres on 04/17/24 and Hx of L3-S1 lumbar fusion completed by [facility] with interbody spacers from L3-S1 but only posterior instrumentation at L3-4. Last seen in clinic for left groin pain primarily with standing / ambulation. Was seen by general surgery and had left inguinal hernia repaired. He reports that he has healed well from his hernia repair surgery, however over the course of the last few months started having a recurrence of the same left-sided hip pain that he had prior to his SI joint fusion surgery. He reports that it is well localized to the left SI joint region, and intermittently shoots into his anterior thigh/left groin. He reports that the pain is worse with ambulation, and has caused him to start favoring his right side so as to not put more pressure on the left leg and not increase his pain. He denies any numbness/burning associated with the pain. He does feel as though the pain is worsening day by day, and is beginning to significantly impact his activities of daily living and daily functioning. He reports that he did go back to see Dr. Hinds who did his spine fusion surgeries, however they obtained a CT scan of his lumbar spine and reported no abnormalities. He states that due to his spinal cord stimulator he is unable to get an MRI as his new stimulator is not compatible with MRI imaging machines. Exam: On examination the patient ambulates with a slightly antalgic gait favoring the right-hand side. He rises from a seated position by bracing himself on the chair. He has full strength in his bilateral lower extremities, but does elicit pain to strength testing in his left lower extremity. He has no obvious deformities when inspecting the lumbar spine, but has several different surgical scars from previous fusion, and spinal cord stimulator implant. No significant sensational deficits to light touch reported. (+) Hermelinda finger test left side. Imaging: I reviewed [facility]'s MRI imaging from 2022 which does show some evidence of nerve compression and adjacent segment deterioration at L2-3. Posterior instrumentation noted at L3-4. Interbody spacers from L3-S1. Plan: I would like to send [facility] for a CT scan of his pelvis to evaluate for SI joint fusion and placement of his trasnfasten implant. If his CT scan imaging is unremarkable we may need to consider a CT myelogram to evaluate for worsening nerve compression at L2-3 adjacent to his current surgical construct. We discussed that if his pelvic CT and Lumbar imaging is unremarkable we will likely need to refer him to orthopedics to ensure he does not have underlying hip pathology at left hip joint. Alexis Andres MD,PhD [facility] Coding Level of Care Code Est Pt Level 3 (95213) Diagnoses Chronic left SI joint pain M53.3; G89.29
--- OUTSIDE RECORDS SUMMARY | 2025-07-20 10:19 | XMS_ITS | Encounter Summary ---
Author Organization [facility] Address [address] [place] [address] Care Team Providers Care Cheese Production Supervisor Name Role Phone Cinthia Garcia MD Primary Care Provider [phone] Encounter Details Date Type Department Care Team ([facility] Contact Info) Description 07/17/2025 Results Follow-Up Neurosurgery [facility] [address] [place] [phone] Leia Becker PA [address] [address] [place] [address] Social History Tobacco Use Types Packs/Day Years Used Date Smoking Tobacco: Former Cigarettes Q uit: 02/15/2023 Smokeless Tobacco: Never Alcohol Use Standard Drinks/Week Comments Yes 4 (1 standard drink = 0.6 oz pur e alcohol) Interpersonal Safety Answer Date Record ed Physical Abuse Unrecognized value 03/06/2025 Verbal Abuse Unrecognized value 03/06/2025 Sex and Gender Information Value Date Recorded Sex Assigned at Male 03/18/2025 8:53 AM EDT Legal Sex Male 10:48 PM EST Gender Identity Male 03/18/2025 8:53 AM EDT Sexual Orientation Straight 03/18/2025 8: 53 AM EDT documented as of this encounter Plan of Treatment Upcoming Encounters Date Type Department Care Team (Late Contact Info) Description 08/20/2025 2:30 PM EST Appointment [facility]oscopy [address] [place] [address] Farhad Contreras MD [address] [place] [phone] 09/15/2025 8:00 AM EST Office Visit Orthopedic Surgery - [place] [address] [facility] [address] [place] [phone] Latrell Rangel MD [address] [place] [address] 12/01/2025 8:30 AM EDT Office Visit Internal Medicine - [place] 175 [facility] [address] [place] [phone] Cinthia Garcia MD [address] [place] [phone] documented as of this encounter Goals Goal [...] discomfort NOT MET, pain average 6/10 L 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 nitrator operator at least 45% of R tetryl nitrator operator 10/07/23 INPROGRESS tetryl nitrator operator has increased from 26% to 35% of R; cont goal LTG in 12 visits General Worsening(12/2024 12:03 PM EST) No Charmaine Moyer, OT Note: Restored tolerance to BADL /IADL activity, no splint, pain no >1-2/10 10/21/24 NOT MET; pain 8/10 today L wrist strength at least 4/5 10/21/24 NOT MET 3-/5 pain-limited L tetryl nitrator operator at least 70% of R tetryl nitrator operator 10/21/24 NOT MET currently 37% 10/07/24: CONT unmet STG's and ALSO PROGRESS TO LTG's <enter goal here> General On track( 025 9:55 AM EDT) Yes Mary Lira, OT Note: OT PATIENT GOAL 03/25 REGAIN FUNCTIONAL USE LEFT UE TO WALK AND PLAY WITH PUPPY Autogenerated Goal Care Plan Autogenerated Problem No Hortensia Petersen documented as of this encounter Visit Diagnoses Not on filedocumented in this encounter Additional Health Concerns Active Problems Noted Date Diagnosed Date Autogenerated Problem 06/30/2025 Infection Onset Date Last Indicated Resolved Time MRSA 03/06/2025 03/06/2025 documented as of this encounter Care Teams Cheese Production Supervisor Relationship Specialty Start Date End Date Cinthia Garcia MD [address] [place] [phone] PCP - General Internal Medicine 08/28/16 documented as of this encounter
--- OUTSIDE RECORDS SUMMARY | 2025-07-20 10:19 | XMS_ITS | Clinical Summary ---
[facility] Organization [facility] Address [address] [place] [address] Care Team Providers Care Lap Maker Name Role Phone Cinthia Garcia MD Primary Care Provider [phone] Social History Tobacco Use Types Packs/Day Years [...] age to complete this topic Care Teams Lap Maker Relationship Specialty Start Date End Date Cinthia Garcia MD 175 [facility] [address] [place] [address] PCP - General Internal Medicine 08/28/16
--- OUTSIDE RECORDS SUMMARY | 2025-07-20 10:19 | XMS_ITS | Encounter Summary ---
Author Organization [facility] Address [address] [place] [address] Care Team Providers Care Regional Medical Director Name Role Phone Cinthia Garcia MD Primary Care Provider [phone] Encounter Details Date Type Department Care Team (Late Contact Info) Description 06/23/2025 Results Follow-Up Endocrinology - [address] [phone] Vik Humphrey MD [address] [place] [address] Social History Tobacco Use Types Packs/Day Years [...] Info) Description 08/20/2025 2:30 PM EST Appointment [facility] Endoscopy [address] [place] [address] Farhad Contreras MD [address] [place] [phone] 09/15/2025 8:00 AM EST Office Visit Orthopedic Surgery - [place] [address] 175 [facility] [address] [place] [phone] Latrell Rangel MD [address] [place] [address] 12/01/2025 8:30 AM EDT Office Visit Internal Medicine - [place] 175 [facility] [address] [place] [phone] Cinthia Garcia MD [address] [place] [phone] documented as of this encounter Goals Goal [...] over incision site w// no > than 2-310 discomfort NOT MET, pain average 6/10 L dispatcher maintenance at least 45% of R dispatcher maintenance 10/07/23 INPROGRESS dispatcher maintenance has increased from 26% to 35% of R; cont goal LTG in 12 visits General Worsening(12/2024 12:03 PM EST) No Charmaine Moyer, OT Note: Restored tolerance to BADL /IADL activity, no splint, pain no >1-2/10 10/21/24 NOT MET; pain 8/10 today L wrist strength at least 4/5 10/21/24 NOT MET 3-/5 pain-limited L dispatcher maintenance at least 70% of R dispatcher maintenance 10/21/24 NOT MET currently 37% 10/07/24: CONT unmet STG's and ALSO PROGRESS TO LTG's <enter goal here> General On track( 025 9:55 AM EDT) Yes Mary Lira, OT Note: OT PATIENT GOAL 03/25 REGAIN FUNCTIONAL USE LEFT UE TO WALK AND PLAY WITH PUPPY documented as of this encounter Visit Diagnoses Not on filedocumented in this encounter Additional Health Concerns Infection Onset Date Last Indicated Resolved Time MRSA 03/06/2025 03/06/2025 documented as of this encounter Care Teams Regional Medical Director Relationship Specialty Start Date End Date Cinthia Garcia MD [address] [place] [phone] PCP - General Internal Medicine 08/28/16 documented as of this encounter
--- OUTSIDE RECORDS SUMMARY | 2025-07-20 10:19 | XMS_ITS | Clinical Summary ---
Author Organization 175 [facility] Address [address] [place] [address] Phone Care Team Providers Care Dress Designer Name Role Phone Cinthia Garcia MD Primary Care Provider [phone] Allergies No known active allergies Medications fluticasone [...] not apply route daily. 05/08/20 24 Active levothyroxine (SYNTHROID, LEVOTHROID) 25 mcg tabletIndications: Subclinical hypothyroidism TAKE 1 TABLET BY MOUTH 1 TIME EACH DAY BEFORE BREAKFAST. 90 tablet 1 03/02/20 25 Active oxyCODONE (OXY-IR) 5 mg immediate release capsule Take 1 capsule (5 mg total) by mouth every 6 (six) hours if needed for severe pain. Max Daily Amount: 20 mg 16 capsule 03/06/20 Active Additional Information Patient not taking.Reported on 07/10/2025 Vitamin D3 50 mcg (2,000 unit) tablet Take 1 tablet (2,000 Units total) by mouth 1 (one) time each day. 90 tablet 3 06/29/20 25 Active cyanocobalamin (VITAMIN B-12) 1,000 mcg tablet Take 1 tablet (1,000 mcg total) by mouth every 3rd (third) day. 30 tablet 3 06/29/20 25 Active losartan (COZAAR) 50 mg tablet Take 1 tablet (50 mg total) by mouth 1 (one) time each day. 90 tablet 1 06/29/20 25 Active chlorthalidone (HYGROTON) 25 mg tabletIndications: Essential (primary) hypertension Take 1 tablet (25 mg total) by mouth 1 (one) time each day. 90 tablet 1 06/29/20 25 Active atorvastatin (LIPITOR) 20 mg tablet Take 1 tablet (20 mg total) by mouth 1 (one) time each day. 90 tablet 3 06/29/20 25 Active omeprazole (PriLOSEC) [address] capsule Take 1 capsule (40 mg total) by mouth 1 (one) time each day. 90 capsule 1 06/29/20 25 Active albuterol HFA (ProAir HFA) 90 mcg/actuation inhaler Inhale 2 puffs by mouth every 4 (four) hours if needed for wheezing or shortness of breath. 8.5 g 3 06/29/20 25 026 Active naproxen (NAPROSYN) 500 mg tablet Take 1 tablet (500 mg total) by mouth 2 (two) times a day. 60 each 07/14/20 25 025 Active Vitamin D3 50 mcg (2,000 unit) tablet 05/07/20 24 025 Discontin ued(Reord er) cyanocobalamin 2,000 mcg tablet Take 1 tablet (2,000 mcg total) by mouth 1 (one) time per week. 12 tablet 2 10/10/19 025 Discontin ued(Ineff ective) cyanocobalamin (VITAMIN B-12) 1,000 mcg tablet Take 1 tablet (1,000 mcg total) by mouth 2 (two) times a day. 10/10/19 025 Discontin ued(Reord er) losartan (COZAAR) 50 mg tablet Take 1 tablet (50 mg total) by mouth 1 (one) time each day. 90 tablet 1 02/27/20 25 025 Discontin ued(Reord er) atorvastatin (LIPITOR) 20 mg tablet Take 1 tablet (20 mg total) by mouth 1 (one) time each day. 90 tablet 3 02/27/20 025 Discontin ued(Reord er) omeprazole (PriLOSEC) [address] capsule TAKE 1 CAPSULE BY MOUTH EVERY DAY 90 capsule 1 03/06/20 25 025 Discontin ued(Reord er) chlorthalidone (HYGROTON) 25 mg tabletIndications: Essential (primary) hypertension TAKE 1 TABLET BY MOUTH EVERY DAY 90 tablet 1 04/08/20 025 Discontin ued(Reord er) Active Problems Problem Noted Date Diagnosed Date [...] to consider a left SI fuse. Sacroiliitis ([facility] V24) 05/04/2023 Overview (11/23/2023): Last Assessment [...] an SI joint injection. Ascending aorta dilatation ([facility] V24) 022 Overview (11/23/2023): Last Assessment [...] structural heart disease. Recommendations: 1. 30-day ambulatory site monitor (already ordered). 2. 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 [...] 03/06/2018 Type 2 diabetes mellitus without complication Overview (06/17/2025): 06/17/25 Regulatory IMO Update Asthma 10/02/2017 Insomnia 01/03/2017 GERD (gastroesophageal reflux [...] alert button. He was seen in the [facility] ED on 09/01/2022 and lumbar spine x-rays [...] I will order a lumbar spine MRI. Assessment & Plan (07/10/2025 1:38 PM EDT): Mr. Lainez was last seen in the office in February. There was an attempt to get an MRI but we could not get it because of his spinal stimulator and so a CT was obtained. He continues to complain of transverse low back pain with radiation to the left lower extremity. He is neurologically intact but had a positive left hip mechanical test.. He points to his left SI joint as the epicenter of his pain. Of note, he is status post left SI joint fusion with Dr. Andres in 2023. The CT of the lumbar spine shows that he is fused from L3-S1. There are no significant degenerative changes at L2-3 nor above. Films were reviewed with Dr. Zaidi. I explained to the patient that there was nothing surgical on his CAT scan. Given that his pain seems to be in the vicinity of the left SI joint, I encouraged him to reach out to Dr. Andres and he said he would. I am going to order x-rays of his left hip and told him I would be in touch after I had reviewed the films. He is welcome to follow-up with us in the future on an as-needed basis. Internal hemorrhoids 08/21/2013 Constipation 11/16/2011 Encounters Date Type Department Care Team Description 07/17/2025 Results Follow-Up Neurosurgery [place] [address] [place] [phone] Leia Becker PA 07/14/2025 9:15 AM EDT Office Visit Orthopedic Surgery [facility] [address] [facility] [address] [place] [phone] Latrell aRngel MD Right hand pain (Primary Dx) 07/10/2025 11:00 AM EDT Office Visit Neurosurgery [place] [facility] [address] [facility] 300 [place] [phone] Clark Pepper PA Left hip pain (Primary Dx); Chronic bilateral low back pain with left-sided sciatica 07/09/2025 7:03 AM EDT - 07/09/2025 11:59 PM EDT Hospital Encounter [facility] CT Scan [address] [place] [phone] Acute bilateral low back pain with left-sided sciatica Discharge Disposition: Home or Self Care 06/29/2025 8:30 AM EDT Office Visit Internal Medicine [facility] [address] [facility] 200 [place] [phone] Cinthia Garcia MD Essential (primary) hypertension (Primary Dx); Screening for colorectal cancer; Mild intermittent asthma without complication; Mixed hyperlipidemia; Hypothyroidism (acquired) 06/29/2025 Telephone Internal Medicine [facility] [address] [facility] [address] [place] [phone] Cinthia Garcia MD 06/23/2025 Results Follow-Up Endocrinology [address] [phone] Vik Humphrey MD 05/20/2025 9:30 AM EDT Office Visit Orthopedic Surgery [facility] [address] [facility] 140 [place] [phone] Latrell Rangel MD Extensor tenosynovitis of left wrist (Primary Dx); Postoperative state; Numbness of right hand 05/13/2025 9:00 AM EDT Treatment [facility] Occupational Therapy [address] [place] [phone] Mary Lira OT Extensor tenosynovitis of left wrist (Primary Dx) 05/06/2025 9:00 AM EDT Treatment [facility] Occupational Therapy [address] [phone] Mary Lira OT Extensor tenosynovitis of left wrist (Primary Dx) 04/28/2025 9:00 AM EDT Treatment [address] [phone] Mary Lira OT Extensor tenosynovitis of left wrist (Primary Dx) 04/23/2025 [place] [facility] [place] [facility] [address] [facility] [address] [place] [phone] [facility] [place] 04/22/2025 10:15 AM EDT Office Visit Orthopedic Surgery [address] [place] [phone] Latrell Rangel MD Numbness of right hand (Primary Dx); Postoperative state 04/20/2025 9:00 AM EDT Treatment [address] [phone] Mary Lira OT Extensor tenosynovitis of left wrist (Primary Dx) from Last 3 Months Immunizations Immunization Administration Dates Next Due Influenza trivalent, with pr eservative (Fluzone; Afluria) 6mo and older 07/19/2013 Surgical History Surgery Date Site/Laterality Comments HAND SURGERY 09/17/2000 - 09/16/2001 Left tendon repair OTHER SURGICAL HISTORY hernia repair BACK SURGERY L4-S1 anterior discectomies and fusion August 2008; L3-4 decompression, discectomy and posterior fixation with removal of hardware L4-S1 November 2016 ESOPHAGOGASTRODUODENOSCOPY PROCEDURE: IA EGD TRANSORAL BIOPSY SINGLE/MULTIPLE; COMMENT: Performed on [address] Huertas ESOPHAGOGASTRODUODENOSCOPY 02/08/2021 PROCEDURE: IA EGD TRANSORAL BIOPSY SINGLE/MULTIPLE; COMMENT: healing esophagitis and H.pylori gastritis ESOPHAGOGASTRODUODENOSCOPY PROCEDURE: IA EGD TRANSORAL BIOPSY SINGLE/MULTIPLE; COMMENT: Performed on 02/08/2021 OTHER SURGICAL HISTORY 04/2021 PROCEDURE: IA STRTCTC STIMJ SPI CORD PRQ SPX N/FLWD OTH SURG; COMMENT: stim wave stimulator placed, [facility] [place] [place] pain management, Dr. Laughlin OTHER SURGICAL HISTORY PROCEDURE: IA ARTHRD ANT INTERBODY MIN DSC CRV BELOW C2; COMMENT: C5-6 ACDF May 2015, C6-7 ACDF April 2016 with removal of C5-6 plate OTHER SURGICAL HISTORY 07/24/2022 PROCEDURE: IA MORFIN FACETECTOMY & FORAMOTOMY 1 VRT SGM [...] Sign Reading Time Taken Comments Blood Pressure 132/86 06/29/2025 8:27 AM EDT Pulse 81 06/29/2025 8:27 AM EDT Temperature 36.2 C (97.2 F) 06/29/2025 8:27 AM EDT Respiratory Rate 18 06/29/2025 8:27 AM EDT Oxygen Saturation 97% 06/29/2025 8:27 AM EDT Inhaled Oxygen Concentration - - Weight 92.1 kg (203 lb) 07/10/2025 11:02 AM EDT Height 175.3 cm (5' 9 ) 07/10/2025 11:02 AM EDT Body Mass Index 29.98 07/10/2025 11:02 AM EDT Plan of Treatment Upcoming Encounters Date Type Department Care Team (Late st Contact Info) Description 08/20/2025 2:30 PM EST Appointment [facility] Endoscopy [address] [place] [phone] Farhad Contreras MD [address] [place] [phone] 09/15/2025 8:00 AM EST Office Visit Orthopedic Surgery - [place] [address] [facility] 250 [place] [phone] Latrell Rangel MD 175 [place] [address] 12/01/2025 8:30 AM EDT Office Visit Internal Medicine - [place] [address] [facility] 200 [place] [phone] Cinthia Garcia MD [address] [place] [phone] Health Maintenance Due Date Last Done Comments Colorectal Cancer Screening: Colonoscopy 1976 Diabetes: Annual Foot Exam 1986 Diabetes: Annual Retina Eye Exam 1986 DTaP,Tdap,and Td Vaccines (1 - Tdap) 1995 Hepatitis B Vaccines (1 of 3 - 19+ 3-dose series) 1995 Pneumococcal Vaccine: Pediatrics (0 to 5 Years) and At-Risk Patients (6 to 49 Years) (1 of 2 - PCV) 1995 Medicare Annual Wellness Visit 08/20/2022 Social Influencers of Health Screening 08/20/2022 Diabetes: Annual Urine Albumin-Creatinine Ratio (uACR) 08/30/2022 Depression Screening 09/17/2024 Diabetes: Blood Sugar Contro l Test (HGBA1C) 04/08/2025 10/09/2024, 05/29/2023 COVID-19 Vaccine ( - 2023-2 5 season) 2025 Influenza Vaccine [...] discomfort NOT MET, pain average 6/10 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 at least 45% of R automotive technician instructor 10/07/23 INPROGRESS automotive technician instructor has increased from 26% to 35% of R; cont goal LTG in 12 visits General Worsening(12/2024 12:03 PM EST) No Charmaine Moyer, OT Note: Restored tolerance to BADL /IADL activity, no splint, pain no >1-2/10 10/21/24 NOT MET; pain 8/10 today L wrist strength at least 4/5 10/21/24 NOT MET 3-/5 pain-limited 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 at least 70% of R automotive technician instructor 10/21/24 NOT MET currently 37% 10/07/24: CONT unmet STG's and ALSO PROGRESS TO LTG's <enter goal here> General On track( 025 9:55 AM EDT) Yes Mary Lira, OT Note: OT PATIENT GOAL 03/25 REGAIN FUNCTIONAL USE LEFT UE TO WALK AND PLAY WITH PUPPY Autogenerated Goal Care Plan Autogenerated Problem No Hortensia Petersen Procedures Procedure Name Priority Date/Time Associated Diagnosis Comments XR HAND 3+ VIEWS RIGHT Routine 9:46 AM EDT Right hand pain CT LUMBAR SPINE WO CONTRAST Routine 07/09/2025 7:20 AM EDT Acute bilateral low back pain with left-sided sciatica HEPATITIS C ANTIBODY Routine 10/09/2024 10:29 AM EST Possible exposure to STD HIV 1, 2 ANTIBODY, P24 ANTIGEN WITH REFLEX TO DIFFERENTIATION Routine 10/09/2024 10:29 AM EST Possible exposure to STD COMPREHENSIVE METABOLIC PANEL Routine 10/09/2024 10:29 AM EST Primary hypertension Type 2 diabetes mellitus without complication, without long-term current use of insulin (CMS/HCC V24, CMS/HCC V28) Mixed hyperlipidemia Vitamin D deficiency HEMOGLOBIN A1C Routine 10/09/2024 10:29 AM EST Primary hypertension Type 2 diabetes mellitus without complication, without long-term current use of insulin ([facility] V24, [facility] V28) Mixed hyperlipidemia Vitamin D deficiency LIPID PANEL WITH REFLEX TO DIRECT LDL Routine 10/09/2024 10:29 AM EST Primary hypertension Type 2 diabetes mellitus without complication, without long-term current use of insulin (CMS/[facility] V24, [facility] V28) Mixed hyperlipidemia Vitamin D deficiency from Last 3 Months or Most Recently Relevant to Health Maintenance Results * XR Hand 3+ Views Right (07/14/2025 9:46 AM EDT) Anatomical Region Laterality Modality Upper Extremities, Hand Right Computed Radiography Narrative 07/14/2025 9:52 AM EDT Three-view x-rays of the right wrist demonstrate evidence of a previous healed fifth metacarpal shaft fracture no acute fractures. No significant degenerative changes at the hand. There is normal carpal alignment. There is 2 mm of ulnar positive variance. Soft tissue shadows appear normal. Impression: Chronic appearing deformity of the fifth metacarpal shaft consistent with a well-healed fracture Latrell Rangel MD IMG XR PROCEDURES Final Result * CT Lumbar Spine wo Contrast (07/09/2025 7:20 AM EDT) Anatomical Region Laterality Modality Spine, L-spine Computed Tomogra phy 07/15/2025 4:28 PM EDT Impressions 07/15/2025 4:49 PM EDT Mild degenerative and postsurgical changes in the lumbar spine without significant foraminal or spinal canal stenosis. No acute fracture. -------- FINAL REPORT -------- Dictated By: MOHSEN BADILLO Dictated Date: 07/15/2025 16:28 ET Assigned Physician: MOHSEN BADILLO Reviewed and Electronically Signed By: MOHSEN BADILLO Signed Date: 07/15/2025 16:49 ET Workstation ID: [id number] Transcribed By: Self Edit Transcribed Date: 07/15/2025 16:28 ET Narrative 07/15/2025 4:49 PM EDT PROCEDURE: Lumbar spine CT INDICATION: Pain, left leg pain TECHNIQUE: Noncontrast CT of the lumbar spine with multiplanar reformats. The examination was performed utilizing dose reduction techniques. [id number] COMPARISON: 03/11/2025 radiograph and MRI 10/04/2017 FINDINGS: Posterior fusion hardware at L3-4. Complete fusion across the vertebral bodies from L3 through S1. Fusion across the posterior elements from L3 through L5. Incomplete fusion across the posterior elements at L5-S1. No acute fracture. Fusion hardware seen at the left sacroiliac joint with incomplete fusion across the left sacroiliac joint. Lumbar lordosis is maintained. Mild degenerative loss of disc space height with endplate spurring at L1-2 and L2-3. Mild facet arthritis at L1-2 and L2-3. No focal disc protrusion, high-grade foraminal stenosis, or spinal canal stenosis detected in the lumbar spine. Paraspinal muscles are within normal limits. No paravertebral mass or hematoma. Old stimulator leads are seen coursing into the spinal canal at the level of T11-12. Visualized intra-abdominal and pelvic structures are normal. Procedure Note Mohsen Badillo MD - 07/15/2025 PROCEDURE: Lumbar spine CT INDICATION: Pain, left leg pain TECHNIQUE: Noncontrast CT of the lumbar spine with multiplanarreformats. The examination was performed utilizing dose reduction techniques. [facility] COMPARISON: 03/11/2025 radiograph and MRI 10/04/2017 FINDINGS: Posterior fusion hardware at L3-4. Complete fusion across the vertebralbodies from L3 through S1. Fusion across the posterior elements from B4orpruzf L5. Incomplete fusion across the posterior elements at L5-S1. No acute fracture. Fusion hardware seen at the left sacroiliac joint with incomplete fusionacross the left sacroiliac joint. Lumbar lordosis is maintained. Mild degenerative loss of disc space height with endplate spurring at L1-2and L2-3. Mild facet arthritis at L1-2 and L2-3. No focal disc protrusion, high-grade foraminal stenosis, or spinal canalstenosis detected in the lumbar spine. Paraspinal muscles are within normal limits. No paravertebral mass orhematoma. Old stimulator leads are seen coursing into the spinal canal at the levelof T11- 12. Visualized intra-abdominal and pelvic structures are normal. IMPRESSION: Mild degenerative and postsurgical changes in the lumbar spine withoutsignificant foraminal or spinal canal stenosis. No acute fracture. -------- FINAL REPORT -------- Dictated By: MOHSEN BADILLO Dictated Date: 07/15/2025 16:28 ET Assigned Physician: MOHSEN BADILLO Reviewed and Electronically Signed By: MOHSEN BADILLO Signed Date: 07/15/2025 16:49 ET Workstation ID: [id number] Transcribed By: Self Edit Transcribed Date: 07/15/2025 16:[address] HN[address] IMG CT PROCEDURES Final Re sult * Hepatitis C antibody (10/09/2024 10:29 AM EST) Hepatitis C Antibody Negative Negative LAB CHEMISTRY METHOD 10/09/2024 3:19 PM EST [facility] Blood Venous blood specimen / Unknown Venipuncture / Unknown 10/09/2024 10:29 AM EST 10/09/2024 10:29 AM EST Cinthia Garcia MD LAB BLOOD ORDERABLES Final Res ult [facility] [address] [place] [address], * HIV 1,2 antibody, p24 antigen with reflex to differentiation (10/09/2024 10:29 AM EST) HIV Combo AB/AG Negative Negative LAB CHEMISTRY METHOD 10/09/2024 3:20 PM EST [facility] Blood Venous blood specimen / Unknown Venipuncture / Unknown 10/09/2024 10:29 AM EST 10/09/2024 10:29 AM EST Narrative [facility] - 10/09/2024 3:20 PM [...] MD LAB BLOOD ORDERABLES Final Res ult [facility] [address] [place] [address], [place] [phone] * (ABNORMAL) Lipid panel with reflex to direct LDL (10/09/2024 10:29 AM EST) Cholesterol 160 0 - 200 mg/dL LAB CHEMISTRY METHOD 10/09/2024 2:58 PM EST [facility] Triglycerides 187(H) 0 - 150 mg/dL LAB CHEMISTRY METHOD 10/09/2024 2:58 PM EST [facility] HDL 45 >=40 mg/dL LAB CHEMISTRY METHOD 10/09/2024 2:58 PM EST [facility] LDL Calculated 78 0 - 100 mg/dL LAB CHEMISTRY METHOD 10/09/2024 2:58 PM EST [facility] VLDL Cholesterol Ron 37.4 mg/dL LAB CHEMISTRY METHOD 10/09/2024 2:58 PM EST [facility] Non HDL Chol. (LDL+VLDL) 115 <145 mg/dL LAB CHEMISTRY METHOD 10/09/2024 2:58 PM EST [facility] Chol/HDL Ratio 3.6 0.0 - 4.4 LAB CHEMISTRY METHOD 10/09/2024 2:58 PM EST [facility] Blood Venous blood specimen / Unknown Venipuncture / Unknown 10/09/2024 10:29 AM EST 10/09/2024 10:29 AM EST us Cinthia Garcia MD LAB BLOOD ORDERABLES Final Res ult [facility] [address] [place] [address], [place] [phone] * Hemoglobin A1c (10/09/2024 10:29 AM EST) [facility] Hemoglobin A1C 5.6 <6.5 % LAB CHEMISTRY METHOD 10/09/2024 9:06 PM [facility] Mean Bld Glu Estim. 114 mg/dL LAB CHEMISTRY METHOD 10/09/2024 9:06 PM [facility] Blood Venous blood specimen / Unknown Venipuncture / Unknown 10/09/2024 10:29 AM EST 10/09/2024 10:29 AM EST Cinthia Garcia MD LAB BLOOD ORDERABLES Final Res ult [facility] [address] [place] [address], [place] [phone] * (ABNORMAL) Comprehensive metabolic panel (10/09/2024 10:29 AM EST) [facility] Sodium 134 133 - 145 mmol/L LAB CHEMISTRY METHOD 10/09/2024 2:58 PM [facility] Potassium 3.5 3.5 - 5.5 mmol/L LAB CHEMISTRY METHOD 10/09/2024 2:58 PM [facility] Chloride 101 96 - 110 mmol/L LAB CHEMISTRY METHOD 10/09/2024 2:58 PM [facility] CO2 27 21 - 32 mmol/L LAB CHEMISTRY METHOD 10/09/2024 2:58 PM [facility] Anion Gap 6 3 - 11 LAB CHEMISTRY METHOD 10/09/2024 2:58 PM [facility] Glucose 95 70 - 100 mg/dL LAB CHEMISTRY METHOD 10/09/2024 2:58 PM [facility] BUN 18 5 - 25 mg/dL LAB CHEMISTRY METHOD 10/09/2024 2:58 PM EST [facility] Creatinine 1.10 0.70 - 1.30 mg/dL LAB CHEMISTRY METHOD 10/09/2024 2:58 PM [facility] eGFR 83 >=60 mL/min/1. 73m2 LAB CHEMISTRY METHOD 10/09/2024 2:58 PM [facility] Comment:Calculation based on the Chronic Kidney Disease Epidemiology Collaboration (CKD-EPI) equation refit without adjustment for race. BUN/Creatinine Ratio 16.4 LAB CHEMISTRY METHOD 10/09/2024 2:58 PM [facility] Calcium 10.0 8.5 - 10.5 mg/dL LAB CHEMISTRY METHOD 10/09/2024 2:58 PM [facility] AST (SGOT) 22 10 - 42 unit/L LAB CHEMISTRY METHOD 10/09/2024 2:58 PM [facility] ALT (SGPT) 35 10 - 60 unit/L LAB CHEMISTRY METHOD 10/09/2024 2:58 PM [facility] Alkaline Phosphatase 133(H) 42 - 121 unit/L LAB CHEMISTRY METHOD 10/09/2024 2:58 PM [facility] Total Protein 8.1(H) 6.0 - 8.0 g/dL LAB CHEMISTRY METHOD 10/09/2024 2:58 PM [facility] Albumin 4.4 3.2 - 5.0 g/dL LAB CHEMISTRY METHOD 10/09/2024 2:58 PM [facility] Total Bilirubin 0.5 0.0 - 1.4 mg/dL LAB CHEMISTRY METHOD 10/09/2024 2:58 PM [facility] Blood Venous blood specimen / Unknown Venipuncture / Unknown 10/09/2024 10:29 AM EST 10/09/2024 10:29 AM EST us Cinthia Garcia MD LAB BLOOD ORDERABLES Final Res ult [facility] [address] [place] [address], from Last 3 Months or Most Recently Relevant to Health Maintenance Additional Health Concerns Active Problems Noted Date Diagnosed Date Autogenerated Problem 06/30/2025 Infection Onset Date Last 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
== END 2025-07-20 09:48 | disposition home or self-care (01) ==
LOC: HO.HNS 09:16
PROVIDERS: PCP Internal Medicine; Visit Provider Physician Assistant
DX: M53.3 Sacrococcygeal disorders, not elsewhere classified (principal); G89.29 Other chronic pain
CPT/HCPCS: 99213

== ENCOUNTER → 2025-07-20 09:16 | Outpatient (BNVA) | payer OTHER, SELFPAY | PROVIDERS: PCP Internal Medicine; Visit Provider Physician Assistant | DX: Z98.1 Arthrodesis status (principal); M53.3 Sacrococcygeal disorders, not elsewhere classified; G89.29 Other chronic pain | CPT/HCPCS: 99212 ==

== ENCOUNTER 2025-09-08 09:26 | Outpatient (REF) | payer OTHER, SELFPAY ==
--- NOTE | ~2025-09-08 | CT_ITS ---
EXAMINATION: CT PELVIS WITHOUT CONTRAST CLINICAL INFORMATION: Arthrodesis status. COMPARISON: None available. TECHNIQUE: Helical scanning was performed with submillimeter collimation through the pelvis. Sagittal and coronal multiplanar 2-D reconstructions were obtained. This CT examination was performed using dose optimization techniques as appropriate, variously including the following: *Automated exposure control *Adjustment of mA and/or kV according to patient size (this includes techniques or standardized protocols for targeted exams where dose is matched to indication/reason for exam; i.e. extremities or head) *Use of iterative reconstruction technique DLP: 305 mGy. FINDINGS: PELVIS: There are surgical frankie in the left pelvis from previous intervention. The bowel gas pattern is nonspecific. No free air or free fluid. The prostate gland is normal size. The bladder is nondistended. There is postsurgical scarring and thickening along the left inguinal region from likely previous intervention. OSSEOUS STRUCTURES: There are cages at the L4-5 and L5-S1 disc level for fusion also visualizes metallic plugs of the left SI joint for arthrodesis. A bony bar is seen posterior to the metallic flecks suggestive of bony fusion. The SI joints are otherwise symmetrical and unremarkable. No aggressive lytic or sclerotic process seen involving the pelvic bones. CT/CT pelvis wo IV con IMPRESSION: Left SI joint arthrodesis with metallic plugs in place. There is bony bar suggestive of fusion posterior to the metallic plaques. Metallic cages at L4-5 and L5-S1 disc levels for disc fusion. Electronically signed by: Jitendra Orosco MD 09/08/2025 10:33 AM EST
--- OUTSIDE RECORDS SUMMARY | 2025-09-08 10:08 | XMS_ITS | Clinical Summary ---
Author Organization 175 [facility] Address [address] [place] [address] Phone Care Team Providers Care Knitter Machine Name Role Phone Cinthia Garcia MD Primary Care Provider [phone] Allergies No known active allergies Medications fluticasone propion-salmetero L (Advair HFA) 115-21 mcg/actuation inhaler Inhale 2 puffs by mouth. 023 Active OLANZapine (ZyPREXA) 5 mg tablet 022 Active mirtazapine (REMERON) 30 mg tablet [...] by mouth 3 (three) times a day. 019 Active zolpidem (AMBIEN) 10 mg tablet Take 1 tablet (10 mg total) by mouth. Active miscellaneous medical supply misc 1 Each by Does not apply route daily. Active oxyCODONE (OXY-IR) 5 mg immediate release capsule Take 1 capsule (5 mg total) by mouth every 6 (six) hours if needed for severe pain. Max Daily Amount: 20 mg 16 capsule Active Additional Information Patient not taking.Reported on 07/10/2025 Vitamin D3 50 mcg (2,000 unit) tablet Take 1 tablet (2,000 Units total) by mouth 1 (one) time each day. 90 tablet 3 Active cyanocobalamin (VITAMIN B-12) 1,000 mcg tablet Take 1 tablet (1,000 mcg total) by mouth every 3rd (third) day. 30 tablet 3 Active losartan (COZAAR) 50 mg tablet Take 1 tablet (50 mg total) by mouth 1 (one) time each day. 90 tablet 1 Active chlorthalidone (HYGROTON) 25 mg tabletIndications :Essential (primary) hypertension Take 1 tablet (25 mg total) by mouth 1 (one) time each day. 90 tablet 1 Active atorvastatin (LIPITOR) 20 mg tablet Take 1 tablet (20 mg total) by mouth 1 (one) time each day. 90 tablet 3 Active omeprazole (PriLOSEC) [address] capsule Take 1 capsule (40 mg total) by mouth 1 (one) time each day. 90 capsule 1 Active albuterol HFA (ProAir HFA) 90 mcg/actuation inhaler Inhale 2 puffs by mouth every 4 (four) hours if needed for wheezing or shortness of breath. 8.5 g 3 2025 Active polyethylene glycol (Golytely) 236-22.74-6.74 -5.86 gram solution Take 4L by mouth once for one dose. May substitue any PEG. Starting at 2PM the day before your procedure drink 1 8oz glasses at your own pace until you complete half of the gallon. Finish 2nd half of the gallon at 8PM. 4000 mL Active bisacodyL (DULCOLAX) 5 mg EC tablet Take 2 tablets by mouth right before beginning bowel prep. See instructions provided by the office 2 tablet 025 Active levothyroxine (SYNTHROID, LEVOTHROID) 25 mcg tabletIndications :Subclinical hypothyroidism TAKE 1 TABLET BY MOUTH 1 TIME EACH DAY BEFORE BREAKFAST. 90 tablet 1 025 Active levothyroxine (SYNTHROID, LEVOTHROID) 25 mcg tabletIndications :Subclinical hypothyroidism TAKE 1 TABLET BY MOUTH 1 TIME EACH DAY BEFORE BREAKFAST. 90 tablet 1 025 2024 Discontinued naproxen (NAPROSYN) 500 mg tablet Take 1 tablet (500 mg total) by mouth 2 (two) times a day. 60 each 025 2024 Active Problems Problem Noted Date [...] structural heart disease. Recommendations: 1. 30-day ambulatory color television console monitor (already ordered). 2. 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 [...] alert button. He was seen in the [facility] ED on 09/01/2022 and lumbar [...] Department Care Team Description 07/17/2025 Results Follow-Up [facility] [address] [phone] Leia Becker PA 07/14/2025 9:15 AM EDT Office Visit Orthopedic Surgery [facility] [address] [phone] Latrell Rangel MD Right hand pain (Primary Dx) 07/10/2025 11:00 AM EDT Office Visit [facility] [address] [phone] Clark Pepper PA Left hip pain (Primary Dx); Chronic bilateral low back pain with left-sided sciatica 07/09/2025 7:03 AM EDT - 07/09/2025 11:59 PM EDT Hospital Encounter [facility] CT Scan [address] [place] [phone] Acute bilateral low back pain with left-sided sciatica Discharge Disposition: Home or Self Care 06/29/2025 8:30 AM EDT Office Visit Internal Medicine [address] [place] [address] Cinthia Garcia MD Essential (primary) hypertension (Primary Dx); Screening for colorectal cancer; Mild intermittent asthma without complication; Mixed hyperlipidemia; Hypothyroidism (acquired) 06/29/2025 Telephone Internal Medicine [address] [place] [address] Cinthia Garcia MD 06/23/2025 Results Follow-Up [address] [phone] Vik Humphrey MD from Last 3 Months Immunizations Immunization Administration [...] of hardware L4-S1 November 2016 ESOPHAGOGASTRODUODENOSCOPY PROCEDURE: TN EGD TRANSORAL BIOPSY SINGLE/MULTIPLE; COMMENT: Performed on [address] Huertas ESOPHAGOGASTRODUODENOSCOPY 02/08/2021 PROCEDURE: TN EGD TRANSORAL BIOPSY SINGLE/MULTIPLE; COMMENT: healing esophagitis and H.pylori gastritis ESOPHAGOGASTRODUODENOSCOPY PROCEDURE: TN EGD TRANSORAL BIOPSY SINGLE/MULTIPLE; COMMENT: Performed on 02/08/2021 OTHER SURGICAL HISTORY 04/2021 PROCEDURE: TN STRTCTC STIMJ SPI CORD PRQ SPX N/FLWD OTH SURG; COMMENT: stim wave stimulator [place], [facility] [place] Dr. Laughlin OTHER SURGICAL HISTORY PROCEDURE: TN ARTHRD ANT INTERBODY MIN DSC CRV BELOW C2; COMMENT: C5-6 ACDF May 2015, C6-7 ACDF April 2016 with removal of C5-6 plate OTHER SURGICAL HISTORY 07/24/2022 PROCEDURE: TN MORFIN FACETECTOMY & FORAMOTOMY 1 VRT SGM [...] Years Used Date Smoking Tobacco: Former Cigarettes 0 Q uit: 02/15/2023 Smokeless Tobacco: Never Tobacco Cessation:Counseling Given: Not Answered Alcohol Use Standard Drinks/Week Comments Yes 4 (1 standard drink = 0.6 oz pur e alcohol) once every 2 weeks Interpersonal Safety Answer Date Record ed Physical Abuse Unrecognized value 03/06/2025 Verbal Abuse Unrecognized value 03/06/2025 Sex and Gender Information Value Date Recorded Sex Assigned at Male 03/18/2025 8:53 AM EDT Legal Sex Male 10:48 PM EST Gender Identity Male 03/18/2025 8:53 AM EDT Sexual Orientation Straight 03/18/2025 8: 53 AM EDT Last Filed Vital Signs Vital Sign Reading [...] Care Team (Late st Contact Info) Description 09/15/2025 8:00 AM EST Office Visit Orthopedic Surgery - [place] 250 175 [facility] [address] [place] [phone] Latrell Rangel MD [address] [place] [address] 11/11/2025 2:20 PM EST [place] [facility] [place] [address] [place] [phone] Blank Pryor MD [address] [place] [address] 12/01/2025 8:30 AM EDT Office Visit Internal Medicine - [place] 175 [facility] [address] [place] [phone] Cinthia Garcia MD 175 [facility] [address] [place] [phone] Health Maintenance Due Date Last Done Comments Colorectal Cancer Screening: Colonoscopy 1976 Drug Screen 1976 Non-Opioid Controlled Substance Agreement 1976 Diabetes: Annual Foot Exam 1986 Diabetes: [...] 04/08/2025 10/09/2024, 05/29/2023 COVID-19 Vaccine (1 - 2024-2 6 season) 2025 Influenza Vaccine (#1) 2025 07/19/2013 [...] discomfort NOT MET, pain average 6/10 L truck loader and 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 at least 45% of R truck loader and unloader 10/07/23 INPROGRESS truck loader and unloader has increased from 26% to 35% of R; cont goal LTG in 12 visits General Worsening(12/2024 12:03 PM EST) No Charmaine Moyer, OT Note: Restored tolerance to BADL /IADL activity, no splint, pain no >1-2/10 10/21/24 NOT MET; pain 8/10 today L wrist strength at least 4/5 10/21/24 NOT MET 3-/5 pain-limited L truck loader and 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 V24, [facility] V28) Mixed hyperlipidemia Vitamin D deficiency from [...] Signed Date: 07/15/2025 16:49 ET Workstation ID: [id number] Transcribed By: Self Edit Transcribed Date: 07/15/2025 16:28 ET Narrative 07/15/2025 4:49 PM EDT PROCEDURE: Lumbar spine CT INDICATION: Pain, left leg pain TECHNIQUE: Noncontrast CT of the lumbar spine with multiplanar reformats. The examination was performed utilizing dose reduction techniques. Total DLP 1388 COMPARISON: 03/11/2025 radiograph and MRI 10/04/2017 [...] and pelvic structures are normal. Procedure Note Mohesn Badillo MD - 07/15/2025 PROCEDURE: Lumbar spine CT INDICATION: Pain, left leg pain TECHNIQUE: Noncontrast CT of the lumbar spine with multiplanarreformats. The examination was performed utilizing dose reduction techniques. TotalDLP 1388 COMPARISON: 03/11/2025 radiograph and MRI 10/04/2017 FINDINGS: Posterior fusion hardware at L3-4. Complete fusion across the vertebralbodies from L3 through S1. Fusion across the posterior elements from Q3lcyvazx L5. Incomplete fusion across the posterior elements [...] Signed Date: 07/15/2025 16:49 ET Workstation ID: [id number] Transcribed By: Self Edit Transcribed Date: 07/15/2025 16:28 ET Leia HENRY IMG CT PROCEDURES Final Re sult * Hepatitis C antibody (10/09/2024 10:29 AM EST) Hepatitis C Antibody Negative Negative LAB CHEMISTRY METHOD 10/09/2024 3:19 PM EST [facility] Blood Venous blood specimen / Unknown Venipuncture / Unknown 10/09/2024 10:29 AM EST 10/09/2024 10:29 AM EST Cinthia Garcia MD LAB BLOOD ORDERABLES Final Res ult [facility] [address] [place] [address], [place] [phone] * HIV 1,2 antibody, p24 antigen with [...] ult [facility] [address] [place] [address], [place] [phone] * (ABNORMAL) Lipid panel with reflex to direct LDL (10/09/2024 10:29 AM EST) Cholesterol 160 0 - 200 mg/dL LAB CHEMISTRY METHOD 10/09/2024 2:58 PM EST [facility] Triglycerides 187(H) 0 - 150 mg/dL LAB CHEMISTRY METHOD 10/09/2024 2:58 PM EST [facility] HDL 45 >=40 mg/dL LAB CHEMISTRY METHOD 10/09/2024 2:58 PM EST [facility] LDL Calculated 78 0 - 100 mg/dL LAB CHEMISTRY METHOD 10/09/2024 2:58 PM EST [facility] VLDL Cholesterol Ron 37.4 mg/dL LAB CHEMISTRY METHOD 10/09/2024 2:58 PM EST [facility] Non HDL Chol. (LDL+VLDL) 115 <145 mg/dL LAB CHEMISTRY METHOD 10/09/2024 2:58 PM EST [facility] Chol/HDL Ratio 3.6 0.0 - 4.4 LAB CHEMISTRY METHOD 10/09/2024 2:58 PM EST [facility] Blood Venous blood specimen / Unknown Venipuncture / Unknown 10/09/2024 10:29 AM EST 10/09/2024 10:29 AM EST Cinthia Garcia MD LAB BLOOD ORDERABLES Final Res ult [facility] [address] [place] [address], [place] [phone] * Hemoglobin A1c (10/09/2024 10:29 AM EST) Hemoglobin A1C 5.6 <6.5 % LAB CHEMISTRY METHOD 10/09/2024 9:06 PM [facility] Mean Bld Glu Estim. 114 mg/dL LAB CHEMISTRY METHOD 10/09/2024 9:06 PM [facility] Blood Venous blood specimen / Unknown Venipuncture / Unknown 10/09/2024 10:29 AM EST 10/09/2024 10:29 AM EST us Cinthia Garcia MD LAB BLOOD ORDERABLES Final Res ult [facility] [address] [place] [address], [place] [phone] * (ABNORMAL) Comprehensive metabolic panel (10/09/2024 10:29 AM EST) Sodium 134 133 - 145 mmol/L LAB CHEMISTRY METHOD 10/09/2024 2:58 PM [facility] Potassium 3.5 3.5 - 5.5 mmol/L LAB CHEMISTRY METHOD 10/09/2024 2:58 PM [facility] Chloride 101 96 - 110 mmol/L LAB CHEMISTRY METHOD 10/09/2024 2:58 PM [facility] CO2 27 21 - 32 mmol/L LAB CHEMISTRY METHOD 10/09/2024 2:58 PM [facility] Anion Gap 6 3 - 11 LAB CHEMISTRY METHOD 10/09/2024 2:58 PM [facility] Glucose 95 70 - 100 mg/dL LAB CHEMISTRY METHOD 10/09/2024 2:58 PM [facility] BUN 18 5 - 25 mg/dL LAB CHEMISTRY METHOD 10/09/2024 2:58 PM [facility] Creatinine 1.10 0.70 - 1.30 mg/dL LAB CHEMISTRY METHOD 10/09/2024 2:58 PM [facility] eGFR 83 >=60 mL/min/1. 73m2 LAB CHEMISTRY METHOD 10/09/2024 2:58 PM [facility] Comment:Calculation based on the Chronic Kidney Disease Epidemiology Collaboration (CKD-EPI) equation refit without adjustment for race. BUN/Creatinine Ratio 16.4 LAB CHEMISTRY METHOD 10/09/2024 2:58 PM [facility] Calcium 10.0 8.5 - 10.5 mg/dL LAB CHEMISTRY METHOD 10/09/2024 2:58 PM [facility] AST (SGOT) 22 10 - 42 unit/L LAB CHEMISTRY METHOD 10/09/2024 2:58 PM [facility] ALT (SGPT) 35 10 - 60 unit/L LAB CHEMISTRY METHOD 10/09/2024 2:58 PM [facility] Alkaline Phosphatase 133(H) 42 - 121 unit/L LAB CHEMISTRY METHOD 10/09/2024 2:58 PM [facility] Total Protein 8.1(H) 6.0 - 8.0 g/dL LAB CHEMISTRY METHOD 10/09/2024 2:58 PM [facility] Albumin 4.4 3.2 - 5.0 g/dL LAB CHEMISTRY METHOD 10/09/2024 2:58 PM [facility] Total Bilirubin 0.5 0.0 - 1.4 mg/dL LAB CHEMISTRY METHOD 10/09/2024 2:58 PM [facility] Blood Venous blood specimen / Unknown Venipuncture / Unknown 10/09/2024 10:29 AM EST 10/09/2024 10:29 AM EST us Cinthia Garcia MD LAB BLOOD ORDERABLES Final Res ult [facility] [address] [place] [address], from Last 3 Months or Most Recently Relevant to Health Maintenance Additional Health Concerns Infection Onset Date Last Indicated 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
--- OUTSIDE RECORDS SUMMARY | 2025-09-08 10:08 | XMS_ITS | Clinical Summary ---
Author Organization [facility] Prior to 02/14/25 Address [address] [place] [address] Care Team Providers Care Barbering Teacher Name Role Phone Cinthia Garcia MD Primary Care Provider [phone] Social History Tobacco Use Types Packs/Day Years [...] age to complete this topic Care Teams Barbering Teacher Relationship Specialty Start Date End Date Cinthia Garcia MD [address] [phone] PCP - General Internal Medicine 08/28/16
== END 2025-09-08 09:27 | disposition home or self-care (01) ==
LOC: HO.CT 09:26
PROVIDERS: PCP Internal Medicine; Visit Provider Physician Assistant
DX: Z98.1 Arthrodesis status (principal)
CPT/HCPCS: 72192

== ENCOUNTER → 2025-09-08 09:28 | Outpatient (BNV) | payer OTHER, SELFPAY | PROVIDERS: PCP Internal Medicine; Visit Provider Radiology Diagnostic Radiology | DX: Z98.1 Arthrodesis status (principal) | CPT/HCPCS: 72192 ==